=== PATIENT | male | born 1940 | race Caucasian/White ===

== ENCOUNTER 2016-07-25 07:44 | Emergency (ER) | payer MEDICARE ==
[2016-07-25] MEDS ORDERED: Ondansetron INJ* 2 MG/ML VIAL IV ONE (08:22)
[2016-07-25] MEDS ORDERED: NS 0.9% 1000 ML* 1,000 ML IV ONE (08:22)
[2016-07-25 08:53] LABS: Hematocrit 42 % (42-52); Hemoglobin 14.3 g/dl (14.0-18.0); Mean Corpuscular HGB Conc 35 g/dl (31-36); Mean Corpuscular Hemoglobin 32 pg (27-31); Mean Corpuscular Volume 92 fL (80-94); Mean Platelet Volume 9 um3 (7.4-10.4); Red Blood Count 4.54 10^6/ul (4.0-5.4); Red Cell Distribution Width 14 % (10.5-15); White Blood Count 9.3 10^3/ul (3.5-10.8)
[2016-07-25 09:09] LABS: Albumin 4.1 g/dL (3.2-5.2); BUN/Creatinine Ratio 30.3 (8-20); C Reactive Protein 7.81 mg/L (< 5.00); Calcium 9.1 mg/dL (8.6-10.3); EGFR African American 74.1 (>60); EGFR Non-African American 57.6 (>60); Globulin 2.9 g/dL (2-4); Potassium 3.9 mmol/L (3.5-5.0); Total Bilirubin 0.9 mg/dL (0.2-1.0)
[2016-07-25 15:23] VITALS: BP 122/67
--- NOTE | 2016-07-25 15:30 | ED ---
Donald, DoctorSpaphire, scribed for Bong Mcfadden MD on 07/25/16 at 0830 . GI/ HPI - HPI Summary HPI Summary: 76 year old male arrived to [facility] c/o frequent N/V/D, beginning last night after eating dinner. He reports that his stool is loose and watery, and he estimates 4 episodes of diarrhea since last night. He also reports abdominal cramping beginning last night that has since resolved slightly. Additionally, the patient mentioned that has had the sensation of a "pinched vein" in his right foot beginning 1 week ago. - History of Current Complaint Chief Complaint: EDNauseaVomitDiarrh Time Seen by Provider: 07/25/16 08:06 Stated Complaint: NAUSEA/VOMTIING Hx Obtained From: Patient Onset/Duration: Started Days Ago - last night Timing: Intermittent Severity: Moderate Current Severity: Moderate Pain Intensity: 5 Pain Characteristics: Cramping - abdominal cramping Associated Signs and Symptoms: Positive: Nausea, Vomiting, Diarrhea, Abdominal Pain - cramping Alleviating Factor(s): Spontaneous Resolution - abdominal cramping spontaneously resolved since onset - Allergy/Home Medications Allergies/Adverse Reactions: Allergies Allergy/AdvReac Type Severity Reaction Status Date / Time Latex Allergy Unknown Unknown Verified 07/25/16 07:59 Reaction Details Adhesive Tape [Paper Tape] Allergy See Comment Verified 07/25/16 07:59 PMH/Surg Hx/FS Hx/Imm Hx Endocrine/Hematology History: Reports: Hx Diabetes Cardiovascular History: Reports: Hx Coronary Artery Disease, Hx Hypertension, Hx Myocardial Infarction Respiratory History: Denies: Hx Asthma, Hx Chronic Obstructive Pulmonary Disease (COPD) - Surgical History Surgery Procedure, Year, and Place: CABG Infectious Disease History: Reports: Hx of Known/Suspected MRSA - STOMACH RASH Denies: Traveled Outside the [place] in Last 30 Days - Family History Known Family History: Negative: Cardiac Disease, Diabetes - Social History Alcohol Use: None Substance Use Type: Reports: None Smoking Status (MU): Former Smoker Review of Systems Negative: Fever Positive: Abdominal Pain - abdominal cramping, Vomiting, Diarrhea, Nausea All Other Systems Reviewed And Are Negative: Yes Physical Exam Triage Information Reviewed: Yes Vital Signs On Initial Exam: Initial Vitals Temp Pulse Resp BP Pulse Ox 98.3 F 91 20 103/87 96 07/25/16 07:48 07/25/16 07:48 07/25/16 07:48 07/25/16 07:48 07/25/16 07:48 Vital Signs Reviewed: Yes Appearance: Positive: Well-Appearing, No Pain Distress Skin: Positive: Warm, Skin Color Reflects Adequate Perfusion, Dry Head/Face: Positive: Normal Head/Face Inspection Eyes: Positive: Normal ENT: Positive: Other - tongue slightly dry, dry mucous membranes Neck: Positive: Supple, Nontender Respiratory/Lung Sounds: Positive: Clear to Auscultation, Breath Sounds Present Cardiovascular: Positive: RRR Abdomen Description: Positive: Nontender, Soft Bowel Sounds: Positive: Hyperactive Musculoskeletal: Positive: Normal Neurological: Positive: Normal Diagnostics - Vital Signs Vital Signs Temp Pulse Resp BP Pulse Ox 07/25/16 07:52 91 18 103/87 96 07/25/16 07:49 91 20 97 07/25/16 07:48 98.3 F 91 20 103/87 96 - Laboratory Lab Results: Lab Results 07/25/16 07/25/16 07/25/16 Range/Units 08:42 08:42 08:42 WBC 9.3 (3.5-10.8) 10^3/ul RBC 4.54 (4.0-5.4) 10^6/ul Hgb 14.3 (14.0-18.0) g/dl Hct 42 (42-52) % MCV 92 (80-94) fL MCH 32 H (27-31) pg MCHC 35 (31-36) g/dl RDW 14 (10.5-15) % Plt Count 111 L (150-450) 10^3/ul MPV 9 (7.4-10.4) um3 Neut % (Auto) 89.1 H (38-83) % Lymph % (Auto) 2.9 L (25-47) % [place] % (Auto) 5.2 (1-9) % Eos % (Auto) 1.4 (0-6) % Baso % (Auto) 1.4 (0-2) % Absolute Neuts (auto) 8.3 H (1.5-7.7) 10^3/ul Absolute Lymphs (auto) 0.3 L (1.0-4.8) 10^3/ul Absolute Monos (auto) 0.5 (0-0.8) 10^3/ul Absolute Eos (auto) 0.1 (0-0.6) 10^3/ul Absolute Basos (auto) 0.1 (0-0.2) 10^3/ul Absolute Nucleated RBC 0 10^3/ul Nucleated RBC % 0 Sodium 132 L (133-145) mmol/L Potassium 3.9 (3.5-5.0) mmol/L Chloride 101 (101-111) mmol/L Carbon Dioxide 22 (22-32) mmol/L Anion Gap 9 (2-11) mmol/L BUN 37 H (6-24) mg/dL Creatinine 1.22 H (0.67-1.17) mg/dL Est GFR ( Amer) 74.1 (>60) Est GFR (Non-Af Amer) 57.6 (>60) BUN/Creatinine Ratio 30.3 H (8-20) Glucose 331 H (70-100) mg/dL Lactic Acid 1.1 (0.5-2.0) mmol/L Calcium 9.1 (8.6-10.3) mg/dL Total Bilirubin 0.90 (0.2-1.0) mg/dL AST 18 (13-39) U/L ALT 26 (7-52) U/L Alkaline Phosphatase 62 (34-104) U/L C-Reactive Protein 7.81 H (< 5.00) mg/L Total Protein 7.0 (6.4-8.9) g/dL Albumin 4.1 (3.2-5.2) g/dL Globulin 2.9 (2-4) g/dL Albumin/Globulin Ratio 1.4 (1-3) Lipase 26 (11.0-82.0) U/L Result Diagrams: 07/25/16 08:42 07/25/16 08:42 Lab Statement: Any lab studies that have been ordered have been reviewed, and results considered in the medical decision making process. GIGU Course/Dx - Course Course Of Treatment: Mr. Lara had quite a bit of diarrhea here in the ED and while we were rehydrating him and checking electrolytes, it gradually abated. - Diagnoses Provider Diagnoses: Gastroenteritis Discharge - Discharge Plan Condition: Stable Disposition: HOME Prescriptions: Ondansetron ODT TAB* [Zofran Odt TAB*] 4 mg PO Q6H PRN #20 tab.odt PRN Reason: Nausea/Vomiting Ondansetron ODT TAB* [Zofran Odt TAB*] 4 mg PO Q6H PRN #20 tab.odt PRN Reason: Nausea/Vomiting Patient Education Materials: Gastroenteritis (ED) Referrals: Judith Beasley MD [Primary Care Provider] - Additional Instructions: Follow up with Dr. Beasley. The documentation as recorded by the Doctor mohr Tahera accurately reflects the service I personally performed and the decisions made by , Bong Mcfadden MD.
== END 2016-07-25 15:23 | disposition home or self-care (01) ==
LOC: ED 07:44
DX: K52.9 Noninfective gastroenteritis and colitis, unspecified (principal); R11.2 Nausea with vomiting, unspecified; R19.7 Diarrhea, unspecified; Z87.891 Personal history of nicotine dependence
CPT/HCPCS: 36415; 80053; 82272; 83605; 83630; 83690; 85025; 86140; 87493; 93005; 96374; 99283; J2405

== ENCOUNTER 2017-09-04 14:47 | Observation (INO) | payer MEDICARE ==
[2017-09-04 15:43] LABS: ABS Basophils 0.1 10^3/ul (0-0.2); ABS Eosinophils 0.2 10^3/ul (0-0.6); ABS Monocytes 0.7 10^3/ul (0-0.8); ABS Neutrophils 4.4 10^3/ul (1.5-7.7); ABS Nucleated RBC 0 10^3/ul; Eosinophil % 3.2 % (0-6); Hematocrit 34 % (42-52); Lymphocyte % 15.7 % (25-47); Mean Corpuscular HGB Conc 35 g/dl (31-36); Mean Corpuscular Hemoglobin 33 pg (27-31); Mean Corpuscular Volume 93 fL (80-94); Mean Platelet Volume 9.2 um3 (7.4-10.4); Nucleated Red Blood Cells % 0; Platelet Count 130 10^3/ul (150-450); Red Blood Count 3.67 10^6/ul (4.0-5.4); Red Cell Distribution Width 14 % (10.5-15); White Blood Count 6.4 10^3/ul (3.5-10.8)
[2017-09-04 16:12] LABS: EGFR Non-African American 52.9 (>60)
[2017-09-04] MEDS ORDERED: Digoxin IV* 0.5 MG/2 ML AMP (0.25 MG/ML) IV SLOW PU ONE ×2 (16:31→22:30)
--- NOTE | 2017-09-04 17:00 | RAD ---
Indication: Hypotension, atrial fibrillation. Comparison: July 21, 2016 Technique: Upright AP 1545 hours Report: En face pleural plaques visible at the RIGHT lower lung zone corresponding with prior CT finding. Mild prominence of interstitial markings. Grossly clear pleural spaces. Negative for pneumothorax. RIGHT atrial and RIGHT ventricular level pacemaker leads. Cardiomegaly. Median sternotomy wires. Prominent mildly ill-defined central pulmonary vasculature. IMPRESSION: The constellation of findings is most consistent with pulmonary vascular congestion and interstitial edema.
[2017-09-04 17:12] LABS: Urine Appearance Clear; Urine Blood Negative (Negative); Urine Color Yellow; Urine Ketones Negative (Negative); Urine Protein Negative (Negative); Urine Specific Gravity 1.005 (1.010-1.030); Urine Urobilinogen Negative (Negative)
[2017-09-04] MEDS ORDERED: Ondansetron INJ* 2 MG/ML VIAL IV PRN (17:16)
[2017-09-04] MEDS ORDERED: Acetaminophen TAB* 325 MG PO PRN (17:16)
[2017-09-04] MEDS ORDERED: Nitroglycerin TAB 0.4 MG* 0.4 MG TAB SL PRN (17:21)
[2017-09-04] MEDS ORDERED: HYDROcodone/ACETAMIN 5-325 MG* 1 TAB PO PRN (17:21)
[2017-09-04] MEDS ORDERED: Amiodarone TAB* 200 MG PO SCH (17:25)
[2017-09-04] MEDS ORDERED: Dextrose 50% Syringe 50 ML* 25 GM/50 ML SYRINGE IV PUSH PRN (17:29)
[2017-09-04] MEDS ORDERED: Amiodarone TAB* 200 MG ONE (17:52)
[2017-09-04] MEDS ORDERED: Insulin GLARGINE(*) 1 UNITS UNIT SUBCUT SCH ×2 (18:00→20:29)
--- NOTE | 2017-09-04 18:15 | ED ---
Se Bennett Thomas, scribed for Aracely Lemus MD on 09/04/17 at 1512 . Palpitations / Dysrhythmia - HPI Summary HPI Summary: The patient is a 77 year old male with complaints of palpitations that began today. At baseline, the patient is able to walk around his house without becoming short of breath, but today he develops shortness of breath when walking around his house. He denies chest pain, chest pressure, nausea, vomiting , diaphoresis, fevers, chills, and recent cold symptoms. 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 He had pneumonia two months ago. - History of Current Complaint Chief Complaint: EDChestPainROMI Time Seen by Provider: 09/04/17 15:00 Hx Obtained From: Patient Onset/Duration: Lasting Hours, Still Present Timing: Constant Severity Initially: Moderate Aggravating: Nothing Alleviating: Nothing Associated Signs & Symptoms: Negative - CP, chest pressure, nausea, vomiting, diaphoresis, fevers, chills, cold symptoms - Allergy/Home Medications Allergies/Adverse Reactions: Allergies Allergy/AdvReac Type Severity Reaction Status Date / Time Adhesive Tape [Paper Tape] Allergy See Comment Verified 09/04/17 15:09 latex Allergy Unknown Verified 09/04/17 15:09 Reaction Details Home Medications: Home Medications Amiodarone TAB* [Cordarone TAB*] 100 mg PO DAILY 09/04/17 [History Confirmed ] Aspirin EC TAB* [Ecotrin EC Low Dose 81 MG*] 81 mg PO DAILY 09/04/17 [History Confirmed 09/04/17] Carvedilol TAB* [Coreg TAB*] 25 mg PO BID 09/04/17 [History Confirmed 09/04/17] Cyanocobalamin TAB* [Vitamin B12 TAB*] 1,000 mcg PO DAILY 09/04/17 [History Confirmed 09/04/17] Hydrochlorothiazide TAB* [Hydrodiuril TAB*] 25 mg PO DAILY 09/04/17 [History Confirmed 09/04/17] Hydrocodone/APAP 5/300 (NF) [Vicodin 5 MG/300 MG(NF)] 1 tab PO Q6H PRN 09/04/17 [History Confirmed 09/04/17] Insulin GLARGINE(*) [Lantus(*)] 35 units SUBCUT QAM 09/04/17 [History Confirmed 09/04/17] Insulin GLARGINE(*) [Lantus(*)] 80 units SUBCUT QPM 09/04/17 [History Confirmed 09/04/17] Isosorbide Mononitrate ER TAB* [Imdur ER TAB*] 60 mg PO DAILY 09/04/17 [History Confirmed 09/04/17] Multivitamins/Minerals TAB* [Theragran/minerals TAB*] 1 tab PO DAILY 09/04/17 [ History Confirmed 09/04/17] Nitroglycerin TAB 0.4 MG* 0.4 mg SL Q5M PRN 09/04/17 [History Confirmed 09/04/17 ] Pravastatin (NF) [Pravachol (NF)] 80 mg PO BEDTIME 09/04/17 [History Confirmed 09/04/17] Quinapril (NF) [Accupril (NF)] 40 mg PO DAILY 09/04/17 [History Confirmed ] Spironolactone TAB* [Aldactone TAB*] 12.5 mg PO DAILY 09/04/17 [History Confirmed 09/04/17] Tamsulosin CAP* [Flomax CAP*] 0.4 mg PO DAILY 09/04/17 [History Confirmed ] glipiZIDE TAB* [Glucotrol TAB*] 10 mg PO DAILY 09/04/17 [History Confirmed 09/04] PMH/Surg Hx/FS Hx/Imm Hx Endocrine/Hematology History: Reports: Hx Diabetes Cardiovascular History: Reports: Hx Coronary Artery Disease, Hx Hypertension, Hx Myocardial Infarction Respiratory History: Denies: Hx Asthma, Hx Chronic Obstructive Pulmonary Disease (COPD) - Surgical History Surgery Procedure, Year, and Place: CABG Infectious Disease History: No Infectious Disease History: Reports: Hx of Known/Suspected MRSA - STOMACH RASH Denies: Traveled Outside the [place] in Last 30 Days - Family History Known Family History: Negative: Cardiac Disease, Diabetes - Social History Alcohol Use: None Substance Use Type: Reports: None Smoking Status (MU): Former Smoker Review of Systems Negative: Fever, Chills, Skin Diaphoresis Positive: Palpitations. Negative: Chest Pain, Other - chest pressure Negative: Vomiting, Nausea All Other Systems Reviewed And Are Negative: Yes Physical Exam - Summary Physical Exam Summary: Appearance: Well-appearing. Skin: Warm Eyes: Normal ENT: Normal Neck: Supple, nontender Respiratory: Clear to auscultation Cardiovascular: Irregular Heart Rate. Tachy zoey 60s-100s. Abdomen: Soft, nontender Musculoskeletal: Normal, Strength/ROM Intact Neurological: Normal, A&Ox3 Psychiatric: Normal General: No acute distress Triage Information Reviewed: Yes Vital Signs On Initial Exam: Initial Vitals Temp Pulse Resp BP Pulse Ox 97.9 F 73 16 108/64 99 09/04/17 14:52 09/04/17 14:52 09/04/17 14:52 09/04/17 14:52 09/04/17 14:52 Vital Signs Reviewed: Yes Diagnostics - Vital Signs Vital Signs Temp Pulse Resp BP Pulse Ox 09/04/17 14:52 97.9 F 73 16 108/64 99 - Laboratory Lab Results: Lab Results 09/04/17 09/04/17 09/04/17 Range/Units 15:28 15:28 15:28 WBC 6.4 (3.5-10.8) 10^3/ul RBC 3.67 L (4.0-5.4) 10^6/ul Hgb 12.0 L (14.0-18.0) g/dl Hct 34 L (42-52) % MCV 93 (80-94) fL MCH 33 H (27-31) pg MCHC 35 (31-36) g/dl RDW 14 (10.5-15) % Plt Count 130 L (150-450) 10^3/ul MPV 9.2 (7.4-10.4) um3 Neut % (Auto) 69.0 (38-83) % Lymph % (Auto) 15.7 L (25-47) % [place] % (Auto) 11.0 H (0-7) % Eos % (Auto) 3.2 (0-6) % Baso % (Auto) 1.1 (0-2) % Absolute Neuts (auto) 4.4 (1.5-7.7) 10^3/ul Absolute Lymphs (auto) 1.0 (1.0-4.8) 10^3/ul Absolute Monos (auto) 0.7 (0-0.8) 10^3/ul Absolute Eos (auto) 0.2 (0-0.6) 10^3/ul Absolute Basos (auto) 0.1 (0-0.2) 10^3/ul Absolute Nucleated RBC 0 10^3/ul Nucleated RBC % 0 Sodium 137 L (139-145) mmol/L Potassium 4.0 (3.5-5.0) mmol/L Chloride 104 (101-111) mmol/L Carbon Dioxide 25 (22-32) mmol/L Anion Gap 8 (2-11) mmol/L BUN 20 (6-24) mg/dL Creatinine 1.31 H (0.67-1.17) mg/dL Est GFR ( Amer) 68.1 (>60) Est GFR (Non-Af Amer) 52.9 (>60) BUN/Creatinine Ratio 15.3 (8-20) Glucose 177 H (70-100) mg/dL Lactic Acid (0.5-2.0) mmol/L Calcium 8.8 (8.6-10.3) mg/dL Total Bilirubin 0.50 (0.2-1.0) mg/dL AST 12 L (13-39) U/L ALT 13 (7-52) U/L Alkaline Phosphatase 54 (34-104) U/L Troponin I 0.01 (<0.04) ng/mL B-Natriuretic Peptide 406 H ( - 100) pg/mL Total Protein 6.1 L (6.4-8.9) g/dL Albumin 3.7 (3.2-5.2) g/dL Globulin 2.4 (2-4) g/dL Albumin/Globulin Ratio 1.5 (1-3) TSH 0.47 (0.34-5.60) mcIU/mL Thyroxine (T4) Pending Total T3 Pending Urine Color Urine Appearance Urine pH (5-9) Ur Specific [place] (1.010-1.030) Urine Protein (Negative) Urine Ketones (Negative) Urine Blood (Negative) Urine Nitrate (Negative) Urine Bilirubin (Negative) Urine Urobilinogen (Negative) Ur Leukocyte Esterase (Negative) Urine Glucose (Negative) 09/04/17 09/04/17 Range/Units 15:28 15:51 WBC (3.5-10.8) 10^3/ul RBC (4.0-5.4) 10^6/ul Hgb (14.0-18.0) g/dl Hct (42-52) % MCV (80-94) fL MCH (27-31) pg MCHC (31-36) g/dl RDW (10.5-15) % Plt Count (150-450) 10^3/ul MPV (7.4-10.4) um3 Neut % (Auto) (38-83) % Lymph % (Auto) (25-47) % [place] % (Auto) (0-7) % Eos % (Auto) (0-6) % Baso % (Auto) (0-2) % Absolute Neuts (auto) (1.5-7.7) 10^3/ul Absolute Lymphs (auto) (1.0-4.8) 10^3/ul Absolute Monos (auto) (0-0.8) 10^3/ul Absolute Eos (auto) (0-0.6) 10^3/ul Absolute Basos (auto) (0-0.2) 10^3/ul Absolute Nucleated RBC 10^3/ul Nucleated RBC % Sodium (139-145) mmol/L Potassium (3.5-5.0) mmol/L Chloride (101-111) mmol/L Carbon Dioxide (22-32) mmol/L Anion Gap (2-11) mmol/L BUN (6-24) mg/dL Creatinine (0.67-1.17) mg/dL Est GFR ( Amer) (>60) Est GFR (Non-Af Amer) (>60) BUN/Creatinine Ratio (8-20) Glucose (70-100) mg/dL Lactic Acid 1.2 (0.5-2.0) mmol/L Calcium (8.6-10.3) mg/dL Total Bilirubin (0.2-1.0) mg/dL AST (13-39) U/L ALT (7-52) U/L Alkaline Phosphatase (34-104) U/L Troponin I (<0.04) ng/mL B-Natriuretic Peptide ( - 100) pg/mL Total Protein (6.4-8.9) g/dL Albumin (3.2-5.2) g/dL Globulin (2-4) g/dL Albumin/Globulin Ratio (1-3) TSH (0.34-5.60) mcIU/mL Thyroxine (T4) Total T3 Urine Color Yellow Urine Appearance Clear Urine pH 6.0 (5-9) Ur Specific [place] 1.005 L (1.010-1.030) Urine Protein Negative (Negative) Urine Ketones Negative (Negative) Urine Blood Negative (Negative) Urine Nitrate Negative (Negative) Urine Bilirubin Negative (Negative) Urine Urobilinogen Negative (Negative) Ur Leukocyte Esterase Negative (Negative) Urine Glucose Negative (Negative) Result Diagrams: 09/04/17 15:28 09/04/17 15:28 Lab Statement: Any lab studies that have been ordered have been reviewed, and results considered in the medical decision making process. - Radiology CXR Xray Interpretation: No Acute Changes - IMPRESSION: The constellation of findings is most consistent with pulmonary vascular congestion and interstitial edema. Dr. Lemus has reviewed this report. Radiology Interpretation Completed By: Radiologist - EKG 14:52 EKG Interpretation: Atrial dual-paced complexes at 101 BPM. Baseline RBBB due to pacing. 15:51 EKG Interpretation: Atrial dual-paced complexes at 104 BPM. Unchanged RBBB due to pacing. Course/Dx - Course Assessment/Plan: CBC and CMP are unremarkable. First troponin is negative. 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 pt is tachy zoey on tele, Loading dose of Digoxin 0.25mg administered. Discussed case with Dr Calderón who will admit pt to hospitalist service. - Diagnoses Provider Diagnoses: Afib - Physician Notifications Discussed Care Of Patient With: John Edmond Time Discussed With Above Provider: 16:30 Instructed by Provider To: Other - Dr. Edmond, cardiology, recommends admission to the hospitalists. The patient is admitted to the hospitalists. Discharge - Sign-Out/Discharge Documenting (check all that apply): Discharge - Discharge Plan Condition: Stable Disposition: ADMITTED TO [facility] Patient Education Materials: A-fib (Atrial Fibrillation) (ED) Referrals: Judith Beasley MD [Primary Care Provider] - - Billing Disposition and Condition Condition: STABLE Disposition: [facility] The documentation as recorded by the Se mohr Thomas accurately reflects the service I personally performed and the decisions made by Allan chamberlain Euni, MD.
[2017-09-04] MEDS: Amiodarone TAB* 200 MG PO SCH (20:53)
[2017-09-04] MEDS: Carvedilol TAB* 25 MG PO SCH (20:54)
[2017-09-04] MEDS: Apixaban* 5 MG TAB PO SCH (20:54)
[2017-09-04] MEDS: Atorvastatin* 20 MG TAB PO SCH (20:54)
[2017-09-04] MEDS: Insulin GLARGINE(*) 1 UNITS UNIT SUBCUT SCH (20:55)
--- NOTE | 2017-09-04 20:57 | HP ---
AMENDED REPORT NOW INCLUDES COSIGNER DESIGNATION - ESIGNED BEFORE ADJUSTMENT CC: Judith Beasley MD; John Edmond MD * HISTORY AND PHYSICAL: DATE OF ADMISSION: 09/04/17 PRIMARY CARE PROVIDER: Judith Beasley MD MY ATTENDING WHILE IN THE HOSPITAL: Ernesto Stauffer MD * (DICTATED BY KINGSLEY PRASAD) PRIMARY VETERINARY MEDICINE TEACHER: John Edmond MD CHIEF COMPLAINT: Shortness of breath, general malaise, irregular and atrial fibrillation. HISTORY OF PRESENT ILLNESS: Mr. Lara is a 77-year-old male, past medical history significant for coronary artery disease status post CABG with IA, pacer , ICD placement, hypertension, paroxysmal atrial fibrillation, diabetes mellitus type 2, hyperlipidemia, chronic kidney disease, who presents with not feeling well, shortness of breath and was found to be in atrial fibrillation at his healthcare advisory services manager's office. The patient states that this morning he woke up, felt fine, had breakfast and then started to feel poorly. His feeling poorly started around 9:30. The patient had no changes to his morning routine. The patient has no recent illnesses. The patient has no recent changes in medication, diet, or intake amount. The patient had no chest pain. The patient was short of breath and unable to exert himself to any significant degree without getting severely short of breath. Before this, the patient had been limited in his exercise tolerance, but had no dyspnea to this degree with exertion. The patient had no swelling in his legs before today, but today noticed that he had increased swelling in his legs. The patient has no history of blood clots. No pain in his calves before coming to the emergency department. The patient had pneumonia in June and was treated with azithromycin, but had a persistent cough for approximately 2 months. The patient has postnasal drip which causes a chronic dry cough. The patient does not know if he has a flu. The patient did receive his flu shot. The patient has no fevers, chills, nausea, vomiting. The patient takes laxatives chronically for chronic issues with his colon. The patient was scheduled this morning to have an echocardiogram at his healthcare advisory services manager's office. The patient was also scheduled for a stress test to evaluate his preoperative risk because he has a femoral aneurysm which needs to be repaired as well as plan for cataract surgery. The patient in the emergency department was seen to be going in and out of atrial fibrillation with a rate from 100 to 120, but often being in normal sinus rhythm with the rate around 60. The patient has a pacemaker and his faster rates are paced and had a right bundle-branch block pattern. The patient was seen in consultation by Cardiology and it was recommended that he be monitored and we were asked to consult for admission. 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 PAST MEDICAL HISTORY: Coronary artery disease status post CABG; history of IA; history of pacer/ICD implantation; hypertension; paroxysmal atrial fibrillation ; ventricular tachycardia postoperatively; congestive heart failure, ejection fraction 30% to 35%; diabetes mellitus type 2, insulin dependent; hyperlipidemia ; chronic kidney disease stage 3; chronic back pain; lung nodule; femoral aneurysm; history of small bowel obstruction with bowel resection and colostomy which was reversed; prostate cancer status post radiation treatment; multinodular goiter. PAST SURGICAL HISTORY: Bilateral knee surgery, tonsillectomy, pacemaker implantation, CABG in 2000, total left knee replacement in 2013, surgery for small bowel obstruction, colostomy reversal in 2007. HOME MEDICATIONS: At home: 1. Insulin glargine 8 units subcutaneous q.p.m. 2. Insulin glargine 35 units subcutaneous q.a.m. 3. Nitroglycerin 0.4 mg sublingual q.5 minutes as needed. 4. Vicodin 5/300, 1 tab p.o. q.6 hours as needed. 5. Multivitamin 1 tab p.o. daily. 6. Hydrochlorothiazide 25 mg p.o. daily. 7. Vitamin B12, 1000 mcg p.o. daily. 8. Amiodarone 100 mg p.o. daily. 9. Tamsulosin 0.4 mg p.o. daily. 10. Spironolactone 12.5 mg p.o. daily. 11. Glipizide 10 mg p.o. daily. 12. Pravastatin 80 mg p.o. at bedtime. 13. Imdur 60 mg p.o. daily. 14. Carvedilol 25 mg p.o. b.i.d. 15. Quinapril 40 mg p.o. daily. 16. Aspirin 81 mg p.o. daily. ALLERGIES: ADHESIVE TAPE and LATEX. FAMILY HISTORY: The patient's mother of old age. The patient's father of a GI bleed. The patient has no siblings. His children are healthy and has no other conditions that run in his family including cancers. SOCIAL HISTORY: The patient smoked for 16 years, one half to a full pack a day. The patient previously abused alcohol, but does not drink alcohol anymore. The patient denies illicit drug use. 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 The patient is currently retired. The patient is and has 3 children. The patient's health-care proxy will be his son, Ruben Lara. REVIEW OF SYSTEMS: A 14-point review of systems was reviewed and is negative except as above. PHYSICAL EXAMINATION GENERAL: The patient is a 77-year-old male who appears stated age and is sitting comfortably in bed, in no acute distress. VITAL SIGNS: Temperature 97.9, pulse rate 73, respiratory rate 16, oxygen saturation 99% on room air, blood pressure 108/64. HEENT: Head: Normocephalic, atraumatic. Sclerae anicteric. No conjunctival injection. Nasal mucosa moist. Oral mucosa moist. No pharyngeal erythema, discharge, exudate, or postnasal drip. NECK: Supple, nontender. No lymphadenopathy. No carotid bruit auscultated. No JVD. Thyroid nonpalpable. RESPIRATORY: Clear to auscultation bilaterally. No wheezes, rales, or rhonchi. Good air exchange bilaterally. CARDIAC: Regular rate and rhythm. No clicks, murmurs, gallops, or rubs. Pulses 1+ in the bilateral radial, posterior tibialis, and dorsalis pedis areas. 1+ pitting edema in the bilateral lower extremities. No calf tenderness on exam. ABDOMEN: Soft, nontender, and nondistended. Bowel sounds present and normoactive in all 4 quadrants. The patient has scars consistent with previous laparotomy and colostomy. GENITOURINARY: No suprapubic or CVA tenderness. NEUROLOGIC: Cranial nerves II through XII intact. Alert and oriented x3. No focal deficits. SKIN: Clean, dry, and intact. No rash. Scar is consistent with surgeries outlined above. PSYCHIATRIC: Pleasant and cooperative. LABORATORY DATA: White blood cell count 6.4, hemoglobin 12.0, hematocrit 34, MCV 93, MCH 33, platelet count 130,000. Sodium 137, potassium 4.0, chloride 104 , carbon dioxide 25, anion gap 8, BUN 20, creatinine 1.31, glucose 177, lactic acid 1.2, calcium 8.8. Total bilirubin 0.5, AST 12, ALT 13, alkaline phosphatase 54. Troponin I 0.01. BNP 400. Total protein 6.1. Albumin 3.7, globulin 2.4. TSH 0.47. Urine color yellow, clear, specific gravity 1.005. No other significant findings. STUDIES: Electrocardiogram shows paced rhythm, rate of 104, some right bundle- branch block pattern, left axis deviation. Repeat echocardiogram shows no significant changes. Chest x-ray, it is not an official read, shows increased pulmonary edema from previous exams with possible bilateral blunting in the costophrenic angles indicting pleural effusion. ASSESSMENT AND PLAN/IMPRESSION: 1. Mr. Lara is a 77-year-old male with past medical history significant for coronary artery disease, paroxysmal atrial fibrillation, status post pacemaker ICD implantation, hypertension, hyperlipidemia, who presents with feeling poorly, was found to be in atrial fibrillation with intermittently elevated rates with significantly increased shortness of breath, swelling in his legs, pulmonary edema. The patient has no provoking factor. We will have his amiodarone increased. The patient will be started on Eliquis, be loaded with digoxin and will be monitored. 2. Atrial fibrillation. The patient had known paroxysmal atrial fibrillation which has never been persistent before. He has refused anticoagulation to this point. He had amiodarone for rhythm control as well as for prophylaxis of ventricular tachycardia. The patient has been found to be in atrial fibrillation for a greater proportion of the time today probably accounting for his feeling poorly and apparent to the congestive heart failure exacerbation, the patient has been given 0.25 mg of digoxin. This will be repeated in 6 hours and then repeated as needed and transitioned to oral therapy. We will check a level in the morning. The patient will be monitored on telemetry. The patient will have the ICD interrogated. It has been 2 months since this has been done and it will provide information on how frequently he has been in atrial fibrillation. The patient will be anticoagulated with Eliquis for at least 1 month. There is consideration for cardioversion as he appears to be very intolerant of atrial fibrillation. This will have to be done after a period of anticoagulation. The patient appreciated Cardiology consultation. The patient's amiodarone may be dropped back to 200 mg daily when he has been fully loaded and his atrial fibrillation is under greater control. 3. Congestive heart failure, coronary artery disease, history of myocardial infarction. The patient's atrial fibrillation appears to be exacerbating his congestive heart failure. The patient's most recent ejection fraction was noted to be 30% to 35%. We will update his echocardiogram which is scheduled for outpatient today. Any way, we will give the patient IV Lasix 20 mg now and diurese more fully as needed. Consideration for the patient's relative hypotension should be taken into account when diuresing. The patient's heart failure is likely to improve as his atrial fibrillation is more fully controlled. 4. Hypertension. We will continue the patient's hydrochlorothiazide, carvedilol, amiodarone, quinapril, and spironolactone as well as Imdur at this point. These will be continued with hold parameters. The patient has been borderline hypotensive; however, this is with all his medications on board. 5. Diabetes mellitus type 2. The patient's glipizide will be held while in the hospital. The patient's home dose of long-acting insulin will be held. The patient will be on sliding scale insulin with fingersticks a.c. and h.s. We will update the hemoglobin A1c. 6. Hyperlipidemia. 7. Chronic kidney disease. The patient's kidney disease is actually improved from his baseline despite atrial fibrillation. This likely represents fluid overload which will be treated with diuresis. We will continue to monitor. 8. Multinodular goiter. Due to multinodular goiter, the patient is at risk for thyrotoxicosis from iodine loads as are found in amiodarone. The patient's TSH is 0.47. The patient appears to have been always on the borderline of hyperthyroidism due to his TSH. We will add on T3 and T4. Given the patient's ejection fraction, there is no other rate control medication that has not been shown to increase mortality; however, his thyroid function should be monitored as this could be exacerbating his atrial fibrillation. 9. FEN: The patient will have heart healthy diet without caffeine. The patient will not have fluids due to fluid overload and congestive heart failure. 10. Code status: The patient would like to be a full code. The patient's surrogate decision maker is his son, Ruben Lara. 11. DVT prophylaxis: The patient is a high risk. The patient will be put on Eliquis. 12. Disposition: The patient will be admitted to the hospital inpatient. TIME SPENT: Approximately 75 minutes was spent on this admission, 30 of which was spent [id number] with the patient obtaining history and physical and discussing the treatment plan. This plan has been discussed with my attending, Dr. Ernesto Stauffer and the patient's primary healthcare advisory services manager, Dr. John Edmond and they are in agreement. KINGSLEY PRASAD [id number]/[facility] #: [id number] RODOLFO
--- NOTE | 2017-09-04 21:38 | CONS ---
CC: Dr. Edmond; Dr. Beasley CARDIOLOGY CONSULTATION: DATE OF CONSULT: 09/04/17. HISTORY OF PRESENT ILLNESS: This is a very pleasant 77-year-old gentleman, who woke up at 4 a.m. this morning, went to the bathroom and felt short of breath, which was unusual for him. He went back to bed. Then had his breakfast and felt dizzy, lightheaded until about 9:30 am. He went to the office for previously scheduled echocardiogram appointment, there he was noted to feel poorly and had a blood pressure in the 84/48 with the heart rate of 79. He had an EKG performed, which was suggestive of tachycardia, possibly atrial sensed/ ventricular paced. He has a history of atrial arrhythmias, possibly atrial tachycardia, SVT, or atrial flutter and nonsustained VT and has been on amiodarone. His dose has been reduced in recent months to try to avoid worsening pulmonary diffusion capacity parameters. He denied any chest pain. Because of the rapid heart rate in the 120s, it was decided to transfer him to the emergency room. He was advised to have an ambulance, but declined and had his family transport him. He intermittently had atrial pacing with a right bundle-branch block and then episodes of faster wide- complex, probably atrial sensed/ventricular paced. He says he is feeling better right now. He denies any syncope. He does not lie flat due to nasal congestion. He denies any edema. No fevers, chills, or sweats. He said he has been eating more vegetables and has some loosely formed stool, but no urinary problems. He denies any dietary indiscretion. He says when he is feeling well, he can walk an eighth of a mile without stopping. His past medical history includes coronary bypass grafting back in 2000 or 2001, at that time he had 2 grafts placed at [place], [place]. PAST MEDICAL HISTORY: Includes ischemic cardiomyopathy, (ef approx 30-35% 2015), obesity, coronary artery disease with ischemic cardiomyopathy, non- sustained VT, hyperlipidemia, prostate cancer, status post RT treatment, cataracts, appendix with possible surgery, diverticular disease, small bowel obstruction in 2017, thyroid disease, multinodular goiter, chronic back pain, mild renal insufficiency, lung nodule followed since 2007 down in [place]. Pulmonary function test, mild diffusion impairment, last evaluated last year. PA in 2002, hypertension, AFib postop and VT postop in 2001. He also has a left femoral aneurysm and anticipating possible surgery. PAST SURGICAL HISTORY: Includes left hip replacement according to the patient, bilateral knee surgeries, inguinal hernia repair, tonsillectomy, adenoidectomy , ICD placement in 2006, ICD replaced in [address] [facility], diverticular surgery in April of 2007 with a diverticular perforation, diverticular surgery in January of 2008 with a colostomy revision, knee surgery, he has had a small bowel obstruction managed conservatively in 2011. MEDICATIONS: Include: 1. Aldactone 25 mg half a tablet a day. 2. Amiodarone 100 mg half a tablet by mouth. 3. Aspirin 81 mg a day. 4. Carvedilol 25 mg twice a day. 5. Glipizide ER 5 mg a day. 6. Hydrochlorothiazide 25 mg every day. 7. Isosorbide mononitrate 60 mg a day. 8. Levemir insulin 65 in the morning, 60 in the evening. 9. Metformin 500 mg 1 b.i.d. 10. Multivitamin. 11. Nitroglycerin p.r.n. 12. Pravachol 80 mg a day. 13. Quinapril 40 mg a day. 14. Tamsulosin 0.4 mg 2 a day. 15. Vitamin B12, 1500 mcg a day. 16. Vitamin D3, 1000 units a day. ALLERGIES: He has no known drug allergies. 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 He denies alcohol use. He drinks 2 to 3 cups of coffee a day. He is and lives with his . REVIEW OF SYSTEMS: Review of systems x10 was negative except as above. PHYSICAL EXAM: He is a well-developed, well-nourished, obese gentleman, in no apparent distress. Heart rate varies between 77 and 100 and is irregular. Blood pressure 108/64, O2 sat 98%, afebrile 97.9. No significant JVD. Carotids 2+. No cervical adenopathy or thyromegaly. Extraocular muscles intact. Sclerae anicteric. Cardiac Exam: S1, S2. No clicks, murmurs, gallops , or rubs. Chest was clear. Pacemaker site dry and intact. Abdomen: Obese. Bowel sounds present. Femoral pulses intact with bilateral bruits. Distal pulses present and diminished. 1+ ankle edema. Chronic venous stasis changes. Motor strength 5/5 bilaterally. Deep tendon reflexes 2/4. Alert and oriented x3. DIAGNOSTIC STUDIES/LAB DATA: Labs include mild anemia with hematocrit of 34, platelet count is low at 130. Sodium 137, potassium of 4.0, BUN of 20, creatinine of 1.31. Troponin of 0.01. BNP of 406. TSH of 0.47. EKG revealed what appeared to be wide-complex tachycardia at 104, possible atrial sensing/ventricular pacing. EKG from 09/04/17 revealed wide-complex tachycardia undetermined rhythm, fairly regular raising the possible of VT versus atrial sensed/ventricular paced arrhythmias or atrial fibrillation. Of note, his baseline EKG from 07/28/17 revealed atrial pacing with old inferior PA and right bundle-branch block. IMPRESSION: My impression is that Mr. Lara appears to have compromise possibly related to atrial or ventricular arrhythmias. He does have a longstanding history of ischemic cardiomyopathy, atrial arrhythmias and ventricular arrhythmias, but has declined anticoagulation. He also has a history of mildly decreased diffusion capacities, which is prompting us to use lowest dose possible of amiodarone. I have discussed the case with Sammy Joseph and Dr. Stauffer and the patient. For the time being, I recommend the followin. Would continue rule out for myocardial infarction as you are doing. 2. Would load with dig for a better control of his heart rate. 3. Would advance the amiodarone to 200 mg b.i.d. until we have better control of arrhythmias. 4. We will try and maintain his potassium over 4. 5. We will check his magnesium. 6. We will consider a repeat echocardiogram at some point. 7. We will consider anticoagulation in the short term, I discussed the risks and benefits with the patient, he is amenable to a short course of Eliquis anticoagulation until we can determine whether he needs cardioversion or other interventions. 8. He is to refrain from caffeine use. 9. We will try decreasing his quinapril to allow higher blood pressure and optimize his rate control medications. Medical decision making is complex. [id number]/[facility] #: [id number] addendum: 09.05.17 Echo performed 09.04 revealed ischemic cardiomyopathy ef 25-30 % similar to 7.2016. Possible laminated apical thrombus seen on current study; not seen on prior study which poorly visualized the apex JFM 4,14,18 MTDD
[2017-09-05 05:49] LABS: ABS Basophils 0.1 10^3/ul (0-0.2); ABS Eosinophils 0.3 10^3/ul (0-0.6); ABS Lymphocytes 1.1 10^3/ul (1.0-4.8); ABS Monocytes 0.6 10^3/ul (0-0.8); ABS Neutrophils 3.8 10^3/ul (1.5-7.7); ABS Nucleated RBC 0 10^3/ul; Eosinophil % 4.7 % (0-6); Hematocrit 36 % (42-52); Hemoglobin 12.6 g/dl (14.0-18.0); Lymphocyte % 19.3 % (25-47); Mean Corpuscular HGB Conc 35 g/dl (31-36); Mean Corpuscular Hemoglobin 32 pg (27-31); Mean Corpuscular Volume 93 fL (80-94); Mean Platelet Volume 8.7 um3 (7.4-10.4); Nucleated Red Blood Cells % 0; Platelet Count 132 10^3/ul (150-450); Red Blood Count 3.92 10^6/ul (4.0-5.4); Red Cell Distribution Width 14 % (10.5-15); White Blood Count 5.9 10^3/ul (3.5-10.8)
[2017-09-05 06:06] LABS: EGFR Non-African American 47.8 (>60)
--- NOTE | 2017-09-05 08:12 | RAD ---
INDICATION: Pulmonary edema COMPARISON: Most recent comparison chest x-rays dated September 04, 2017 TECHNIQUE: PA and lateral views of the chest were obtained. FINDINGS: Postsurgical changes include a left upper chest cardiac pacemaker with 2 leads overlying the heart as well as sternotomy wires. The heart and mediastinum are normal in size and contour. Similar the prior chest x-rays the stigmata of chronic obstructive pulmonary disease is seen. The lungs otherwise appear adequately aerated. There is no evidence of large pleural effusion. Visualized bones are normal for the patient's age. There is no radiographic evidence of free air beneath the diaphragm IMPRESSION: CHRONIC FINDINGS DESCRIBED ABOVE IN THIS OTHERWISE NONACUTE CHEST X-RAY.
[2017-09-05] MEDS: Isosorbide Mononitrate ER TAB* 60 MG PO SCH (08:55)
[2017-09-05] MEDS: Hydrochlorothiazide TAB* 25 MG PO SCH (08:56)
[2017-09-05] MEDS: Cyanocobalamin TAB* 500 MCG PO SCH (08:56)
[2017-09-05] MEDS: Amiodarone TAB* 200 MG PO SCH ×2 (08:56→19:34)
[2017-09-05] MEDS: Multivitamins/Minerals TAB PO SCH (08:56)
[2017-09-05] MEDS: Carvedilol TAB* 25 MG PO SCH ×2 (08:57→19:35)
[2017-09-05] MEDS: Aspirin EC TAB* 81 MG TAB.EC PO SCH (08:57)
[2017-09-05] MEDS: Apixaban* 5 MG TAB PO SCH ×2 (08:57→19:34)
[2017-09-05] MEDS: Spironolactone TAB* 25 MG PO SCH (08:58)
[2017-09-05] MEDS: Insulin LISPRO* 1 UNITS UNIT SUBCUT SCH ×3 (08:59→17:19)
[2017-09-05] MEDS: Insulin GLARGINE(*) 1 UNITS UNIT SUBCUT SCH ×2 (08:59→17:19)
[2017-09-05] MEDS ORDERED: Insulin GLARGINE(*) 1 UNITS UNIT SUBCUT SCH ×2 (09:00→21:00)
[2017-09-05] MEDS ORDERED: Lisinopril TAB* 10 MG PO SCH ×2 (09:00→09:05)
[2017-09-05] MEDS ORDERED: Magnesium Sulfate 2 GM IV* 2 GM/50 ML BAG IVPB ONE (09:32)
--- NOTE | 2017-09-05 13:52 | PN ---
Subjective Date of Service: 09/05/17 Interval History: patient reports he feels much better today. He has had some intermittent SOB. Continues to feel a little edematous in his lower extremities. No CP. Reports at home he sleeps sitting up in a recliner. Objective Active Medications: Acetaminophen (Tylenol Tab*) 650 mg PO Q6H PRN PRN Reason: FEVER/PAIN Hydrocodone Bitart/Acetaminophen ([place] 5-325 Tab*) 1 tab PO Q6H PRN PRN Reason: PAIN Amiodarone HCl (Cordarone Tab*) 200 mg PO 0900,2100 [facility] Last Admin: 09/05/17 08:56 Dose: 200 mg Apixaban (Eliquis*) 5 mg PO BID [facility] Last Admin: 09/05/17 08:57 Dose: 5 mg Aspirin (Aspirin Ec Tab*) 81 mg PO DAILY [facility] Last Admin: 09/05/17 08:57 Dose: 81 mg Atorvastatin Calcium (Lipitor*) 20 mg PO BEDTIME [facility] PRN Reason: Protocol Last Admin: 09/04/17 20:54 Dose: 20 mg Carvedilol (Coreg Tab*) 25 mg PO BID [facility] Last Admin: 09/05/17 08:57 Dose: 25 mg Cyanocobalamin (Vitamin B12 Tab*) 1,000 mcg PO DAILY [facility] Last Admin: 09/05/17 08:56 Dose: 1,000 mcg Dextrose (D50w Syringe 50 Ml*) 12.5 gm IV PUSH .FOR FS < 60 - SS PRN PRN Reason: FS < 60 Hydrochlorothiazide (Hydrodiuril Tab*) 25 mg PO DAILY [facility] Last Admin: 09/05/17 08:56 Dose: 25 mg Insulin Glargine (Lantus(*)) 50 units SUBCUT QAM [facility] Last Admin: 09/05/17 08:59 Dose: 50 units Insulin Glargine (Lantus(*)) 40 units SUBCUT 1800 [facility] Last Admin: 09/04/17 20:55 Dose: 40 units Insulin Human Lispro (Humalog*) 0 units SUBCUT AC [facility] PRN Reason: Protocol Last Admin: 09/05/17 12:21 Dose: 12 units Isosorbide Mononitrate (Imdur Er Tab*) 60 mg PO DAILY [facility] Last Admin: 09/05/17 08:55 Dose: 60 mg Lisinopril (Prinivil Tab*) 10 mg PO DAILY [facility] PRN Reason: Protocol Multivitamins/Minerals (Theragran/Minerals Tab*) 1 tab PO DAILY [facility] Last Admin: 09/05/17 08:56 Dose: 1 tab Nitroglycerin (Nitroglycerin Tab 0.4 Mg*) 0.4 mg SL Q5M PRN PRN Reason: PAIN - CHEST Ondansetron HCl (Zofran Inj*) 4 mg IV Q6H PRN PRN Reason: NAUSEA Spironolactone (Aldactone Tab*) 12.5 mg PO DAILY [facility] Last Admin: 09/05/17 08:58 Dose: 12.5 mg Vital Signs - 8 hr 09/05/17 09/05/17 09/05/17 07:27 08:40 11:51 Temperature 97.6 F Pulse Rate 91 62 Respiratory 17 16 Rate Blood Pressure 119/60 (mmHg) O2 Sat by Pulse 99 97 Oximetry 09/05/17 11:53 Temperature 97.4 F Pulse Rate 68 Respiratory 17 Rate Blood Pressure 91/61 (mmHg) O2 Sat by Pulse 98 Oximetry Oxygen Devices in Use Now: None Appearance: 77 yo male sitting up on the side of the bed in NAD A+Ox3; [facility] [place] [facility] Eyes: No Scleral Icterus, PERRLA Ears/Nose/Mouth/Throat: NL Teeth, Lips, Gums, Mucous Membranes Moist Neck: NL Appearance and Movements; NL JVP Respiratory: Symmetrical Chest Expansion and Respiratory Effort, Clear to Auscultation Cardiovascular: NL Sounds; No Murmurs; No JVD Abdominal: NL Sounds; No Tenderness; No Distention Extremities: No Clubbing, Cyanosis, - - 1+ LE edema b/l Neurological: Alert and Oriented x 3, NL Sensation, NL Gait, NL Muscle Strength and Tone Lines/Tubes/Other Access: Clean, Dry and Intact Peripheral IV Nutrition: Taking PO's Result Diagrams: 09/05/17 05:34 09/05/17 05:34 Additional Lab and Data: Lab Results 09/04/17 09/04/17 09/04/17 Range/Units 15:28 15:28 15:28 WBC 6.4 (3.5-10.8) 10^3/ul RBC 3.67 L (4.0-5.4) 10^6/ul Hgb 12.0 L (14.0-18.0) g/dl Hct 34 L (42-52) % MCV 93 (80-94) fL MCH 33 H (27-31) pg MCHC 35 (31-36) g/dl RDW 14 (10.5-15) % Plt Count 130 L (150-450) 10^3/ul MPV 9.2 (7.4-10.4) um3 Neut % (Auto) 69.0 (38-83) % Lymph % (Auto) 15.7 L (25-47) % [place] % (Auto) 11.0 H (0-7) % Eos % (Auto) 3.2 (0-6) % Baso % (Auto) 1.1 (0-2) % Absolute Neuts (auto) 4.4 (1.5-7.7) 10^3/ul Absolute Lymphs (auto) 1.0 (1.0-4.8) 10^3/ul Absolute Monos (auto) 0.7 (0-0.8) 10^3/ul Absolute Eos (auto) 0.2 (0-0.6) 10^3/ul Absolute Basos (auto) 0.1 (0-0.2) 10^3/ul Absolute Nucleated RBC 0 10^3/ul Nucleated RBC % 0 Sodium 137 L (139-145) mmol/L Potassium 4.0 (3.5-5.0) mmol/L Chloride 104 (101-111) mmol/L Carbon Dioxide 25 (22-32) mmol/L Anion Gap 8 (2-11) mmol/L BUN 20 (6-24) mg/dL Creatinine 1.31 H (0.67-1.17) mg/dL Est GFR ( Amer) 68.1 (>60) Est GFR (Non-Af Amer) 52.9 (>60) BUN/Creatinine Ratio 15.3 (8-20) Glucose 177 H (70-100) mg/dL Lactic Acid (0.5-2.0) mmol/L Calcium 8.8 (8.6-10.3) mg/dL Total Bilirubin 0.50 (0.2-1.0) mg/dL AST 12 L (13-39) U/L ALT 13 (7-52) U/L Alkaline Phosphatase 54 (34-104) U/L Troponin I 0.01 (<0.04) ng/mL B-Natriuretic Peptide 406 H ( - 100) pg/mL Total Protein 6.1 L (6.4-8.9) g/dL Albumin 3.7 (3.2-5.2) g/dL Globulin 2.4 (2-4) g/dL Albumin/Globulin Ratio 1.5 (1-3) TSH 0.47 (0.34-5.60) mcIU/mL Thyroxine (T4) Pending Total T3 Pending Urine Color Urine Appearance Urine pH (5-9) Ur Specific [place] (1.010-1.030) Urine Protein (Negative) Urine Ketones (Negative) Urine Blood (Negative) Urine Nitrate (Negative) Urine Bilirubin (Negative) Urine Urobilinogen (Negative) Ur Leukocyte Esterase (Negative) Urine Glucose (Negative) 09/04/17 09/04/17 Range/Units 15:28 15:51 WBC (3.5-10.8) 10^3/ul RBC (4.0-5.4) 10^6/ul Hgb (14.0-18.0) g/dl Hct (42-52) % MCV (80-94) fL MCH (27-31) pg MCHC (31-36) g/dl RDW (10.5-15) % Plt Count (150-450) 10^3/ul MPV (7.4-10.4) um3 Neut % (Auto) (38-83) % Lymph % (Auto) (25-47) % [place] % (Auto) (0-7) % Eos % (Auto) (0-6) % Baso % (Auto) (0-2) % Absolute Neuts (auto) (1.5-7.7) 10^3/ul Absolute Lymphs (auto) (1.0-4.8) 10^3/ul Absolute Monos (auto) (0-0.8) 10^3/ul Absolute Eos (auto) (0-0.6) 10^3/ul Absolute Basos (auto) (0-0.2) 10^3/ul Absolute Nucleated RBC 10^3/ul Nucleated RBC % Sodium (139-145) mmol/L Potassium (3.5-5.0) mmol/L Chloride (101-111) mmol/L Carbon Dioxide (22-32) mmol/L Anion Gap (2-11) mmol/L BUN (6-24) mg/dL Creatinine (0.67-1.17) mg/dL Est GFR ( Amer) (>60) Est GFR (Non-Af Amer) (>60) BUN/Creatinine Ratio (8-20) Glucose (70-100) mg/dL Lactic Acid 1.2 (0.5-2.0) mmol/L Calcium (8.6-10.3) mg/dL Total Bilirubin (0.2-1.0) mg/dL AST (13-39) U/L ALT (7-52) U/L Alkaline Phosphatase (34-104) U/L Troponin I (<0.04) ng/mL B-Natriuretic Peptide ( - 100) pg/mL Total Protein (6.4-8.9) g/dL Albumin (3.2-5.2) g/dL Globulin (2-4) g/dL Albumin/Globulin Ratio (1-3) TSH (0.34-5.60) mcIU/mL Thyroxine (T4) Total T3 Urine Color Yellow Urine Appearance Clear Urine pH 6.0 (5-9) Ur Specific [place] 1.005 L (1.010-1.030) Urine Protein Negative (Negative) Urine Ketones Negative (Negative) Urine Blood Negative (Negative) Urine Nitrate Negative (Negative) Urine Bilirubin Negative (Negative) Urine Urobilinogen Negative (Negative) Ur Leukocyte Esterase Negative (Negative) Urine Glucose Negative (Negative) Assess/Plan/Problems-Billing Assessment: Mr. Lara is a 77 yo male with a PMH of ischemic cardiomyopathy (EF 30-35%), hx of non-sustained VT, CAD hx of [place] 2002 and CABG (2000,2000), HTN , HLD, Prostate CA, lung ca (followed in [place] since 2007), thyroid disease, multinodular goiter, chronic back pain, mild renal insufficiency, obesity, hx of afib and left femoral aneurysm (anticipated upcoming surgery) who presents to the cardiology office with a report of not feeling well and was found to have low blood pressures, and EKG suggestive of tachycardia, possible atrial sensed/ventricular paced and was recommended to go to the ER due to rate in the 120's. - Patient Problems (1) Tachycardia Comment: Appreciate Cardiology consult: long hx of atrial and ventricular arrhythmias. Recently had amiodarone decreased; amiodarone now up to 200 mg BID - HR now controlled. Continue tele monitoring. Pacer/AICD interrogated showing some afib earlier in the month but no noted recent arrythmias. - optimize electrolytes Mg+ and K+, - Started on Eliquis - Negative troponins - Awaiting TTE tomorrow. (2) CHF (congestive heart failure) Comment: - mild CHF, BNP elevated. Appears mildy fluid overloaded. it is unclear if CHF caused the tachycardia vs long-standing hx of tachy arrythmias and/or ischemic cardiomyopathy or vice versa. Recieved IV lasix yesterday - held todays dose d/ t soft BPs (3) Ischemic cardiomyopathy Comment: - Last EF 30%, plan for TTE tomorrow - continue lisinopril, spironlactone, Isosorbide (4) Afib SNOMED Code(s): 54751591 Comment: Continue amiodarone, coreg, eliquis (5) Hx of coronary artery disease Comment: - 3 negative troponins, no ekg changes. (6) HTN (hypertension) Comment: controlled. Continue home meds (7) CKD (chronic kidney disease) Comment: Creatinine at baseline (8) DVT prophylaxis Comment: Eliquis (9) Full code status Status and Disposition: awaiting echo. Possible DC to home tomorrow.
[2017-09-05] MEDS ORDERED: Furosemide IV* 10 MG/ML 2 ML VIAL (20 MG) IV ONE (13:53)
[2017-09-05] MEDS ORDERED: Levalbuterol 0.63MG/3ML NEB* UNIT OF USE INH PRN (15:44)
[2017-09-05] MEDS ORDERED: Furosemide IV* 10 MG/ML VIAL (40 MG) IV SLOW PU ONE (17:16)
[2017-09-05] MEDS: Lisinopril TAB* 10 MG PO SCH (19:35)
[2017-09-05] MEDS: Atorvastatin* 20 MG TAB PO SCH (19:35)
[2017-09-06] MEDS ORDERED: Albuterol 2.5 MG/3 ML NEB.SOL* (0.083%) INH PRN (01:40)
[2017-09-06] MEDS ORDERED: Albuterol 2.5 MG/3 ML NEB.SOL* (0.083%) ONE (01:41)
[2017-09-06 06:00] LABS: ABS Basophils 0 10^3/ul (0-0.2); ABS Eosinophils 0.2 10^3/ul (0-0.6); ABS Monocytes 0.6 10^3/ul (0-0.8); ABS Neutrophils 3.4 10^3/ul (1.5-7.7); ABS Nucleated RBC 0 10^3/ul; Hematocrit 36 % (42-52); Hemoglobin 12.5 g/dl (14.0-18.0); Lymphocyte % 18.2 % (25-47); Mean Corpuscular HGB Conc 35 g/dl (31-36); Mean Corpuscular Hemoglobin 33 pg (27-31); Mean Corpuscular Volume 94 fL (80-94); Mean Platelet Volume 8.1 um3 (7.4-10.4); Nucleated Red Blood Cells % 0; Platelet Count 127 10^3/ul (150-450); Red Blood Count 3.85 10^6/ul (4.0-5.4); Red Cell Distribution Width 14 % (10.5-15); White Blood Count 5.2 10^3/ul (3.5-10.8)
[2017-09-06] MEDS: Isosorbide Mononitrate ER TAB* 60 MG PO SCH (08:26)
[2017-09-06] MEDS: Amiodarone TAB* 200 MG PO SCH (08:26)
[2017-09-06] MEDS: Hydrochlorothiazide TAB* 25 MG PO SCH (08:26)
[2017-09-06] MEDS: Apixaban* 5 MG TAB PO SCH (08:26)
[2017-09-06] MEDS: Carvedilol TAB* 25 MG PO SCH (08:26)
[2017-09-06] MEDS: Cyanocobalamin TAB* 500 MCG PO SCH (08:26)
[2017-09-06] MEDS: Multivitamins/Minerals TAB PO SCH (08:27)
[2017-09-06] MEDS: Aspirin EC TAB* 81 MG TAB.EC PO SCH (08:27)
[2017-09-06] MEDS: Spironolactone TAB* 25 MG PO SCH (08:27)
[2017-09-06] MEDS: Lisinopril TAB* 10 MG PO SCH (08:28)
[2017-09-06] MEDS: Insulin GLARGINE(*) 1 UNITS UNIT SUBCUT SCH (08:28)
[2017-09-06] MEDS: Insulin LISPRO* 1 UNITS UNIT SUBCUT SCH ×3 (08:28→17:16)
[2017-09-06 11:54] VITALS: BP 90/52
[2017-09-06] MEDS ORDERED: Saline NASAL SPRAY 0.65%* BTL BOTH NARES PRN (12:06)
--- NOTE | 2017-09-06 12:11 | ECHO ---
Patient: MASON JIMENEZ [facility] Rec#: [id number] : 1940 Date: 09/06/2017 Age: 77y Height: 170.18 cm / 67.0 in Weight: 104.78 kg / 230.9 lbs Sex: M BSA: 2.15 Room#: 4 Admit Date#: 09/04/2017 Type: Inpatient Referring: Sammy Porter Reading: Newton Ward MD Surface Plate Inspector: Janeth Sutherland,BERNARDCS,RDMS CC: John Edmond MD CC: Judith Beasley MD Transthoracic Echocardiogram Indication: CHF BP: 139/55 HR: 65 Rhythm: NSR with PVCs Findings History: CAD, CABG, CT, ICD, HTN, AFIB, VTACH, CHF, DM, HLD, CKD Technical Comments: The study quality is fair. Left Ventricle: The left ventricular chamber size is normal. Mild concentric left ventricular hypertrophy is observed. There is global hypokinesis of the left ventricle with minor regional variation. The estimated ejection fraction is 25-30%. There is abnormal ventricular septal wall motion consistent with right ventricular pacemaker. Abnormal left ventricular diastolic filling is observed, consistent with impaired relaxation. Left Atrium: The left atrium is moderately dilated. Right Ventricle: The right ventricular chamber size and systolic function are within normal limits. A pacemaker wire is visualized in the right ventricle. Right Atrium: The right atrium is mildly dilated. A pacemaker wire is visualized in the right atrium. Aortic Valve: The aortic valve leaflets are mildly thickened. There is a trace of aortic regurgitation. There is no evidence of aortic stenosis. Mitral Valve: The mitral valve leaflets appear normal. There is a trace of mitral regurgitation. There is no evidence of mitral stenosis. Tricuspid Valve: The tricuspid valve leaflets are normal. There is mild tricuspid regurgitation. No pulmonary hypertension is noted. Pulmonic Valve: The pulmonic valve structure is not well visualized. There is no evidence of pulmonic regurgitation. Pericardium: There is no significant pericardial effusion. Aorta: The ascending aorta is not well visualized. The aortic arch is not well visualized. There is moderate dilatation of the aortic root. Pulmonary Artery: The main pulmonary artery is not well visualized. Venous: The inferior vena cava appears normal in size. There is an approximate 50% respiratory change in the inferior vena cava dimension. Summary: There are no significant changes when compared to the previous study done on 07/29/11 Conclusions There is global hypokinesis of the left ventricle with minor regional variation. The estimated ejection fraction is 25-30%. There is abnormal ventricular septal wall motion consistent with right ventricular pacemaker. The right ventricular chamber size and systolic function are within normal limits. A pacemaker wire is visualized in the right ventricle. There is a trace of aortic regurgitation. There is a trace of mitral regurgitation. There is mild tricuspid regurgitation. There is no significant pericardial effusion. There are no significant changes when compared to the previous study done on 07/29/11 Measurements Name Value Normal Range RVIDd (AP) 2D 3.5 cm (0.9 - 2.6) RVDdMajor (2D) 3.6 cm (2.2 - 4.4) RAd ISD 4CH 5.2 cm (3.4 - 4.9) RA (A4C)W 4.7 cm (2.9 - 4.6) IVSd (2D) 1.3 cm (0.6 - 1) LVPWd (2D) 1.5 cm (0.6 - 1) LVIDd (2D) 4.7 cm (3.6 - 5.4) LVIDs (2D) 3.5 cm - LV FS (2D) 26 % (25 - 45) Aortic Annulus 2.2 cm (1.4 - 2.6) Ao root diameter (2D) 4.2 cm (2.1 - 3.5) LA dimension (AP) 2D 3.9 cm (2.3 - 3.8) LAd ISD 4CH 5.4 cm (2.9 - 5.3) LA ISD 4CH W 5.3 cm (2.5 - 4.5) Name Value Normal Range LA ESV SP 4CH (A/L) 105.63 ml - LA ESV SP 2CH (A/L) 100.58 ml - LA ESV BP (A/L) 103.68 ml - LA ESV BP (A/L) index 48 ml/m2 - LA ESV SP 4CH (MOD) 95.41 ml - LA ESV SP 2CH (MOD) 94.8 ml - Name Value Normal Range MV E-wave Vmax 0.7 m/sec - MV deceleration time 213 msec - MV A-wave Vmax 1 m/sec - MV E:A ratio 0.7 ratio - LV septal e' Vmax 0.03 m/sec - LV lateral e' Vmax 0.06 m/sec - LV E:e' septal ratio 23 ratio - LV E:e' lateral ratio 12 ratio - Name Value Normal Range AV Vmax 1.5 m/sec - AV VTI 31.3 cm - AV peak gradient 9 mmHg - AV mean gradient 5 mmHg - LVOT Vmax 0.9 m/sec - LVOT VTI 17.2 cm - LVOT peak gradient 3.3 mmHg - LVOT mean gradient 1.7 mmHg - Name Value Normal Range TR Vmax 2.2 m/sec - TR peak gradient 19 mmHg - RAP 3 mmHg - RVSP 22 mmHg - IVC diameter 1.8 cm - Name Value Normal Range PV Vmax 0.7 m/sec - PV peak gradient 2 mmHg -
--- NOTE | 2017-09-06 12:14 | PN ---
Subjective Date of Service: 09/06/17 Interval History: patient feels well and states he feels at his baseline and is ready to go home. He denies any SOB/CP. Denies orthopnea. Mild LE edema. We spoke about diet and he was able to identify several things he eats that may have hidden salt that he will try to avoid. Objective Active Medications: Acetaminophen (Tylenol Tab*) 650 mg PO Q6H PRN PRN Reason: FEVER/PAIN Hydrocodone Bitart/Acetaminophen ([place] 5-325 Tab*) 1 tab PO Q6H PRN PRN Reason: PAIN Albuterol (Ventolin 2.5 Mg/3 Ml Neb.[place]eta*) 2.5 mg INH Q2H PRN PRN Reason: SOB/WHEEZING Last Admin: 09/06/17 01:47 Dose: 2.5 mg Amiodarone HCl (Cordarone Tab*) 200 mg PO 0900,2100 [facility] Last Admin: 09/06/17 08:26 Dose: 200 mg Apixaban (Eliquis*) 5 mg PO BID [facility] Last Admin: 09/06/17 08:26 Dose: 5 mg Aspirin (Aspirin Ec Tab*) 81 mg PO DAILY [facility] Last Admin: 09/06/17 08:27 Dose: 81 mg Atorvastatin Calcium (Lipitor*) 20 mg PO BEDTIME [facility] PRN Reason: Protocol Last Admin: 09/05/17 19:35 Dose: 20 mg Carvedilol (Coreg Tab*) 25 mg PO BID [facility] Last Admin: 09/06/17 08:26 Dose: 25 mg Cyanocobalamin (Vitamin B12 Tab*) 1,000 mcg PO DAILY [facility] Last Admin: 09/06/17 08:26 Dose: 1,000 mcg Dextrose (D50w Syringe 50 Ml*) 12.5 gm IV PUSH .FOR FS < 60 - SS PRN PRN Reason: FS < 60 Hydrochlorothiazide (Hydrodiuril Tab*) 25 mg PO DAILY [facility] Last Admin: 09/06/17 08:26 Dose: 25 mg Insulin Glargine (Lantus(*)) 50 units SUBCUT QAM [facility] Last Admin: 09/06/17 08:28 Dose: 50 units Insulin Glargine (Lantus(*)) 40 units SUBCUT 2100 [facility] Last Admin: 09/05/17 19:09 Dose: Not Given Insulin Human Lispro (Humalog*) 0 units SUBCUT AC [facility] PRN Reason: Protocol Last Admin: 09/06/17 08:28 Dose: 3 units Isosorbide Mononitrate (Imdur Er Tab*) 60 mg PO DAILY [facility] Last Admin: 09/06/17 08:26 Dose: 60 mg Lisinopril (Prinivil Tab*) 10 mg PO DAILY [facility] PRN Reason: Protocol Last Admin: 09/06/17 08:28 Dose: 10 mg Multivitamins/Minerals (Theragran/Minerals Tab*) 1 tab PO DAILY [facility] Last Admin: 09/06/17 08:27 Dose: 1 tab Nitroglycerin (Nitroglycerin Tab 0.4 Mg*) 0.4 mg SL Q5M PRN PRN Reason: PAIN - CHEST Ondansetron HCl (Zofran Inj*) 4 mg IV Q6H PRN PRN Reason: NAUSEA Sodium Chloride (Sodium Chloride 0.65% Nasal [place]*) 1 spray BOTH NARES Q4H PRN PRN Reason: DRY SKIN Spironolactone (Aldactone Tab*) 12.5 mg PO DAILY [facility] Last Admin: 09/06/17 08:27 Dose: 12.5 mg Vital Signs - 8 hr 09/06/17 09/06/17 09/06/17 04:17 07:32 07:51 Temperature 97.5 F Pulse Rate 64 65 Respiratory 20 20 18 Rate Blood Pressure 139/55 (mmHg) O2 Sat by Pulse 98 97 Oximetry 09/06/17 09/06/17 09/06/17 08:25 11:48 11:53 Temperature 98.4 F 97.4 F Pulse Rate 60 Respiratory 16 16 Rate Blood Pressure 108/50 80/44 90/52 (mmHg) O2 Sat by Pulse 100 100 Oximetry Oxygen Devices in Use Now: None Appearance: obese male sitting up in a chair in NAD. A+Ox3 Eyes: No Scleral Icterus, PERRLA Ears/Nose/Mouth/Throat: NL Teeth, Lips, Gums, Mucous Membranes Moist Neck: NL Appearance and Movements; NL JVP Respiratory: Symmetrical Chest Expansion and Respiratory Effort, Clear to Auscultation Cardiovascular: NL Sounds; No Murmurs; No JVD, RRR, - - 1+ LE edema b/l le Abdominal: NL Sounds; No Tenderness; No Distention, - - obese Extremities: No Clubbing, Cyanosis Skin: No Rash or Ulcers, No Nodules or Sclerosis Neurological: Alert and Oriented x 3, NL Sensation, NL Gait, NL Muscle Strength and Tone Lines/Tubes/Other Access: Clean, Dry and Intact Peripheral IV Nutrition: Taking PO's Result Diagrams: 09/06/17 05:49 09/05/17 05:34 Additional Lab and Data: Lab Results 09/04/17 09/04/17 09/04/17 Range/Units 15:28 15:28 15:28 WBC 6.4 (3.5-10.8) 10^3/ul RBC 3.67 L (4.0-5.4) 10^6/ul Hgb 12.0 L (14.0-18.0) g/dl Hct 34 L (42-52) % MCV 93 (80-94) fL MCH 33 H (27-31) pg MCHC 35 (31-36) g/dl RDW 14 (10.5-15) % Plt Count 130 L (150-450) 10^3/ul MPV 9.2 (7.4-10.4) um3 Neut % (Auto) 69.0 (38-83) % Lymph % (Auto) 15.7 L (25-47) % [place] % (Auto) 11.0 H (0-7) % Eos % (Auto) 3.2 (0-6) % Baso % (Auto) 1.1 (0-2) % Absolute Neuts (auto) 4.4 (1.5-7.7) 10^3/ul Absolute Lymphs (auto) 1.0 (1.0-4.8) 10^3/ul Absolute Monos (auto) 0.7 (0-0.8) 10^3/ul Absolute Eos (auto) 0.2 (0-0.6) 10^3/ul Absolute Basos (auto) 0.1 (0-0.2) 10^3/ul Absolute Nucleated RBC 0 10^3/ul Nucleated RBC % 0 Sodium 137 L (139-145) mmol/L Potassium 4.0 (3.5-5.0) mmol/L Chloride 104 (101-111) mmol/L Carbon Dioxide 25 (22-32) mmol/L Anion Gap 8 (2-11) mmol/L BUN 20 (6-24) mg/dL Creatinine 1.31 H (0.67-1.17) mg/dL Est GFR ( Amer) 68.1 (>60) Est GFR (Non-Af Amer) 52.9 (>60) BUN/Creatinine Ratio 15.3 (8-20) Glucose 177 H (70-100) mg/dL Lactic Acid (0.5-2.0) mmol/L Calcium 8.8 (8.6-10.3) mg/dL Total Bilirubin 0.50 (0.2-1.0) mg/dL AST 12 L (13-39) U/L ALT 13 (7-52) U/L Alkaline Phosphatase 54 (34-104) U/L Troponin I 0.01 (<0.04) ng/mL B-Natriuretic Peptide 406 H ( - 100) pg/mL Total Protein 6.1 L (6.4-8.9) g/dL Albumin 3.7 (3.2-5.2) g/dL Globulin 2.4 (2-4) g/dL Albumin/Globulin Ratio 1.5 (1-3) TSH 0.47 (0.34-5.60) mcIU/mL Thyroxine (T4) Pending Total T3 Pending Urine Color Urine Appearance Urine pH (5-9) Ur Specific [employer] [place] (1.010-1.030) Urine Protein (Negative) Urine Ketones (Negative) Urine Blood (Negative) Urine Nitrate (Negative) Urine Bilirubin (Negative) Urine Urobilinogen (Negative) Ur Leukocyte Esterase (Negative) Urine Glucose (Negative) 09/04/17 09/04/17 Range/Units 15:28 15:51 WBC (3.5-10.8) 10^3/ul RBC (4.0-5.4) 10^6/ul Hgb (14.0-18.0) g/dl Hct (42-52) % MCV (80-94) fL MCH (27-31) pg MCHC (31-36) g/dl RDW (10.5-15) % Plt Count (150-450) 10^3/ul MPV (7.4-10.4) um3 Neut % (Auto) (38-83) % Lymph % (Auto) (25-47) % [place] % (Auto) (0-7) % Eos % (Auto) (0-6) % Baso % (Auto) (0-2) % Absolute Neuts (auto) (1.5-7.7) 10^3/ul Absolute Lymphs (auto) (1.0-4.8) 10^3/ul Absolute Monos (auto) (0-0.8) 10^3/ul Absolute Eos (auto) (0-0.6) 10^3/ul Absolute Basos (auto) (0-0.2) 10^3/ul Absolute Nucleated RBC 10^3/ul Nucleated RBC % Sodium (139-145) mmol/L Potassium (3.5-5.0) mmol/L Chloride (101-111) mmol/L Carbon Dioxide (22-32) mmol/L Anion Gap (2-11) mmol/L BUN (6-24) mg/dL Creatinine (0.67-1.17) mg/dL Est GFR ( Amer) (>60) Est GFR (Non-Af Amer) (>60) BUN/Creatinine Ratio (8-20) Glucose (70-100) mg/dL Lactic Acid 1.2 (0.5-2.0) mmol/L Calcium (8.6-10.3) mg/dL Total Bilirubin (0.2-1.0) mg/dL AST (13-39) U/L ALT (7-52) U/L Alkaline Phosphatase (34-104) U/L Troponin I (<0.04) ng/mL B-Natriuretic Peptide ( - 100) pg/mL Total Protein (6.4-8.9) g/dL Albumin (3.2-5.2) g/dL Globulin (2-4) g/dL Albumin/Globulin Ratio (1-3) TSH (0.34-5.60) mcIU/mL Thyroxine (T4) Total T3 Urine Color Yellow Urine Appearance Clear Urine pH 6.0 (5-9) Ur Specific [employer] [place] 1.005 L (1.010-1.030) Urine Protein Negative (Negative) Urine Ketones Negative (Negative) Urine Blood Negative (Negative) Urine Nitrate Negative (Negative) Urine Bilirubin Negative (Negative) Urine Urobilinogen Negative (Negative) Ur Leukocyte Esterase Negative (Negative) Urine Glucose Negative (Negative) Microbiology and Other Data: Microbiology 09/05/17 10:27 Aerobic Blood Culture - Preliminary Blood Venous No Growth Day 1 09/05/17 10:15 Aerobic Blood Culture - Preliminary Blood Venous No Growth Day 1 Anaerobic Blood Culture - Preliminary No Growth Day 1 Assess/Plan/Problems-Billing Assessment: Mr. Lara is a 77 yo male with a PMH of ischemic cardiomyopathy (EF 30-35%), hx of non-sustained VT, CAD hx of [place] 2002 and CABG (2000,2000), HTN , HLD, Prostate CA, lung ca (followed in [place] since 2007), thyroid disease, multinodular goiter, chronic back pain, mild renal insufficiency, obesity, hx of afib and left femoral aneurysm (anticipated upcoming surgery) who presents to the cardiology office with a report of not feeling well and was found to have low blood pressures, and EKG suggestive of tachycardia, possible atrial sensed/ventricular paced and was recommended to go to the ER due to rate in the 120's. - Patient Problems (1) Tachycardia Comment: Appreciate Cardiology consult: long hx of atrial and ventricular arrhythmias. Recently had amiodarone decreased; amiodarone now up to 200 mg BID - HR now controlled. Dr. Ward saw pt this am - plan to decrease Amiodarone to 200 mg daily, continue home meds and f/u with Dr. Edmond as an outpt. Unclear etiology if atrial arrythmia caused CHF or vice versa. Pacer/AICD interrogated showing no Vtach - there was noted afib between 08/05-08/29 with espisodes less than 5 minutes. - optimize electrolytes Mg+ and K+, - Started on Eliquis - Negative troponins - TTE per Dr. Ward has no noted changes (2) CHF (congestive heart failure) Comment: - mild CHF, BNP elevated. it is unclear if CHF caused the tachycardia vs long- standing hx of tachy arrythmias and/or ischemic cardiomyopathy or vice versa. Recieved IV lasix on admission, no further since soft BPs. Encouraged patient to wraps legs with amy bandages b/l (3) Ischemic cardiomyopathy Comment: - EF 30%, - continue lisinopril, spironlactone, Isosorbide (4) Afib SNOMED Code(s): 33471884 Comment: Continue amiodarone, coreg, eliquis (5) Hx of coronary artery disease Comment: - 3 negative troponins, no ekg changes. (6) HTN (hypertension) Comment: controlled. Continue home meds (7) CKD (chronic kidney disease) Comment: Creatinine at baseline (8) DVT prophylaxis Comment: [place] (9) Full code status Status and Disposition: Plan for DC home today. F/u with PCP and Dr. Edmond
--- NOTE | 2017-09-07 01:09 | DS ---
ADDENDUM NOW INCLUDED ON THIS REPORT CC: Dr. Judith Beasley; Dr. Edmond * DISCHARGE SUMMARY: DATE OF ADMISSION: 09/04/17 DATE OF DISCHARGE: 09/06/17 PROVIDER: Perez Hamlin NP. ATTENDING PHYSICIAN: Dr. Odell * (report dictated by Perez Hamlin NP). PRIMARY CARE PROVIDER: Dr. Judith Beasley. MOLDING MACHINE OPERATOR: Dr. Edmond. DISCHARGE DIAGNOSES: 1. Tachycardia. 2. Mild congestive heart failure. SECONDARY DIAGNOSES: 1. Coronary artery disease, status post coronary artery bypass grafting with history of myocardial infarction. 2. History of pacer ICD. 3. Hypertension. 4. Paroxysmal atrial fibrillation. 5. History of ventricular tachycardia. 6. History of congestive heart failure with ejection fraction of 30% to 35%. 7. Type 2 diabetes, insulin-dependent. 8. Hyperlipidemia. 9. Chronic kidney disease, stage 3. 10. Chronic back pain. 11. History of lung nodule. 12. History of femoral aneurysm. 13. Small bowel obstruction with bowel resection and colostomy, which was reversed. 14. History of prostate cancer, status radiation treatment. 15. Multinodular goiter. HISTORY OF PRESENT ILLNESS AND HOSPITAL COURSE: Please see history and physical by KINGSLEY Zavala for full admission details. In summary, this is a 77-year-old female with complex past medical history who presented to the emergency department on 09/04/17 with complaints of shortness of breath, general malaise, irregular heart rate, who was sent to [facility] Emergency Department by his pound attendant, Dr. Edmond, as the patient was scheduled for an outpatient echocardiogram and outpatient stress test to evaluate his preoperative risk prior to a femoral aneurysm repair surgery and when he was seen in the pound attendant's office, it was noted that his heart rate was going in and out of atrial fibrillation with rate between 100 and 120 and was noted to have soft blood pressures and he was sent to the emergency department for further evaluation. Patient was admitted to the hospitalist service, admitted to telemetry unit. He was seen by a pound attendant on-call, who was Dr. Edmond, who recommended increasing the patient's amiodarone to 200 mg p.o. b.i.d., please note his amiodarone had recently been decreased. The patient was also loaded with dig on admission. His heart rate fairly quickly gained rate control. His pacer was interrogated, which showed no ventricular arrhythmias, however, it did show some short episodes of atrial fibrillation with the last between July and August with episodes less than 5 minutes in length and not since earlier in the month, around 08/29/17. The patient was noted on admission to have a BNP of 406, which appears elevated for the patient. He is also noted to be slightly fluid overloaded with some noted crackles in his lungs and lower extremity edema, which the patient reports is abnormal for him. He was given 20 mg of IV Lasix on admission. Patient underwent an echocardiogram, which was read by Dr. Ed yang and which was reported to not have any significant changes. He was also seen in consultation by Dr. Ward today, who reports the patient is stable for discharge to home. It is unclear etiology behind the patient's CHF and atrial fibrillation as the question is did his atrial arrhythmia in which he has a longstanding history cause some congestive heart failure or did his congestive heart failure cause the tachycardia. In review of the patient's diet, he is found to have some possible hidden causes of salt such as he eats canned vegetables. This was discussed with the patient at length as well as making sure he is reading food labels. I also encouraged the [facility] to [facility] and had a consultation with a research nutritionist. The patient was started on Eliquis on admission. This will be continued at discharge. Please note he was started on Eliquis 5 mg p.o. b.i.d. and his creatinine should be monitored and rechecked in 2 to 4 weeks as he is close to the cutoff to have a decreased dose of 2.5 mg p.o. b.i.d. However, per the guidelines, he still qualifies for the 5 mg p.o. b.i.d. This should be monitored closely. The patient is stable for discharge home. He is ambulating around the unit and is at his baseline. A close followup with primary care provider as well as Dr. Edmond. Dr. Ward did not recommend continuing the digoxin as the patient was loaded on admission, then the digoxin was not continued and the decision was made to not discharge the patient home on this medication. Patient continues to have a good rate control. DISCHARGE PLAN: 1. Follow up with PCP within one week. 2. Follow up with Cardiology preferably this week. Patient was instructed to call and make a followup appointment with Dr. Edmond. 3. Follow up BUN and creatinine in two weeks with the results to PCP and Dr. Edmond. 4. Strongly encourage the patient to have a followup with [facility], which at this point, he is not interested in but states he will discuss this with pound attendant. TIME SPENT: Approximately 60 minutes was spent on this discharge. ADDENDUM: Amiodarone is to be 100 mg p.o. daily per Cardiology. PEREZ HAMLIN NP [id number]/[facility] #: [id number]/CPS #: [id number] RODOLFO
--- NOTE | 2017-09-07 02:23 | DS ---
DISCHARGE SUMMARY: ADDENDUM: Amiodarone is to be 100 mg p.o. daily per Cardiology. PEREZ HAMLIN, PROFESSOR OF COMMUNICATION [id number]/[facility] #: [id number] [facility]
== END 2017-09-06 17:15 | disposition home or self-care (01) ==
LOC: ED 14:47 → MEDTELE 17:25
PROVIDERS: ADMIT Internal Medicine; ATTEND Internal Medicine
DX: R00.0 Tachycardia, unspecified (principal); I50.9 Heart failure, unspecified; R00.2 Palpitations; Z87.891 Personal history of nicotine dependence; I25.10 Atherosclerotic heart disease of native coronary artery without angina pectoris; I25.2 Old myocardial infarction; Z95.0 Presence of cardiac pacemaker; Z95.1 Presence of aortocoronary bypass graft; I10 Essential (primary) hypertension; I48.0 Paroxysmal atrial fibrillation; E11.9 Type 2 diabetes mellitus without complications; Z79.4 Long term (current) use of insulin; E78.5 Hyperlipidemia, unspecified; N18.3 Chronic kidney disease, stage 3 (moderate); M54.9 Dorsalgia, unspecified; G89.29 Other chronic pain; Z85.118 Personal history of other malignant neoplasm of bronchus and lung; Z85.46 Personal history of malignant neoplasm of prostate; E04.2 Nontoxic multinodular goiter; Z87.19 Personal history of other diseases of the digestive system; Z79.82 Long term (current) use of aspirin
CPT/HCPCS: 36415; 71045; 71046; 80053; 80162; 81003; 83036; 83605; 83735; 83880; 84436; 84443; 84479; 84484; 85025; 87040; 93005; 93306; 94640; 96374; 99284; A9270-GY; G0378; J1160; J3475

== ENCOUNTER 2018-03-30 23:22 | Emergency (ER) | payer MEDICAID, MEDICARE ==
--- OUTSIDE RECORDS SUMMARY | 2018-03-30 23:35 | XMS REPORT ---
:1940 Author Organization [facility] Address [address] [place] [address] Care Team Providers Name Role Phone Kory Toribio Unavailable Unavailable PROBLEMS Type Condition ICD9-CM [id number] Onset Condition SNOMED Code Code Code Dates Status Problem Stage 3 chronic N18.3 Active 667572256 kidney disease Problem Low back pain M54.5 Active 431650729 Problem Age-related H25.093 Active 556573583 incipient cataract of both eyes Problem Normocytic anemia D64.9 Active 245758493 Problem Pacemaker Z95.0 Active 829590883 Problem Reduced ejection I50.21 Active 8098678070700 fraction concurrent with and due to acute heart failure Problem History of Z85.46 Active 719400476 prostate cancer Problem Body mass index Z68.42 Active 182659084 (BMI) of 45.0-49.9 in adult Problem Other chronic G89.29 Active 98857406 pain Problem joint terminal attack controller current Z79.4 Active 521848581 use of insulin Problem Morbid (severe) E66.01 Active 29389612240449 obesity due to excess calories Problem Type 2 diabetes E11.9 Active 481905917 mellitus without complications ALLERGIES No Information ENCOUNTERS Encounter Location Date Diagnosis [facility] [address] [place], [place] [address] [facility] [address] [place], [place] [address] [facility] [address] [place], [place] [address] [facility] [address] [place], Feb, [place] [address] R79.89 [facility] [address] [place], Feb, [place], [place] [address] D64.9 ; Elevated serum creatinine R79.89 and Encounter for immunization Z23 [facility] [address], [facility] [address] [place], [place] [id number] [place] [facility] [address], [facility] [address] [place], [place] [id number] [place] [facility] [address] [place], [place] [address] Feb, Type 2 diabetes mellitus [address] [place], [place] without complication, [address] unspecified whether senior living insulin use E11.9 and shelter 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 Z79.[address] Feb, [place] [address] [place] [address] [place], [place] [address] [place], [place], Type 2 [place] [address] without complications E11.9 and History of prostate cancer Z85.46 [place] [address] [place], [place] [address] [place], [place] [address] [place], Jan, Type 2 [place] [address] without complication, unspecified whether senior living insulin use E11.9 and shelter 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 Z79.[address] Jan, Type 2 diabetes mellitus [place], [place] without complication, [address] unspecified whether senior living insulin use E11.[address] [place], [place] [address] [place] [address] [place] [address] [place] [address] [place], [place] [address] [place] [address] [place], Dec, [place] [address] hyperthyroidism E05.80 [place] [address] [place], Dec, [place] 2 [place] [address] without complications E11.9 ; Morbid (severe) obesity due to excess calories E66.01 ; Body mass index (BMI) of 45.0-49.9 in adult Z68.42 and Reduced ejection fraction concurrent with and due to acute heart failure I50.[address] Dec, [place] [address] [place], Nov, Normocytic anemia D64.9 [place] [address] Hyponatremia E87.[address] [place] [address] [place], [place] [address] [place], Nov, [place] 2 [place] [address] without complications E11.9 ; joint terminal attack controller 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 Z79.4 ; Low back pain M54.5 ; Other chronic pain G89.29 ; Vision changes H53.9 ; Morbid (severe) obesity due to excess calories E66.01 and Body mass index (BMI) of 45.0-49.9 in adult Z68.[address] [place] [address] [place], [place] [address] Nov, Reduced ejection fraction [facility] [place] [address] concurrent with and due to acute heart failure I50.[address] Nov, [place] [address] [place], Nov, Norm[place] D64.9 [place] [address] [place], Nov, [place] 2 [place] [address] without complication, unspecified whether senior living insulin use E11.9 ; Normocytic anemia D64.9 and History of prostate cancer Z85.[address] [place] [address] [place], [place] [address] [place], [place] [address] Nov, [facility] [place] [address] [place] [address] [place], [place] [address] [place], [place] [address] [place], Oct, Type 2 [place] [address] without complication, unspecified whether senior living insulin use E11.9 ; Elevated serum creatinine R79.89 ; Hyperkalemia E87.5 ; Hypocalcemia E83.51 ; Screening, lipid Z13.220 ; Age-related incipient cataract of both eyes H25.093 ; Screening for colon cancer Z12.11 and Reduced ejection fraction concurrent with and due to acute heart failure I50.21 [facility] [address] [facility] [place], [place] [address] [facility] [address] [facility] [place], [place] [address] [facility] [address] [facility] [place], [place] [address] IMMUNIZATIONS No Known Immunizations SOCIAL HISTORY Never Assessed REASON FOR REFERRAL FUNCTIONAL STATUS PLAN OF CARE VITAL SIGNS MEDICATIONS Medication Instructions Dosage Frequency Start End Duration Status Date Date Spironolactone 25 Orally Once a half tablet 24h Jul, days Active MG day with food 2018 Tamsulosin HCl 0.4 Orally daily 2 capsules 24h Jul, Active MG 2019 MetFORMIN HCl ER Orally Once a 2 tablet 24h 90 days Active 500 mg day with evening meal PROCEDURES No Known procedures RESULTS No Results REASON FOR VISIT Refill Medication Insurance Providers [facility] Member Patient Patient Patient Patient Patient Subscriber Subscriber Subscriber Group Insurance Plan Plan Plan Plan ID Relationship Address Phone Name Date of ID Name Date of No Type Insurance Insurance Insurance Coverage to Subscriber Address Phone Name Dates Medicaid [address] [phone] Medicaid self Alon [id number] [facility] [address] [place] [id number] u [place]ays [phone] [place] self Alon [id number] Options [place] 13 Options [place]PAR [place] [id number] NONPAR Mcr u Adv [place] [phone] [place] self Alon [id number] Option [id number] Option [place] MCRAdv [facility] MCRAdv u AmProg Med [id number] AmProg Med Case [phone] Case self Alon [id number] Management [place] 02 Management [facility] [address] [facility] MEDICAL (GENERAL) HISTORY Type Description Date Medical History DM 2 Medical History Pacemaker Medical History Heart Attack 2001 Medical History Surgical implants Left Hip Medical History Hypocalcemia Medical History Hyperkalemia Medical History Need PRE-Med Surgical History Colectomy dont remenber Surgical History Open heart surgery 2001 Surgical History right eye catarct surgery 2018 Hospitalization History see above
--- OUTSIDE RECORDS SUMMARY | 2018-03-30 23:35 | XMS REPORT ---
:1940 Author Organization [facility] Care Team Providers Name Role Phone Brigette Porter Unavailable Unavailable PROBLEMS Type Condition ICD9-CM [id number] Onset Condition SNOMED Code Code Code Dates Status Problem Stage 3 chronic N18.3 Active 188483215 kidney disease Problem Low back pain M54.5 Active 968208377 Problem Age-related H25.093 Active 037661265 incipient cataract of both eyes Problem Normocytic anemia D64.9 Active 117190492 Problem Pacemaker Z95.0 Active 310003579 Problem Reduced ejection I50.21 Active 4217745508273 fraction concurrent with and due to acute heart failure Problem History of Z85.46 Active 115500654 prostate cancer Problem Body mass index Z68.42 Active 868713392 (BMI) of 45.0-49.9 in adult Problem Other chronic G89.29 Active 11325439 pain Problem cloth trimmer hand current Z79.4 Active 464654528 use of insulin Problem Morbid (severe) E66.01 Active 03655869035629 obesity due to excess calories Problem Type 2 diabetes E11.9 Active 801757860 mellitus without complications ALLERGIES No Known Allergies ENCOUNTERS Encounter Location Date Diagnosis [facility] [address] [place], [place] [address] [facility] [address] [place], [place] [address] [facility] [address] [place], [place] [address] [place] [id number] [place], Feb, [place], [place] [address] D64.9 ; Elevated serum creatinine R79.89 and Encounter for immunization Z23 [facility] [address] [facility] [address], [facility] [address] [place], [place] [id number] [facility] [place] [address], [facility] [address] [place], [place] [id number] [place] [facility] [address] [place] [address] [place], [place] [address] [place] [address] Feb, Type 2 diabetes mellitus [address] [place], [place] without complication, [address] unspecified whether abrasive grinder insulin use E11.9 and cloth trimmer hand 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 Z79.[address] Feb, [place] [address] [place] [address] [place], [place] [address] [place], [place], Type 2 [place] [address] without complications E11.9 and History of prostate cancer Z85.[address] [place] [address] [place], [place] [address] [place], [place] [address] [place], [place], Type 2 [place] [address] without complication, unspecified whether abrasive grinder insulin use E11.9 and intermediate 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 Z79.[address] Jan, Type 2 diabetes mellitus [place], [place] complication, [address] unspecified whether fdc insulin use E11.[address] [place], [place] [address] [place], [place] [address] [place] [address] [place], [place] [address] [place] [address] [place], [place], [place] [address] hyperthyroidism E05.[address] [place] [address] [place], [place], Type 2 [place] [address] without complications E11.9 ; Morbid (severe) obesity due to excess calories E66.01 ; Body mass index (BMI) of 45.0-49.9 in adult Z68.42 and Reduced ejection fraction concurrent with and due to acute heart failure I50.[address] Dec, [place] [address] [place] [address] [place], Nov, Normocytic anemia D64.9 [place] [address] Hyponatremia E87.[address] [place], [place] [address] [place], Nov, Type 2 [place] [address] without complications E11.9 ; cloth trimmer hand 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 Z79.4 ; Low back pain M54.5 ; Other chronic pain G89.29 ; Vision changes H53.9 ; Morbid (severe) obesity due to excess calories E66.01 and Body mass index (BMI) of 45.0-49.9 in adult Z68.[address] [place] [address] [place], [place] [address] Nov, Reduced [place] [address] concurrent with and due to acute heart failure I50.[address] Nov, [place] [address] [place], Nov, Normocytic [place] D64.9 [place] [address] [place], Nov, Type 2 [place] [address] without complication, unspecified whether fdc insulin use E11.9 ; Normocytic anemia D64.9 and History of prostate cancer Z85.[address] [place], [place] [address] [place], [place] [address] Nov, [facility] [place] [address] [place] [address] [place], [place] [address] [place], [place] [address] [place], Oct, Type 2 [place] [address] without complication, unspecified whether abrasive grinder insulin use E11.9 ; Elevated serum creatinine R79.89 ; Hyperkalemia E87.5 ; Hypocalcemia E83.51 ; Screening, lipid Z13.220 ; Age-related incipient cataract of both eyes H25.093 ; Screening for colon cancer Z12.11 and Reduced ejection fraction concurrent with and due to acute heart failure I50.21 [place] [facility] [address] [facility] [place], [place] [address] [facility] [address] [facility] [place], [place] [address] [facility] [address] [facility] [place], [place] [address] IMMUNIZATIONS No Known Immunizations SOCIAL HISTORY Never Assessed REASON FOR REFERRAL FUNCTIONAL STATUS PLAN OF CARE Activity Details Follow Up 6 Months Reason:prophy/ex6 VITAL SIGNS MEDICATIONS Medication Instructions Dosage Frequency Start End Duration Status Date Date Isosorbide Orally Once a 1 tablet 24h Active Mononitrate ER 60 MG day in the morning Pravastatin Sodium 80 Orally Once a 1 tablet 24h Active MG day Carvedilol 25 MG Orally twice a 1 tablet 12h Active day Amiodarone HCl 100 MG Orally Once a 1 tablet 24h Active day Hydrochlorothiazide Orally Every 1 tablet Active 25 MG other day in the morning Levemir Flexpen subcutaneously 40 units Active qam Spironolactone 25 MG Orally Once a half 24h Active day tablet with food Vitamin B12 1000 MCG Orally Once a 1 tablet 24h Active day Aspir-81 81 MG Orally Once a 1 tablet 24h Active day D3-1000 1000 UNIT Orally Once a 1 capsule 24h Active day Vitamin D 1000 UNIT Orally Once a 1 tablet 24h Not-Umberto day ing Tamsulosin HCl 0.4 MG 2 capsules Active Magnesium 250 MG Orally Once a 1 tablet 24h Active day with a meal Eliquis 5 MG Orally bid 12h Active Jardiance 10 mg Orally Once a 1 tablet 24h Nov, 30 day(s) Active day 2017Feb, 2018 MetFORMIN HCl ER 500 Orally Once a 2 tablet 24h Active mg day with evening meal Quinapril HCl 10 mg Orally Once a 1 tablet 24h 90 days Active day PROCEDURES Procedure Date Ordered Result Body Site PROPHYLAXIS - ADULT 13yrs and older Feb 08, 2018 RESULTS No Results REASON FOR VISIT cleaning Insurance Providers [facility] Health Member Patient Patient Patient Patient Patient Subscriber Subscriber Subscriber Group Insurance Plan Plan Plan Plan ID Relationship Address Phone Name Date of ID Name Date of No Type Insurance Insurance Insurance Coverage to Subscriber Address Phone Name Dates [place] [phone] [place] doris [place] [id number] Options [place] 13 Options [place] NONPAR Mcr [id number] NONPAR Mcr u Adv [place] Medicaid [address] [phone] Medicaid self Alon [id number] [facility] [address] [place] [id number] u Case [phone] Case self Alon [id number] Management [place] 02 Management [facility] [address] [facility] u [place]ays [phone] [place] self Alon [id number] Option [id number] Option [place] MCRAdv [facility] MCRAdv u AmProg Med [id number] AmProg Med MEDICAL (GENERAL) HISTORY Type Description Date Medical History DM 2 Medical History Pacemaker Medical History Heart Attack 2002 Medical History Surgical implants Left Hip Medical History Hypocalcemia Medical History Hyperkalemia Medical History Need PRE-Med Surgical History Colectomy [place] Surgical History Open heart surgery 2002 Surgical History right eye catarct surgery 2018 Hospitalization History see above
--- OUTSIDE RECORDS SUMMARY | 2018-03-30 23:35 | XMS REPORT ---
:1940 Author Organization [facility] Address [address] [place] [address] Care Team Providers Name Role Phone Kory Toribio Unavailable Unavailable PROBLEMS Type Condition ICD9-CM [id number] Onset Condition SNOMED Code Code Code Dates Status Problem Stage 3 chronic N18.3 Active 764253006 kidney disease Problem Low back pain M54.5 Active 185572876 Problem Age-related H25.093 Active 277414260 incipient cataract of both eyes Problem Normocytic anemia D64.9 Active 628618731 Problem Pacemaker Z95.0 Active 140334638 Problem Reduced ejection I50.21 Active 7510421786906 fraction concurrent with and due to acute heart failure Problem History of Z85.46 Active 496820788 prostate cancer Problem Body mass index Z68.42 Active 298177239 (BMI) of 45.0-49.9 in adult Problem Other chronic G89.29 Active 35961390 pain Problem 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 Active 980542470 use of insulin Problem Morbid (severe) E66.01 Active 93434950591766 obesity due to excess calories Problem Type 2 diabetes E11.9 Active 208998633 mellitus without complications ALLERGIES No Information ENCOUNTERS Encounter Location Date Diagnosis [facility] [address], [place] [address] [facility] [address] [place], [place] [address] [facility] [address] [place], [place] [address] [facility] [address] [place], Feb, [place] [address] R79.89 [facility] [address] [place], Feb, [place], [place] [address] D64.9 ; Elevated serum creatinine R79.89 and Encounter for immunization Z23 [facility] [address], [facility] [address] [place], [place] [id number] [facility] [address], [facility] [address] [place], [place] [id number] [place] [facility] [address] [place], [place] [address] Feb, Type 2 diabetes mellitus [address] [place], [place] complication, [address] unspecified whether fpc insulin use E11.9 and intermediate 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 Z79.[address] Feb, [place] [address] [place] [address] [place], [place] [address] [place], Jan, Type 2 [place] [address] without complications E11.9 and History of prostate cancer Z85.46 [place] [address] [place], [place] [address] [place], [place] [address] [place], Jan, Type 2 [place] [address] without complication, unspecified whether fpc insulin use E11.9 and intermediate 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 Z79.[address] Jan, Type 2 diabetes mellitus [place] complication, [address] unspecified whether fpc insulin use E11.[address] [place], [place] [address] [place] [address] [place], [place] [address] [place] [address] [place], [place] [address] [place] [address] [place], Dec, [place] [address] hyperthyroidism E05.80 [place] [address] [place], Dec, Type 2 [place] [address] without complications E11.9 ; Morbid (severe) obesity due to excess calories E66.01 ; Body mass index (BMI) of 45.0-49.9 in adult Z68.42 and Reduced ejection fraction concurrent with and due to acute heart failure I50.[address] Dec, [place] [address] [place], Nov, Normocytic anemia D64.9 [place] [address] Hyponatremia E87.[address] [place] [address] [place], [place] [address] [place], Nov, Type 2 [place] [address] without complications E11.9 ; major case detective 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 Z79.4 ; Low back pain M54.5 ; Other chronic pain G89.29 ; Vision changes H53.9 ; Morbid (severe) obesity due to excess calories E66.01 and Body mass index (BMI) of 45.0-49.9 in adult Z68.[address] [place] [address] [place], [place] [address] Nov, Reduced ejection fraction [facility] [address] concurrent with and due to acute heart failure I50.[address] Nov, [place] [address] [place], Nov, Normocytic [place] D64.9 [place] [address] [place], Nov, Type 2 [place] [address] without complication, unspecified whether fpc insulin use E11.9 ; Normocytic anemia D64.9 and History of prostate cancer Z85.[address] [place] [address] [place], [place] [address] [place], [place] [address] Nov, [place] [address] [place] [address] [place], [place] [address] [place], [place] [address] [place], Oct, Type 2 [place] [address] without complication, unspecified whether fpc insulin use E11.9 ; Elevated serum creatinine R79.89 ; Hyperkalemia E87.5 ; Hypocalcemia E83.51 ; Screening, lipid Z13.220 ; Age-related incipient cataract of both eyes H25.093 ; Screening for colon cancer Z12.11 and Reduced ejection fraction concurrent with and due to acute heart failure I50.21 [facility] [address] [facility] [place], [place] [address] [facility] [address] [facility] [place], [place] [address] [facility] [address] [facility] [place], [place] [address] IMMUNIZATIONS No Known Immunizations SOCIAL HISTORY Never Assessed REASON FOR REFERRAL FUNCTIONAL STATUS PLAN OF CARE VITAL SIGNS MEDICATIONS Unknown Medications PROCEDURES No Known procedures RESULTS No Results REASON FOR VISIT blood sugars Insurance Providers [facility] Member Patient Patient Patient Patient Patient Subscriber Subscriber Subscriber Group Insurance Plan Plan Plan Plan ID Relationship Address Phone Name Date of ID Name Date of No Type Insurance Insurance Insurance Coverage to Subscriber Address Phone Name Dates Case [phone] Case self Alon [id number] Management [place] 02 Management [facility] [address] [facility] u Todays [phone] Todays self Alon [id number] Option [id number] Option [place] MCRAdv [facility] MCRAdv u AmProg Med [id number] AmProg Med Medicaid [id number] [id number] Medicaid self Alon [id number] [facility] [address] [place] [address] u Todays [phone] Todays self Alon [id number] Options [place] 13 Options [place] NONPAR Mcr [id number] NONPAR Mcr u Adv [place] MEDICAL (GENERAL) HISTORY Type Description Date Medical History DM 2 Medical History Pacemaker Medical History Heart Attack 2002 Medical History Surgical implants Left Hip Medical History Hypocalcemia Medical History Hyperkalemia Medical History Need PRE-Med Surgical History Colectomy dont remenber Surgical History Open heart surgery 2001 Surgical History right eye catarct surgery 2018 Hospitalization History see above
--- OUTSIDE RECORDS SUMMARY | 2018-03-30 23:35 | XMS REPORT ---
:1939 Author Organization [facility] Address [address] [place] [address] Care Team Providers Name Role Phone Kory Toribio Unavailable Unavailable PROBLEMS Type Condition ICD9-CM [id number] Onset Condition SNOMED Code Code Code Dates Status Problem Stage 3 chronic N18.3 Active 434026472 kidney disease Problem Low back pain M54.5 Active 765230017 Problem Age-related H25.093 Active 268987989 incipient cataract of both eyes Problem Normocytic anemia D64.9 Active 558654381 Problem Pacemaker Z95.0 Active 025557827 Problem Reduced ejection I50.21 Active 8431665569681 fraction concurrent with and due to acute heart failure Problem History of Z85.46 Active 599663771 prostate cancer Problem Body mass index Z68.42 Active 942695865 (BMI) of 45.0-49.9 in adult Problem Other chronic G89.29 Active 09443173 pain Problem 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 Active 107231869 use of insulin Problem Morbid (severe) E66.01 Active 04790800566380 obesity due to excess calories Problem Type 2 diabetes E11.9 Active 462345970 mellitus without complications ALLERGIES No Information ENCOUNTERS Encounter Location Date Diagnosis [facility] [address] [place], [place] [address] [facility] [address] [place], [place] [address] [facility] [address] [place], [place] [address] [facility] [address] [place], Feb, [place] [address] R79.89 [facility] [address] [place], Feb, [place], [place] [address] D64.9 ; Elevated serum creatinine R79.89 and Encounter for immunization Z23 [facility] [address], [facility] [address] [place], [place] [id number] [facility] [address], [facility] [address] [place], [place] [id number] [place] [facility] [address] [place], [place] [address] Feb, Type 2 diabetes mellitus [address], [place], [address] unspecified whether skilled nursing insulin use E11.9 and penitentiary 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 Z79.[address] Feb, [place] [address] [place] [address] [place], [place] [address] [place], Jan, Type 2 [place] [address] without complications E11.9 and History of prostate cancer Z85.46 [place] [address] [place], [place] [address] [place], [place] [address] [place], Jan, Type 2 [place] [address] without complication, unspecified whether skilled nursing insulin use E11.9 and penitentiary 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 Z79.[address] Jan, Type 2 diabetes mellitus [place], [place] complication, [address] unspecified whether skilled nursing insulin use E11.[address] [place], [place] [address] [place] [address] [place], [place] [address] [place] [address] [place], [place] [address] [place] [address] [place], Dec, [place] [address] hyperthyroidism E05.80 [place] [address] [place], Dec, Type 2 [place] [address] without complications E11.9 ; Morbid (severe) obesity due to excess calories E66.01 ; Body mass index (BMI) of 45.0-49.9 in adult Z68.42 and Reduced ejection fraction concurrent with and due to acute heart failure I50.[address] Dec, [place] [address] [place], Nov, Normocytic anemia D64.9 [place] [address] Hyponatremia E87.[address] [place] [address] [place], [place] [address] [place], Nov, Type 2 [place] [address] without complications E11.9 ; intermediate accountant 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 Z79.4 ; Low back pain M54.5 ; Other chronic pain G89.29 ; Vision changes H53.9 ; Morbid (severe) obesity due to excess calories E66.01 and Body mass index (BMI) of 45.0-49.9 in adult Z68.[address] [place] [address] [place], [place] [address] Nov, Reduced ejection fraction [facility] [place] [address] concurrent with and due to acute heart failure I50.[address] Nov, [place] [address] [place], Nov, Normocytic [place] D64.9 [place] [address] [place], Nov, Type 2 [place] [address] without complication, unspecified whether skilled nursing insulin use E11.9 ; Normocytic anemia D64.9 and History of prostate cancer Z85.[address] [place] [address] [place], [place] [address] [place], [place] [address] Nov, [place] [address] [place] [address] [place], [place] [address] [place], [place] [address] [place], Oct, Type 2 [place] [address] without complication, unspecified whether skilled nursing insulin use E11.9 ; Elevated serum creatinine R79.89 ; Hyperkalemia E87.5 ; Hypocalcemia E83.51 ; Screening, lipid Z13.220 ; Age-related incipient cataract of both eyes H25.093 ; Screening for colon cancer Z12.11 and Reduced ejection fraction concurrent with and due to acute heart failure I50.21 [facility] [address] [facility] [place], [place] [address] [facility] [address] [facility] [place], [place] [address] [facility] [address] [facility] [place], [place] [address] IMMUNIZATIONS No Known Immunizations SOCIAL HISTORY Never Assessed REASON FOR REFERRAL FUNCTIONAL STATUS PLAN OF CARE VITAL SIGNS MEDICATIONS Medication Instructions Dosage Frequency Start Date End Date Duration Status Carvedilol 25 Orally twice a 1 tablet 12h 90 days Active MG day PROCEDURES No Known procedures RESULTS No Results REASON FOR VISIT Refill Medication Insurance Providers [facility] Health Member Patient Patient Patient Patient Patient Subscriber Subscriber Subscriber Group Insurance Plan Plan Plan Plan ID Relationship Address Phone Name Date of ID Name Date of No Type Insurance Insurance Insurance Coverage to Subscriber Address Phone Name Dates Todays [phone] Todays self Alon [id number] Option [id number] Option [place] MCRAdv [facility] MCRAdv u AmProg Med [id number] AmProg Med Case [phone] Case self Alon [id number] Management [employer] 02 Management [facility] [address] [facility] u Medicaid [address] [phone] Medicaid self Alon [id number] [facility] [address] [place] [address] u Todays [phone] Todays self Alon [id number] Options [place] 13 Options [place] NONPAR Mcr [address] NONPAR Mcr u Adv [place] MEDICAL (GENERAL) HISTORY Type Description Date Medical History DM 2 Medical History Pacemaker Medical History Heart Attack 2001 Medical History Surgical implants Left Hip Medical History Hypocalcemia Medical History Hyperkalemia Medical History Need PRE-Med Surgical History Colectomy dont remenber Surgical History Open heart surgery 2002 Surgical History right eye catarct surgery 2018 Hospitalization History see above
--- OUTSIDE RECORDS SUMMARY | 2018-03-30 23:35 | XMS REPORT ---
:1939 Author Organization [facility] Address [address] [place] [address] Care Team Providers Name Role Phone Arvind Sifuentes Unavailable Unavailable PROBLEMS Type Condition ICD9-CM [id number] Onset Condition SNOMED Code Code Code Dates Status Problem Stage 3 chronic N18.3 Active 287104938 kidney disease Problem Low back pain M54.5 Active 469493956 Problem Age-related H25.093 Active 475998312 incipient cataract of both eyes Problem Normocytic anemia D64.9 Active 413411216 Problem Pacemaker Z95.0 Active 000029983 Problem Reduced ejection I50.21 Active 7656750521648 fraction concurrent with and due to acute heart failure Problem History of Z85.46 Active 942876698 prostate cancer Problem Body mass index Z68.42 Active 443057160 (BMI) of 45.0-49.9 in adult Problem Other chronic G89.29 Active 31954911 pain Problem shelter current Z79.4 Active 374948716 use of insulin Problem Morbid (severe) E66.01 Active 08233150076709 obesity due to excess calories Problem Type 2 diabetes E11.9 Active 913864399 mellitus without complications ALLERGIES No Information ENCOUNTERS Encounter Location Date Diagnosis [facility] [address] [place], [place] [address] [facility] [address] [place], [place] [address] [facility] [address] [place], [place] [address] [facility] [address] [place] [address] [facility] [address] [facility] [address], [address] [place] [address] [place] [address] [place], [place] [address] [place], Jan, Type 2 [place] [address] without complications E11.9 and History of prostate cancer Z85.[address] [place] [address] [place], [place] [address] [place], [place] [address] [place], [place], Type 2 [place] [address] without complication, unspecified whether senior care insulin use E11.9 and shelter 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 Z79.[address] Jan, Type 2 diabetes mellitus [place], [place] complication, [address] unspecified whether middle or intermediate school principal insulin use E11.[address] [place], [place] [address] [place], [place] [address] [place], [place] [address] [place], Dec, Amiodar[place] [address] hyperthyroidism E05.[address] [place] [address] [place], Dec, Type 2 [place] [address] without complications E11.9 ; Morbid (severe) obesity due to excess calories E66.01 ; Body mass index (BMI) of 45.0-49.9 in adult Z68.42 and Reduced ejection fraction concurrent with and due to acute heart failure I50.[address] Dec, [place] [address] [place] [address] [place], Nov, Normocytic anemia D64.9 [place] [address] Hyponatremia E87.[address] [place], [place] [address] [place], Nov, Type 2 [place] [address] without complications E11.9 ; middle or intermediate school principal 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 Z79.4 ; Low back pain M54.5 ; Other chronic pain G89.29 ; Vision changes H53.9 ; Morbid (severe) obesity due to excess calories E66.01 and Body mass index (BMI) of 45.0-49.9 in adult Z68.[address] [place], [place] [address] Nov, Reduced ejection fraction [facility] [place] [address] concurrent with and due to acute heart failure I50.21 [facility] [address] [place] [address] Nov, [place] [address] [place], Nov, Normocytic [place] D64.9 [place] [address] [place], Nov, Type 2 [place] [address] without complication, unspecified whether middle or intermediate school principal insulin use E11.9 ; Normocytic anemia D64.9 and History of prostate cancer Z85.[address] [place], [place] [address] [place], [place] [address] Nov, [facility] [address] [place], [place] [address] [place], [place] [address] [place], Oct, Type 2 [place] [address] without complication, unspecified whether middle or intermediate school principal insulin use E11.9 ; Elevated serum creatinine R79.89 ; Hyperkalemia E87.5 ; Hypocalcemia E83.51 ; Screening, lipid Z13.220 ; Age-related incipient cataract of both eyes H25.093 ; Screening for colon cancer Z12.11 and Reduced ejection fraction concurrent with and due to acute heart failure I50.[address] [place], [place] [address] [place], [place] [address] [place], [place] [address] IMMUNIZATIONS No Known Immunizations SOCIAL HISTORY Never Assessed REASON FOR REFERRAL FUNCTIONAL STATUS PLAN OF CARE Activity Details Follow Up 2 Months Reason:DMII VITAL SIGNS Temperature 95.9 degrees Fahrenheit 2017-12-28 Heart Rate 20 2017-12-28 Weight 221.9 2017-12-28 Height 58.5 in 2017-12-28 BMI 45.58 kg/m2 2017-12-28 Oximetry 96 % 2017-12-28 Blood pressure systolic 97 mm Hg 2017-12-28 Blood pressure diastolic 58 mm Hg 2017-12-28 MEDICATIONS Medication Instructions Dosage Frequency Start End Duration Status Date Date Aspir-81 81 MG Orally Once a 1 tablet 24h Active day MetFORMIN HCl ER 500 Orally Once a 2 tablet 24h Active mg day with evening meal Vitamin B12 1000 MCG Orally Once a 1 tablet 24h Active day Spironolactone 25 MG Orally Once a half 24h Active day tablet with food Jardiance 10 mg Orally Once a 1 tablet 24h Nov, day(s) Active day 2017Feb, 2018 Quinapril HCl 10 MG Orally Once a 1 tablet 24h Active day Eliquis 5 MG Orally bid 12h Active Isosorbide Orally Once a 1 tablet 24h Active Mononitrate ER 60 MG day in the morning Vitamin D 1000 UNIT Orally Once a 1 tablet 24h Not-Umberto day ing Levemir Flexpen subcutaneously 40 units Active qam Pravastatin Sodium 80 Orally Once a 1 tablet 24h Active MG day Amiodarone HCl 100 MG Orally Once a 1 tablet 24h Active day D3-1000 1000 UNIT Orally Once a 1 capsule 24h Active day Hydrochlorothiazide Orally Every 1 tablet Active 25 MG other day in the morning Tamsulosin HCl 0.4 MG 2 capsules Active Carvedilol 25 MG Orally twice a 1 tablet 12h Active day Magnesium 250 MG Orally Once a 1 tablet 24h Active day with a meal PROCEDURES Procedure Date Ordered Result Body Site BLOOD PRESSURE, MEASURED Dec 28, 2017 Oxygen saturation results documented and reviewed Dec 28, 2017 BODY MASS INDEX DOCD Dec 28, 2017 SMOKING + 2ND HAND ASSESSED Dec 28, 2017 ASSAY, GLUCOSE, BLOOD QUANT Dec 28, 2017 RESULTS Name Result Date Reference Range -Glucose - Finger Stick 2017-12-28 Blood Sugar Level: 284 -BASIC METABOLIC PANEL W/EGFR 2017-12-28 SODIUM 136 135-146 POTASSIUM 4.4 3.5-5.3 CHLORIDE 102 98-110 CARBON DIOXIDE 25 20-31 CALCIUM 9.8 8.6-10.3 GLUCOSE 227 65-99 UREA NITROGEN (BUN) 39 7-25 CREATININE 1.62 0.70-1.18 BUN/CREATININE RATIO 24.2 6-22 EGFR NON-AFR. CONGOLESE 40 > OR=60 EGFR 46 > OR=60 -CBC (H/H,RBC,INDICES,WBC,PLT) 2017-12-28 WBC 7.1 3.8-10.8 RBC 3.89 4.20-5.80 HEMOGLOBIN 12.8 13.2-17.1 HEMATOCRIT 36.7 38.5-50.0 MCV 94.2 80.0-100.0 MCH 32.8 27.0-33.0 MCHC 34.8 32.0-36.0 RDW 13.5 11.0-15.0 PLATELET COUNT 163 140-400 MPV 8.6 7.5-12.5 -LIPID PANEL W/REFL LDL 2017-12-28 CHOLESTEROL 128 <199 HDL CHOLESTEROL 41 >40 CHOLESTEROL/HDL RATIO 3.1 <5.0 LDL CHOL,CALCULATED 65 0-100 TRIGLYCERIDES 140 <150 NON-HDL CHOLESTEROL 88 <130 -TSH 2017-12-28 TSH 0.24 0.40-4.50 REASON FOR VISIT 4 wk f/u DM?, PVP; PHQ2, By tom is due for pheum and tetanus shot, was referred to nutrition,GI,and ophalmology-in, Patient stated hes here because he start using jardiance 2 weeks ago and the Provider wanted to know how he was doing patient stated hes doing great.CM Insurance Providers [facility] Health Member Patient Patient Patient Patient Patient Subscriber Subscriber Subscriber Group Insurance Plan Plan Plan Plan ID Relationship Address Phone Name Date of ID Name Date of No Type Insurance Insurance Insurance Coverage to Subscriber Address Phone Name Dates Medicaid [address] [id number] Medicaid self [place] [id number] [facility] [address] [place] [id number] u Todays [address] [phone] Todays self Alon [id number] Options [place] 13 Options [place] NONPAR Mcr [address] NONPAR Mcr u Adv [place] Adv [place] Case [phone] Case self Alon [id number] Management [place] 02 Management [facility] [address] [facility] u Todays [phone] Todays self Alon [id number] Option [id number] Option [place] MCRAdv [facility] MCRAdv u AmProg Med [id number] AmProg Med MEDICAL (GENERAL) HISTORY Type Description Date Medical History DM 2 Medical History Pacemaker Medical History Heart Attack 2001 Medical History Surgical implants Left Hip Medical History Hypocalcemia Medical History Hyperkalemia Medical History Need PRE-Med Surgical History Colectomy dont genet Surgical History Open heart surgery 2002 Hospitalization History see above
--- OUTSIDE RECORDS SUMMARY | 2018-03-30 23:35 | XMS REPORT ---
:1940 Author Organization [facility] Address [address] [place] [address] Care Team Providers Name Role Phone Kory Toribio Unavailable Unavailable PROBLEMS Type Condition ICD9-CM [id number] Onset Condition SNOMED Code Code Code Dates Status Problem Stage 3 chronic N18.3 Active 622840838 kidney disease Problem Low back pain M54.5 Active 790228194 Problem Age-related H25.093 Active 413981470 incipient cataract of both eyes Problem Normocytic anemia D64.9 Active 364198816 Problem Pacemaker Z95.0 Active 516539363 Problem Reduced ejection I50.21 Active 3138475576677 fraction concurrent with and due to acute heart failure Problem History of Z85.46 Active 813998514 prostate cancer Problem Body mass index Z68.42 Active 189881369 (BMI) of 45.0-49.9 in adult Problem Other chronic G89.29 Active 93920605 pain Problem oil heaterman current Z79.4 Active 069233838 use of insulin Problem Morbid (severe) E66.01 Active 58908028831799 obesity due to excess calories Problem Type 2 diabetes E11.9 Active 450653868 mellitus without complications ALLERGIES No Information ENCOUNTERS Encounter Location Date Diagnosis [facility] [address] [place], [place] [address] [facility] [address] [place], [place] [address] [facility] [address] [place], [place] [address] [facility] [address] [place], [place] [address] [facility] [address] [facility] [address], [address] [place] [address] [place], [place] [address] [place], Jan, Type 2 [place] [address] without complications E11.9 and History of prostate cancer Z85.[address] [place], [place] [address] [place], [place] [address] [place], Jan, Type 2 [place] [address] without complication, unspecified whether oil heaterman insulin use E11.9 and [facility] 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 Z79.[address] Jan, Type 2 diabetes mellitus [place], [place] without complication, [address] unspecified whether custodial insulin use E11.[address] [place], [place] [address] [place], [place] [address] [place], [place] [address] [place], [place], [place] [address] hyperthyroidism E05.[address] [place], Dec, Type 2 [place] [address] without complications E11.9 ; Morbid (severe) obesity due to excess calories E66.01 ; Body mass index (BMI) of 45.0-49.9 in adult Z68.42 and Reduced ejection fraction concurrent with and due to acute heart failure I50.[address] [place], [place] [address] [place], Nov, Normocytic anemia D64.9 [place] [address] Hyponatremia E87.[address] [place], [place] [address] [place], Nov, Type 2 [place] [address] without complications E11.9 ; [facility] 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 Z79.4 ; Low back pain M54.5 ; Other chronic pain G89.29 ; Vision changes H53.9 ; Morbid (severe) obesity due to excess calories E66.01 and Body mass index (BMI) of 45.0-49.9 in adult Z68.[address] [place], [place] [address] Nov, Reduced ejection fraction [facility] [place] [address] concurrent with and due to acute heart failure I50.21 [facility] [address] [place] [address] Nov, [place] [address] [place], Nov, Norm[place] D64.9 [place] [address] [place], Nov, Type 2 [place] [address] without complication, unspecified whether oil heaterman insulin use E11.9 ; Normocytic anemia D64.9 and History of prostate cancer Z85.[address] [place], [place] [address] [place], [place] [address] Nov, [facility] [address] [place], [place] [address] [place], [place] [address] [place], Oct, Type 2 [place] [address] without complication, unspecified whether oil heaterman insulin use E11.9 ; Elevated serum creatinine R79.89 ; Hyperkalemia E87.5 ; Hypocalcemia E83.51 ; Screening, lipid Z13.220 ; Age-related incipient cataract of both eyes H25.093 ; Screening for colon cancer Z12.11 and Reduced ejection fraction concurrent with and due to acute heart failure I50.[address] [place], [place] [address] [place], [place] [address] [place], [place] [address] IMMUNIZATIONS No Known Immunizations SOCIAL HISTORY Never Assessed REASON FOR REFERRAL FUNCTIONAL STATUS PLAN OF CARE VITAL SIGNS MEDICATIONS Unknown Medications PROCEDURES No Known procedures RESULTS Name Result Date Reference Range -T4,FREE 2018-01-01 T4,FREE 1.5 0.8-1.8 -T3,TOTAL 2018-01-01 T3,TOTAL 80 76-181 REASON FOR VISIT Test Results Insurance Providers [facility] Member Patient Patient Patient Patient Patient Subscriber Subscriber Subscriber Group Insurance Plan Plan Plan Plan ID Relationship Address Phone Name Date of ID Name Date of No Type Insurance Insurance Insurance Coverage to Subscriber Address Phone Name Dates Todays [phone] Todays self Alon [id number] Option [id number] Option [place] MCRAdv [facility] MCRAdv u AmProg Med [id number] AmProg Med Medicaid [phone] Medicaid self Alon [id number] [facility] [address] [place] [address] u Todays [phone] Todays self Alon [id number] Options [place] 13 Options [place] NONPAR [facility] [address] NONPAR Mcr u Adv [place] Adv [place] Case [phone] Case self Alon [id number] Management [place] 02 Management [facility] [address] [facility] MEDICAL (GENERAL) HISTORY Type Description Date Medical History DM 2 Medical History Pacemaker Medical History Heart Attack 2001 Medical History Surgical implants Left Hip Medical History Hypocalcemia Medical History Hyperkalemia Medical History Need PRE-Med Surgical History Colectomy dont remenber Surgical History Open heart surgery 2001 Hospitalization History see above
--- OUTSIDE RECORDS SUMMARY | 2018-03-30 23:35 | XMS REPORT ---
:1940 Author Organization [facility] Address [address] [place] [address] Care Team Providers Name Role Phone Kory Toribio Unavailable Unavailable PROBLEMS Type Condition ICD9-CM [id number] Onset Condition SNOMED Code Code Code Dates Status Problem Stage 3 chronic N18.3 Active 467848390 kidney disease Problem Low back pain M54.5 Active 686669913 Problem Age-related H25.093 Active 789866870 incipient cataract of both eyes Problem Normocytic anemia D64.9 Active 196332209 Problem Pacemaker Z95.0 Active 928312423 Problem Reduced ejection I50.21 Active 7362472424329 fraction concurrent with and due to acute heart failure Problem History of Z85.46 Active 005946389 prostate cancer Problem Body mass index Z68.42 Active 798442465 (BMI) of 45.0-49.9 in adult Problem Other chronic G89.29 Active 48563400 pain Problem pedodontist current Z79.4 Active 391619472 use of insulin Problem Morbid (severe) E66.01 Active 81494995579811 obesity due to excess calories Problem Type 2 diabetes E11.9 Active 353245108 mellitus without complications ALLERGIES No Information ENCOUNTERS Encounter Location Date Diagnosis [facility] [address] [place], [place] [address] [facility] [address] [place], [place] [address] [facility] [address] [place] [address] [place], [place] [address] [facility] [address] [place], [place] [address] [facility] [address] [place], [place] [address] [facility] [address] [facility] [address] Feb, Type 2 diabetes mellitus [address] [place], [place] without complication, [address] unspecified whether fast food crew lead insulin use E11.9 and pedodontist 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 Z79.[address] Feb, [place] [address] [facility] [address] [place] [address] [place], [place] [address] [place], Jan, Type 2 [place] [address] without complications E11.9 and History of prostate cancer Z85.46 [place] [facility] [address] [place], [place] [address] [place], [place] [address] [place], Jan, Type 2 [place] [address] without complication, unspecified whether fast food crew lead insulin use E11.9 and pedodontist 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 Z79.[address] Jan, Type 2 diabetes mellitus [place] without complication, [address] unspecified whether fast food crew lead insulin use E11.[address] [place], [place] [address] [place], [place] [address] [place], [place] [address] [place], Dec, [place] [address] hyperthyroidism E05.[address] [place] [address] [place], Dec, Type 2 [place] [address] without complications E11.9 ; Morbid (severe) obesity due to excess calories E66.01 ; Body mass index (BMI) of 45.0-49.9 in adult Z68.42 and Reduced ejection fraction concurrent with and due to acute heart failure I50.[address] [place], [place] [address] [place], Nov, Normocytic anemia D64.9 [place] [address] Hyponatremia E87.1 [place] [address] [place], [place] [address] [place], Nov, Type 2 [place] [address] without complications E11.9 ; prison 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 Z79.4 ; Low back pain M54.5 ; Other chronic pain G89.29 ; Vision changes H53.9 ; Morbid (severe) obesity due to excess calories E66.01 and Body mass index (BMI) of 45.0-49.9 in adult Z68.[address] [place], [place] [address] Nov, [place] [address] concurrent with and due to acute heart failure I50.[address] Nov, [place] [address] [place], Nov, Norm[place] D64[place]9 [place] [address] [place], Nov, Type 2 [place] [address] without complication, unspecified whether prison insulin use E11.9 ; Normocytic anemia D64.9 and History of prostate cancer Z85.[address] [place], [place] [address] [place], [place] [address] Nov, [facility] [place] [address] [place], [place] [address] [place], [place] [address] [place], Oct, Type 2 [place] [address] without complication, unspecified whether prison insulin use E11.9 ; Elevated serum creatinine R79.89 ; Hyperkalemia E87.5 ; Hypocalcemia E83.51 ; Screening, lipid Z13.220 ; Age-related incipient cataract of both eyes H25.093 ; Screening for colon cancer Z12.11 and Reduced ejection fraction concurrent with and due to acute heart failure I50.[address] [place], [place] [address] [place], [place] [address] [place] [address] IMMUNIZATIONS No Known Immunizations SOCIAL HISTORY Never Assessed REASON FOR REFERRAL FUNCTIONAL STATUS PLAN OF CARE VITAL SIGNS MEDICATIONS Unknown Medications PROCEDURES No Known procedures RESULTS No Results REASON FOR VISIT labs Insurance Providers [facility] Health Member Patient Patient Patient Patient Patient Subscriber Subscriber Subscriber Group Insurance Plan Plan Plan Plan ID Relationship Address Phone Name Date of ID Name Date of No Type Insurance Insurance Insurance Coverage to Subscriber Address Phone Name Dates Todays [phone] Todays self Alon [id number] Options [place] 13 Options [place] NONPAR Mcr [address] NONPAR Mcr u Adv [place] Adv [place] Case [phone] Case self Alon [id number] Management [place] 02 Management [facility] [address] [facility] u Medicaid [id number] Medicaid self Alon [id number] [facility] [address] [place] [address] u Todays [phone] Todays self Alon [id number] Option [id number] Option [place] MCRAdv [facility] MCRAdv u AmProg Med [id number] AmProg Med MEDICAL (GENERAL) HISTORY Type Description Date Medical History DM 2 Medical History Pacemaker Medical History Heart Attack 2001 Medical History Surgical implants Left Hip Medical History Hypocalcemia Medical History Hyperkalemia Medical History Need PRE-Med Surgical History Colectomy octavianot miltonber Surgical History Open heart surgery 2001 Hospitalization History see above
--- OUTSIDE RECORDS SUMMARY | 2018-03-30 23:35 | XMS REPORT ---
:1940 Author Organization [facility] Address [address] [place] [address] Care Team Providers Name Role Phone Kory Toribio Unavailable Unavailable PROBLEMS Type Condition ICD9-CM [id number] Onset Condition SNOMED Code Code Code Dates Status Problem Stage 3 chronic N18.3 Active 664815956 kidney disease Problem Low back pain M54.5 Active 640667285 Problem Age-related H25.093 Active 348944037 incipient cataract of both eyes Problem Normocytic anemia D64.9 Active 639958280 Problem Pacemaker Z95.0 Active 086942798 Problem Reduced ejection I50.21 Active 3014684145584 fraction concurrent with and due to acute heart failure Problem History of Z85.46 Active 756023975 prostate cancer Problem Body mass index Z68.42 Active 815103825 (BMI) of 45.0-49.9 in adult Problem Other chronic G89.29 Active 80707123 pain Problem border measurer and cutter current Z79.4 Active 175169686 use of insulin Problem Morbid (severe) E66.01 Active 75261717464424 obesity due to excess calories Problem Type 2 diabetes E11.9 Active 224718851 mellitus without complications ALLERGIES No Information ENCOUNTERS Encounter Location Date Diagnosis [facility] [address] [place], [place] [address] [facility] [address] [place], [place] [address] [facility] [address] [place], [place] [address] [facility] [address], [place] [address] [facility] [address], [place] [address] [facility] [address] [facility] [address] Feb, Type 2 diabetes mellitus [address] [place], [place] without complication, [address] unspecified whether wood type cutter insulin use E11.9 and border measurer and cutter 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 Z79.[address] [place], [place] [address] [facility] [address] [place] [address] [place], [place] [address] [place], [place], Type 2 [place] [address] without complications E11.9 and History of prostate cancer Z85.46 [place] [facility] [address] [place], [place] [address] [place], [place] [address] [place], [place], [place] 2 [place] [address] without complication, unspecified whether wood type cutter insulin use E11.9 and border measurer and cutter 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 Z79.[address] Jan, Type 2 diabetes mellitus [place], [place] without complication, [address] unspecified whether wood type cutter insulin use E11.[address] [place], [place] [address] [place], [place] [address] [place], [place] [address] [place], [place], [place] [address] hyperthyroidism E05.[address] [place] [address] [place], Dec, Type 2 [place] [address] without complications E11.9 ; Morbid (severe) obesity due to excess calories E66.01 ; Body mass index (BMI) of 45.0-49.9 in adult Z68.42 and Reduced ejection fraction concurrent with and due to acute heart failure I50.[address] [place], [place] [address] [place], Nov, Normocytic anemia D64.9 [place] [address] Hyponatremia E87.1 [place] [address] [place], [place] [address] [place], Nov, Type 2 [place] [address] without complications E11.9 ; detention 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 Z79.4 ; Low back pain M54.5 ; Other chronic pain G89.29 ; Vision changes H53.9 ; Morbid (severe) obesity due to excess calories E66.01 and Body mass index (BMI) of 45.0-49.9 in adult Z68.[address] [place], [place] [address] Nov, [place] [address] concurrent with and due to acute heart failure I50.[address] [place], [place] [address] [place], Nov, Norm[place] D64[place] [address] [place], [place], Type 2 [place] [address] without complication, unspecified whether fpc insulin use E11.9 ; Normocytic anemia D64.9 and History of prostate cancer Z85.[address] [place], [place] [address] [place], [place] [address] Nov, [facility] [place] [address] [place], [place] [address] [place], [place] [address] [place], Oct, Type 2 [place] [address] without complication, unspecified whether fpc insulin use E11.9 ; Elevated serum creatinine R79.89 ; Hyperkalemia E87.5 ; Hypocalcemia E83.51 ; Screening, lipid Z13.220 ; Age-related incipient cataract of both eyes H25.093 ; Screening for colon cancer Z12.11 and Reduced ejection fraction concurrent with and due to acute heart failure I50.[address] [place], [place] [address] [place], [place] [address] [place], [place] [address] IMMUNIZATIONS No Known Immunizations SOCIAL HISTORY Never Assessed REASON FOR REFERRAL FUNCTIONAL STATUS PLAN OF CARE VITAL SIGNS MEDICATIONS Medication Instructions Dosage Frequency Start Date End Date Duration Status Quinapril HCl Orally Once a day 1 tablet 24h 90 days Active 10 mg PROCEDURES No Known procedures RESULTS No Results REASON FOR VISIT Refill Medication Insurance Providers [facility] Health Member Patient Patient Patient Patient Patient Subscriber Subscriber Subscriber Group Insurance Plan Plan Plan Plan ID Relationship Address Phone Name Date of ID Name Date of No Type Insurance Insurance Insurance Coverage to Subscriber Address Phone Name Dates Todays [phone] Todays self Alon [id number] Options [place] 13 Options [place] NONPAR [facility] [address] NONPAR Mcr u Adv Garza Adv Garza Medicaid [address] [phone] Medicaid self Alon [id number] [facility] 00 [place] [address] u Case [phone] Case self Alon [id number] Management [place] 02 Management [facility] [address] [facility] u Todays [phone] Todays self Alon [id number] Option [id number] Option [place] MCRAdv [facility] MCRAdv u AmProg Med [id number] AmProg Med MEDICAL (GENERAL) HISTORY Type Description Date Medical History DM 2 Medical History Pacemaker Medical History Heart Attack 2001 Medical History Surgical implants Left Hip Medical History Hypocalcemia Medical History Hyperkalemia Medical History Need PRE-Med Surgical History Colectomy dont remenber Surgical History Open heart surgery 2001 Hospitalization History see above
--- OUTSIDE RECORDS SUMMARY | 2018-03-30 23:35 | XMS REPORT ---
:1939 Author Organization [facility] Address [address] [place] [address] Care Team Providers Name Role Phone Kory Toribio Unavailable Unavailable PROBLEMS Type Condition ICD9-CM [id number] Onset Condition SNOMED Code Code Code Dates Status Problem Stage 3 chronic N18.3 Active 675608746 kidney disease Problem Low back pain M54.5 Active 656682641 Problem Age-related H25.093 Active 897284697 incipient cataract of both eyes Problem Normocytic anemia D64.9 Active 548676361 Problem Pacemaker Z95.0 Active 771010722 Problem Reduced ejection I50.21 Active 5146777471682 fraction concurrent with and due to acute heart failure Problem History of Z85.46 Active 649161271 prostate cancer Problem Body mass index Z68.42 Active 424261237 (BMI) of 45.0-49.9 in adult Problem Other chronic G89.29 Active 22910507 pain Problem infrastructure consultant current Z79.4 Active 494940676 use of insulin Problem Morbid (severe) E66.01 Active 80050975243926 obesity due to excess calories Problem Type 2 diabetes E11.9 Active 336364706 mellitus without complications ALLERGIES No Information ENCOUNTERS Encounter Location Date Diagnosis [facility] [address] [place], [place] [address] [facility] [address] [place], [place] [address] [facility] [address] [place], [place] [address] [facility] [address] [place], [place] [address] [facility] [address] [facility] [address], [address] [place] [address] [place], [place] [address] [place], Jan, Type 2 [place] [address] without complications E11.9 and History of prostate cancer Z85.[address] [place], [place] [address] [place], [place] [address] [place], Jan, Type 2 [place] [address] without complication, unspecified whether chute feeder insulin use E11.9 and custodial 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 Z79.[address] Jan, Type 2 diabetes mellitus [place], [place] without complication, [address] unspecified whether nursing home insulin use E11.[address] [place], [place] [address] [place] [address] [place], [place] [address] [place], Dec, [place] [address] hyperthyroidism E05.[address] [place], Dec, Type 2 [place] [address] without complications E11.9 ; Morbid (severe) obesity due to excess calories E66.01 ; Body mass index (BMI) of 45.0-49.9 in adult Z68.42 and Reduced ejection fraction concurrent with and due to acute heart failure I50.[address] [place], [place] [address] [place], Nov, Normocytic anemia D64.9 [place] [address] Hyponatremia E87.[address] [place], [place] [address] [place], Nov, Type 2 [place] [address] without complications E11.9 ; custodial 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 Z79.4 ; Low back pain M54.5 ; Other chronic pain G89.29 ; Vision changes H53.9 ; Morbid (severe) obesity due to excess calories E66.01 and Body mass index (BMI) of 45.0-49.9 in adult Z68.[address] [place], [place] [address] Nov, Reduced ejection fraction [facility] [place] [address] concurrent with and due to acute heart failure I50.21 [facility] [address] [place] [address] Nov, [place] [address] [place], Nov, Normocytic [place] D64.9 [place] [address] [place], Nov, Type 2 [place] [address] without complication, unspecified whether chute feeder insulin use E11.9 ; Normocytic anemia D64.9 and History of prostate cancer Z85.[address] [place], [place] [address] [place], [place] [address] Nov, [place] [address] [place], [place] [address] [place], [place] [address] [place], Oct, Type 2 [place] [address] without complication, unspecified whether chute feeder insulin use E11.9 ; Elevated serum creatinine R79.89 ; Hyperkalemia E87.5 ; Hypocalcemia E83.51 ; Screening, lipid Z13.220 ; Age-related incipient cataract of both eyes H25.093 ; Screening for colon cancer Z12.11 and Reduced ejection fraction concurrent with and due to acute heart failure I50.[address] [place], [place] [address] [place], [place] [address] [place], [place] [address] IMMUNIZATIONS No Known Immunizations SOCIAL HISTORY Never Assessed REASON FOR REFERRAL FUNCTIONAL STATUS PLAN OF CARE VITAL SIGNS MEDICATIONS Medication Instructions Dosage Frequency Start End Duration Status Date Date Quinapril HCl 10 MG Orally Once a 1 tablet 24h Active day Aspir-81 81 MG Orally Once a 1 tablet 24h Active day Magnesium 250 MG Orally Once a 1 tablet 24h Active day with a meal Amiodarone HCl 100 MG Orally Once a 1 tablet 24h Active day Spironolactone 25 MG Orally Once a half 24h Active day tablet with food MetFORMIN HCl ER 500 Orally Once a 2 tablet 24h Active mg day with evening meal Jardiance 10 mg Orally Once a 1 tablet 24h Nov, 08 21 day(s) Active day 2017Feb, 2018 Hydrochlorothiazide Orally Every 1 tablet Active 25 MG other day in the morning Vitamin B12 1000 MCG Orally Once a 1 tablet 24h Active day D3-1000 1000 UNIT Orally Once a 1 capsule 24h Active day Tamsulosin HCl 0.4 MG 2 capsules Active Vitamin D 1000 UNIT Orally Once a 1 tablet 24h Not-Umberto day ing Carvedilol 25 MG Orally twice a 1 tablet 12h Active day Pravastatin Sodium 80 Orally Once a 1 tablet 24h Active MG day Isosorbide Orally Once a 1 tablet 24h Active Mononitrate ER 60 MG day in the morning Eliquis 5 MG Orally bid 12h Active Levemir Flexpen subcutaneously 40 units Active qam PROCEDURES Procedure Date Ordered Result Body Site VENIPUNCT, ROUTINE* venous blood collection Jan 01, 2018 RESULTS Name Result Date Reference Range - Blood Draw Venipuncture 2018-01-01 REASON FOR VISIT blood draw Insurance Providers [facility] Member Patient Patient Patient Patient Patient Subscriber Subscriber Subscriber Group Insurance Plan Plan Plan Plan ID Relationship Address Phone Name Date of ID Name Date of No Type Insurance Insurance Insurance Coverage to Subscriber Address Phone Name Dates Case [phone] Case self Alon [id number] Management [place] 02 Management [facility] [address] [facility] u Todays [phone] Todays self Alon [id number] Option [id number] Option [place] [facility] [id number] AmProg Med Medicaid [id number] [phone] Medicaid self Alon [id number] [facility] [address] [place] [address] u Todays [address] [phone] Todays self Alon [id number] Options [place] 13 Options [place] NONPAR [facility] [address] NONPAR Mc[place] u [place] MEDICAL (GENERAL) HISTORY Type Description Date Medical History DM 2 Medical History Pacemaker Medical History Heart Attack 2002 Medical History Surgical implants Left Hip Medical History Hypocalcemia Medical History Hyperkalemia Medical History Need PRE-Med Surgical History Colectomy [place] Surgical History Open heart surgery 2002 Hospitalization History see above
--- OUTSIDE RECORDS SUMMARY | 2018-03-30 23:35 | XMS REPORT ---
:1940 Author Organization [facility] Address [address] [place] [address] Care Team Providers Name Role Phone Kory Toribio Unavailable Unavailable PROBLEMS Type Condition ICD9-CM [id number] Onset Condition SNOMED Code Code Code Dates Status Problem Stage 3 chronic N18.3 Active 507187545 kidney disease Problem Low back pain M54.5 Active 729853896 Problem Age-related H25.093 Active 938910485 incipient cataract of both eyes Problem Normocytic anemia D64.9 Active 031816688 Problem Pacemaker Z95.0 Active 981117422 Problem Reduced ejection I50.21 Active 7865457469838 fraction concurrent with and due to acute heart failure Problem History of Z85.46 Active 241309443 prostate cancer Problem Body mass index Z68.42 Active 098705828 (BMI) of 45.0-49.9 in adult Problem Other chronic G89.29 Active 01784951 pain 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 758290997 use of insulin Problem Morbid (severe) E66.01 Active 10767135448055 obesity due to excess calories Problem Type 2 diabetes E11.9 Active 329640741 mellitus without complications ALLERGIES No Information ENCOUNTERS Encounter Location Date Diagnosis [facility] [address] [place], [place] [address] [facility] [address] [place], [place] [address] [facility] [address] [place], [place] [address] [facility] [address] [place], Feb, [place] [address] R79.89 [facility] [address] [place], Feb, [place], [place] [address] D64.9 ; Elevated serum creatinine R79.89 and Encounter for immunization Z23 [facility] [address], [facility] [address] [place], [place] [id number] [facility] [address], [facility] [address] [place], [place] [id number] [place] [facility] [address] [place], [place] [address] Feb, Type 2 diabetes mellitus [address] [place], [place] without complication, [address] unspecified whether assisted insulin use E11.9 and detention 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 Z79.[address] Feb, [place] [address] [place] [address] [place], [place] [address] [place], Jan, Type 2 [place] [address] without complications E11.9 and History of prostate cancer Z85.46 [place] [address] [place], [place] [address] [place], [place] [address] [place], Jan, Type 2 [place] [address] without complication, unspecified whether assisted insulin use E11.9 and detention 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 Z79.[address] Jan, Type 2 diabetes mellitus [place] complication, [address] unspecified whether assisted insulin use E11.[address] [place], [place] [address] [place] [address] [place] [address] [place] [address] [place], [place] [address] [place] [address] [place], [place], [place] [address] hyperthyroidism E05.80 [place] [address] [place], Dec, Type 2 [place] [address] without complications E11.9 ; Morbid (severe) obesity due to excess calories E66.01 ; Body mass index (BMI) of 45.0-49.9 in adult Z68.42 and Reduced ejection fraction concurrent with and due to acute heart failure I50.[address] [place], [place] [address] [place], Nov, Normocytic anemia D64.9 [place] [address] Hyponatremia E87.[address] [place] [address] [place], [place] [address] [place], [place], Type 2 [place] [address] without complications E11.9 ; 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 Z79.4 ; Low back pain M54.5 ; Other chronic pain G89.29 ; Vision changes H53.9 ; Morbid (severe) obesity due to excess calories E66.01 and Body mass index (BMI) of 45.0-49.9 in adult Z68.[address] [place] [address] [place], [place] [address] Nov, Reduced ejection fraction [facility] [address] concurrent with and due to acute heart failure I50.[address] [place], [place] [address] [place], Nov, Norm[place] D64.9 [place] [address] [place], Nov, Type 2 [place] [address] without complication, unspecified whether assisted insulin use E11.9 ; Normocytic anemia D64.9 and History of prostate cancer Z85.[address] [place] [address] [place], [place] [address] [place], [place] [address] Nov, [facility] [place] [address] [place] [address] [place], [place] [address] [place], [place] [address] [place], Oct, Type 2 [place] [address] without complication, unspecified whether assisted insulin use E11.9 ; Elevated serum creatinine R79.89 ; Hyperkalemia E87.5 ; Hypocalcemia E83.51 ; Screening, lipid Z13.220 ; Age-related incipient cataract of both eyes H25.093 ; Screening for colon cancer Z12.11 and Reduced ejection fraction concurrent with and due to acute heart failure I50.21 [facility] [address] [place], [place] [address] [facility] [address] [place], [place] [address] [facility] [address] [place], [place] [address] IMMUNIZATIONS No Known Immunizations SOCIAL HISTORY Never Assessed REASON FOR REFERRAL FUNCTIONAL STATUS PLAN OF CARE Activity Details Follow Up 4 Weeks/ 3 months Reason:anemia and creatinine / diabetes follow up VITAL SIGNS Temperature 96.5 degrees Fahrenheit 2018-02-17 Heart Rate 20 2018-02-17 Weight 217.4 2018-02-17 Height 58.5 in 2018-02-17 BMI 44.66 kg/m2 2018-02-17 Oximetry 97 % 2018-02-17 Blood pressure systolic 96 mm Hg 2018-02-17 Blood pressure diastolic 52 mm Hg 2018-02-17 MEDICATIONS Medication Instructions Dosage Frequency Start End Duration Status Date Date D3-1000 1000 UNIT Orally Once a 1 capsule 24h Active day MetFORMIN HCl ER 500 Orally Once a 2 tablet 24h Active mg day with evening meal Quinapril HCl 10 mg Orally Once a 1 tablet 24h 90 days Active day Vitamin B12 1000 MCG Orally Once a 1 tablet 24h Active day Tamsulosin HCl 0.4 MG 2 capsules Active Carvedilol 25 MG Orally twice a 1 tablet 12h Active day Eliquis 5 MG Orally bid 12h Active Isosorbide Orally Once a 1 tablet 24h Active Mononitrate ER 60 MG day in the morning Vitamin D 1000 UNIT Orally Once a 1 tablet 24h Not-Umberto day ing Spironolactone 25 MG Orally Once a half 24h Active day tablet with food Jardiance 10 mg Orally Once a 1 tablet 24h Nov, Active day 2017Feb, 2018 Pravastatin Sodium 80 Orally Once a 1 tablet 24h Active MG day Aspir-81 81 MG Orally Once a 1 tablet 24h Active day Levemir Flexpen subcutaneously 40 units Active qam Magnesium 500 mg Orally Once a 1 tablet 24h Active day with a meal Hydrochlorothiazide Orally Every 1 tablet Active 25 MG other day in the morning Amiodarone HCl 100 MG Orally Once a 1 tablet 24h Active day PROCEDURES Procedure Date Ordered Result Body Site BLOOD PRESSURE, MEASURED Feb 17, 2018 Oxygen saturation results documented and reviewed Feb 17, 2018 BODY MASS INDEX DOCD Feb 17, 2018 SMOKING + 2ND HAND ASSESSED Feb 17, 2018 GLYCATED HEMOGLOBIN A1C Feb 17, 2018 RESULTS Name Result Date Reference Range -HbA1c - In House Test 2018-02-17 HbA1c 8.1 REASON FOR VISIT DM APPT PER SANGEETHA Mosley:A1C Opal. Gabriele [place] Insurance Providers [facility] Member Patient Patient Patient Patient Patient Subscriber Subscriber Subscriber Group Insurance Plan Plan Plan Plan ID Relationship Address Phone Name Date of ID Name Date of No Type Insurance Insurance Insurance Coverage to Subscriber Address Phone Name Dates Case [phone] Case self Alon [id number] Management [place] 02 Management [facility] [address] [facility] u Medicaid [address] [phone] Medicaid self Alon [id number] [facility] [address] [place] [address] u Todays [address] Todays self Alon [id number] Option [id number] Option [place] MCRAdv [facility] MCRAdv u AmProg Med [id number] AmProg Med [place] [phone] Todays self Alon [id number] Options [facility] 13 Options [place] NONPAR [place] [address] NONPAR [facility] u Adv [place] MEDICAL (GENERAL) HISTORY Type Description Date Medical History DM 2 Medical History Pacemaker Medical History Heart Attack 2001 Medical History Surgical implants Left Hip Medical History Hypocalcemia Medical History Hyperkalemia Medical History Need PRE-Med Surgical History Colectomy dont remenber Surgical History Open heart surgery 2001 Surgical History right eye catarct surgery 2018 Hospitalization History see above
--- OUTSIDE RECORDS SUMMARY | 2018-03-30 23:35 | XMS REPORT ---
:1940 Author Organization [facility] Care Team Providers Name Role Phone Tara Sanchez Unavailable Unavailable PROBLEMS Type Condition ICD9-CM FKR52-[id number] Onset Condition SNOMED Code Code Code Dates Status Problem Stage 3 chronic N18.3 Active 331685108 kidney disease Problem Low back pain M54.5 Active 403905459 Problem Age-related H25.093 Active 869782468 incipient cataract of both eyes Problem Normocytic anemia D64.9 Active 338941481 Problem Pacemaker Z95.0 Active 052020230 Problem Reduced ejection I50.21 Active 1389643305144 fraction concurrent with and due to acute heart failure Problem History of Z85.46 Active 781407199 prostate cancer Problem Body mass index Z68.42 Active 570451443 (BMI) of 45.0-49.9 in adult Problem Other chronic G89.29 Active 23918232 pain 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 061956707 use of insulin Problem Morbid (severe) E66.01 Active 67182976349215 obesity due to excess calories Problem Type 2 diabetes E11.9 Active 663514932 mellitus without complications ALLERGIES No Information ENCOUNTERS Encounter Location Date Diagnosis [facility] [address] [place], [place] [address] [facility] [address] [place], [place] [address] [facility] [address] [place], [place] [address] [facility] [address] [place], [place], [place], [place] [address] D64.9 ; Elevated serum creatinine R79.89 and Encounter for immunization Z23 [facility] [address] [facility] [address], [facility] [address] [place], [place] [id number] [facility] [address], [facility] [address] [place], [place] [id number] [address] [place], [place] [address] [place] [address] Feb, Type 2 diabetes mellitus [address] [place], [place] without complication, [address] unspecified whether custodial insulin use E11.9 and 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.[address] Feb, [place] [address] [place] [address] [place], [place] [address] [place], [place], Type 2 [place] [address] without complications E11.9 and History of prostate cancer Z85.[address] [place] [address] [place], [place] [address] [place], [place] [address] [place] [address] [place], Jan, [place] 2 [place] [address] without complication, unspecified whether custodial insulin use E11.9 and halfway 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 Z79.[address] Jan, Type 2 diabetes mellitus [place] without complication, [address] unspecified whether custodial insulin use E11.[address] [place], [place] [address] [place], [place] [address] [place] [address] [place], [place] [address] [place] [address] [place], [place], [place] [address] hyperthyroidism E05.[address] [place] [address] [place], Dec, [place] 2 [place] [address] without complications E11.9 ; Morbid (severe) obesity due to excess calories E66.01 ; Body mass index (BMI) of 45.0-49.9 in adult Z68.42 and Reduced ejection fraction concurrent with and due to acute heart failure I50.[address] Dec, [place] [address] [place] [address] [place], Nov, Normocytic anemia D64.9 [place] [address] Hyponatremia E87.[address] [place], [place] [address] [place], [place], Type 2 [place] [address] without complications E11.9 ; halfway 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 Z79.4 ; Low back pain M54.5 ; Other chronic pain G89.29 ; Vision changes H53.9 ; Morbid (severe) obesity due to excess calories E66.01 and Body mass index (BMI) of 45.0-49.9 in adult Z68.[address] [place] [address] [place], [place] [address] Nov, Reduced [place] [address] concurrent with and due to acute heart failure I50.[address] Nov, [place] [address] [place], Nov, Normocytic [place] D64.9 [place] [address] [place], Nov, Type 2 [place] [address] without complication, unspecified whether custodial insulin use E11.9 ; Normocytic anemia D64.9 and History of prostate cancer Z85.[address] [place], [place] [address] [place], [place] [address] Nov, [place] [address] [place], [place] [address] [place], [place] [address] [place], Oct, Type 2 [place] [address] without complication, unspecified whether custodial insulin use E11.9 ; Elevated serum creatinine R79.89 ; Hyperkalemia E87.5 ; Hypocalcemia E83.51 ; Screening, lipid Z13.220 ; Age-related incipient cataract of both eyes H25.093 ; Screening for colon cancer Z12.11 and Reduced ejection fraction concurrent with and due to acute heart failure I50.21 [facility] [address] [facility] [address] [place], [place] [address] [facility] [address] [place], [place] [address] [facility] [address] [place], [place] [address] IMMUNIZATIONS No Known Immunizations SOCIAL HISTORY Never Assessed REASON FOR REFERRAL FUNCTIONAL STATUS PLAN OF CARE Activity Details Follow Up 4 Weeks Reason: VITAL SIGNS Weight 219.5 2018-02-08 Height 58.5 in 2018-02-08 BMI 45.09 kg/m2 2018-02-08 MEDICATIONS Medication Instructions Dosage Frequency Start End Duration Status Date Date Vitamin B12 1000 MCG Orally Once a 1 tablet 24h Active day Quinapril HCl 10 mg Orally Once a 1 tablet 24h 90 days Active day Levemir Flexpen subcutaneously 40 units Active qam Vitamin D 1000 UNIT Orally Once a 1 tablet 24h Not-Umberto day ing Spironolactone 25 MG Orally Once a half 24h Active day tablet with food Magnesium 250 MG Orally Once a 1 tablet 24h Active day with a meal Amiodarone HCl 100 MG Orally Once a 1 tablet 24h Active day Isosorbide Orally Once a 1 tablet 24h Active Mononitrate ER 60 MG day in the morning Tamsulosin HCl 0.4 MG 2 capsules Active MetFORMIN HCl ER 500 Orally Once a 2 tablet 24h Active mg day with evening meal Aspir-81 81 MG Orally Once a 1 tablet 24h Active day Carvedilol 25 MG Orally twice a 1 tablet 12h Active day D3-1000 1000 UNIT Orally Once a 1 capsule 24h Active day Jardiance 10 mg Orally Once a 1 tablet 24h Nov, day(s) Active day 2017Feb, 2018 Eliquis 5 MG Orally bid 12h Active Hydrochlorothiazide Orally Every 1 tablet Active 25 MG other day in the morning Pravastatin Sodium 80 Orally Once a 1 tablet 24h Active MG day PROCEDURES Procedure Date Ordered Result Body Site Med Nutrition,Init,15 min,Indiv Feb 08, 2018 BODY MASS INDEX DOCD Feb 08, 2018 RESULTS No Results REASON FOR VISIT initial medical nutrition therapy visit for DM Insurance Providers [facility] Health Member Patient Patient Patient Patient Patient Subscriber Subscriber Subscriber Group Insurance Plan Plan Plan Plan ID Relationship Address Phone Name Date of ID Name Date of No Type Insurance Insurance Insurance Coverage to Subscriber Address Phone Name Dates Todays [phone] Todays self Alon [id number] Options [place] 13 Options [place] NONPAR Mcr [id number] NONPAR Mcr u Adv [place]ays [phone] Todays self [place]on [id number] Option [id number] Option [place] MCRAdv [facility] MCRAdv u AmProg Med [id number] AmProg Med Medicaid [id number] Medicaid self [place]on [id number] [facility] 00 [place] [id number] u Case [phone] Case self Alon [id number] Management [place] 02 Management [facility] [address] [facility] MEDICAL (GENERAL) HISTORY Type Description Date Medical [...]
--- NOTE | 2018-03-31 00:27 | ED ---
Laceration/Wound HPI - HPI Summary HPI Summary: 77 year male presents with left hand laceration today. He states that he cut it on a zipper today. He states the area continues to bleed as he is on eliquis. No numbness and tingling. Has full range of motion of hand. No other injury. - History of Current Complaint Stated Complaint: LT HAND LAC Time Seen by Provider: 03/30/18 23:57 Pain Intensity: 0 - Additional Pertinent History Primary Care Physician: WON - Allergy/Home Medications Allergies/Adverse Reactions: Allergies Allergy/AdvReac Type Severity Reaction Status Date / Time Adhesive Tape [Paper Tape] Allergy LEWIS Verified 09/04/17 20:30 latex Allergy Unknown Verified 09/04/17 15:09 Reaction Details PMH/Surg Hx/FS Hx/Imm Hx Endocrine/Hematology History: Reports: Hx Anticoagulant Therapy, Hx Diabetes Cardiovascular History: Reports: Hx Auto Implanted Cardiovert Defib, Hx Congenital Heart Disease, Hx Coronary Artery Disease, Hx Hypercholesterolemia, Hx Hypertension, Hx Myocardial Infarction, Hx Pacemaker/ICD Respiratory History: Denies: Hx Asthma, Hx Chronic Obstructive Pulmonary Disease (COPD) GI History: Reports: Other GI Disorders - Colon resection History: Reports: Hx Benign Prostatic Hyperplasia Musculoskeletal History: Reports: Other Musculoskeletal History - Knee Sx. 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, unknown source Denies: Traveled Outside the [place] in Last 30 Days - Family History Known Family History: Negative: Cardiac Disease, Diabetes - Social History Alcohol Use: None Substance Use Type: Reports: None Smoking Status (MU): Former Smoker Review of Systems Negative: Fever Negative: Chest Pain Negative: Shortness Of Breath Positive: Other - left hand laceration All Other Systems Reviewed And Are Negative: Yes Physical Exam Triage Information Reviewed: Yes Vital Signs On Initial Exam: Initial Vitals Temp Pulse Resp BP Pulse Ox 97.4 F 73 20 101/58 96 03/30/18 23:25 03/30/18 23:25 03/30/18 23:25 03/30/18 23:25 03/30/18 23:25 Vital Signs Reviewed: Yes Appearance: Positive: Well-Appearing Skin: Positive: Warm, Dry, Other - 3cm flap like skin tear of dorsum of left hand Head/Face: Positive: Normal Head/Face Inspection Eyes: Positive: Normal, Conjunctiva Clear Respiratory/Lung Sounds: Positive: Clear to Auscultation, Breath Sounds Present Cardiovascular: Positive: Normal, RRR Musculoskeletal: Positive: Strength/ROM Intact - left hand, Other - good pulses Neurological: Positive: Normal Psychiatric: Positive: Normal Procedures - Laceration/Wound Repair 1 Location: Other - left hand Description: Irregular Length, Depth and Shape: 3cm flap like valdez tear Irrigated w/ Saline (ccs): 50 Closure: Skin Adhesive, SteriStrips Diagnostics - Vital Signs Vital Signs Temp Pulse Resp BP Pulse Ox 03/30/18 23:25 97.4 F 73 20 101/58 96 - Laboratory Lab Statement: Any lab studies that have been ordered have been reviewed, and results considered in the medical decision making process. Laceration Repair Course/Dx - Course Course Of Treatment: 77 year male presents with left hand laceration today. He states that he cut it on a zipper today. He states the area continues to bleed as he is on eliquis. No numbness and tingling. Has full range of motion of hand. No other injury. on Exam has 3 cm skin flap noted. No active bleeding at this time. Cleaned area and place glued and Steri-Stripped. Applied a pressure dressing. Told to change a pressure dressing daily for the next 3 days. Told to keep the area clean and dry. Patient understands agrees with plan. - Differential Dx Differental Diagnoses: Abrasion, Avulsion, Laceration - Clinical Impression Provider Diagnoses: Skin avulsion Discharge - Sign-Out/Discharge Documenting (check all that apply): Patient Departure - Discharge Plan Condition: Good Disposition: HOME Patient Education Materials: Skin Adhesive Care (ED) Referrals: Kory Toribio PA [Primary Care Provider] - Additional Instructions: Take Tylenol for pain as needed every 6 hours Keep dry for 24 hours, change dressing daily, can switch to band aid in 3 days Glue will fall off on own Avoid scrubbing area Return to ED if develop any signs of infection or any new or worsening symptoms - Billing Disposition and Condition Condition: GOOD Disposition: Home
[2018-03-31 00:45] VITALS: BP 122/67
== END 2018-03-31 00:44 | disposition home or self-care (01) ==
LOC: ED 23:22
DX: S61.412A Laceration without foreign body of left hand, initial encounter (principal); W45.8XXA Other foreign body or object entering through skin, initial encounter; Y92.9 Unspecified place or not applicable; Z79.01 Long term (current) use of anticoagulants; Z95.1 Presence of aortocoronary bypass graft; Z95.810 Presence of automatic (implantable) cardiac defibrillator; Z96.642 Presence of left artificial hip joint; Z91.040 Latex allergy status; Z91.048 Other nonmedicinal substance allergy status; Z87.891 Personal history of nicotine dependence
CPT/HCPCS: 12002; 99282

== ENCOUNTER → 2018-06-30 18:59 | Emergency (ER) | payer MEDICARE ==
--- OUTSIDE RECORDS SUMMARY | 2018-06-30 19:10 | XMS REPORT ---
:1940 Author Organization [facility] Address [address] [place] [address] Care Team Providers Name Role Phone Kory Toribio Unavailable Unavailable PROBLEMS Type Condition ICD9-CM KEH19-HG Onset Condition SNOMED Code Code Code Dates Status Problem Stage 3 chronic N18.3 Active 659175915 kidney disease Problem Low back pain M54.5 Active 012694811 Problem Age-related H25.093 Active 130741416 incipient cataract of both eyes Problem Normocytic anemia D64.9 Active 547082425 Problem Pacemaker Z95.0 Active 000183250 Problem Ischemic I25.5 Active 974087360 cardiomyopathy Problem History of Z85.46 Active 692724138 prostate cancer Problem Body mass index Z68.42 Active 749619213 (BMI) of 45.0-49.9 in adult Problem Other chronic pain G89.29 Active 47833341 Problem 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 Active 153120662 use of insulin Problem Morbid (severe) E66.01 Active 66875231344621 obesity due to excess calories Problem Type 2 diabetes E11.9 Active 664815936 mellitus without complications ALLERGIES No Information ENCOUNTERS Encounter Location Date Diagnosis [facility] [address] [facility], [place] [address] [facility] [address] [facility], [place] [address] [facility] [address] [place], [place] [address] [place] [address] [place] [address] [place] [facility] [address] [place], [place], [place] E87.1 [place] [address] Apr, [place] [address] [place], Apr, Type 2 [place] [address] without complications E11.9 ; Stage 3 chronic kidney disease N18.3 and Overgrown toenails L60.[address] Apr, [place] [address] [place], Apr, [place] [address] infection, unspecified J06.[address] [place], [place], Type 2 [place] [address] without complication, unspecified 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 E11.9 and [facility] 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 Z79.[address] [place], [place] [address] [place], [place] [address] [place], Feb, [place] [address] [place], Feb, [place], [place] [address] D64.9 ; Elevated serum creatinine R79.89 and Encounter for immunization Z23 [facility] [address], [facility] [address] [place], [place] [id number] [facility] [address], [facility] [address] [place], [place] [id number] [address] [place], [place] [address] [place] [address] Feb, Type 2 diabetes mellitus [address] [place], [place] complication, [address] unspecified 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 E11.9 and long term care social worker 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 Z79.[address] [place], [place] [address] [place], [place] [address] [place], [place], [place] 2 [place] [address] without complications E11.9 and History of prostate cancer Z85.[address] [place], [place] [address] [place], [place] [address] [place], Jan, Type 2 [place] [address] without complication, unspecified whether detention insulin use E11.9 and long term care social worker 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 Z79.[address] Jan, Type 2 diabetes mellitus [employer] [place], [place] without complication, [address] unspecified whether detention insulin use E11.[address] [place], [place] [address] [place], [place] [address] [place], [place] [address] [place], [place], [place] [address] hyperthyroidism E05.[address] [place], Dec, Type 2 [place] [address] without complications E11.9 ; Morbid (severe) obesity due to excess calories E66.01 ; Body mass index (BMI) of 45.0-49.9 in adult Z68.42 and Reduced ejection fraction concurrent with and due to acute heart failure I50.[address] [place], [place] [address] [place], Nov, Normocytic [place] D64.9 [place] [address] Hyponatremia E87.[address] [place], [place] [address] [place], Nov, Type 2 [place] [address] without complications E11.9 ; [facility]PC 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 Z79.4 ; Low back pain M54.5 ; Other chronic pain G89.29 ; Vision changes H53.9 ; Morbid (severe) obesity due to excess calories E66.01 and Body mass index (BMI) of 45.0-49.9 in adult Z68.[address] [place], [place] [address] [place], [place]uced [place] [address] concurrent with and due to acute heart failure I50.[address] [place], [place] [address] [place], Nov, Normocytic [place] D64.9 [place] [address] [place], Nov, Type 2 [place] [address] without complication, unspecified whether detention insulin use E11.9 ; Normocytic anemia D64.9 and History of prostate cancer Z85.[address] [place], [place] [address] [place], [place] [address] Nov, [place] [address] [place], [place] [address] [place], [place] [address] [place], Oct, [place] 2 [place] [address] without complication, unspecified 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 E11.9 ; Elevated serum creatinine R79.89 ; Hyperkalemia E87.5 ; Hypocalcemia E83.51 ; Screening, lipid Z13.220 ; Age-related incipient cataract of both eyes H25.093 ; Screening for colon cancer Z12.11 and Reduced ejection fraction concurrent with and due to acute heart failure I50.[address] [place], [place] [address] [place], [place] [address] [place], [place] [address] IMMUNIZATIONS No Known Immunizations SOCIAL HISTORY Never Assessed REASON FOR REFERRAL FUNCTIONAL STATUS PLAN OF CARE VITAL SIGNS MEDICATIONS Unknown Medications PROCEDURES No Known procedures RESULTS No Results REASON FOR VISIT PA Information Insurance Providers [facility] Member Patient Patient Patient Patient Patient Subscriber Subscriber Subscriber Group Insurance Plan Plan Plan Plan ID Relationship Address Phone Name Date of ID Name Date of No Type Insurance Insurance Insurance Coverage to Subscriber Address Phone Name Dates Todays [phone] Todays self [place]on [id number] Options [place] 13 Options [place] NONPAR Mcr [id number] NONPAR Mcr u Adv [place]ays [address] Todays self Alon [id number] Option [id number] Option [place] MCRAdv [facility] MCRAdv u AmProg Med [id number] AmProg Med Medicaid [phone] Medicaid self [place]on [id number] [facility] 00 [place] [address] u Case [phone] Case self Alon [id number] Management [place] 02 [facility] [address] [facility] MEDICAL (GENERAL) HISTORY Type Description Date Medical History DM 2 Medical History Pacemaker Medical History Heart Attack 2002 Medical History Surgical implants Left Hip Medical History Hypocalcemia Medical History Hyperkalemia Medical History Need PRE-Med Surgical History Colectomy dont miltonber Surgical History Open heart surgery 2002 Surgical History right eye catarct surgery 2018 Hospitalization History see above
--- OUTSIDE RECORDS SUMMARY | 2018-06-30 19:10 | XMS REPORT ---
:1940 Author Organization [facility] Address [address] [place] [address] Care Team Providers Name Role Phone Kory Toribio Unavailable Unavailable PROBLEMS Type Condition ICD9-CM [id number] Onset Condition SNOMED Code Code Code Dates Status Problem Stage 3 chronic N18.3 Active 945683576 kidney disease Problem Low back pain M54.5 Active 305503596 Problem Age-related H25.093 Active 495850228 incipient cataract of both eyes Problem Normocytic anemia D64.9 Active 956112453 Problem Pacemaker Z95.0 Active 404037827 Problem Ischemic I25.5 Active 191888509 cardiomyopathy Problem History of Z85.46 Active 609147138 prostate cancer Problem Body mass index Z68.42 Active 340847060 (BMI) of 45.0-49.9 in adult Problem Other chronic pain G89.29 Active 05595289 Problem 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 Active 006918843 use of insulin Problem Morbid (severe) E66.01 Active 92154889159669 obesity due to excess calories Problem Type 2 diabetes E11.9 Active 735332373 mellitus without complications ALLERGIES No Information ENCOUNTERS Encounter Location Date Diagnosis [facility] [address] [facility], [place] [address] [facility] [address] [facility], [place] [address] [facility] [address] [facility], [place] [address], [place] [address], [place] [address], [place] [address] [facility] [address] [place] [address] [place], [place], [place] E87[place]1 [place] [address] Apr, [place] [address] [place], Apr, Type 2 [place] [address] without complications E11.9 ; Stage 3 chronic kidney disease N18.3 and Overgrown toenails L60.[address] Apr, [place] [address] [facility] [address] [place] [address] [place], Apr, [place] [address] infection, unspecified J06.[address] [place], Mar, Type 2 [place] [address] without complication, unspecified whether detention insulin use E11.9 and senior living 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 Z79.[address] [place], [place] [address] [place], [place] [address] [place], Feb, [place] [address] [place], Feb, [place], [place] [address] D64.9 ; Elevated serum creatinine R79.89 and Encounter for immunization Z23 Alan Blakeslee [facility] [address] [facility] [address] [place], [place] [id number] Alan Blakeslee [facility] [address], [facility] [address] [place], [place] [id number] [place] [address] [place], [place] [address] [place] [id number] Feb, Type 2 diabetes mellitus [address] [place], [place] without complication, [address] unspecified whether detention insulin use E11.9 and industrial cleaner 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 Z79.[address] Feb, [place] [address] [facility] [address] [place], [place] [address] [facility] [address] [place] [address] [place], Jan, Type 2 [place] [address] without complications E11.9 and History of prostate cancer Z85.[address] [place], [place] [address] [place], [place] [address] [place], Jan, Type 2 [place] [address] without complication, unspecified whether detention insulin use E11.9 and industrial cleaner 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 Z79.[address] Jan, Type 2 diabetes mellitus [place] without complication, [address] unspecified whether detention insulin use E11.[address] [place], [place] [address] [place], [place] [address] [place], [place] [address] [place], Dec, [place] [address] hyperthyroidism E05.[address] [place], Dec, Type 2 [place] [address] without complications E11.9 ; Morbid (severe) obesity due to excess calories E66.01 ; Body mass index (BMI) of 45.0-49.9 in adult Z68.42 and Reduced ejection fraction concurrent with and due to acute heart failure I50.[address] [place], [place] [address] [place], Nov, Normocytic anemia D64.9 [place] [address] Hyponatremia E87.[address] [place], [place] [address] [place], Nov, Type 2 [place] [address] without complications E11.9 ; industrial cleaner 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 Z79.4 ; Low back pain M54.5 ; Other chronic pain G89.29 ; Vision changes H53.9 ; Morbid (severe) obesity due to excess calories E66.01 and Body mass index (BMI) of 45.0-49.9 in adult Z68.[address] [place], [place] [address] [place], Reduced ejection fraction [facility] [place] [address] concurrent with and due to acute heart failure I50.[address] Nov, [place] [address] [place], Nov, Normocytic [place] D64.9 [place] [address] [place], Nov, Type 2 [place] [address] without complication, unspecified whether detention insulin use E11.9 ; Normocytic anemia D64.9 and History of prostate cancer Z85.[address] [place], [place] [address] [place], [place] [address] Nov, [facility] [place] [address] [place], [place] [address] [place], [place] [address] [place], Oct, Type 2 [place] [address] without complication, unspecified whether hydrometeorologist insulin use E11.9 ; Elevated serum creatinine R79.89 ; Hyperkalemia E87.5 ; Hypocalcemia E83.51 ; Screening, lipid Z13.220 ; Age-related incipient cataract of both eyes H25.093 ; Screening for colon cancer Z12.11 and Reduced ejection fraction concurrent with and due to acute heart failure I50.[address] [place], [place] [address] [place], [place] [address] [place], [place] [address] IMMUNIZATIONS No Known Immunizations SOCIAL HISTORY Never Assessed REASON FOR REFERRAL FUNCTIONAL STATUS PLAN OF CARE VITAL SIGNS MEDICATIONS Medication Instructions Dosage Frequency Start Date End Date Duration Status Carvedilol 25 Orally twice a 1 tablet 12h 90 days Active MG day PROCEDURES No Known procedures RESULTS No Results REASON FOR VISIT Refill Insurance Providers [facility] Health Member Patient Patient Patient Patient Patient Subscriber Subscriber Subscriber Group Insurance Plan Plan Plan Plan ID Relationship Address Phone Name Date of ID Name Date of No Type Insurance Insurance Insurance Coverage to Subscriber Address Phone Name Dates Case [phone] Case self Alon [id number] Management [place] 02 Management [facility] [address] [facility] u Todays [address] [phone] Todays self Alon [id number] Options [place] 13 Options [place] NONPAR [facility] [address] NONPAR Mcr u Adv [place] Adv [place] [phone] Todays self Alon [id number] Option [id number] Option [place] MCRAdv [facility] MCRAdv u AmProg Med [id number] AmProg Med Medicaid [id number] [phone] Medicaid self Alon [id number] [facility] [address] [place] [id number] u MEDICAL (GENERAL) HISTORY Type Description Date Medical History DM 2 Medical History Pacemaker Medical History Heart Attack 2002 Medical History Surgical implants Left Hip Medical History Hypocalcemia Medical History Hyperkalemia Medical History Need PRE-Med Surgical History Colectomy dont remcarlosber Surgical History Open heart surgery 2002 Surgical History right eye catarct surgery 2018 Hospitalization History see above
--- NOTE | 2018-06-30 22:02 | ED ---
Lower Extremity - HPI Summary HPI Summary: This patient is a 78 year old M presenting to [facility] accompanied by his son with a chief complaint of left leg numbness since 2 days ago. The patient rates the pain 0/10 in severity. Symptoms aggravated by movement. Symptoms alleviated by nothing. Patient reports intermittent color changes in LLE. Pt has hx diabetes. - History of Current Complaint Chief Complaint: EDExtremityLower Stated Complaint: LEFT LEG/ANKLE SWELLING Time Seen by Provider: 06/30/18 21:24 Hx Obtained From: Patient Mechanism Of Injury: Unknown Onset of Pain: Days - 2 days, Prior to Arrival Onset/Duration: Days - 2 days Severity Currently: None Pain Intensity: 0 Pain Scale Used: 0-10 Numeric Timing: Lasting Days - 2 days Location: Is Discrete @ - LLE Associated Signs And Symptoms: Positive: Other - intermittent color changes in LLE, numbness in LLE Aggravating Factor(s): Movement Able to Bear Weight: Yes - Allergies/Home Medications Allergies/Adverse Reactions: Allergies Allergy/AdvReac Type Severity Reaction Status Date / Time Adhesive Tape [Paper Tape] Allergy LEWIS Verified 09/04/17 20:30 latex Allergy Unknown Verified 09/04/17 15:09 Reaction Details PMH/Surg Hx/FS Hx/Imm Hx Endocrine/Hematology History: Reports: Hx Anticoagulant Therapy, Hx Diabetes Cardiovascular History: Reports: Hx Auto Implanted Cardiovert Defib, Hx Congenital Heart Disease, Hx Coronary Artery Disease, Hx Hypercholesterolemia, Hx Hypertension, Hx Myocardial Infarction, Hx Pacemaker/ICD Respiratory History: Denies: Hx Asthma, Hx Chronic Obstructive Pulmonary Disease (COPD) GI History: Reports: Other GI Disorders - Colon resection History: Reports: Hx Benign Prostatic Hyperplasia Musculoskeletal History: Reports: Other Musculoskeletal History - Knee Sx. 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 GENERAL: Patient is a well-developed and nourished MALE who is lying comfortable in the stretcher. Patient is not in any acute respiratory distress. HEAD AND FACE: No signs of trauma. No ecchymosis, hematomas or skull depressions. No sinus tenderness. EYES: PERRLA, EOMI x 2, No injected conjunctiva, no nystagmus. EARS: Hearing grossly intact. Ear canals and tympanic membranes are within normal limits. MOUTH: Oropharynx within normal limits. NECK: Supple, trachea is midline, no adenopathy, no JVD, no carotid bruit, no c- spine tenderness, neck with full ROM. CHEST: Symmetric, no tenderness at palpation LUNGS: Clear to auscultation bilaterally. No wheezing or crackles. CVS: Regular rate and rhythm, S1 and S2 present, no murmurs or gallops appreciated. ABDOMEN: Soft, non-tender. Distention. No rebound no guarding, and no masses palpated. Bowel sounds are normal. EXTREMITIES: FROM in all major joints, no cyanosis or clubbing. Bilateral legs pitting edema, with left worse than right. Both feet are warm and non-tender with good sensation. Bilateral dorsalis pedis pulses 2+. NEURO: Alert and oriented x 3. No acute neurological deficits. Speech is normal and follows commands. SKIN: Dry and warm. Mild pigmentation over left medial ankle consistent with venous stasis. Triage Information Reviewed: Yes Vital Signs On Initial Exam: Initial Vitals Temp Pulse Resp BP Pulse Ox 97.6 F 79 20 116/67 95 06/30/18 19:02 06/30/18 19:02 06/30/18 19:02 06/30/18 19:02 06/30/18 19:02 Vital Signs Reviewed: Yes Diagnostics - Vital Signs Vital Signs Temp Pulse Resp BP Pulse Ox 06/30/18 19:02 97.6 F 79 20 116/67 95 - Laboratory Lab Statement: Any lab studies that have been ordered have been reviewed, and results considered in the medical decision making process. - Additional Comments Diagnostic Additional Comments: VL lower ext veins left: Interpreted by radiologist. Impression: no acute findings, no evidence of DVT in the left leg. Dr. Yuen has reviewed this report. Lower Extremity Course/Dx - Course Course Of Treatment: This patient is a 78 year old M with hx DM presenting to [facility] accompanied by his son with a chief complaint of left leg numbness since 2 days ago. The patient rates the pain 0/10 in severity. Symptoms aggravated by movement. Patient reports intermittent color changes in LLE. VL lower ext veins left reveals, per radiologist, no acute findings, no evidence of DVT in the left leg. ED physician has reviewed this radiology report. Physical exam and US findings are consistent with venous stasis. Pt most likely has venous stasis of the left leg. Patient will be discharged home with follow up from vascular surgery and PCP. The patient is agreeable with this plan. - Diagnoses Provider Diagnoses: Venous stasis dermatitis of left lower extremity Discharge - Sign-Out/Discharge Documenting (check all that apply): Patient Departure - discharge home Patient Received Moderate/Deep Sedation with Procedure: No - Discharge Plan Condition: Stable Disposition: HOME Patient Education Materials: Venous Insufficiency (DC) Referrals: Kory Toribio PA [Primary Care Provider] - 1 Day Additional Instructions: Follow up with vascular surgeon and follow up with primary care physician in 1- 2 days. Return to the emergency department with any new or worsening symptoms. - Attestation Statements Document Initiated by Scribe: Yes Documenting Scribe: Shawanda Chase Provider For Whom Jeromeibtobin is Documenting (Include Credential): Dominick Yuen MD Scribe Attestation: Shawanda Bennett, francoed for Dominick Yuen MD on 06/30/18 at 2222. Status of Scribe Document: Ready
[2018-06-30 23:04] VITALS: BP 110/68
== END | disposition home or self-care (01) ==
LOC: ED 18:59
DX: I87.2 Venous insufficiency (chronic) (peripheral) (principal); Z79.01 Long term (current) use of anticoagulants; E11.9 Type 2 diabetes mellitus without complications; Z95.810 Presence of automatic (implantable) cardiac defibrillator; Q24.9 Congenital malformation of heart, unspecified; I25.10 Atherosclerotic heart disease of native coronary artery without angina pectoris; E78.00 Pure hypercholesterolemia, unspecified; I10 Essential (primary) hypertension; I25.2 Old myocardial infarction; N40.0 Benign prostatic hyperplasia without lower urinary tract symptoms; Z87.891 Personal history of nicotine dependence
CPT/HCPCS: 99282

== ENCOUNTER 2018-12-18 00:15 | Emergency (ER) | payer MEDICARE ==
--- NOTE | 2018-12-18 00:42 | ED ---
Lower Extremity - HPI Summary HPI Summary: 78 yo male presents to [facility] with complaints of right hip pain. He tells me that for the past 6 months or so he has been having pain in his right hip that is getting progressively worse. Over the last 2 days his pain has been the worst it's ever been. Tonight it was unbearable - prompting his visit to the ED. He has a history of LEFT hip replacement. Has never seen Ortho for his right hip. Has not taken anything for his discomfort. Also has some left rib pain from a fall 4-5 days ago. Denies SOB, chest pain, abdominal pain, numbness , tingling, dysuria, saddle anesthesia, or loss of bowel/bladder function. He lives alone in a downstairs apartment and ambulates with a cane. - History of Current Complaint Chief Complaint: EDHipPelvisInjury Stated Complaint: R HIP PAIN PER EMS Time Seen by Provider: 12/18/18 00:41 Hx Obtained From: Patient Severity Initially: Moderate Severity Currently: Severe Pain Intensity: 9 Pain Scale Used: 0-10 Numeric - Allergies/Home Medications Allergies/Adverse Reactions: Allergies Allergy/AdvReac Type Severity Reaction Status Date / Time Adhesive Tape [Paper Tape] Allergy LEWIS Verified 09/04/17 20:30 latex Allergy Unknown Verified 09/04/17 15:09 Reaction Details PMH/Surg Hx/FS Hx/Imm Hx Endocrine/Hematology History: Reports: Hx Anticoagulant Therapy, Hx Diabetes Cardiovascular History: Reports: Hx Auto Implanted Cardiovert Defib, Hx Congenital Heart Disease, Hx Coronary Artery Disease, Hx Hypercholesterolemia, Hx Hypertension, Hx Myocardial Infarction, Hx Pacemaker/ICD Respiratory History: Denies: Hx Asthma, Hx Chronic Obstructive Pulmonary Disease (COPD) GI History: Reports: Other GI Disorders - Colon resection History: Reports: Hx Benign Prostatic Hyperplasia Musculoskeletal History: Reports: Other Musculoskeletal History - Knee Sx. 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 Left rib pain Skin: Negative Neurological: Negative Psychological: Normal All Other Systems Reviewed And Are Negative: Yes Physical Exam - Summary Physical Exam Summary: GENERAL: NAD. WDWN. No pain distress. SKIN: No rashes, sores, or open wounds. HEENT: Head: AT/NC CHEST: CTAB. No accessory muscle use. Breathing comfortably and in no distress. CV: Irregular. Pulses intact. Brisk cap refill. ABDOMEN: Soft. NTTP. No distention or guarding., No organomegaly. No CVA tenderness. Bowel sounds present MSK: RIGHT HIP: TTP over joint. FROM, but pain with adduction and hip flexion. FROM at right knee. LEFT RIBS: Mild TTP at 9th-10th rib. NEURO: Alert. Sensations intact L3-S1 B/l. Reflexes intact. PSYCH: Age appropriate behavior. Triage Information Reviewed: Yes Vital Signs On Initial Exam: Initial Vitals Temp Pulse Resp BP Pulse Ox 97.1 F 108 20 120/78 95 12/18/18 00:23 12/18/18 00:23 12/18/18 00:23 12/18/18 00:23 12/18/18 00:23 Vital Signs Reviewed: Yes Diagnostics - Vital Signs Vital Signs Temp Pulse Resp BP Pulse Ox 12/18/18 00:23 97.1 F 108 20 120/78 95 - Laboratory Lab Statement: Any lab studies that have been ordered have been reviewed, and results considered in the medical decision making process. Re-Evaluation - Re-Evaluation First Eval Re-Evaluation Time: 01:37 Change: Improved Comment: Discussed XR results with pt. Pain mildly improved with tramadol. Was now 5-11/01. Lower Extremity Course/Dx - Course Course Of Treatment: XR hip: wet read no fx. Arthritis. XR left ribs: wet read no acute fx, but there appears to be a healed old fx. In the ED he was given tramadol for his discomfort with good relief. Advised to rest and apply ice to his hip. Rx for tramadol. Advised to f/u with Ortho in 3-5 days for further eval and treatment of his chronic right hip pain. - Diagnoses Provider Diagnoses: Right hip pain, Rib pain on left side Discharge - Sign-Out/Discharge Documenting (check all that apply): Patient Departure Patient Received Moderate/Deep Sedation with Procedure: No - Discharge Plan Condition: Stable Disposition: HOME Prescriptions: traMADol TAB* [Ultram*] 50 mg PO Q12H PRN #8 tab MDD 2 PRN Reason: Pain Patient Education Materials: Hip Pain (ED) Referrals: Kory Toribio PA [Primary Care Provider] - Deirder Morse MD [Medical Doctor] - 5 Days Additional Instructions: If you develop a fever, shortness of breath, chest pain, new or worsening symptoms - please call your PCP or go to the ED immediately. 1) Rest and apply ice to your hip to decrease pain 2) May take tylenol as directed for your discomfort with the prescription tramadol 3) Please call Orthopedics at the number below to schedule an appointment within 1 week for further evaluation and treatment of your hip pain - Billing Disposition and Condition Condition: STABLE Disposition: Home
[2018-12-18] MEDS ORDERED: traMADol TAB* 50 MG PO ONE (00:54)
--- OUTSIDE RECORDS SUMMARY | 2018-12-18 02:09 | XMS REPORT ---
:1940 Author Organization Formerly [facility], [facility]–1983 Address [address] [place] [address] Care Team Providers Name Role Phone Kory Toribio Unavailable Unavailable PROBLEMS Type Condition ICD9-CM GRL26-VM Onset Condition SNOMED Code Code Code Dates Status Problem Pacemaker Z95.0 Active 492298746 Problem Normocytic anemia D64.9 Active 112491195 Problem Age-related H25.093 Active 613841140 incipient cataract of both eyes Problem Low back pain M54.5 Active 087315326 Problem long-term current Z79.4 Active 906332654 use of insulin Problem History of Z85.46 Active 509257106 prostate cancer Problem Stage 3 chronic N18.3 Active 932351036 kidney disease Problem 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 Active 299868270 leg Problem Ischemic I25.5 Active 648503206 cardiomyopathy Problem Other chronic pain G89.29 Active 03625532 Problem Type 2 diabetes E11.9 Active 125863204 mellitus without complications Problem Morbid (severe) E66.01 Active 07517545561223 obesity due to excess calories Problem Body mass index Z68.42 Active 932749455 (BMI) of 45.0-49.9 in adult ALLERGIES No Information ENCOUNTERS Encounter Location Date Diagnosis [facility]ly [facility], [facility] [place], [place] [address] [facility], [facility] [place], [place] [address] [facility], [facility] [place], [place] [address] [facility] [place], [place] [address] [facility], [facility] [facility], [place] [address] [place], [place] [address] [place], [place] [address] [facility], [facility] [place], [place], Type 2 [place] [address] without complications E11.9 ; Screening for colon cancer Z12.11 and Aneurysm of left leg I72.4 [place] [facility] [address] [place], [place] [address] [place] [facility] [address] [place], September, [place] 2 [place] [address] without complications E11.9 and termite treater helper 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 Z79.4 [place] [facility] [address] [place], [place] [address] [place] [facility] [address] [place], [place] [address] [place] [facility] [address] [place] [address] [place] [facility] [address] [place] [address] [place], [place] [address] [place] [facility] [address] [place] [address] [place] [facility] [address] [place], [place] [address] [place], [place] [address] [place] [address] [place], [place] [address] Jun, Type 2 diabetes mellitus [place] without complications E11.9 [address] [place] [address] [place], Jun, Type 2 [place] [address] without complication, unspecified whether termite treater helper insulin use E11.9 and termite treater helper 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 Z79.4 [place] [facility] [address] [place], Jun, [place] 2 [place] [address] without complications E11.9 [place] [address] [place], [place] [address] [place], [place] [address] [place] [facility] [address] [place], [place], [place] [address] extremity M79[address] [place], [facility] [place] [address] [place], [place] [address] [place], [place] [address] [place] [address] [place], [facility] [place] [address] [place], [place] [address] [place], [place] [address] [place], [place], [place] E87[place]1 [place] [address] Apr, [place] [address] [place], Apr, Type 2 [place] [address] without complications E11.9 ; Stage 3 chronic kidney disease N18.3 and Overgrown toenails L60.[address] Apr, [place] [address] [place], Apr, [place] [address] infection, unspecified J06.[address] [place], Mar, Type 2 [place] [address] without complication, unspecified whether chcf insulin use E11.9 and long-term 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 Z79.[address] [place], [place] [address] [place], [place] [address] [place], Feb, [place] [address] [place], Feb, [place], [place] [address] D64.9 ; Elevated serum creatinine R79.89 and Encounter for immunization Z23 [facility] [address], [facility] [address] [place], [place] [id number] [facility] [address], [facility] [address] [place], [place] [id number] [address] [place], [place] [address] [facility] [address] [facility] [address] Feb, 2018 Type 2 diabetes mellitus [address] [place], [place] without complication, [address] unspecified whether termite treater helper insulin use E11.9 and long-term 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 Z79.[address] Feb, [place] [address] [place] [facility] [address] [place] [address] [place], [place] [address] [facility], [facility] [place] [address] [place], [place], Type 2 [place] [address] without complications E11.9 and History of prostate cancer Z85.46 [place] [facility] [address] [place], [place] [address] [place], [place] [address] [place], [place], [place] 2 [place] [address] without complication, unspecified whether termite treater helper insulin use E11.9 and long-term 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 Z79.[address] [place], Type 2 diabetes mellitus [place] without complication, [address] unspecified whether chcf insulin use E11.[address] [place], [place] [address] [place], [place] [address] [place], [place] [address] [place], [place], [place] [address] hyperthyroidism E05.[address] [place], [place], Type 2 [place] [address] without complications E11.9 ; Morbid (severe) obesity due to excess calories E66.01 ; Body mass index (BMI) of 45.0-49.9 in adult Z68.42 and Reduced ejection fraction concurrent with and due to acute heart failure I50.[address] [place], [place] [address] [place], Nov, Normocytic [place] D64.9 [place] [address] Hyponatremia E87.[address] [place] [address] [place], [place] [address] [place], [place], Type 2 [place] [address] without complications E11.9 ; termite treater helper 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 Z79.4 ; Low back pain M54.5 ; Other chronic pain G89.29 ; Vision changes H53.9 ; Morbid (severe) obesity due to excess calories E66.01 and Body mass index (BMI) of 45.0-49.9 in adult Z68.[address] [place], [place] [address] [place], [place] [address] concurrent with and due to acute heart failure I50.[address] Nov, Anemia, unspecified type [place], [place] D64.9 [address] [place], Nov, Norm[place] D64.9 [place] [address] [place], [place], Type 2 [place] [address] without complication, unspecified whether chcf insulin use E11.9 ; Normocytic anemia D64.9 and History of prostate cancer Z85.[address] [place], [place] [address] [place], [place] [address] [place], [place] [address] [place], [place] [address] [place], [place] [address] [place], Oct, Type 2 [place] [address] without complication, unspecified whether chcf insulin use E11.9 ; Elevated serum creatinine R79.89 ; Hyperkalemia E87.5 ; Hypocalcemia E83.51 ; Screening, lipid Z13.220 ; Age-related incipient cataract of both eyes H25.093 ; Screening for colon cancer Z12.11 and Reduced ejection fraction concurrent with and due to acute heart failure I50.[address] [place], [place] [address] [place], [place] [address] [place] [facility] [address] [facility] [place], [place] [address] IMMUNIZATIONS No Known Immunizations SOCIAL HISTORY Never Assessed REASON FOR REFERRAL FUNCTIONAL STATUS PLAN OF CARE VITAL SIGNS MEDICATIONS Unknown Medications PROCEDURES No Known procedures RESULTS No Results REASON FOR VISIT Call 12/10/18 for BG''s* Insurance Providers [facility] Member Patient Patient Patient Patient Patient Subscriber Subscriber Subscriber Group Insurance Plan Plan Plan Plan ID Relationship Address Phone Name Date of ID Name Date of No Type Insurance Insurance Insurance Coverage to Subscriber Address Phone Name Dates [place]ays [address] Todays self Alon [id number] Option [id number] Option [place] MCR[facility] MCRAdv u AmProg Med [id number] AmProg Med Medicare National [id number] Medicare self [place]on [id number] PPS Government 41 PPS [place] Services u [address] [place] [id number] Medicaid [id number] [phone] Medicaid self Alon [id number] [facility] [address] [place] [address] u WellCare [phone] WellCare self [place] [id number] [id number] 63 [place] PPO [place] Mcr Adv [place] Mcr Adv u Medical [id number] Medical Case [phone] Case self Alon [id number] Management [place] 02 Management [place] [facility] [address] [facility] u Todays [phone] Todays self [place]on [id number] Options [place] 13 Options [place] Mcr Adv [id number] Mcr Adv u [place] Medicare National [phone] Medicare self [place]on [id number] PPS Government 41 PPS [place] Services u [address] [place] [id number] WellCare [phone] WellCare self Alon [id number] [place] 9255 Attn 83 [id number] [place] Hplex Mcr Claims Hplex Mcr u Adv Dept Adv [facility] [address] MEDICAL (GENERAL) HISTORY Type Description Date Medical History DM 2 Medical History Heart Attack 2002 Medical History Pacemaker 2002 - ICD Medical History 2012: CABG x 2 Medical History Surgical implants Left Hip Medical History Hypocalcemia Medical History Hyperkalemia Medical History Need PRE-Med Medical History Hx of anticoagulant therapy Medical History Congenital heart disease Medical History CAD Medical History Hypercholesterolemia Medical History HTN Medical History RBBB Medical History Pacemaker 2018 - BIV ICD Medical History Prostate Cancer 07/2015 - treated with Radiation Medical History Multi-nodular goiter Medical History Left GWENDOLYN Aneursym - 2018 Medical History Hx of exposure to asbestos Medical History Per patient - hx of MRSA - unknown source Surgical History Open heart surgery 2001 Surgical History Partial sigmoid colectomy d/t perforated 2006 diverticulum, colostomy Surgical History Revision of Colostomy 2011 Surgical History right eye catarct surgery 2017 Surgical History Septoplasty and nilateral endoscopic turbinate 01/14/13 submucous resection Hospitalization History see above
[2018-12-18 02:26] VITALS: BP 135/61
== END 2018-12-18 02:25 | disposition home or self-care (01) ==
LOC: ED 00:15
DX: M25.551 Pain in right hip (principal); R07.81 Pleurodynia; S22.42XA Multiple fractures of ribs, left side, initial encounter for closed fracture; W19.XXXA Unspecified fall, initial encounter; Y92.9 Unspecified place or not applicable; E11.9 Type 2 diabetes mellitus without complications; I10 Essential (primary) hypertension; N40.0 Benign prostatic hyperplasia without lower urinary tract symptoms; Z86.14 Personal history of Methicillin resistant Staphylococcus aureus infection; Z79.01 Long term (current) use of anticoagulants; Z95.1 Presence of aortocoronary bypass graft; Z95.810 Presence of automatic (implantable) cardiac defibrillator; Z96.642 Presence of left artificial hip joint; Z91.040 Latex allergy status; Z91.048 Other nonmedicinal substance allergy status; Z87.891 Personal history of nicotine dependence
CPT/HCPCS: 99283; A9270-GY

== ENCOUNTER 2019-01-05 04:22 | Emergency (ER) | payer MEDICARE ==
--- OUTSIDE RECORDS SUMMARY | 2019-01-05 04:30 | XMS REPORT ---
:1940 Author Organization Count Includes [facility] Address [address] [place] [address] Care Team Providers Name Role Phone Kory Toribio Unavailable Unavailable PROBLEMS Type Condition ICD9-CM DSG36-UC Onset Condition SNOMED Code Code Code Dates Status Problem Pacemaker Z95.0 Active 099529448 Problem Normocytic anemia D64.9 Active 142055915 Problem Stage 3 chronic N18.3 Active 343454876 kidney disease Problem Age-related H25.093 Active 176964257 incipient cataract of both eyes Problem Low back pain M54.5 Active 705298495 Problem Body mass index Z68.42 Active 477740743 (BMI) of 45.0-49.9 in adult 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 49097867907329959 iliac artery Problem History of Z85.46 Active 547383824 prostate cancer Problem Ischemic I25.5 Active 421636194 cardiomyopathy Problem shelter current Z79.4 Active 603371668 use of insulin Problem Other chronic pain G89.29 Active 32994522 Problem Type 2 diabetes E11.9 Active 095987490 mellitus without complications Problem Morbid (severe) E66.01 Active 59100309204193 obesity due to excess calories ALLERGIES Substance Reaction Event Type Date Status latex Unknown Drug Allergy Dec, Active Garlic Unknown Drug Allergy Dec, Active ENCOUNTERS Encounter Location Date Diagnosis Count Includes [facility] [address] [place], [place] [address] Count Includes [facility] [address] [place], [place] [address] Count Includes [facility] [address] [place], [place] [address] Count Includes [facility] [address] [place], [place] [address] Count Includes [facility] [address] [place], [place] [address] Count Includes [facility] [address] [place], Dec, Right hip pain M25.551 ; [place] [address] risk for fall due to comorbid condition Z91.81 ; Food insecurity Z59.4 ; Limited mobility Z74.09 and Type 2 diabetes mellitus without complications E11.9 [facility] [place] [address] [facility] Dec, [place] [address] Count Includes [facility] [address] [place], [place] [address] [place] [address] [place], [place] [address] Oct, [place] [address] Oct, [place] [address] [place] [address] [place], September, Type 2 [place] [address] without complications E11.9 ; Screening for colon cancer Z12.11 and Aneurysm of left leg I72.4 [place] [facility] [address] [place], [place] [address] Count Includes [facility] [address] [place], September, Type 2 [place] [address] without complications E11.9 and shelter 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 Z79.4 [place] [facility] [address] [place], [place] [address] [place] [address] [place], [place] [address] Count Includes [facility] [address] [place], [place] [address] Count Includes [facility] [address] [place], [place] [address] Jul, [place] [address] [place] [facility] [address] [place], [place] [address] Count Includes [facility] [address] [place], [place] [address] Jul, [place] [address] [place] [id number] [place], [place] [address] Jun, Type 2 diabetes mellitus [place] without complications E11.9 [address] [place] [address] [place], Jun, Type 2 [place] [address] without complication, unspecified whether detention insulin use E11.9 and salvage determiner 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 Z79.[address] [place], Jun, Type 2 [place] [address] without complications E11.[address] [place] [address] [place], [place] [address] Jun, [place] [address] [place], Jun, [place] [address] extremity M79.[address] Jun, [facility] [place] [address] [place], [place] [address] [place], [place] [address] May, [facility] [place] [address] [place], [place] [address] [place], [place] [address] [place], May, [place] E87[place]1 [place] [address] Apr, [place] [address] [place], Apr, Type 2 [place] [address] without complications E11.9 ; Stage 3 chronic kidney disease N18.3 and Overgrown toenails L60.[address] Apr, [place] [address] [place], Apr, [place] [address] infection, unspecified J06.[address] [place], Mar, Type 2 [place] [address] without complication, unspecified whether intermediate accountant insulin use E11.9 and salvage determiner 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 Z79.[address] [place], [place] [address] Mar, [place] [address] [place] [facility] [address] [place], Feb, [place] [address] R79.89 [place] [facility] [address] [place] [address] [place], Feb, [place], [place] [address] D64.9 ; Elevated serum creatinine R79.89 and Encounter for immunization Z23 [place] [facility] [address], [facility] [address] [place], [place] [id number] [place] [facility] [address] Feb, [facility] [address] [place], [place] [id number] [place] [facility] [address] [place] [address] [place], [place] [address] [facility] [address] [place], Feb, Type 2 [place] [address] without complication, unspecified whether intermediate accountant insulin use E11.9 and salvage determiner 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 Z79.[address] Feb, [place] [address] [place] [address] [place], [place] [address] [place], Jan, Type 2 [place] [address] without complications E11.9 and History of prostate cancer Z85.46 [place] [address] [place], [place] [address] [place] [address] [place], [place] [address] [place] [address] [place], Jan, Type 2 [place] [address] without complication, unspecified whether intermediate accountant insulin use E11.9 and salvage determiner 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 Z79.[address] Jan, Type 2 diabetes mellitus [place] without complication, [address] unspecified whether detention insulin use E11.9 [place] [address] [place] [address] [place] [facility] [address] [place] [address] [place], [place] [address] [place] [address] [place], [place] [address] [place] [address] [place], Dec, [place] [address] hyperthyroidism E05.80 [place] [facility] [address] [place] [address] [place], Dec, Type 2 [place] [address] without complications E11.9 ; Morbid (severe) obesity due to excess calories E66.01 ; Body mass index (BMI) of 45.0-49.9 in adult Z68.42 and Reduced ejection fraction concurrent with and due to acute heart failure I50.[address] Dec, [place] [address] [place], Nov, Normocytic anemia D64.9 [place] [address] Hyponatremia E87.1 [place] [address] [place], [place] [address] [place], Nov, Type 2 [place] [address] without complications E11.9 ; salvage determiner 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 Z79.4 ; Low back pain M54.5 ; Other chronic pain G89.29 ; Vision changes H53.9 ; Morbid (severe) obesity due to excess calories E66.01 and Body mass index (BMI) of 45.0-49.9 in adult Z68.42 [place] [address] [place], [place] [address] Nov, Reduced ejection fraction [facility] [place], [place] [address] concurrent with and due to acute heart failure I50.[address] Nov, Anemia, unspecified type [place], [place] D64.9 [address] [place], Nov, Normocytic [place] D64.9 [place] [address] [place], Nov, Type 2 [place] [address] without complication, unspecified whether intermediate accountant insulin use E11.9 ; Normocytic anemia D64.9 and History of prostate cancer Z85.[address] [place], [place] [address] [place], [place] [address] Nov, [facility] [address] [place], [place] [address] [place], [place] [address] Count Includes [facility] [address] [facility] [place], Oct, Type 2 [place] [address] without complication, unspecified whether detention insulin use E11.9 ; Elevated serum creatinine R79.89 ; Hyperkalemia E87.5 ; Hypocalcemia E83.51 ; Screening, lipid Z13.220 ; Age-related incipient cataract of both eyes H25.093 ; Screening for colon cancer Z12.11 and Reduced ejection fraction concurrent with and due to acute heart failure I50.21 [place] [facility] [address] [facility] [place], [place] [address] Count Includes [facility] [address] [facility] [place], [place] [address] Count Includes [facility] [address] [facility] [place], [place] [address] IMMUNIZATIONS No Known Immunizations SOCIAL HISTORY Never Assessed REASON FOR REFERRAL FUNCTIONAL STATUS PLAN OF CARE Activity Details Follow Up 4 weeks Reason:hip/ ADL follow up VITAL SIGNS Temperature 96.1 degrees Fahrenheit 2018-12-28 Heart Rate 20 2018-12-28 Weight unable 2018-12-28 Height 58.5 in 2018-12-28 Oximetry 95 % 2018-12-28 Blood pressure systolic 103 mm Hg 2018-12-28 Blood pressure diastolic 67 mm Hg 2018-12-28 MEDICATIONS Medication Instructions Dosage Frequency Start End Duration Status Date Date Tamsulosin HCl 0.4 MG Orally daily 2 capsules 24h 90 Active Spironolactone 25 MG Orally Once a day half 24h 90 Active tablet with food Quinapril HCl 10 mg Orally Once a day 1 tablet 24h 90 days Active Isosorbide Orally Once a day 1 tablet 24h Active Mononitrate ER 60 MG in the morning FreeStyle Lite - Device tid for as 06 30 day(s) Active e11.9 directed Jun, 2018 Accu-Chek Multiclix Device tid for as 06 30 day(s) Active Lancets - e11.9 directed Jun, 2018 Eliquis 5 MG Orally bid 12h Active BD Pen Needle intradermally as 13 90 days Active Ultrafine 29G X once daily for directed Jun, 12.7MM [id number] Vitamin D 1000 UNIT Orally Once a day 1 tablet 24h Active Hydrochlorothiazide Orally Every 1 tablet Active 25 MG other day in the morning Levemir 100 UNIT/ML Subcutaneous BID 55 units 12h 08 Active in AM, 45 September, units in 2018 PM (total daily dose 100units/ day) MetFORMIN HCl ER 500 Orally Once a day 2 tablet 24h Active mg with evening meal Aspir-81 81 MG Orally Once a day 1 tablet 24h Active Jardiance 10 mg Orally Once a day 1 tablet 24h Active insulin syringes 30 IM qd as needed 24h 20 19 30 day(s) Active cc for Jun,, Levemir 2018 2018 Magnesium 500 mg Orally Once a day 1 tablet 24h Active with a meal FreeStyle Lite Test - In Vitro tid for as 06 30 day(s) Active e11.9 directed Jun, 2018 Nitroglycerin 0.4 MG Sublingual every 1 tab(s) 30 day(s) Active 5 min as needed for chest pain (3 doses w/in 15min) Pravastatin Sodium 80 Orally Once a day 1 tablet 24h 30 Active mg Vitamin B12 1000 MCG Orally Once a day 1 tablet 24h Active Amiodarone HCl 100 MG Orally Once a day 1 tablet 24h Active D3-1000 1000 UNIT Orally Once a day 1 capsule 24h Active Carvedilol 25 MG Orally twice a 1 tablet 12h 90 days Active day BD Insulin Syringe intramuscularly as 24h 22 30 day(s) Active 25G X 5/8 daily directed Jun, 2018 Wheelchair - as 06 Active directed Dec, 2018 PROCEDURES Procedure Date Ordered Result Body Site GLYCATED HEMOGLOBIN A1C Dec 28, 2018 SMOKING + 2ND HAND ASSESSED Dec 28, 2018 Oxygen saturation results documented and reviewed Dec 28, 2018 BLOOD PRESSURE, MEASURED Dec 28, 2018 RESULTS Name Result Date Reference Range -HbA1c - In House Test 2018-12-28 HbA1c 6.9 REASON FOR VISIT talk about VNS, PVP: A1c. Zoster - BL offer imms. MPT Insurance Providers [facility] Member Patient Patient Patient Patient Patient Subscriber Subscriber Subscriber Group Insurance Plan Plan Plan Plan ID Relationship Address Phone Name Date of ID Name Date of No Type Insurance Insurance Insurance Coverage to Subscriber Address Phone Name Dates [place] [phone] [place] self [place] [id number] [place] 13 [place] [id number] Mc[place] Adv u [place] [phone] [place] self [place]on [id number] Option [id number] Option [place] [facility]g [facility] [id number] AmProg Med Medicaid [id number] Medicaid self [place] [id number] [facility] [address] [place] [address] u Case [phone] Case self Alon [id number] Management [place] [facility] [address] Community u Medicare National [id number] Medicare self Alon [id number] PPS Government 41 PPS [place] Services u [address] [place] [id number] Medicare National [id number] Medicare self [place] [id number] PPS Government 41 PPS [place] Services u [address] [place] [id number] Well[employer] [phone] Well[employer] self [place] [id number] P[place] [id number] [place] PPO [place] Mcr Adv [place] Mcr Adv u Medical [id number] Medical Well[facility] [phone] Well[employer] self Alon [id number] [place] [address] [id number] Saunders [place] Hplex Mcr Claims Hplex Mcr u Adv Dept Adv [facility] [address] MEDICAL (GENERAL) HISTORY Type Description Date Medical History DM 2 Medical History Heart Attack 2002 Medical History Pacemaker 2001 - ICD Medical History 2012: CABG x [...] unknown source Surgical History Open heart surgery 2002 Surgical History Partial sigmoid colectomy d/t perforated 2007 diverticulum, colostomy Surgical History Revision of Colostomy 2011 Surgical History right eye catarct surgery 2018 Surgical History Septoplasty and nilateral endoscopic turbinate 01/14/13 submucous resection Hospitalization History see above
--- OUTSIDE RECORDS SUMMARY | 2019-01-05 04:30 | XMS REPORT ---
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 [id number] iliac artery Problem History of Z85.46 Active 152375369 prostate cancer Problem Ischemic I25.5 Active 684179473 cardiomyopathy Problem senior care current Z79.4 Active 327933020 use of insulin Problem Other chronic pain G89.29 Active 24437444 Problem Type 2 diabetes E11.9 Active 043528513 mellitus without complications Problem Morbid (severe) E66.01 Active 10010245625863 obesity due to excess calories ALLERGIES No Information ENCOUNTERS Encounter Location Date Diagnosis [facility] [address] [place], [place] [address] [facility] [address] [place], [place] [address] [facility] [address] [place], [place] [address] [facility] [address] [place], [place] [address] [facility] [address] [facility] Dec, [place] [id number] [place] [address] [address] [facility] [place], [place] [address] [place] [facility] [address] [place], Dec, Right hip pain M25.551 ; [place] [address] risk for fall due to comorbid condition Z91.81 ; Food insecurity Z59.4 ; Limited mobility Z74.09 and Type 2 diabetes mellitus without complications E11.9 [facility] [place] [address] [facility] Dec, [place] [address] [facility] [address] [place], [place] [address] [place] [address] [place], [place] [address] Oct, [place] [address] Oct, [place] [address] [place] [address] [place], September, Type 2 [place] [address] without complications E11.9 ; Screening for colon cancer Z12.11 and Aneurysm of left leg I72.4 [place] [address] [place], [place] [address] [place] [address] [place], September, Type 2 [place] [address] without complications E11.9 and technician terminal and repeater 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 Z79.4 [place] [address] [place], [place] [address] [place] [address] [place], [place] [address] [place] [address] [place], [place] [address] [place] [address] [place], [place] [address] Jul, [place] [address] [place] [facility] [address] [place], [place] [address] [place] [address] [place], [place] [address] Jul, [place] [address] [place] [address] [place], [place] [address] Jun, Type 2 diabetes mellitus [place] without complications E11.9 [address] [place] [address] [place], Jun, Type 2 [place] [address] without complication, unspecified whether fci insulin use E11.9 and technician terminal and repeater 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 Z79.[address] [place], Jun, Type 2 [place] [address] without complications E11.[address] [place] [address] [place], [place] [address] Jun, [place] [address] [place] [address] [place], Jun, [place] [address] extremity [address] Jun, [facility], [place] [address] [place], [place] [address] [place], [place] [address] May, [facility], [place] [address] May, [place] [address] May, [place] [address] [place], May, [place] E87[place]1 [place] [address] Apr, [place] [address] [place], Apr, Type 2 [place] [address] without complications E11.9 ; Stage 3 chronic kidney disease N18.3 and Overgrown toenails L60.[address] Apr, [place] [address] [place], Apr, [place] [address] infection, unspecified J06.[address] [place], Mar, Type 2 [place] [address] without complication, unspecified whether fci insulin use E11.9 and technician terminal and repeater 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 Z79.[address] [place], [place] [address] Mar, [place] [address] [place] [facility] [address] [place] [address] [place], Feb, [place] [address] R79.[address] [place] [address] [place], Feb, [place], [place] [address] D64.9 ; Elevated serum creatinine R79.89 and Encounter for immunization Z23 [facility] [address], [facility] [address] [place], [place] [id number] [place] [facility] [address], [facility] [address] [place], [place] [id number] [place] [facility] [address] [place] [address] [place], [place] [address] [facility] [address] [place], Feb, Type 2 [place] [address] without complication, unspecified whether fci insulin use E11.9 and senior care 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 Z79.[address] Feb, [place] [address] [place], [place] [address] [place], Jan, Type 2 [place] [address] without complications E11.9 and History of prostate cancer Z85.[address] [place] [address] [place], [place] [address] [place] [address] [place], [place] [address] [place] [address] [place], Jan, Type 2 [place] [address] without complication, unspecified whether fci insulin use E11.9 and senior care 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 Z79.[address] Jan, Type 2 diabetes mellitus [place] without complication, [address] unspecified whether fci insulin use E11.[address] [place], [place] [address] [place] [facility] [address] [place] [address] [place], [place] [address] [place] [address] [place], [place] [address] [place], Dec, [place] [address] hyperthyroidism E05.80 [place] [address] [place], Dec, Type 2 [place] [address] without complications E11.9 ; Morbid (severe) obesity due to excess calories E66.01 ; Body mass index (BMI) of 45.0-49.9 in adult Z68.42 and Reduced ejection fraction concurrent with and due to acute heart failure I50.[address] Dec, [place] [address] [facility] [address] [place] [address] [place], Nov, Normocytic anemia D64.9 [place] [address] Hyponatremia E87.[address] [place] [address] [place], [place] [address] [place], Nov, Type 2 [place] [address] without complications E11.9 ; senior care 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 Z79.4 ; Low back pain M54.5 ; Other chronic pain G89.29 ; Vision changes H53.9 ; Morbid (severe) obesity due to excess calories E66.01 and Body mass index (BMI) of 45.0-49.9 in adult Z68.[address] [place] [address] [place], [place] [address] Nov, Reduced ejection fraction [facility] [address] concurrent with and due to acute heart failure I50.[address] Nov, Anemia, unspecified type [place], [place] D64.9 [address] [place], Nov, Normocytic [place] D64.9 [place] [address] [place], Nov, Type 2 [place] [address] without complication, 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 ; Normocytic anemia D64.9 and History of prostate cancer Z85.[address] [place], [place] [address] [place], [place] [address] Nov, [facility], [place] [address] [place], [place] [address] [place], [place] [address] [facility] [address] [facility] [place], Oct, Type 2 [place] [address] without complication, 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 ; Elevated serum creatinine R79.89 ; Hyperkalemia E87.5 ; Hypocalcemia E83.51 ; Screening, lipid Z13.220 ; Age-related incipient cataract of both eyes H25.093 ; Screening for colon cancer Z12.11 and Reduced ejection fraction concurrent with and due to acute heart failure I50.21 [place] [facility] [address] [facility] [place], [place] [address] [facility] [address] [facility] [place], [place] [address] [facility] [address] [facility] [place], [place] [address] IMMUNIZATIONS No Known Immunizations SOCIAL HISTORY Never Assessed REASON FOR REFERRAL FUNCTIONAL STATUS PLAN OF CARE VITAL SIGNS MEDICATIONS Unknown Medications PROCEDURES No Known procedures RESULTS No Results REASON FOR VISIT Call check in Insurance Providers [facility] Member Patient Patient Patient Patient Patient Subscriber Subscriber Subscriber Group Insurance Plan Plan Plan Plan ID Relationship Address Phone Name Date of ID Name Date of No Type Insurance Insurance Insurance Coverage to Subscriber Address Phone Name Dates Todays [phone] Todays self Alon [id number] Option [id number] Option [place] MCRAdv [facility] MCRAdv u AmProg Med [id number] AmProg Med Case [phone] Case self Alon [id number] Management Notus 02 Management [facility] [address] [employer] Medicare [place] [phone] Medicare self Alon [id number] PPS [facility] 41 PPS [place] Services u [address] [facility] [id number] WellCare [phone] WellCare self Alon [id number] [place] [address] GG495 [place] Hplex Mcr Claims Hplex Mcr u Adv Dept Adv [facility] [address] Medicaid [phone] Medicaid self Alon [id number] [facility] 00 [place] [address] u Todays [phone] Todays self Alon [id number] Options [place] 13 Options [place] Mcr [place] [id number] Mcr Adv u [place] Medicare National [phone] Medicare self Alon [id number] PPS Government 41 PPS [place] Services u [address] [place] [id number] WellCare [phone] WellCare self [place] [id number] [id number] 63 [place] PPO [place] Mcr Adv [place] Mcr Adv u Medical [id number] Medical MEDICAL (GENERAL) HISTORY Type Description Date Medical [...]
--- OUTSIDE RECORDS SUMMARY | 2019-01-05 04:31 | XMS REPORT | Continuity of Care Document ---
:1940 External Reference #:[id number] Author Name ElbaTanvi rodriguez Care Team Providers Name Role Phone Kory Toribio PA-C Primary Care Physician Unavailable Payers Date Identification Numbers Payment Provider Subscriber Expires: Policy Number: [id number] [facility] Medicare Alon Lara [employer] Number: [id number] [address] [address] PayID: [id number] [place] [address] Expires: 2014 Policy Number: [employer] Today[employer]ji Lara [id number] Options PayID: [id number] [address] [address] Attn: [place] [address] Expires: 2012 Policy Number: [id number] [employer] Alon Lara [employer] Number: [id number] [address] PayID: [id number] [place] [address] Effective: 2004 Policy Number: [id number] Medicare Alon Lara Expires: 2012 PayID: [id number] [address] [facility] [address] Effective: 2017 Policy Number: [facility] [id number] Options PayID: [id number] [address] [address] Attn: [place] [address] Problems Active Problems Provider Date 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 Onset: 12/26/2011 Old myocardial infarction Amanda Mccall M.D. Onset: 12/26/2011 Benign essential hypertension Amanda Mccall M.D. Onset: 10/25/2012 Obesity Amanda Mccall M.D. Onset: 10/25/2012 Essential hypertension KINGSLEY Beltrán Onset: 03/06/2015 Localized, primary osteoarthritis of the Karikatie Lemus M.D. 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 Tobacco Use Start: Unknown Former Cigarette Smoker End: Unknown Smoking Status Reviewed: 12/22/18 Former Cigarette Smoker ETOH Use Occasionally consumes alcohol ETOH Use Denies alcohol use Tobacco Use Start: Unknown Patient is a former End: Unknown smoker Recreational Drug Use Denies Drug Use Exercise Type/Frequency Does not exercise Allergies, Adverse Reactions, Alerts Active Allergies Reaction Severity Comments Date NKDA 11/12/2015 Inactive Allergies Garlic 11/09/2006 Medications Active Medications SIG Qnty Indications Ordering Date Provider Hydrochlorothiazide 1 by mouth 30tabs Amanda Graf 04/27/2018 25mg Tablets every day Andreas Mccall Jardiance 10mg by mouth 90tabs Other Ordering 04/26/2018 10mg Tablets daily Provider Quinapril HCL 1 tab by 90tabs I42.9 Amanda Graf 10/21/2017 10mg Tablets mouth daily Andreas Mccall Nitroglycerin 1 sl q5mins 25tabs Amanda Graf 08/01/2016 0.4mg Tablets Sub x3 as needed Andreas Mccall for chest pain Amiodarone HCL 1 tablet by 90tabs Amanda Graf 11/12/2015 100mg Tablets mouth daily Andreas Mccall five days a week. Pravachol One PM 30tabs Amanda Graf 08/11/2007 80mg Tablets Andreas Mccall Aldactone 1/2 po qd 15tabs Amanda Graf 04/06/2007 25mg Tablets Andreas Mccall Aspir-81 1 by mouth 30tabs Amanda Graf 11/02/[address] every day Andreas Mccall Multi-Vitamins 1 PO qd Amanda Graf 11/02/2006 Tablets Andreas Mccall Magnesium Oxide 1 by mouth Unknown 250mg Tablets every day Eliquis 1 by mouth 180tabs Amanad Graf 5mg Tablets twice a day Andreas Mccall Metformin HCL 1 tablet am Unknown 500mg Tablets and 1 tablet pm due to BS drops Levemir 65 in the am, Unknown 100Unit/ML Solution 60 in the pm Isosorbide Mononitrate ER 1 by mouth 90tabs Qian Montes De Oca, 60mg every day N.P. Tablets ER 24HR Vitamin D-3 1 by mouth Amanda Graf 1000Unit Capsules every day Andreas Mccall Carvedilol take 1 mouth 180tabs Qian Montes De Oca, 25mg Tablets twice daily N.P. Glipizide ER 1 po qd 180tabs Unknown 5mg Tablets ER 24HR Tamsulosin HCL 2 po qd 90caps Unknown 0.4mg Capsules Vitamin B12 1 po qd Unknown 1500mcg Tablets ER History Medications Hydrochlorothiazide 1 by mouth every 90tabs Amanda Graf 11/12/2015 - 25mg Tablets oh Andreas Mccall 10/21/2017 Carvedilol 1 tab by mouth Amanda Graf 03/06/2015 - 25mg Tablets twice a day Andreas Mccall 03/06/2015 Carvedilol 1 by mouth twice 180tabs Amanda Graf 01/04/2015 - 3.125mg Tablets a day Andreas Mccall 03/06/2015 Amiodarone HCL 1/2 by mouth 30tabs Amanda Graf 01/02/2015 - 200mg Tablets every day Andreas Mccall 11/12/2015 Magnesium Oxide 2 by mouth every 30tabs Amanda Graf 05/08/2014 - 250mg Tablets day Andreas Mccall 12/10/2016 Lantus 35 units in am 6Vials Other Ordering 10/27/2012 - 100Unit/ML Solution 80 u at hs Provider 07/31/2016 Ergocalciferol Vit D2 1 po qd 30tabs Amanda Graf 11/30/2008 - Tablets Andreas Mccall 05/15/2010 Accupril 2 PO qd 90tabs Amanda Graf 04/27/2008 - 20mg Tablets Andreas Mccall 05/15/2010 Glucotrol 2 PO qd 30tabs Amanda Graf 04/27/2008 - 10mg Tablets Andreas Mccall 12/26/2011 Vicodin 1 Tablets Q4H 30tabs Amanda Graf 11/03/2007 - Tablets prisabel Mccall M.D. 01/01/2015 Glipizide 1 PO qd Amanda Graf 11/03/2007 - 10mg Tablets Andreas Mccall 04/27/2008 Glucotrol 1 PO qd 60tabs Amanda Graf 08/05/2007 - 10mg Tablets Andreas Mccall 11/03/2007 Pravachol PO QHS Amanda Graf 06/11/2007 - 40mg Tablets Andreas Mccall 08/11/2007 Pravachol One PM 30tabs Amanda Graf 05/31/2007 - 80mg Tablets Andreas Mccall 06/11/2007 Azmacort prn Amanda Graf 11/09/2006 - 100mcg/Act Aerosol Andreas Mccall 05/15/2010 Fluocinonide as directed Amanda Graf 11/09/2006 - 0.05% Ointment Andreas Mccall 11/24/2013 Dovonex qd Amanda Graf 11/09/2006 - 0.005% Cream Andreas Mccall 11/30/2008 Westcort Amanda Graf 11/09/2006 - 0.2% Cream Andreas Mccall 08/05/2007 Albuterol 2 Puffs qid prn Amanda Graf 11/09/2006 - 90mcg/Act Aerosol Andreas Mccall 12/26/2011 Imdur One qpm Amanda Garf 11/02/2006 - 60mg Tablets ER 24HR Andreas Mccall 01/01/2015 Betamethasone prn Amanda Graf 11/02/2006 - Powder Andreas Mccall 08/05/2007 Spectazole prn Amanda Graf 11/02/2006 - 1% Cream Andreas Mccall 11/03/2007 Nasacort Aq qd Amanda Graf 11/02/2006 - 55mcg/Act Aerosol Andreas Mccall 08/05/2007 Nitroquick 1 s/l as needed 25tabs Amanda Graf 11/02/2006 - 0.4mg Tablets Sub chest pain, Andreas Mccall 07/31/2016 every 5 min. up to 3 tabs Actos 1 PO qd Amanda Graf 11/02/2006 - 45mg Tablets Andreas Mccall 12/26/2011 Accupril 1 PO qd Amanda Graf 11/02/2006 - 20mg Tablets Andreas Mccall 04/27/2008 Glucotrol XL 1 PO qd 90tabs Amanda Graf 11/02/2006 - 5mg Tablets ER 24HR Andreas Mccall 08/05/2007 Pravachol 1 Tablet PO QHS 30tabs Amanda Graf 11/02/2006 - 40mg Tablets Andreas Mccall 05/31/2007 Hydrochlorothiazide 1 PO qd 30tabs Amanda Graf 11/02/2006 - 25mg Tablets Andreas Mccall 11/12/2015 Amiodarone HCL 1/2 by mouth 45tabs Amanda Graf 11/02/2006 - 200mg Tablets every day Andreas Mccall 01/02/2015 Coreg 1 PO bid 180tabs Amanda Graf 11/02/2006 - 25mg Tablets Andreas Mccall 01/01/2015 Metformin HCL 1 PO bid 60tabs Amanda Graf 11/02/2006 - 1000mg Tablets Andreas Mccall 12/26/2011 Zetia 1 PO qd 90tabs Amanda F. 11/02/2006 - 10mg Tablets Andreas Mccall 06/11/2007 Nasacort Aq use 1 spray ea 1units Unknown - 55mcg/Act Aerosol nostril qhs prn 10/25/2012 Accupril 1 po qd Unknown - 40mg Tablets 03/06/2015 Vitamin D 1 po qd Unknown - 1000Unit Tablets 12/26/2011 Quinapril HCL 1/2 tab by mouth Unknown - 40mg Tablets every day 10/21/2017 Magnesium 1 tablet by Unknown - 400mg Tablets mouth in the Am 09/03/2017 and 1/2 a tablet in the evening Medications Administered in Office Medication SIG Qnty Indications Ordering Provider Date Depomedrol 40MG Kari Lemus M.D. 12/22/2018 Injection Vital Signs Date Vital Result Comment 12/22/2018 11:12am Height 67 inches 5'7" Weight 214.00 lb BP Systolic 120 mmHg BP Diastolic 70 mmHg Respiratory Rate 20 /min Body Temperature 97.9 F Pain Level 9 BMI (Body Mass Index) 33.5 kg/m2 08/20/2018 1:20pm Height 67 inches 5'7" Weight 217.00 lb Heart Rate 62 /min BP Systolic Sitting 104 mmHg lue reg cuff BP Diastolic Sitting 58 mmHg lue reg cuff BP Systolic Standing 106 mmHg lue reg cuff BP Diastolic Standing 60 mmHg lue reg cuff Respiratory Rate 12 /min BMI (Body Mass Index) 34.0 kg/m2 Ejection Fraction 25-30% echo. 09/06/17 04/27/2018 1:02pm Weight 215.00 lb with shoes Heart Rate 80 /min radial BP Systolic 110 mmHg Lue reg cuff BP Diastolic 62 mmHg Lue reg cuff Ejection Fraction 25-30% Echo 09/06/17 10/21/2017 9:58am Weight 227.25 lb Heart Rate 91 /min BP Systolic Sitting 82 mmHg BP Diastolic Sitting 48 mmHg Ejection Fraction 25-30% 09/06 Echo 07/28/2017 11:18am Height 68 inches 5'8" Weight 231.25 lb Heart Rate 76 /min BP Systolic Sitting 110 mmHg LA, l cuff BP Diastolic Sitting 62 mmHg LA, l cuff BMI (Body Mass Index) 35.2 kg/m2 Ejection Fraction 30%-35% echo 11/30/15 03/13/2017 3:24pm Height 68 inches 5'8" Weight 235.00 lb stated by pt from last night Heart Rate 93 /min BP Systolic Sitting 128 mmHg rue reg cuff BP Diastolic Sitting 64 mmHg rue reg cuff Respiratory Rate 22 /min with SOB talking initially in room BMI (Body Mass Index) 35.7 kg/m2 Ejection Fraction 30-35% echo 11/30/2015 12/10/2016 2:15pm Height 68 inches 5'8" Weight 235.00 lb with shoes Heart Rate 80 /min BP Systolic Sitting 110 mmHg LA lrg cuff BP Diastolic Sitting 58 mmHg LA lrg cuff BMI (Body Mass Index) 35.7 kg/m2 Ejection Fraction 30% - 35% echo 11/30/15 08/01/2016 12:51pm Height 68 inches 5'8" Weight 234.00 lb with shoes Heart Rate 66 /min BP Systolic Sitting 100 mmHg LA lrg cuff BP Diastolic Sitting 56 mmHg LA lrg cuff BMI (Body Mass Index) 35.6 kg/m2 Ejection Fraction 30% - 35% echo 11/30/15 11/12/2015 9:56am Height 68 inches 5'8" Weight 232.50 lb with shoes Heart Rate 84 /min BP Systolic 122 mmHg LA lrg cuff BP Diastolic 66 mmHg LA lrg cuff BMI (Body Mass Index) 35.3 kg/m2 Ejection Fraction 25% - 30% echo 12/21/13 03/06/2015 11:20am Height 68 inches 5'8" Weight 248.00 lb w/shoes Heart Rate 80 /min BP Systolic Sitting 116 mmHg LA reg cuff BP Diastolic Sitting 62 mmHg LA reg cuff BMI (Body Mass Index) 37.7 kg/m2 Ejection Fraction 25-30 echo 12/21/13 01/02/2015 1:23pm Height 68 inches 5'8" Weight 215.00 lb w/shoes Heart Rate 84 /min BP Systolic Sitting 126 mmHg LA reg cuff BP Diastolic Sitting 62 mmHg LA reg cuff BMI (Body Mass Index) 32.7 kg/m2 Ejection Fraction 25-30 echo 12/21/13 11/24/2013 3:07pm Height 68 inches 5'8" Weight 255.25 lb Heart Rate 72 /min BP Systolic Sitting 124 mmHg BP Diastolic Sitting 58 mmHg Respiratory Rate 18 /min BMI (Body Mass Index) 38.8 kg/m2 01/05/2013 12:15pm Height 68 inches 5'8" Weight 254.00 lb Heart Rate 80 /min BP Systolic 122 mmHg BP Diastolic 68 mmHg BMI (Body Mass Index) 38.6 kg/m2 10/25/2012 2:21pm Height 68 inches 5'8" Weight 257.00 lb Heart Rate 68 /min BP Systolic 120 mmHg BP Diastolic 58 mmHg BMI (Body Mass Index) 39.1 kg/m2 12/26/2011 9:37am Height 68 inches 5'8" Weight 248.00 lb Heart Rate 65 /min BP Systolic 118 mmHg BP Diastolic 60 mmHg BMI (Body Mass Index) 37.7 kg/m2 05/15/2010 8:59am Height 68 inches 5'8" Weight 249.00 lb Heart Rate 68 /min BP Systolic Sitting 116 mmHg BP Diastolic Sitting 76 mmHg BMI (Body Mass Index) 37.9 kg/m2 11/30/2008 10:01am Weight 242.00 lb Heart Rate 78 /min BP Systolic Sitting 120 mmHg BP Diastolic Sitting 64 mmHg Respiratory Rate 18 /min 04/27/2008 8:29am Height 69 inches 5'9" Weight 234.00 lb Heart Rate 83 /min BP Systolic Sitting 120 mmHg BP Diastolic Sitting 64 mmHg Respiratory Rate 16 /min BMI (Body Mass Index) 34.6 kg/m2 11/03/2007 10:59am Height 69 inches 5'9" Weight 234.00 lb Heart Rate 81 /min BP Systolic Sitting 130 mmHg BP Diastolic Sitting 70 mmHg Respiratory Rate 16 /min BMI (Body Mass Index) 34.6 kg/m2 08/05/2007 9:30am Height 69 inches 5'9" Weight 224.00 lb Heart Rate 82 /min BP Systolic Sitting 140 mmHg BP Diastolic Sitting 90 mmHg Respiratory Rate 16 /min BMI (Body Mass Index) 33.1 kg/m2 04/06/2007 1:22pm Height 69 inches 5'9" Weight 232.00 lb Heart Rate 79 /min BP Systolic Sitting 164 mmHg L BP Diastolic Sitting 70 mmHg L BP Systolic Standing 160 mmHg L BP Diastolic Standing 80 mmHg L BMI (Body Mass Index) 34.3 kg/m2 11/09/2006 10:03am Height 69 inches 5'9" Weight 226.00 lb Heart Rate 64 /min BP Systolic Sitting 120 mmHg BP Diastolic Sitting 70 mmHg BP Systolic Standing 114 mmHg BP Diastolic Standing 70 mmHg BP Systolic Lying Down 120 mmHg BP Diastolic Lying Down 70 mmHg Respiratory Rate 16 /min BMI (Body Mass Index) 33.4 kg/m2 Results Test Date Facility Test Result H/L Range Note Xray 12/22/2018 [facility] House Inj/Aspir <pending> Major JT Or Bursa W/ US Laboratory test 03/18/2017 [facility] Magnesium 2.1 mg/dL Normal 1.9-2.7 [address] [place] [address] [phone] TSH (Thyroid Stim Horm) 0.57 mcIU/mL Normal 0.34-5.60 2 Free T4 (Free Thyroxine) 1.20 ng/dL High 0.61-1.12 3 Vitamin B12 1205 pg/mL High 180-914 4 Hemoglobin A1c (Glyco HGB) 7.9 % High 4.0-5.6 5 Comp Metabolic 03/18/2017 [facility] Sodium 134 mmol/L Normal 133-[address] [place] [address] [phone] Potassium 4.5 mmol/L Normal 3.5-5.0 Chloride 101 mmol/L Normal 101-111 Co2 Carbon Dioxide 26 mmol/L Normal 22-32 Anion Gap 7 mmol/L Normal 2-11 Glucose 194 mg/dL High 70-100 Blood Urea Nitrogen 34 mg/dL High 6-24 Creatinine 1.43 mg/dL High 0.67-1.17 BUN/Creatinine Ratio 23.8 High 8-20 Calcium 9.2 mg/dL Normal 8.6-10.3 Total Protein 6.5 g/dL Normal 6.4-8.9 Albumin 3.9 g/dL Normal 3.2-5.2 Globulin 2.6 g/dL Normal 2-4 Albumin/Globulin Ratio 1.5 Normal 1-3 Total Bilirubin 0.50 mg/dL Normal 0.2-1.0 Alkaline Phosphatase 68 U/L Normal 34-104 Alt 17 U/L Normal 7-52 Ast 13 U/L Normal 13-39 Egfr Non- 48.0 Normal >60 Egfr 61.7 Normal >60 6 Laboratory test 11/08/2015 [facility] Hemoglobin A1c 9.3 % High Less [address] (Glyco HGB) than 6.0 [place] [address] [phone] Lipid Profile 11/08/2015 [facility] Triglycerides 169 Normal 8 (Trig/Chol/HDL) [address] mg/[place] [address] [phone] Cholesterol 128 mg/dL Normal 9 HDL Cholesterol 36.6 mg/dL Normal 10 LDL Cholesterol 58 mg/dL Normal 11 Comp Metabolic 11/08/2015 [facility] Sodium 135 mmol/L Normal 133-[address] [place] [address] [phone] Potassium 4.7 mmol/L Normal 3.5-5.0 Chloride 103 mmol/L Normal 101-111 Co2 Carbon Dioxide 26 mmol/L Normal 22-32 Anion Gap 6 mmol/L Normal 2-11 Glucose 298 mg/dL High 70-100 Blood Urea Nitrogen 28 mg/dL High 6-24 Creatinine 1.51 mg/dL High 0.67-1.17 BUN/Creatinine Ratio 18.5 Normal 8-20 Calcium 9.1 mg/dL Normal 8.6-10.3 Total Protein 6.2 g/dL Low 6.4-8.9 Albumin 4.2 g/dL Normal 3.2-5.2 Globulin 2.0 g/dL Normal 2-4 Albumin/Globulin Ratio 2.1 Normal 1-3 Total Bilirubin 0.70 mg/dL Normal 0.2-1.0 Alkaline Phosphatase 54 U/L Normal 34-104 Alt 14 U/L Normal 7-52 Ast 11 U/L Low 13-39 Egfr Non- 45.2 Normal >60 Egfr 58.1 Normal >60 12 Laboratory 11/08/2015 [facility] PSA Diagnostic 0.133 Normal 0 -4.000 13 test finding [address] ng/[place] [address] [phone] CBC Auto Diff 11/08/2015 [facility] White Blood 5.3 Normal 3.5 -10.[address] Count 10^3/[place] [address] [phone] Red Blood Count 3.84 10^6/uL Low 4.0-5.4 Hemoglobin 12.6 g/dL Low 14.0-18.0 Hematocrit 36 % Low 42-52 Mean Corpuscular Volume 93 fL Normal 80-94 Mean Corpuscular Hemoglobin 33 pg High 27-31 Mean Corpuscular HGB Conc 35 g/dL Normal 31-36 Red Cell Distribution Width 14 % Normal 10.5-15 Platelet Count 130 10^3/uL Low 150-450 Mean Platelet Volume 9 um3 Normal 7.4-10.4 Abs Neutrophils 3.5 10^3/uL Normal 1.5-7.7 Abs Lymphocytes 0.9 10^3/uL Low 1.0-4.8 Abs Monocytes 0.6 10^3/uL Normal 0-0.8 Abs Eosinophils 0.2 10^3/uL Normal 0-0.6 Abs Basophils 0 10^3/uL Normal 0-0.2 Abs Nucleated RBC 0 10^3/uL Normal Granulocyte % 67.2 % Normal 38-83 Lymphocyte % 17.0 % Low 25-47 Monocyte % 11.5 % High 1-9 Eosinophil % 3.6 % Normal 0-6 Basophil % 0.7 % Normal 0-2 Nucleated Red Blood Cells % 0.1 Normal Comp Metabolic 10/24/2014 [facility] Sodium 134 mmol/L Normal 133-145 Panel [address] [place] [address] [phone] Potassium 4.4 mmol/L Normal 3.5-5.0 Chloride 98 mmol/L Low 101-111 Co2 Carbon Dioxide 27 mmol/L Normal 22-32 Anion Gap 9 mmol/L Normal 2-11 Glucose 369 mg/dL High 70-100 Blood Urea Nitrogen 34 mg/dL High 6-24 Creatinine 1.40 mg/dL High 0.67-1.17 BUN/Creatinine Ratio 24.3 High 8-20 Calcium 9.6 mg/dL Normal 8.6-10.3 Total Protein 7.3 g/dL Normal 6.4-8.9 Albumin 4.7 g/dL Normal 3.2-5.2 Globulin 2.6 g/dL Normal 2-4 Albumin/Globulin Ratio 1.8 Normal 1-3 Total Bilirubin 0.60 mg/dL Normal 0.2-1.0 Alkaline Phosphatase 67 U/L Normal 34-104 Alt 25 U/L Normal 7-52 Ast 17 U/L Normal 13-39 Egfr Non- 49.4 Normal >60 Egfr 63.5 Normal >60 14 Laboratory test 10/24/2014 [facility] Magnesium 1.7 mg/dL Low 1.9-2.7 finding [address] [place] [address] [phone] PSA Diagnostic 22.320 ng/mL High 0-4.000 15 Hemoglobin A1c (Glyco HGB) 8.5 % High Less than 6.0 16 Urinalysis Profile 08/12/2014 [facility] Urine Color Yellow Normal [address] [place] [address] [phone] Urine Appearance Clear Normal Urine Specific [place] 1.014 Normal 1.010-1.030 Urine pH 6.0 Normal 5-9 Urine Urobilinogen Negative Normal Negative Urine Ketones Negative Normal Negative Urine Protein Negative Normal Negative Urine Leukocytes Negative Normal Negative Urine Blood Negative Normal Negative Urine Nitrite Negative Normal Negative Urine Bilirubin Negative Normal Negative Urine Glucose Negative Normal Negative Laboratory test 08/12/2014 [facility] Amylase 61 U/L Normal 29 -103 finding [address] [place] [address] [phone] Lipase 43 U/L Normal 11.0-82.0 C Reactive Protein 1.00 mg/L Normal < 5.00 17 Comp Metabolic 08/12/2014 [facility] Sodium 135 mmol/L Normal 133-145 Panel [address] [place] [address] [phone] Potassium 3.8 mmol/L Normal 3.5-5.0 Chloride 102 mmol/L Normal 101-111 Co2 Carbon Dioxide 27 mmol/L Normal 22-32 Anion Gap 6 mmol/L Normal 2-11 Glucose 98 mg/dL Normal 70-100 Blood Urea Nitrogen 31 mg/dL High 6-24 Creatinine 1.28 mg/dL High 0.67-1.17 BUN/Creatinine Ratio 24.2 High 8-20 Calcium 10.1 mg/dL Normal 8.6-10.3 Total Protein 7.4 g/dL Normal 6.4-8.9 Albumin 4.6 g/dL Normal 3.2-5.2 Globulin 2.8 g/dL Normal 2-4 Albumin/Globulin Ratio 1.6 Normal 1-3 Total Bilirubin 0.70 mg/dL Normal 0.2-1.0 Alkaline Phosphatase 57 U/L Normal 34-104 Alt 22 U/L Normal 7-52 Ast 17 U/L Normal 13-39 Egfr Non- 54.8 Normal >60 Egfr 70.5 Normal >60 18 CBC Auto 08/12/2014 [facility] White Blood 10.0 10^3/uL Normal 4.8-10.[address] [place] [address] [phone] Red Blood Count 4.90 10^6/uL Normal 4.0-5.4 Hemoglobin 16.0 g/dL Normal 14.0-18.0 Hematocrit 46 % Normal 42-52 Mean Corpuscular Volume 93 fL Normal 80-94 Mean Corpuscular Hemoglobin 33 pg High 27-31 Mean Corpuscular HGB Conc 35 g/dL Normal 31-36 Red Cell Distribution Width 14 % Normal 10.5-15 Platelet Count 147 10^3/uL Low 150-450 Mean Platelet Volume 8 um3 Normal 7.4-10.4 Abs Neutrophils 7.1 10^3/uL Normal 1.5-7.7 Abs Lymphocytes 1.6 10^3/uL Normal 1.0-4.8 Abs Monocytes 0.9 10^3/uL High 0-0.8 Abs Eosinophils 0.3 10^3/uL Normal 0-0.6 Abs Basophils 0 10^3/uL Normal 0-0.2 Abs Nucleated RBC 0.01 10^3/uL Normal Granulocyte % 70.9 % Normal 38-83 Lymphocyte % 16.5 % Low 25-47 Monocyte % 9.5 % High 1-9 Eosinophil % 2.6 % Normal 0-6 Basophil % 0.5 % Normal 0-2 Nucleated Red Blood Cells % 0.1 Normal Laboratory test 05/02/2014 [facility] Magnesium 1.6 mg/dL Low 1.9-2.7 finding [address] [place] [address] [phone] Creatine Kinase 44 U/L Normal 10-223 TSH (Thyroid Stimulating Horm) 0.35 IU/mL Normal 0.34-5.60 Hemoglobin A1c 7.7 % High Less than 6.0 19 Lipid Profile 05/02/2014 [facility] Triglycerides 137 mg/dL Normal 20 (Trig/Chol/HDL) [address] [place] [address] [phone] Cholesterol 138 mg/dL Normal 21 HDL Cholesterol 37.2 mg/dL Normal 22 LDL Cholesterol 73 mg/dL Normal 23 Comp Metabolic 05/02/2014 [facility] Sodium 134 mmol/L Normal 133-145 Panel [address] [facility] [place] [address] [phone] Potassium 4.3 mmol/L Normal 3.5-5.0 Chloride 102 mmol/L Normal 101-111 Co2 Carbon Dioxide 24 mmol/L Normal 22-32 Anion Gap 8 mmol/L Normal 2-11 Glucose 277 mg/dL High 70-100 Blood Urea Nitrogen 25 mg/dL High 6-24 Creatinine 1.23 mg/dL High 0.67-1.17 BUN/Creatinine Ratio 20.3 High 8-20 Calcium 9.2 mg/dL Normal 8.6-10.3 Total Protein 6.5 g/dL Normal 6.4-8.9 Albumin 4.2 g/dL Normal 3.2-5.2 Globulin 2.3 g/dL Normal 2-4 Albumin/Globulin Ratio 1.8 Normal 1-3 Total Bilirubin 0.50 mg/dL Normal 0.2-1.0 Alkaline Phosphatase 72 U/L Normal 34-104 Alt 21 U/L Normal 7-52 Ast 11 U/L Low 13-39 Egfr Non- 57.4 Normal >60 Egfr 73.8 Normal >60 24 CBC No Diff 05/02/2014 [facility] White Blood 7.7 10^3/uL Normal 4.8-10.[address] [place] [address] [phone] Red Blood Count 4.22 10^6/uL Normal 4.0-5.4 Hemoglobin 13.3 g/dL Low 14.0-18.0 Hematocrit 38 % Low 42-52 Mean Corpuscular Volume 91 fL Normal 80-94 Mean Corpuscular Hemoglobin 32 pg High 27-31 Mean Corpuscular HGB Conc 35 g/dL Normal 31-36 Red Cell Distribution Width 14 % Normal 10.5-15 Platelet Count 164 10^3/uL Normal 150-450 Mean Platelet Volume 9 um3 Normal 7.4-10.4 Laboratory test 05/31/2013 [facility] Hemoglobin A1c 8.9 % High Less than [address] 6.0 [place] [address] [phone] Free T4 1.03 ng/mL 0.61-1.24 TSH (Thyroid Stimulating Horm) 0.48 miu/mL 0.34-5.60 PSA Diagnostic 7.973 ng/mL High 0-4.000 26 Comp Metabolic Panel 05/31/2013 [facility] Sodium 137 mmol/L 133-145 [address] [place] [address] [phone] Potassium 4.9 mmol/L 3.5-5.0 Chloride 104 mmol/L 101-111 Co2 Carbon Dioxide 27.0 mmol/L 22-32 Anion Gap 6.0 mmol/L 2-11 Glucose 159 mg/dL High 70-100 Blood Urea Nitrogen 33 mg/dL High 6-24 Creatinine 1.80 mg/dL High 0.50-1.40 BUN/Creatinine Ratio 18.3 8-20 Calcium 9.0 mg/dL 8.1-9.9 Total Protein 6.3 g/dL 6.2-8.1 Albumin 4.3 g/dL 3.2-5.2 Globulin 2.0 g/dL 2-4 Albumin/Globulin Ratio 2.2 1-3 Total Bilirubin 0.8 mg/dL 0.4-1.5 Alkaline Phosphatase 57 U/L 30-110 Alt 24 U/L 14-54 Ast 18 U/L 12-42 Egfr Non- 37.1 >60 Egfr 47.7 >60 27 CBC No Diff 05/31/2013 [facility] White Blood 10.1 10^3/uL 4.8-10.[address] [place] [address] [phone] Red Blood Count 4.60 10^6/uL 4.0-5.4 Hemoglobin 15.1 g/dL 14.0-18.0 Hematocrit 43 % 42-52 Mean Corpuscular Volume 93 fL 80-94 Mean Corpuscular Hemoglobin 33 pg High 27-31 Mean Corpuscular HGB Conc 35 g/dL 31-36 Red Cell Distribution Width 14 % 10.5-15 Platelet Count 151 10^3/uL 150-450 Mean Platelet Volume 10 um3 7.4-10.4 Basic Metabolic Panel 10/26/2012 [facility] Sodium 137 mmol/L 133-145 [address] [place] [address] [phone] Potassium 4.7 mmol/L 3.5-5.0 Chloride 104 mmol/L 101-111 Co2 Carbon Dioxide 24.0 mmol/L 22-32 Anion Gap 9.0 mmol/L 2-11 Glucose 304 mg/dL High 70-100 Blood Urea Nitrogen 22 mg/dL 6-24 Creatinine 1.40 mg/dL 0.50-1.40 BUN/Creatinine Ratio 15.7 8-20 Calcium 9.4 mg/dL 8.1-9.9 Egfr Non- 49.7 >60 Egfr 63.9 >60 28 Laboratory test 10/26/2012 [facility] B Type 119.0 High 0-[address] Natriuretic pg/[place] [address] Peptide [phone] TSH (Thyroid Stimulating Horm) 0.35 miu/mL 0.34-5.60 D Dimer Quantitative < 200 ng/mL Less Than 230 29 Free T4 0.95 ng/mL 0.61-1.24 CBC Auto Diff 10/26/2012 [facility] White Blood 7.0 10^3/uL 4.8-10.[address] Count [place], [place] [id number] [phone] Red Blood Count 4.67 10^6/uL 4.0-5.4 Hemoglobin 15.0 g/dL 14.0-18.0 Hematocrit 43 % 42-52 Mean Corpuscular Volume 92 fL 80-94 Mean Corpuscular Hemoglobin 32 pg High 27-31 Mean Corpuscular HGB Conc 35 g/dL 31-36 Red Cell Distribution Width 14 % 10.5-15 Platelet Count 135 10^3/uL Low 150-450 Mean Platelet Volume 9 um3 7.4-10.4 Abs Neutrophils 4.5 10^3/uL 1.5-7.7 Abs Lymphocytes 1.5 10^3/uL 1.0-4.8 Abs Monocytes 0.7 10^3/uL 0-0.8 Abs Eosinophils 0.2 10^3/uL 0-0.6 Abs Basophils 0.1 10^3/uL 0-0.2 Abs Nucleated RBC 0 10^3/uL Granulocyte % 64.2 % 38-83 Lymphocyte % 21.6 % Low 25-47 Monocyte % 9.7 % High 1-9 Eosinophil % 3.2 % 0-6 Basophil % 1.3 % 0-2 Nucleated Red Blood Cells % 0 CBC With 09/06/2012 [facility] White Blood 7.7 10^3/uL 4.8- 10.8 Manual Diff [address] [place] [address] [phone] Red Blood Count 4.73 10^6/uL 4.0-5.4 Hemoglobin 15.2 g/dL 14.0-18.0 Hematocrit 44 % 42-52 Mean Corpuscular Volume 93 fL 80-94 Mean Corpuscular Hemoglobin 32 pg High 27-31 Mean Corpuscular HGB Conc 35 g/dL 31-36 Red Cell Distribution Width 14 % 10.5-15 Platelet Count 151 10^3/uL 150-450 Mean Platelet Volume 10 um3 7.4-10.4 Abs Neutrophils 5.0 10^3/uL 1.5-7.7 Abs Lymphocytes 1.7 10^3/uL 1.0-4.8 Abs Monocytes 0.7 10^3/uL 0-0.8 Abs Eosinophils 0.2 10^3/uL 0-0.6 Abs Basophils 0.1 10^3/uL 0-0.2 Abs Nucleated RBC 0.01 10^3/uL Neutrophil % 67 % 38-83 Lymphocytes % 22 % Low 25-47 Monocytes % 4 % 0-13 Eosinophils % 3 % 0-6 Basophil % 2 % 0-2 Reactive Lymph % 2 % 0-6 RBC Morphology Normal Normal Comp Metabolic Panel 09/06/2012 [facility] Sodium 135 mmol/L 133-[address] [place] [address] [phone] Potassium 4.3 mmol/L 3.5-5.0 Chloride 102 mmol/L 101-111 Co2 Carbon Dioxide 26.0 mmol/L 22-32 Anion Gap 7.0 mmol/L 2-11 Glucose 269 mg/dL High 70-100 Blood Urea Nitrogen 31 mg/dL High 6-24 Creatinine 1.50 mg/dL High 0.50-1.40 BUN/Creatinine Ratio 20.7 High 8-20 Calcium 9.7 mg/dL 8.1-9.9 Total Protein 6.7 g/dL 6.2-8.1 Albumin 4.3 g/dL 3.2-5.2 Globulin 2.4 g/dL 2-4 Albumin/Globulin Ratio 1.8 1-3 Total Bilirubin 0.9 mg/dL 0.4-1.5 Alkaline Phosphatase 53 U/L 30-110 Alt 26 U/L 14-54 Ast 18 U/L 12-42 Egfr Non- 45.9 >60 Egfr 59.0 >60 30 Lipid Profile 09/06/2012 [facility] Triglycerides 94 mg/dL 40 -200 (Trig/Chol/HDL) [address] [place] [address] [phone] Cholesterol 166 mg/dL Less than 200 HDL Cholesterol 44 mg/dL 40-60 31 Cholesterol/HDL Ratio 3.8 Average 1-4.44 LDL Cholesterol 103.2 mg/dL High Less Than 100 32 Laboratory test 09/06/2012 [facility] Hemoglobin A1c 10.8 % High Less than [address] [place] [address] [phone] PSA Screening 7.0 ng/mL High 0-4.0 34 Comp Metabolic Panel 01/14/2012 [facility] Sodium 137 mmol/L 135-[address] [place] [address] [phone] Potassium 4.7 mmol/L 3.5-5.0 Chloride 103 mmol/L 101-111 Co2 (Carbon Dioxide) 27.0 mmol/L 22-32 Anion Gap 7.0 mmol/L 2-11 35 Glucose 196 mg/dL High 70-100 BUN 23 mg/dL 6-24 Creatinine 1.3 mg/dL 0.50-1.40 One Over Creatinine 0.76 BUN/Creatinine Ratio 17.7 8-20 Calcium 9.1 mg/dL 8.1-9.9 Total Protein 6.3 GM/DL 6.2-8.1 Albumin 4.3 GM/DL 3.2-5.2 Globulin 2.0 GM/DL 2-4 Albumin/Globulin Ratio 2.2 1-3 Bilirubin Total 0.9 mg/dL 0.4-1.5 36 Alkaline Phosphatase 51 U/L 39-117 Alt (SGPT) 29 U/L 17-63 Ast (Sgot) 19 U/L 12-42 eGFR Non- 54.3 > 60 eGFR 69.8 > 60 37 Lipid Profile 01/14/2012 [facility] Triglyceride 123 mg/dL 40 -200 (Trig/Chol/HDL) [address] [place] [address] [phone] Cholesterol 138 mg/dL Less Than 200 38 High Density Lipoprotein 35 mg/dL Low 40-60 39 Cholesterol/HDL Ratio 3.94 AVERAGE 1-4.97 Low Density Lipoprotein 78 mg/dL Less Than 100 40 Laboratory test 01/14/2012 [facility] CPK (Creatine 98 U/L 0- [address] Kinase) [place] [address] [phone] TSH 0.43 MIU/ML 0.34-5.60 CBC Auto Diff 01/14/2012 [facility] White Blood 5.6 CUMM 4.8- 10.[address] [place] [address] [phone] Red Cell Count 4.50 CUMM Low 4.6-6.2 Hemoglobin 15.1 g/dL 14.0-18.0 Hematocrit 43 % 42-52 Mean Corpuscular Volume 95 um3 High 80-94 Mean Corpuscular Hemoglob 34 pg High 27-31 Mean Corpuscular HGB Cone 35 g/dL 32-36 Redcell Distribution WDTH 13 % 10.5-15 Platelet Count 126 CUMM Low 150-450 Mean Platelet Volume 9.1 um3 7.4-10.4 Gran % 63.1 % 38-83 Lymph % 19.9 % Low 20-45 Mononuclear % 12.0 % High 1-9 Eosinophil % 3.8 % 0-6 Basophil % 1.2 % 0-2 Abs Lymphs 1.1 1.0-4.8 Abs Mononuclear 0.7 0-0.8 Absolute Neutrophil Count 3.5 1.5-7.7 Abs Eosinophils 0.2 0-0.6 Abs Basophils 0.1 0-0.2 CBC With 02/09/2008 [facility] White Blood 7.9 CUMM 4.8-10.8 41 Electronic Diff [address] [place] [address] [phone] Red Cell Count 4.23 CUMM Low 4.6-6.2 Hemoglobin 13.8 g/dL Low 14.0-18.0 Hematocrit 39 % Low 42-52 Mean Corpuscular Volume 92 um3 80-94 Mean Corpuscular Hemoglob 33 pg High 27-31 Mean Corpuscular HGB Cone 35 g/dL 32-36 Redcell Distribution WDTH 14 % 10.5-15 Platelet Count 179 CUMM 150-450 Mean Platelet Volume 7.9 um3 7.4-10.4 Gran % 72.2 % 38-83 Lymph % 14.9 % Low 20-45 Mononuclear % 9.8 % High 1-9 Eosinophil % 2.7 % 0-6 Basophil % 0.4 % 0-2 Abs Lymphs 1.2 1.0-4.8 Abs Mononuclear 0.8 0-0.8 Absolute Neutrophil Count 5.7 1.5-7.7 Abs Eosinophils 0.2 0-0.6 Abs Basophils 0 0-0.2 42 Comp Metabolic Panel 02/09/2008 [facility] Sodium 135 mmol/L 135-145 [address] [place] [address] [phone] Potassium 4.2 mmol/L 3.5-5.0 Chloride 102 mmol/L 101-111 Co2 (Carbon Dioxide) 24.0 mmol/L 22-32 Anion Gap 9.0 mmol/L 2-11 43 Glucose 281 mg/dL High 70-100 44 BUN 26 mg/dL High 6-24 Creatinine 1.3 mg/dL 0.5-1.4 One Over Creatinine 0.76 BUN/Creatinine Ratio 20.0 8-20 Calcium 9.1 mg/dL 8.1-9.9 45 Total Protein 6.8 GM/DL 6.2-8.1 Albumin 4.2 GM/DL 3.2-5.2 Globulin 2.6 GM/DL 2-4 Albumin/Globulin Ratio 1.6 1-3 Bilirubin Total 0.9 mg/dL 0.4-1.5 Alkaline Phosphatase 68 U/L 39-117 Alt (SGPT) 22 U/L 17-63 Ast (Sgot) 16 U/L 12-42 Comp Metabolic Panel 12/02/2007 [facility] Sodium 137 mmol/L 135-[address] [place] [address] [phone] Potassium 4.6 mmol/L 3.5-5.0 Chloride 106 mmol/L 101-111 Co2 (Carbon Dioxide) 24.0 mmol/L 22-32 Anion Gap 7.0 mmol/L 2-11 46 Glucose 207 mg/dL High 70-105 BUN 28 mg/dL High 6-24 Creatinine 1.4 mg/dL 0.5-1.4 One Over Creatinine 0.71 BUN/Creatinine Ratio 20.0 8-20 Calcium 9.4 mg/dL 8.1-9.9 47 Total Protein 7.2 GM/DL 6.2-8.1 Albumin 4.3 GM/DL 3.2-5.2 Globulin 2.9 GM/DL 2-4 Albumin/Globulin Ratio 1.5 1-3 Bilirubin Total 0.9 mg/dL 0.4-1.5 Alkaline Phosphatase 55 U/L 39-117 Alt (SGPT) 18 U/L 17-63 Ast (Sgot) 14 U/L 12-42 Laboratory test 12/02/2007 [facility] Vitamin B12 > 1500 High 180-[address] pg/[place] [address] [phone] Thyroxine Free 1.24 NG/ML 0.61-1.24 48 TSH 0.49 MIU/ML 0.34-5.60 Hemoglobin A1c 7.8 % High <6.0 49 Vitamin D, 25 12/02/2007 [facility] 25-Hydroxy Vitamin <4.0 ng/ mL () Hydroxy [address] D2 [place] [address] [phone] 25-Hydroxy Vitamin D3 26 ng/mL () 25-Hydroxy Vitamin D Total 26 ng/mL () 50 Laboratory test 08/09/2007 [facility] PSA Screening 3.03 NG/ML 0-4 [address] [place] [address] [phone] TSH 0.45 MIU/ML 0.34-5.60 Hemoglobin A1c 8.0 % High <6.0 52 Lipid Profile 08/09/2007 [facility] Cholesterol/HDL 4.32 1- 4.97 (Trig/Chol/HDL) [address] [place] [address] [phone] Cholesterol 164 mg/dL Less Than 200 53 Triglyceride 152 mg/dL 40-200 High Density Lipoprotein 38 mg/dL Low 40-60 54 Low Density Lipoprotein 96 mg/dL Less Than 100 55 Comp Metabolic Panel 08/09/2007 [facility] One Over Creatinine 0.[address] [place] [address] [phone] Anion Gap 3.0 mmol/L 2-11 56 Albumin/Globulin Ratio 1.5 1-3 Albumin 3.9 GM/DL 3.2-5.2 Alkaline Phosphatase 53 U/L 39-117 Alt (SGPT) 21 U/L 17-63 Ast (Sgot) 20 U/L 12-42 BUN 21 mg/dL 6-24 Calcium 8.3 mg/dL Low 8.7-10.2 Chloride 104 mmol/L 101-111 Co2 (Carbon Dioxide) 23.0 mmol/L 22-32 Globulin 2.6 GM/DL 2-4 Glucose 266 mg/dL High 70-105 Potassium 4.4 mmol/L 3.5-5.0 Sodium 135 mmol/L 135-145 Bilirubin Total 0.9 mg/dL 0.4-1.5 Total Protein 6.5 GM/DL 6.2-8.1 BUN/Creatinine Ratio 16.2 8-20 Creatinine 1.3 mg/dL 0.5-1.4 Laboratory test 08/09/2007 [facility] CPK (Creatine 57 U/L 0- [address] Kinase) [place] [address] [phone] Free Thyroxine 1.13 NG/ML 0.61-1.24 57 1 Copy Result to: AMANDA MCCALL ([id number]) [id number] Copy Result to: AMANDA MCCALL ([id number]) [id number] Copy Result to: AMANDA MCCALL ([id number]) [id number] Normal Range 180 to 914 Indeterminate Range 145 to 180 Deficient Range <145 5 Therapeutic target for the treatment of diabetes mellitus patients is <7% HBA1C, and in selective patients <6.0%. Please refer to [employer] diabetic care guidelines for further information. 6 Because ethnic data is not always readily available, this report includes an eGFR for both -Americans and non- Americans. The National Kidney Disease Education Program (NKDEP) does not endorse the use of the MDRD equation for patients that are not between the ages of 18 and 70, are , have extremes of body size, muscle mass, or nutritional status, or are non- or non-. According to the National Kidney Foundation, irrespective of diagnosis, the stage of the disease is based on the level of kidney function: Stage Description GFR(mL/min/1.73 m(2)) 1 Kidney damage with normal or decreased GFR 90 2 Kidney damage with mild decrease in GFR 60-89 3 Moderate decrease in GFR 30-59 4 Severe decrease in GFR 15-29 5 Kidney failure <15 (or dialysis) 7 Therapeutic target for the treatment of diabetes Mellitus patients is <7% HBA1C, and in selective patients <6.0%.Please refer to [employer] Diabetic care guidelines for further information. 8 Desirable <150 Borderline high 150-199 High 200-499 Very High >500 9 Desirable <200 Borderline high 200-239 High >239 10 Low <40 Desirable: 40-60 High: >60 11 Desirable: <100 mg/dL Near Optimal: 100-129 mg/dL Borderline High: 130-159 mg/dL High: 160-189 mg/dL Very High: >189 mg/dL 12 Because ethnic data is not always readily available, this report includes an eGFR for both -Americans and non- Americans. The National Kidney Disease Education Program (NKDEP) does not endorse the use of the MDRD equation for patients that are not between the ages of 18 and 70, are , have extremes of body size, muscle mass, or nutritional status, or are non- or non-. According to the National Kidney Foundation, irrespective of diagnosis, the stage of the disease is based on the level of kidney function: Stage Description GFR(mL/min/1.73 m(2)) 1 Kidney damage with normal or decreased GFR 90 2 Kidney damage with mild decrease in GFR 60-89 3 Moderate decrease in GFR 30-59 4 Severe decrease in GFR 15-29 5 Kidney failure <15 (or dialysis) 13 Serum levels of PSA measured using the [employer] DXI Hybritech immunoassay should not be interpreted as absolute evidence of the presence or absence of disease. The PSA value should be used in conjunction with other pertinent clinical diagnostic procedures. A PSA value in the range of 0.1 to 0.6 ng/ml is indeterminate if being used as an indicator of recurrent or residual disease. The values obtained with different assay methods or kits cannot be used interchangeably. 14 Because ethnic data is not always readily available, this report includes an eGFR for both -Americans and non- Americans. The National Kidney Disease Education Program (NKDEP) does not endorse the use of the MDRD equation for patients that are not between the ages of 18 and 70, are , have extremes of body size, muscle mass, or nutritional status, or are non- or non-. According to the National Kidney Foundation, irrespective of diagnosis, the stage of the disease is based on the level of kidney function: Stage Description GFR(mL/min/1.73 m(2)) 1 Kidney damage with normal or decreased GFR 90 2 Kidney damage with mild decrease in GFR 60-89 3 Moderate decrease in GFR 30-59 4 Severe decrease in GFR 15-29 5 Kidney failure <15 (or dialysis) 15 Serum levels of PSA measured using the [employer] DXI Hybritech immunoassay should not be interpreted as absolute evidence of the presence or absence of disease. The PSA value should be used in conjunction with other pertinent clinical diagnostic procedures. The values obtained with different assay methods or kits cannot be used interchangeably. 16 Therapeutic target for the treatment of diabetes Mellitus patients is <7% HBA1C, and in selective patients <6.0%.Please refer to [employer] Diabetic care guidelines for further information. 17 Acute inflammation: >10.00 18 Because ethnic data is not always readily available, this report includes an eGFR for both -Americans and non- Americans. The National Kidney Disease Education Program (NKDEP) does not endorse the use of the MDRD equation for patients that are not between the ages of 18 and 70, are , have extremes of body size, muscle mass, or nutritional status, or are non- or non-. According to the National Kidney Foundation, irrespective of diagnosis, the stage of the disease is based on the level of kidney function: Stage Description GFR(mL/min/1.73 m(2)) 1 Kidney damage with normal or decreased GFR 90 2 Kidney damage with mild decrease in GFR 60-89 3 Moderate decrease in GFR 30-59 4 Severe decrease in GFR 15-29 5 Kidney failure <15 (or dialysis) 19 Therapeutic target for the treatment of diabetes Mellitus patients is <7% HBA1C, and in selective patients <6.0%.Please refer to [employer] Diabetic care guidelines for further information. 20 Desirable <150 Borderline high 150-199 High 200-499 Very High >500 21 Desirable <200 Borderline high 200-239 High >239 22 Low <40 Desirable: 40-60 High: >60 23 Desirable <100 Near Optimal 100-129 Borderline high 130-159 High 160-189 Very High >189 24 Because ethnic data is not always readily available, this report includes an eGFR for both -Americans and non- Americans. The National Kidney Disease Education Program (NKDEP) does not endorse the use of the MDRD equation for patients that are not between the ages of 18 and 70, are , have extremes of body size, muscle mass, or nutritional status, or are non- or non-. According to the National Kidney Foundation, irrespective of diagnosis, the stage of the disease is based on the level of kidney function: Stage Description GFR(mL/min/1.73 m(2)) 1 Kidney damage with normal or decreased GFR 90 2 Kidney damage with mild decrease in GFR 60-89 3 Moderate decrease in GFR 30-59 4 Severe decrease in GFR 15-29 5 Kidney failure <15 (or dialysis) 25 Therapeutic target for the treatment of diabetes Mellitus patients is <7% HBA1C, and in selective patients <6.0%.Please refer to [employer] Diabetic care guidelines for further information. 26 Serum levels of PSA measured using the [employer] DXI Hybritech immunoassay should not be interpreted as absolute evidence of the presence or absence of disease. The PSA value should be used in conjunction with other pertinent clinical diagnostic procedures. The values obtained with different assay methods or kits cannot be used interchangeably. 27 Because ethnic data is not always readily available, this report includes an eGFR for both -Americans and non- Americans. The National Kidney Disease Education Program (NKDEP) does not endorse the use of the MDRD equation for patients that are not between the ages of 18 and 70, are , have extremes of body size, muscle mass, or nutritional status, or are non- or non-. According to the National Kidney Foundation, irrespective of diagnosis, the stage of the disease is based on the level of kidney function: Stage Description GFR(mL/min/1.73 m(2)) 1 Kidney damage with normal or decreased GFR 90 2 Kidney damage with mild decrease in GFR 60-89 3 Moderate decrease in GFR 30-59 4 Severe decrease in GFR 15-29 5 Kidney failure <15 (or dialysis) 28 Because ethnic data is not always readily available, this report includes an eGFR for both -Americans and non- Americans. The National Kidney Disease Education Program (NKDEP) does not endorse the use of the MDRD equation for patients that are not between the ages of 18 and 70, are , have extremes of body size, muscle mass, or nutritional status, or are non- or non-. According to the National Kidney Foundation, irrespective of diagnosis, the stage of the disease is based on the level of kidney function: Stage Description GFR(mL/min/1.73 m(2)) 1 Kidney damage with normal or decreased GFR 90 2 Kidney damage with mild decrease in GFR 60-89 3 Moderate decrease in GFR 30-59 4 Severe decrease in GFR 15-29 5 Kidney failure <15 (or dialysis) 29 Please note: The following may produce a false positive D Dimer test: - Rheumatoid factor greater than 60 IU/ml - Plasma hemoglobin greater than 0.05 gm/dl - Bilirubin greater than 50 mg/dl - Lipids greater than 1000 mg/dl - FDP greater than 20 ug/ml 30 Because ethnic data is not always readily available, this report includes an eGFR for both -Americans and non- Americans. The National Kidney Disease Education Program (NKDEP) does not endorse the use of the MDRD equation for patients that are not between the ages of 18 and 70, are , have extremes of body size, muscle mass, or nutritional status, or are non- or non-. According to the National Kidney Foundation, irrespective of diagnosis, the stage of the disease is based on the level of kidney function: Stage Description GFR(mL/min/1.73 m(2)) 1 Kidney damage with normal or decreased GFR 90 2 Kidney damage with mild decrease in GFR 60-89 3 Moderate decrease in GFR 30-59 4 Severe decrease in GFR 15-29 5 Kidney failure <15 (or dialysis) 31 HDL Interpretation: Undesirable: High Risk: Less than 40 MG/DL Desirable: Low Risk: Greater than 60 MG/DL 32 LDL Interpretation: Low Risk Optimal Level: LDL Less than 100 MG/DL Near or Above Optimal: LDL 100-129 MG/DL Borderline High Risk: LDL 130-159 MG/DL High Risk: LDL 160-189 MG/DL Very High Risk: LDL Greater than 189 MG/DL 33 Therapeutic target for the treatment of diabetes Mellitus patients is <7% HBA1C, and in selective patients <6.0%.Please refer to [employer] Diabetic care guidelines for further information. 34 Serum levels of PSA measured using the [employer] [place] DXI Hybritech immunoassay should not be interpreted as absolute evidence of the presence or absence of disease. The PSA value should be used in conjunction with other pertinent clinical diagnostic procedures. The values obtained with different assay methods or kits cannot be used interchangeably. 35 Anion gap measurement may be of limited value in the presence of any alkalosis, especially in a combined acid base disorder. . 36 A metabolite of Naproxen, O-desmethylnaproxen, has been shown to interfere with the [place] method for measuring total bilirubin. Samples from patients who have taken Naproxen have shown spurious elevation in total bilirubin levels. 37 Because ethnic data is not always readily available, this report includes an eGFR for both -Americans and non- Americans. The National Kidney Disease Education Program (NKDEP) does not endorse the use of the MDRD equation for patients that are not between the ages of 18 and 70, are , have extremes of body size, muscle mass, or nutritional status, or are non- or non-. According to the National Kidney Foundation, irrespective of diagnosis, the stage of the disease is based on the level of kidney function: Stage Description GFR(mL/min/1.73 m(2)) 1 Kidney damage with normal or decreased GFR 90 2 Kidney damage with mild decrease in GFR 60-89 3 Moderate decrease in GFR 30-59 4 Severe decrease in GFR 15-29 5 Kidney failure <15 (or dialysis) 38 CHOLESTEROL INTERPRETATION: Desirable: Less than 200 MG/DL Borderline-High Risk: 200-239 MG/DL High-Risk: 240 MG/DL and over 39 HDL INTERPRETATION: Undesirable: High Risk: Less than 40 MG/DL Desirable: Low Risk: Greater than 60 MG/DL 40 LDL INTERPRETATION: Low Risk Optimal Level: LDL Less than 100 MG/DL Near or Above Optimal: LDL 100-129 MG/DL Borderline High Risk: LDL 130-159 MG/DL High Risk: LDL 160-189 MG/DL Very High Risk: LDL Greater than 189 MG/DL 41 SDS 02/16/08 42 Lymphopenia % 43 Anion gap measurement may be of limited value in the presence of any alkalosis, especially in a combined acid base disorder. . 44 Note change in reference range as of 01/13/08. The change was based on recommendations from the [place] [employer]. 45 Please note change in reference range effective 07 . 46 Anion gap measurement may be of limited value in the presence of any alkalosis, especially in a combined acid base disorder. . 47 Please note change in reference range effective 07 . 48 PLEASE NOTE NEW REFERENCE RANGES. 49 THERAPEUTIC TARGET FOR THE TREATMENT OF DIABETES MELLITUS PATIENTS IS <7% HBA1C, AND IN SELECTIVE PATIENTS <6.0%. PLEASE REFER TO [employer] DIABETIC CARE GUIDELINES FOR FURTHER INFORMATION. 50 -- REFERENCE VALUE -- 25-HYDROXY D TOTAL (D2+D3) Optimum levels in the normal population are 25-80 Test Performed by: [facility] [address] [place], [place] [id number] Help Desk Technician: Parrish Gutierrez III, M.D. 51 * SERUM LEVELS OF PSA MEASURED USING THE [employer] ACCESS HYBRITECH IMMUNOASSAY SHOULD NOT BE INTERPRETED ABSOLUTE EVIDENCE OF THE PRESENCE OR ABSENCE OF DISEASE. THE PSA VALUE SHOULD BE USED IN CONJUNCTION WITH OTHER PERTINENT CLINICAL DIAGNOSTIC PROCEDURES. 52 THERAPEUTIC TARGET FOR THE TREATMENT OF DIABETES MELLITUS PATIENTS IS <7% HBA1C, AND IN SELECTIVE PATIENTS <6.0%. PLEASE REFER TO [employer] DIABETIC CARE GUIDELINES FOR FURTHER INFORMATION. 53 Classification: Desirable . 54 Classification: Low . 55 CALCULATED LDL APPROXIMATES THE VALUE OF A DIRECT LDL MEASUREMENT. Classification: Optimal Level . 56 Anion gap measurement may be of limited value in the presence of any alkalosis, especially in a combined acid base disorder. . 57 PLEASE NOTE NEW REFERENCE RANGES. Procedures Date Code Description Status 12/22/2018 80219 Inj/Aspir Major JT Or Bursa W/ US Completed 11/03/2018 10746 Echocardiogram, Limited Study Completed 11/03/2018 26592 Echocardiogram, Limited Study Completed 08/20/2018 93642 Icd Eval With Iterative Adjustmt Multiple Lead System Completed 08/20/2018 09855 Icd Eval With Iterative Adjustmt Multiple Lead System Completed 04/27/2018 54145 EKG Tracing & Interpretation Completed 03/23/2018 40916 Interrogation Implant Cardiovasc Monitor System Incl Completed Analysis Int 03/23/2018 44613 Interrogation Implant Cardiovasc Monitor System Incl Completed Analysis Int 03/23/2018 17755 Icd Eval With Inerative Adjustmt Dual Lead System Completed 03/23/2018 65815 Icd Eval With Inerative Adjustmt Dual Lead System Completed 10/28/2017 25032 Interrogation Implant Cardiovasc Monitor System Incl Completed Analysis Int 10/28/2017 46056 Interrogation Implant Cardiovasc Monitor System Incl Completed Analysis Int 10/28/2017 51854 Icd Eval With Inerative Adjustmt Dual Lead System Completed 10/28/2017 91525 Icd Eval With Inerative Adjustmt Dual Lead System Completed 10/02/2017 78440 Stress Test Supervsn W/Out I/R Completed 10/02/2017 22734 Treadmill Interp/Report Only Completed 09/06/2017 73793 ECHO Transthorasic Realtime 2D W Doppler & Color Flow Hosp Completed 09/05/2017 59360 EKG, Interpretation Only Completed 09/04/2017 44577 ECHO Transthoracic, Real-Time 2D With Doppler And Color Completed Flow 09/04/2017 24945 ECHO Transthoracic, Real-Time 2D With Doppler And Color Completed Flow 07/28/2017 13759 EKG Tracing & Interpretation Completed 07/20/2017 60821 Interrogation Implant Cardiovasc Monitor System Incl Completed Analysis Int 07/20/2017 44386 Interrogation Implant Cardiovasc Monitor System Incl Completed Analysis Int 07/20/2017 86844 Icd Eval With Inerative Adjustmt Dual Lead System Completed 07/20/2017 89955 Icd Eval With Inerative Adjustmt Dual Lead System Completed 04/02/2017 99334 Interrogation Implant Cardiovasc Monitor System Incl Completed Analysis Int 04/02/2017 51755 Icd Eval With Inerative Adjustmt Dual Lead System Completed 03/13/2017 45154 EKG Tracing & Interpretation Completed 01/06/2017 73931 Icd Eval With Inerative Adjustmt Dual Lead System Completed 01/06/2017 20513 Interrogation Implant Cardiovasc Monitor System Incl Completed Analysis Int 12/15/2016 49141 Diffusing Capacity Completed 12/15/2016 39879 Spirometry Incl Graphic Record Completed 12/10/2016 85706 EKG Tracing & Interpretation Completed 10/06/2016 68813 Icd Eval With Inerative Adjustmt Dual Lead System Completed 08/01/2016 51091 EKG Tracing & Interpretation Completed 07/15/2016 80475 Interrogation Implant Cardiovasc Monitor System Incl Completed Analysis Int 07/15/2016 47083 Icd Eval With Inerative Adjustmt Dual Lead System Completed 03/13/2016 73805 Interrogation Implant Cardiovasc Monitor System Incl Completed Analysis Int 03/13/2016 87023 Icd Eval With Inerative Adjustmt Dual Lead System Completed 12/19/2015 10872 Interrogation Implant Cardiovasc Monitor System Incl Completed Analysis Int 12/19/2015 99043 Icd Eval With Inerative Adjustmt Dual Lead System Completed 11/30/2015 00311 ECHO Transthoracic, Real-Time 2D With Doppler And Color Completed Flow 11/19/2015 97227 Spirometry Incl Graphic Record Completed 11/19/2015 23781 Diffusing Capacity Completed 11/12/2015 54394 EKG Tracing & Interpretation Completed 09/03/2015 49086 Interrogation Implant Cardiovasc Monitor System Incl Completed Analysis Int 09/03/2015 42667 Interrogation Device Eval In Person W/DR Completed Analysis,Single,Dual,Mul 05/30/2015 69279 Icd Check Single,Dual Or Multiple In Person W/DR Incl Completed Heart Rhyth 03/06/2015 08570 EKG Tracing & Interpretation Completed 01/02/2015 26743 Icd Check Single,Dual Or Multiple In Person W/DR Incl Completed Heart Rhyth 01/02/2015 76765 EKG Tracing & Interpretation Completed 11/28/2014 25549 Diffusing Capacity Completed 11/28/2014 76249 Spirometry Incl Graphic Record Completed 10/09/2014 46264 Icd Check Single,Dual Or Multiple In Person W/DR Incl Completed Heart Rhyth 07/03/2014 06182 Icd Check Single,Dual Or Multiple In Person W/DR Incl Completed Heart Rhyth 02/28/2014 91167 Icd eval w/iterative adjment single lead Icd Completed 12/21/2013 85165 ECHO Transthoracic, Real-Time 2D With Doppler And Color Completed Flow 11/24/2013 75885 EKG Tracing & Interpretation Completed 11/17/2013 60603 Icd Check Single,Dual Or Multiple In Person W/DR Incl Completed Heart Rhyth 03/22/2013 38842 Treadmill Interp/Report Only Completed 03/22/2013 88934 Stress Test Supervsn W/Out I/R Completed 03/17/2013 79614 Icd Check Single,Dual Or Multiple In Person W/DR Incl Completed Heart Rhyth 01/05/2013 19291 EKG Tracing & Interpretation Completed 11/17/2012 44498 Icd Check Single,Dual Or Multiple In Person W/DR Incl Completed Heart Rhyth 10/25/2012 64998 EKG Tracing & Interpretation Completed 07/22/2012 12838 Icd Check Single,Dual Or Multiple In Person W/DR Incl Completed Heart Rhyth 04/01/2012 56528 Icd Check Single,Dual Or Multiple In Person W/DR Incl Completed Heart Rhyth 12/26/2011 56611 Icd Check Single,Dual Or Multiple In Person W/DR Incl Completed Heart Rhyth 09/18/2011 89152 Icd Check Single,Dual Or Multiple In Person W/DR Incl Completed Heart Rhyth 07/29/2011 45444 EKG, Interpretation Only Completed 07/29/2011 01860 ECHO Transthorasic Realtime 2D W Doppler & Color Flow Hosp Completed 07/29/2011 96196 Pulse Wave/Continuous-Interp.RPT Completed 07/29/2011 08018 Color Flow Doppler/Interp & Reprt Completed 02/06/2011 97809 Icd Check Single,Dual Or Multiple In Person W/DR Incl Completed Heart Rhyth 11/05/2010 06848 Interrogation Device Eval In Person W/DR Completed Analysis,Single,Dual,Mul 08/15/2010 40502 Icd Eval With Inerative Adjustmt Dual Lead System Completed 05/15/2010 96305 EKG Tracing & Interpretation Completed 04/12/2010 93510 Icd Check Single,Dual Or Multiple In Person W/DR Incl Completed Heart Rhyth 01/17/2010 82969 Icd Check Single,Dual Or Multiple In Person W/DR Incl Completed Heart Rhyth 10/18/2009 06759 Icd Check Single,Dual Or Multiple In Person W/DR Incl Completed Heart Rhyth 06/21/2009 67863 Icd Check Single,Dual Or Multiple In Person W/DR Incl Completed Heart Rhyth 12/14/2008 71701 Icd Check Single,Dual Or Multiple In Person W/DR Incl Completed Heart Rhyth 11/30/2008 81717 EKG Tracing & Interpretation Completed 07/20/2008 98369 Icd Check Single,Dual Or Multiple In Person W/DR Incl Completed Heart Rhyth 04/27/2008 38343 EKG Tracing & Interpretation Completed 04/27/2008 55482 EKG Tracing & Interpretation Completed 04/13/2008 73301 Analysis Aicd DC W/Out Reprogramg Completed 04/13/2008 26475 Analysis Aicd DC W/Out Reprogramg Completed 02/16/2008 12192 EKG, Interpretation Only Completed 02/16/2008 17109 EKG, Interpretation Only Completed 01/20/2008 69834 Analysis Aicd DC W/Reprogramming Completed 01/20/2008 78606 Analysis Aicd DC W/Reprogramming Completed 11/30/2007 99218 Treadmill Interp/Report Only Completed 11/30/2007 97002 Stress Test Supervsn W/Out I/R Completed 11/30/2007 59762 Stress Test Supervsn W/Out I/R Completed 11/15/2007 51360 Treadmill Interp/Report Only Completed 11/15/2007 22000 Stress Test Supervsn W/Out I/R Completed 11/15/2007 10693 Stress Test Supervsn W/Out I/R Completed 11/03/2007 44642 EKG Tracing & Interpretation Completed 11/03/2007 40866 EKG Tracing & Interpretation Completed 09/16/2007 75519 Analysis Aicd DC W/Reprogramming Completed 09/16/2007 14494 Analysis Aicd DC W/Reprogramming Completed 08/05/2007 78102 EKG Tracing & Interpretation Completed 05/26/2007 45572 EKG, Interpretation Only Completed 05/26/2007 84360 EKG, Interpretation Only Completed 05/24/2007 83334 Analysis Aicd DC W/Reprogramming Completed 05/24/2007 57336 EKG, Interpretation Only Completed 05/24/2007 63833 EKG, Interpretation Only Completed 04/06/2007 62716 EKG Tracing & Interpretation Completed 04/06/2007 95637 EKG Tracing & Interpretation Completed 02/11/2007 40499 Analysis Aicd DC W/Out Reprogramg Completed 02/11/2007 71645 Analysis Aicd DC W/Out Reprogramg Completed 11/12/2006 52984 Analysis Aicd SC W/Out Reprogramg Completed 11/12/2006 70157 Analysis Aicd SC W/Out Reprogramg Completed 11/09/2006 62902 EKG Tracing & Interpretation Completed Encounters Type Date Location Provider Dx Diagnosis Office Visit 08/20/2018 [facility] Qian Montes De Oca, Z95.810 Presence of 1:30p Of Paramedic N.P. automatic (implantable) cardiac defibrillator I25.5 Ischemic cardiomyopathy I48.0 Paroxysmal atrial fibrillation E78.00 Pure hypercholesterolemia, unspecified Office Visit 04/27/2018 Mattie Graf I25.5 Ischemic 1:20p Cardiology Andreas Mccall cardiomyopathy I47.2 Ventricular tachycardia Z95.810 Presence of automatic (implantable) cardiac defibrillator I25.10 Athscl heart disease of [place] coronary artery w/o ang pctrs I48.0 Paroxysmal atrial fibrillation I50.9 Heart failure, unspecified E78.00 Pure hypercholesterolemia, unspecified J98.4 Other disorders of lung Office Visit 10/21/2017 10:00a [facility] Qian SAlee I25.10 Athscl heart Foster, N.P. disease of [place] coronary artery w/o ang pctrs I48.0 Paroxysmal atrial fibrillation I50.9 Heart failure, unspecified I42.9 Cardiomyopathy, unspecified Office Visit 09/06/2017 12:21p [facility] Newton Robbins I50.9 Heart failure, Of [place] Ward M.D. unspecified I42.9 Cardiomyopathy, unspecified Office Visit 09/06/2017 [facility] I48.0 Paroxysmal atrial 3:59p Assocspike NP fibrillation Hospitalists I50.23 Acute on chronic systolic (congestive) heart failure E11.9 Type 2 diabetes mellitus without complications N18.3 Chronic kidney disease, stage 3 (moderate) Office Visit 09/05/2017 [facility] I48.0 Paroxysmal atrial 3:58p spike Friedman, CHERYL fibrillation Hospitalists I50.23 Acute on chronic systolic (congestive) heart failure E11.9 Type 2 diabetes mellitus without complications N18.3 Chronic kidney disease, stage 3 (moderate) Office Visit 09/04/2017 12:26p [facility] Amanda Graf R06.02 Shortness of Andreas Mccall breath R42 Dizziness and giddiness R94.31 Abnormal electrocardiogram [ECG] [EKG] Z95.810 Presence of automatic (implantable) cardiac defibrillator I25.5 Ischemic cardiomyopathy R00.0 Tachycardia, unspecified Office Visit 09/04/2017 3:55p [facility] I48.0 Paroxysmal atrial Assoc,KINGSLEY Haley fibrillation Hospitalists I50.23 Acute on chronic systolic (congestive) heart failure E11.9 Type 2 diabetes mellitus without complications N18.3 Chronic kidney disease, stage 3 (moderate) Office Visit 09/04/2017 [facility] Nurse Visit cc I10 Essential (primary) 2:20p Cardiology hypertension Office Visit 07/28/2017 [facility] Amanda Graf I25.5 Ischemic 11:20a Eli Mccall M.D. cardiomyopathy I47.2 Ventricular tachycardia Z95.810 Presence of automatic (implantable) cardiac defibrillator I10 Essential (primary) hypertension E66.9 Obesity, unspecified E78.00 Pure hypercholesterolemia, unspecified Office Visit 03/13/2017 3:30p [facility] Marilyn Wei I25.5 Ischemic PA cardiomyopathy Z95.810 Presence of automatic (implantable) cardiac defibrillator I47.2 Ventricular tachycardia Office Visit 12/10/2016 [facility]p [facility] Amanda Graf R06.00 DyspneaFeli M.D. unspecified I25.5 Ischemic cardiomyopathy Z95.810 Presence of automatic (implantable) cardiac defibrillator E66.9 Obesity, unspecified I10 Essential (primary) hypertension I47.2 Ventricular tachycardia I48.0 Paroxysmal atrial fibrillation Office Visit 08/01/2016 1:30p [facility] Marilyn Wei, I25.5 Ischemic PA cardiomyopathy Z95.810 Presence of automatic (implantable) cardiac defibrillator E66.9 Obesity, unspecified Office Visit 11/12/2015 Mattie Graf I25.5 Ischemic 10:20a Eli Mccall M.D. cardiomyopathy I10 Essential (primary) hypertension E66.9 Obesity, unspecified Z95.810 Presence of automatic (implantable) cardiac defibrillator I28.9 Disease of pulmonary vessels, unspecified R09.89 Ot symptoms and signs involving the circ and resp systems I95.2 Hypotension due to drugs Office Visit 03/06/2015 11:00a [facility] Marilyn Wei, Z95.810 Presence of Cardiology [place] automatic (implantable) cardiac defibrillator I10 Essential (primary) hypertension I25.5 Ischemic cardiomyopathy E66.9 Obesity, unspecified Office Visit 01/02/2015 Mattie Graf 786.09 Dyspnea & 1:40p Eli Mccall M.D. Respiratory Abnormalities Other 425.9 Cardiomyopathy Secondary Unspecified 794.31 Electrocardiogram (ECG) (EKG) Abnormal 401.1 Hypertension Benign 278.00 Obesity Unspec Office Visit 11/24/2013 Mattie Graf V72.81 Examination 3:00p Eli Mccall M.D. Preoperative Cardiovascular 794.31 Electrocardiogram (ECG) (EKG) Abnormal 414.8 Ischemic Heart Disease Chronic Other Spec Forms V45.02 Cardiac Defibrillator Automatic Implantable Postsurgical 425.9 Cardiomyopathy Secondary Unspecified Office Visit 03/22/2013 [facility] Amanda Graf 794.31 Electrocardiogram 9:07a Eli Mccall M.D. (ECG) (EKG) Abnormal 414.8 Ischemic Heart Disease Chronic Other Spec Forms V72.81 Examination Preoperative Cardiovascular Office Visit 01/05/2013 [facility] Amanda Graf V45.02 Cardiac 11:40a Cardiology Andreas Mccall Defibrillator Automatic Implantable Postsurgical 425.9 Cardiomyopathy Secondary Unspecified 401.1 Hypertension Benign 278.00 Obesity Unspec Office Visit 10/25/2012 2:40p [facility] Eli Graf 412 Myocardial Andreas Mccall Infarction Old 425.9 Cardiomyopathy Secondary Unspecified 401.1 Hypertension Benign 278.00 Obesity Unspec 786.09 Dyspnea & Respiratory Abnormalities Other Office Visit 12/26/2011 [place] [facility] V45.02 Cardiac 10:05a Eli Mccall M.D. Defibrillator Automatic Implantable Postsurgical 414.01 Coronary Atherosclerosis [place] 412 Myocardial Infarction Old 425.9 Cardiomyopathy Secondary Unspecified Office Visit 07/29/2011 2:25p [facility] Amanda Graf 412 Myocardial Andreas Mccall Infarction Old 414.8 Ischemic Heart Disease Chronic Other Spec Forms Office Visit 05/15/2010 9:20a [facility] Amanda Graf 427.1 Paroxysmal Andreas Mccall Ventricular Tachycardia 401.1 Hypertension Benign 414.01 Coronary Atherosclerosis [place] 414.8 Ischemic Heart Disease Chronic Other Spec Forms Office Visit 11/30/2008 9:20a [facility] Amanda Graf 427.1 Paroxysmal [place] MAleeDAlee Ventricular Tachycardia 786.09 Dyspnea & Respiratory Abnormalities Other 401.1 Hypertension Benign V45.02 Cardiac Defibrillator Automatic Implantable Postsurgical 414.01 Coronary Atherosclerosis [place] Office Visit 04/27/2008 8:20a [facility] Amanda Graf 427.1 Paroxysmal Feli MAleeDAlee Ventricular Tachycardia 414.8 Ischemic Heart Disease Chronic Other Spec Forms 401.1 Hypertension Benign 786.09 Dyspnea & Respiratory Abnormalities Other Office Visit 11/03/2007 11:00a [facility] Amanda Graf 428.22 Systolic Heart Andreas Mccall Failure Chronic V45.02 Cardiac Defibrillator Automatic Implantable Postsurgical 414.01 Coronary Atherosclerosis [place] 401.1 Hypertension Benign 250.00 Diabetes Mellitus W/O Compl Type II Or Unspec Controlled Office Visit 08/05/2007 [facility] Amanda Graf 414.01 Coronary 9:00a Cardiology Andreas Mccall Atherosclerosis [place] 428.22 Systolic Heart Failure Chronic 428.23 Systolic Heart Failure Acute On Chronic 401.0 Hypertension Malignant Office Visit 04/06/2007 1:20p [facility] Amanda Graf 427.1 Paroxysmal Andreas Mccall Ventricular Tachycardia 414.01 Coronary Atherosclerosis [place] 414.8 Ischemic Heart Disease Chronic Other Spec Forms V45.01 Cardiac Pacemaker In Situ Postsurgical Office Visit 11/09/2006 [facility] Amanda Graf 414.01 Coronary 10:30a Cardiology Andreas Mccall Atherosclerosis [place] 427.1 Paroxysmal Ventricular Tachycardia 414.8 Ischemic Heart Disease Chronic Other Spec Forms Plan of Treatment Future Appointment(s):01/28/2019 10:15 am - [facility]12/22/2018 - Kari Lemus M.D.M25.551 Pain in right hipFollow up:Follow up: 2 nylsoI22.11 Unilateral primary osteoarthritis, right hipM25.561 Pain in right kneeM25.562 Pain in left knee
--- NOTE | 2019-01-05 04:33 | ED ---
Altered Mental Status - HPI Summary HPI Summary: This is a 78 y/o man BIBA after being found down on the floor of his home by his son. He was unresponsive initially, FSBS was 33. IV started and patient received 250 ml of D10 to good effect clinically and with rise of FSBS into the 200's. Pt denies any specific complaints, does not think he injured himself when he went down, and can offer no further history. He does remember taking his insulin last night and admits to not eating dinner. He has a h/o hypoglycemic episodes. There is no head or neck pain. He is on anticoagulants, however. - History Of Current Complaint Stated Complaint: DIABETIC ISSUE PER EMS Time Seen by Provider: 01/05/19 04:28 - Allergies/Home Medications Allergies/Adverse Reactions: Allergies Allergy/AdvReac Type Severity Reaction Status Date / Time Adhesive Tape [Paper Tape] Allergy LEWSI Verified 01/06/19 04:37 latex Allergy Unknown Verified 01/06/19 04:37 Reaction Details PMH/Surg Hx/FS Hx/Imm Hx Endocrine/Hematology History: Reports: Hx Anticoagulant Therapy, Hx Diabetes Cardiovascular History: Reports: Hx Auto Implanted Cardiovert Defib, Hx Congenital Heart Disease, Hx Coronary Artery Disease, Hx Hypercholesterolemia, Hx Hypertension, Hx Myocardial Infarction, Hx Pacemaker/ICD Respiratory History: Denies: Hx Asthma, Hx Chronic Obstructive Pulmonary Disease (COPD) GI History: Reports: Other GI Disorders - Colon resection History: Reports: Hx Benign Prostatic Hyperplasia Musculoskeletal History: Reports: Other Musculoskeletal History - Knee Sx. 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, unknown source Denies: Traveled Outside the [place] in Last 30 Days - Family History Known Family History: Negative: Cardiac Disease, Diabetes - Social History Alcohol Use: None Substance Use Type: Reports: None Smoking Status (MU): Former Smoker Review of Systems Negative: Fever, Chills Negative: Epistaxis, Dental Pain Negative: Palpitations, Chest Pain Negative: Shortness Of Breath, Cough Negative: Abdominal Pain, Vomiting, Diarrhea All Other Systems Reviewed And Are Negative: Yes Physical Exam - Summary Physical Exam Summary: General: This is a well-developed, well- nourished elderly man lying on the stretcher in no apparent distress. The patient does not appear ill or toxic. HEENT:Extraocular movements are intact. Conjunctiva are normal without pallor. Pharynx is clear without exudate or swelling. Dentition is unremarkable. There is no sign of head trauma. Neck: Supple, no adenopathy noted. Lungs: Lungs are clear to auscultation. There are no signs of respiratory distress. Coronary: Peripheral perfusion is good. Heart sounds are regular, a normal S1 and S2 were auscultated. There is no gallop rhythm, nor any pathological sounded murmurs. Abdomen: The abdomen appears normal and is nondistended. Normoactive bowel sounds are present. On palpation, there is no significant tenderness, nor any guarding or rebound. There is no hepatosplenomegaly, nor any masses. Genitourinary: Deferred Back: Good range of motion is observed. There are no surface abnormalities nor any scoliosis. Extremities: Good range of motion was observed in all 4 extremities. There are some fresh abrasions on the dorsal aspect of the right toes. Neurologic: The patient is awake and alert, speech is fluent and conversation is appropriate. There are no focal motor abnormalities. Cranial nerves are grossly intact. There is no ataxia observed. Psychiatric. The patients affect is felt to be normal and appropriate. There is no sign of any hallucinations or delusions, or any other signs of psychosis Triage Information Reviewed: Yes Vital Signs Reviewed: Yes Diagnostics - Laboratory Result Diagrams: 01/05/19 05:28 01/05/19 05:28 Lab Statement: Any lab studies that have been ordered have been reviewed, and results considered in the medical decision making process. Re-Evaluation - Re-Evaluation First Eval Re-Evaluation Time: 08:25 Comment: nurse checking patient's blood glucose level. nurse reports that blood glucose is 168. pt ate juice, coffee, [place]. will discharge patient. encouraged close f/u with pcp Altered Mental Statu Course/Dx - Diagnoses Provider Diagnoses: Hypoglycemia Discharge ED - Sign-Out/Discharge Documenting (check all that apply): Patient Departure Patient Received Moderate/Deep Sedation with Procedure: No - Discharge Plan Condition: Stable Disposition: HOME Patient Education Materials: Hypoglycemia in a Person with Diabetes (ED), What to Do if Your Blood Sugar is Low (ED) Referrals: Kory Toribio PA [Primary Care Provider] - (call for an appointment in 5-7 days) Additional Instructions: - Stay well hydrated - drink plenty of non-alcoholic, non-caffienated beverages - It is VERY important that you eat something EVERY TIME you take your insulin - contact your primary care provider today to schedule a follow-up appointment in the next 5-7 days - Billing Disposition and Condition Condition: STABLE Disposition: Home - Attestation Statements Document Initiated by Teresa: Yes Documenting Scribe: Lilliana Beverly Provider For Whom Teresa is Documenting (Include Credential): Bong Kate MD Scribe Attestation: I, Lilliana Beverly, scribed for Bong Kate MD on 01/12/19 at 1245. Scribe Documentation Reviewed: Yes Provider Attestation: The documentation as recorded by the Lilliana mohr accurately reflects the service I personally performed and the decisions made by me, Bong Kate MD Status of Scribe Document: Viewed
[2019-01-05 05:35] LABS: Hematocrit 37 % (42-52); Hemoglobin 12.8 g/dL (14.0-18.0); Mean Corpuscular HGB Conc 35 g/dL (31-36); Mean Corpuscular Hemoglobin 32 pg (27-31); Mean Corpuscular Volume 93 fL (80-94); Mean Platelet Volume 6.8 fL (7.4-10.4); Platelet Count 180 10^3/uL (150-450); Red Cell Distribution Width 15 % (10-15); White Blood Count 12.8 10^3/uL (3.5-10.8)
[2019-01-05 05:56] LABS: Albumin 3.8 g/dL (3.2-5.2); Albumin/Globulin Ratio 1.5 (1-3); BUN/Creatinine Ratio 30.8 (8-20); Calcium 8.6 mg/dL (8.6-10.3); EGFR African American 62.8 (>60); EGFR Non-African American 51.9 (>60); Globulin 2.5 g/dL (2-4); Potassium 3.9 mmol/L (3.5-5.0); Total Protein 6.3 g/dL (6.4-8.9)
[2019-01-05 06:37] LABS: ABS Lymphocytes 0.4 10^3/ul (1.0-4.8); ABS Monocytes 0.8 10^3/ul (0-0.8); ABS Neutrophils 11.6 10^3/ul (1.5-7.7); Eosinophil % 0.3 %; Lymphocyte % 2.9 %
[2019-01-05 08:05] VITALS: BP 112/61
--- NOTE | 2019-01-05 08:30 | ED ---
Progress - Progress Note Progress Note: This patient is signed out from Dr. Kate upon shift change 01/05/19 at 07:00 - Need to give po and check FSBG once more I introduced myself to pt and son reinforced importance of po when taking insulin Re-Evaluation - Re-Evaluation First Eval Re-Evaluation Time: 08:25 Comment: nurse checking patient's blood glucose level. nurse reports that blood glucose is 168. pt ate juice, coffee, sl[place]. will discharge patient. encouraged close f/u with pcp Course/Dx - Diagnoses Provider Diagnoses: Hypoglycemia Discharge - Sign-Out/Discharge Documenting (check all that apply): Patient Departure - Discharge Patient Received Moderate/Deep Sedation with Procedure: No - Discharge Plan Condition: Stable Disposition: HOME Patient Education Materials: Hypoglycemia in a Person with Diabetes (ED), What to Do if Your Blood Sugar is Low (ED) Referrals: Kory Toribio PA [Primary Care Provider] - (call for an appointment in 5-7 days) Additional Instructions: - Stay well hydrated - drink plenty of non-alcoholic, non-caffienated beverages - It is VERY important that you eat something EVERY TIME you take your insulin - contact your primary care provider today to schedule a follow-up appointment in the next 5-7 days - Billing Disposition and Condition Condition: STABLE Disposition: Home - Attestation Statements Document Initiated by Jeromeibe: Yes Documenting Scribe: Lilliana Beverly Provider For Whom Teresa is Documenting (Include Credential): Zhane Charles MD Scribe Attestation: I, Lilliana Beverly, scribed for Zhane Charles MD on 01/05/19 at 0832. Scribe Documentation Reviewed: Yes Provider Attestation: The documentation as recorded by the scribeLilliana accurately reflects the service I personally performed and the decisions made by me, Zhane Charles MD Status of Scribe Document: Viewed
== END 2019-01-05 08:39 | disposition home or self-care (01) ==
LOC: ED 04:22
DX: E11.649 Type 2 diabetes mellitus with hypoglycemia without coma (principal); Z79.4 Long term (current) use of insulin; I25.2 Old myocardial infarction; I10 Essential (primary) hypertension; Z79.01 Long term (current) use of anticoagulants; Z95.810 Presence of automatic (implantable) cardiac defibrillator; Z95.1 Presence of aortocoronary bypass graft; Z96.642 Presence of left artificial hip joint; Z91.040 Latex allergy status; Z91.048 Other nonmedicinal substance allergy status; Z87.891 Personal history of nicotine dependence
CPT/HCPCS: 36415; 70450; 71046; 80053; 82550; 85025; 93005; 99284

== ENCOUNTER 2019-01-06 04:26 | Inpatient (IN) | payer MEDICARE ==
[2019-01-06] MEDS ORDERED: NS 0.9% 1000 ML** 1,000 ML IV ONE (04:56)
[2019-01-06 05:21] LABS: Hematocrit 37 % (42-52); Hemoglobin 12.4 g/dL (14.0-18.0); Mean Corpuscular HGB Conc 34 g/dL (31-36); Mean Corpuscular Hemoglobin 32 pg (27-31); Mean Corpuscular Volume 94 fL (80-94); Platelet Count 165 10^3/uL (150-450); Red Blood Count 3.87 10^6 /uL (4.18-5.48); Red Cell Distribution Width 15 % (10-15); White Blood Count 12.2 10^3/uL (3.5-10.8)
[2019-01-06 05:28] LABS: INR 1.39 (0.82-1.09)
[2019-01-06 05:37] LABS: Albumin 3.6 g/dL (3.2-5.2); Calcium 8.2 mg/dL (8.6-10.3); Potassium 3.6 mmol/L (3.5-5.0)
[2019-01-06 05:43] LABS: Albumin/Globulin Ratio 1.5 (1-3); BUN/Creatinine Ratio 26.6 (8-20); EGFR African American 57.7 (>60); EGFR Non-African American 47.7 (>60); Globulin 2.4 g/dL (2-4)
--- NOTE | 2019-01-06 05:59 | ED ---
HPI Diabetic - HPI Summary HPI Summary: The patient is a 78 y/o M arriving by ambulance to [facility] with a chief complaint of sudden onset fall with injury to the occipital head with measured low blood glucose. He reports that he fell due to the dizziness he was experiencing from hypoglycemia. He states that he ate dinner. He additionally c/o left shoulder pain. Currently takes anticoagulants. PMHx: DM, CAD, HLD, HTN, PA, pacemaker, CABG. Former smoker, no EtOH, no substance use. - History Of Current Complaint Chief Complaint: EDDiabeticProb Time Seen by Provider: 01/06/19 04:48 Hx Obtained From: Patient Onset/Duration: Sudden Onset, Resolved Timing: Minutes Severity Initially: Severe Severity Currently: Mild Character: Other - fall Aggravating: Nothing Alleviating: Nothing Related History: Compliant - Allergies/Home Medications Allergies/Adverse Reactions: Allergies Allergy/AdvReac Type Severity Reaction Status Date / Time Adhesive Tape [Paper Tape] Allergy LEWIS Verified 01/06/19 04:37 latex Allergy Unknown Verified 01/06/19 04:37 Reaction Details Home Medications: Home Medications Insulin Detemir (NF) [Levemir (NF)] 42 units SUBCUT BEDTIME 01/06/19 [History Confirmed 01/06/19] PMH/Surg Hx/FS Hx/Imm Hx Endocrine/Hematology History: Reports: Hx Anticoagulant Therapy, Hx Diabetes Cardiovascular History: Reports: Hx Auto Implanted Cardiovert Defib, Hx Congenital Heart Disease, Hx Coronary Artery Disease, Hx Hypercholesterolemia, Hx Hypertension, Hx Myocardial Infarction, Hx Pacemaker/ICD Respiratory History: Denies: Hx Asthma, Hx Chronic Obstructive Pulmonary Disease (COPD) GI History: Reports: Other GI Disorders - Colon resection History: Reports: Hx Benign Prostatic Hyperplasia Musculoskeletal History: Reports: Other Musculoskeletal History - Knee Sx. 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, unknown source Denies: Traveled Outside the [place] in Last 30 Days - Family History Known Family History: Negative: Cardiac Disease, Diabetes - Social History Alcohol Use: None Hx Substance Use: No Substance Use Type: Reports: None Hx Tobacco Use: Yes Smoking Status (MU): Former Smoker Review of Systems Positive: Other - low blood glucose Positive: Myalgia - left shoulder Neurological: Other - head injury with bump on occipital head All Other Systems Reviewed And Are Negative: Yes Physical Exam - Summary Physical Exam Summary: Appearance: Well-appearing, Well-nourished, lying in bed comfortably Skin: Warm, dry, no obvious rash Eyes: sclera anicteric, no conjunctival pallor ENT: mucous membranes moist, pharynx appears normal Neck: Supple, nontender, no neck pain or pain with ROM, moderate sized left- sided occipital hematoma Respiratory: Clear to auscultation, no signs of respiratory distress Cardiovascular: Normal S1, S2. No murmurs. Normal distal pulses in tibial and radial bilaterally. Abdomen: Soft, nontender, normal active bowel sounds present Musculoskeletal: Normal, Strength/ROM Intact Neurological: A&Ox3, awake and alert, mentation is normal, speech is fluent and appropriate, GCS: 15. Psychiatric: affect is normal, does not appear anxious or depressed Triage Information Reviewed: Yes Vital Signs On Initial Exam: Initial Vitals Temp Pulse Resp BP Pulse Ox 97.4 F 73 20 130/49 97 01/06/19 04:30 01/06/19 04:30 01/06/19 04:30 01/06/19 04:30 01/06/19 04:30 Vital Signs Reviewed: Yes - Herminie Coma Scale Best Eye Response: 4 - Spontaneous Best Motor Response: 6 - Obeys Commands Best Verbal Response: 5 - Oriented Coma Scale Total: 15 Diagnostics - Vital Signs Vital Signs Temp Pulse Resp BP Pulse Ox 01/06/19 05:31 71 16 128/57 95 01/06/19 05:02 75 20 101/49 95 01/06/19 05:00 68 19 91 01/06/19 04:32 77 23 130/49 96 01/06/19 04:30 97.4 F 73 24 130/49 97 - Laboratory Lab Results: Lab Results 01/06/19 01/06/19 01/06/19 Range/Units 05:10 05:11 05:11 WBC 12.2 H (3.5-10.8) 10^3/uL RBC 3.87 L (4.18-5.48) 10^6 /uL Hgb 12.4 L (14.0-18.0) g/dL Hct 37 L (42-52) % MCV 94 (80-94) fL MCH 32 H (27-31) pg MCHC 34 (31-36) g/dL RDW 15 (10-15) % Plt Count 165 (150-450) 10^3/uL MPV 7.0 L (7.4-10.4) fL Neut % (Auto) Pending Lymph % (Auto) Pending [place] % (Auto) Pending Eos % (Auto) Pending Baso % (Auto) Pending Absolute Neuts (auto) Pending Absolute Lymphs (auto) Pending Absolute Monos (auto) Pending Absolute Eos (auto) Pending Absolute Basos (auto) Pending Absolute Nucleated RBC Pending Nucleated RBC % Pending INR (Anticoag Therapy) 1.39 H (0.82-1.09) Sodium 128 L (135-145) mmol/L Potassium 3.6 (3.5-5.0) mmol/L Chloride 98 L (101-111) mmol/L Carbon Dioxide 22 (22-32) mmol/L Anion Gap 8 (2-11) mmol/L BUN 38 H (6-24) mg/dL Creatinine 1.43 H (0.67-1.17) mg/dL Est GFR ( Amer) 57.7 (>60) Est GFR (Non-Af Amer) 47.7 (>60) BUN/Creatinine Ratio 26.6 H (8-20) Glucose 200 H (70-100) mg/dL Lactic Acid (0.5-2.0) mmol/L Calcium 8.2 L (8.6-10.3) mg/dL Total Bilirubin 1.00 (0.2-1.0) mg/dL AST 37 (13-39) U/L ALT 34 (7-52) U/L Alkaline Phosphatase 84 (34-104) U/L Total Protein 6.0 L (6.4-8.9) g/dL Albumin 3.6 (3.2-5.2) g/dL Globulin 2.4 (2-4) g/dL Albumin/Globulin Ratio 1.5 (1-3) 01/06/19 Range/Units 05:11 WBC (3.5-10.8) 10^3/uL RBC (4.18-5.48) 10^6 /uL Hgb (14.0-18.0) g/dL Hct (42-52) % MCV (80-94) fL MCH (27-31) pg MCHC (31-36) g/dL RDW (10-15) % Plt Count (150-450) 10^3/uL MPV (7.4-10.4) fL Neut % (Auto) Lymph % (Auto) [place] % (Auto) Eos % (Auto) Baso % (Auto) Absolute Neuts (auto) Absolute Lymphs (auto) Absolute Monos (auto) Absolute Eos (auto) Absolute Basos (auto) Absolute Nucleated RBC Nucleated RBC % INR (Anticoag Therapy) (0.82-1.09) Sodium (135-145) mmol/L Potassium (3.5-5.0) mmol/L Chloride (101-111) mmol/L Carbon Dioxide (22-32) mmol/L Anion Gap (2-11) mmol/L BUN (6-24) mg/dL Creatinine (0.67-1.17) mg/dL Est GFR ( Amer) (>60) Est GFR (Non-Af Amer) (>60) BUN/Creatinine Ratio (8-20) Glucose (70-100) mg/dL Lactic Acid 1.6 (0.5-2.0) mmol/L Calcium (8.6-10.3) mg/dL Total Bilirubin (0.2-1.0) mg/dL AST (13-39) U/L ALT (7-52) U/L Alkaline Phosphatase (34-104) U/L Total Protein (6.4-8.9) g/dL Albumin (3.2-5.2) g/dL Globulin (2-4) g/dL Albumin/Globulin Ratio (1-3) Result Diagrams: 01/08/19 06:08 01/08/19 06:08 Lab Statement: Any lab studies that have been ordered have been reviewed, and results considered in the medical decision making process. - CT Brain CT CT Interpretation Completed By: Radiologist Summary of CT Findings: Impression: 1. No acute intracranial hemorrhage. No intracranial mass or mass effect. 2. 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 3. Focal hypodensity located in the right centrum semiovale consistent with a lacunar infarct. ED physician has reviewed this report. - EKG 0508 Cardiac Rate: Other Rate - 73 bpm Summary of EKG Findings: Atrial-sensed ventricular-paced rhythm, ventricular pacing tracks p-waves at 73 bpm. No STEMI. Re-Evaluation - Re-Evaluation First Eval Re-Evaluation Time: 06:15 Comment: We discussed results and likelihood of admission. Diabetic Course/Dx - Course Course Of Treatment: Patient is a 78 y/o with cc of fall with sustained occipital head injury secondary to hypoglycemia today despite eating dinner. Additionally c/o left shoulder pain. Hx of DM. Takes anticoagulants. Upon physical exam, the patient exhibits no neck pain or pain with ROM but has a moderate sized left-sided occipital hematoma. GCS: 15. Blood work reveals WBCs of 12.2, RBCs of 3.87, Hgb of 12.4, Hct of 37, MCH of 32, MPV of 7.0, abs neuts of 10.8, abs lymphs of 0.4, INR of 1.39, BUN of 38, creatinine of 1.43, and glucose of 200. In the ED course, the patient was administered fluids. EKG at 0508 reveals atrial-sensed ventricular-paced rhythm, ventricular pacing tracks p -waves at [address] Impression: 1. No acute intracranial hemorrhage. No intracranial mass or mass effect. 2. 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 3. Focal hypodensity located in the right centrum semiovale consistent with a lacunar infarct. I spoke with Dr. Bishop, hospitalist, at 0630, and he accepts the patient for admission. Patient agrees with this plan. - Diagnoses Provider Diagnoses: Hypoglycemia associated with diabetes, Hematoma of occipital surface of head - Physician Notifications Discussed Care Of Patient With: William Bishop - hospitalist Time Discussed With Above Provider: 06:30 Instructed by Provider To: Admit As Observation - Dr. Bishop accepts the patient for admission. Discharge - Sign-Out/Discharge Documenting (check all that apply): Patient Departure - Patient is accepted for admission by Dr. Bishop. Patient Received Moderate/Deep Sedation with Procedure: No - Discharge Plan Condition: Stable Disposition: ADMITTED TO [facility] - Billing Disposition and Condition Condition: STABLE Disposition: Admitted to [facility] - Attestation Statements Document Initiated by Teresa: Yes Documenting Jeromeibtobin: Rylee Quarles Provider For Whom Teresa is Documenting (Include Credential): Dr. Bong Kate MD Scribe Attestation: Rylee Bennett scribed for Dr. Bong Kate MD on 01/10/19 at 0203. Scribe Documentation Reviewed: Yes Provider Attestation: The documentation as recorded by the Rylee mohr accurately reflects the service I personally performed and the decisions made by me, Dr. Bong Kate MD Status of Scrmorales Document: Viewed
[2019-01-06 06:25] LABS: ABS Lymphocytes 0.4 10^3/ul (1.0-4.8); ABS Monocytes 0.8 10^3/ul (0-0.8); ABS Neutrophils 10.8 10^3/ul (1.5-7.7); Eosinophil % 0.4 %; Lymphocyte % 3.2 %
[2019-01-06] MEDS ORDERED: Dextrose 50% VIAL 50 ml IV PUSH PRN (08:34)
[2019-01-06 08:37] LABS: Urine Appearance Clear; Urine Bilirubin Negative (Negative); Urine Blood Negative (Negative); Urine Color Yellow; Urine Glucose 3+(>=500 mg/dL) (Negative); Urine Ketones Negative (Negative); Urine Nitrite Negative (Negative); Urine Protein Negative (Negative); Urine Specific Gravity 1.014 (1.010-1.030); Urine Urobilinogen Negative (Negative)
[2019-01-06] MEDS ORDERED: NON FORMULARY MED* (Apixaban [Eliquis] 5 MG) PO SCH (09:00)
[2019-01-06] MEDS ORDERED: Isosorbide Mononitrate ER TAB* 60 MG PO SCH (09:00)
[2019-01-06] MEDS ORDERED: Lisinopril TAB* 10 MG PO SCH (09:00)
[2019-01-06] MEDS: Cyanocobalamin TAB* 500 MCG PO SCH (10:19)
[2019-01-06] MEDS: Cholecalciferol TAB* 1000 UNITS PO SCH (10:19)
[2019-01-06] MEDS: Amiodarone TAB* 200 MG PO SCH (10:19)
[2019-01-06] MEDS: Aspirin EC TAB* 81 MG TAB.EC PO SCH (10:19)
[2019-01-06] MEDS: Carvedilol TAB* 25 MG PO SCH ×2 (10:19→21:41)
[2019-01-06] MEDS: Tamsulosin CAP* 0.4 MG PO SCH ×2 (10:19→21:41)
[2019-01-06] MEDS: Multivitamins/Minerals TAB PO SCH (10:19)
[2019-01-06] MEDS: Magnesium Oxide TAB* 400 MG PO SCH (10:19)
[2019-01-06] MEDS: Nystatin TOP POWDER* 15 GM BTL TOPICAL SCH ×2 (12:32→21:41)
[2019-01-06] MEDS: Insulin LISPRO* 1 UNITS UNIT SUBCUT SCH ×3 (12:32→21:39)
[2019-01-06] MEDS: Apixaban* 5 MG TAB PO SCH ×2 (12:32→21:41)
--- NOTE | 2019-01-06 12:35 | HP ---
CC: KINGSLEY Martinez; Dr. Edmond HISTORY AND PHYSICAL: DATE OF ADMISSION: 01/06/19 TIME OF EVALUATION: 8:20 a.m. PRIMARY CARE PROVIDER: KINGSLEY Martinez GOLD STAMPER: Dr. Edmond. CHIEF COMPLAINT: "My sugar was low again." HISTORY OF PRESENT ILLNESS: Mr. Lara is a 78-year-old male with a complex past medical history that shows coronary artery disease, status post CABG in 2000 with a history of prior SD; status post pacer/ICD implantation; hypertension; paroxysmal atrial fibrillation; V-tach; congestive heart failur e, ejection fraction of 30% to 35%; type 2 diabetes; hyperlipidemia; CKD stage 3; chronic back pain; femoral aneurysm; small bowel obstruction; prostate cancer, who presented to the emergency room for t he second time in 2 days with complaints of passing out, falling at home. The patient states that on 01/05/19, he was in his usual state of health. He states that he remember s going to bed, but then he does not remember much after that. As per 01/05/19 ED visit report, the patient was found down on the floor of his home by his son. He was unresponsive with a reported fing erstick of 33. EMS gave glucose and his fingerstick increased to 200. At that point, the patient de nied any other specific complaints and could not offer further history. At that point, he said that he did not eat dinner and he took his insulin and that he has a history of hypoglycemic episode. He was evaluated in the emergency room, was educated about the importance of eating and taking his insul in and was discharged home. He states that when he went home, he was feeling well, says that he had dinner and took his insulin as usual. He woke up today around 2 in the morning to go to the bathroom . He remembers using the bathroom and the next thing he knows is he was on the floor again. At this time, he was able to use his personal alarm and when EMS arrived, his glucose was 44. He states jb t as soon as he got his glucose up again, he felt back to normal. At this time, he denies any compla ints. He denies chest pain, palpitations, shortness of breath, dizziness, nausea, vomiting, diarrhea, or ur inary complaints. PAST MEDICAL HISTORY: 1. Coronary artery disease, status post CABG in 2000. 2. History of SD. 3. Status post pacer/ICD implantation. 4. Paroxysmal atrial fibrillation. 5. Ventricular tachycardia. 6. Systolic congestive heart failure with ejection fraction of 30% to 35%. 7. Type 2 diabetes. 8. Hyperlipidemia. 9. CKD stage 3. 10. Chronic back pain. 11. Lung nodule. 12. History of femoral aneurysm. 13. History of prostate CA, status post radiation. 14. Small bowel obstruction with bowel resection and colostomy, status post colostomy reversal in 11 01. 15. Multinodular goiter. 16. Status post bilateral knee surgery. 17. Status post tonsillectomy. 18. Status post total left knee replacement in 2013. MEDICATIONS: 1. Amiodarone 50 mg p.o. daily. 2. Eliquis 5 mg p.o. daily. 3. Aspirin 81 mg p.o. daily. 4. Coreg 25 mg p.o. b.i.d. 5. Cholecalciferol 1000 units p.o. daily. 6. Vitamin B12 of 1000 mcg p.o. daily. 7. Levemir 52 units subcutaneously in the morning and 42 units subcutaneously at bedtime. 8. Imdur 60 mg p.o. daily. 9. Magnesium oxide 400 mg p.o. daily. 10. Metformin 500 mg p.o. b.i.d. 11. Multivitamin 1 tablet p.o. daily. 12. Pravastatin 80 mg p.o. at bedtime. 13. Quinapril 40 mg p.o. daily. 14. Flomax 1 capsule p.o. b.i.d. ALLERGIES: ADHESIVE TAPE and LATEX. FAMILY HISTORY: The patient's mother of old age, his father of GI bleed. No siblings. No other reported family member diseases. SOCIAL HISTORY: The patient was a smoker for 16 years, half to full pack a day. There is also a repo rted history of alcohol abuse but he denies drinking alcohol or using any drugs. The patient is reti red. Surrogate decision maker is his son, Ruben Lara, phone number is [phone]. REVIEW OF SYSTEMS: A 14-point review of systems was performed and all the pertinent positives and ne gatives are as in the HPI. PHYSICAL EXAMINATION GENERAL: Elderly gentleman lying in the ED stretcher, in no acute distress. VITAL SIGNS: Temperature 97.9, heart rate is 72, respiratory rate is 18, oxygen saturation 99% on ro om air, blood pressure is 118/58. HEENT: Pupils are equal. Moist mucous membranes. CHEST: Breath sounds present bilaterally with no added sounds. CVS: Normal S1 and S2. Regular rate and rhythm. ABDOMEN: Soft and nontender. Bowel sounds present. EXTREMITIES: No edema. NEUROLOGIC: He is alert and oriented x3. He is able to move all 4 extremities. LABORATORY AND IMAGING DATA: CBC showed a WBC of 12.2, hemoglobin of 12.4, hematocrit of 37, platel ets of 165 with 89% neutrophils. INR is 1.39. Chemistry showed a sodium of 128, potassium of 3.6, c hloride of 98, bicarb of 22, BUN of 38, creatinine of 1.4, glucose of 200, lactic acid is 1.6, calciu m is 8.2. LFTs are normal. Urinalysis was negative for infection, but it showed glucose 3+. CT of the brain without contrast showed no acute intracranial hemorrhage, no intracranial mass or mas s defect, age-related cerebral cortical volume loss with white matter changes consistent with microva scular leukoencephalopathy. Focal hypodensity located in the right centrum semiovale consistent with a lacunar infarct. I discussed the CT with Radiology (Dr. Polanco) and he tells me that this lacunar infarct is chronic. EKG done on 01/06/19 at 5:08 a.m. shows paced rhythm at 73 beats per minute and this is unchanged fro m the day before when he was in a paced rhythm, also unchanged from August 2017. ASSESSMENT AND PLAN: Mr. Lara is a 78-year-old male with a complex past medical history that in cludes coronary artery disease, status post coronary artery bypass graft; systolic congestive heart f ailure; ventricular tachycardia, status post ICD placement; type 2 diabetes; hyperlipidemia; chronic kidney disease stage 3, who presented to the emergency room twice after episodes of hypoglycemia. 1. Hypoglycemia. I note that on his prior admission last year in August 2017, the patient was on a m uch lower dose of insulin 35 units in the morning and 8 units in the evening; but his hemoglobin A1c at that time was elevated at 9.7. The patient tells me that his sugar has been "up and down" and jb t his PCP has been changing his insulin doses and the last change was done about 6 weeks ago. He sta meghna that the first time he came to the emergency room, he does not remember anything and he is not ev en sure if he took his insulin prior to going to bed that night. Yesterday, he remembers taking his i nsulin and he did not lose consciousness, but he was feeling weak and fell when he went to the [facility]. For now, I am going to hold his long-acting insulin. I am going to monitor his fingersticks q.4 hours with lispro sliding scale and I will repeat his hemoglobin A1c. With his age and comorbiditie s, tighter diabetes control may not be in his best interest, especially considering his episode of hy poglycemia. 2. Syncopal episode. Likely secondary to his episode of hypoglycemia, but with his cardiac history, we are going to interrogate his ICD. 3. Coronary artery disease, stable. We will continue aspirin, statin, beta- anna, Imdur. 4. Systolic congestive heart failure, stable. I will repeat his echocardiogram to assess his ejecti on fraction. We will continue lisinopril and carvedilol. 5. History of atrial fibrillation. The patient is in a paced rhythm. We will continue amiodarone a nd Coreg. He has had 2 CT of the brains that were negative for intracranial bleeding. He does have an occipital area hematoma and his H and H has been stable, so he will be continued on Eliquis as he has a very high CHADS2- VASc score of 8 (male, age, heart failure, hypertension, diabetes, history of stroke, and vascular disease). We are going to continue his Eliquis at his usual dose. 6. Type 2 diabetes. The patient's renal function is borderline for metformin at this time and as de scribed above when I discussed his hypoglycemia, I am going to stop his long-acting insulin, continue short-acting with frequent fingersticks and we will follow his hemoglobin A1c to decide how aggressi ve his treatment would need to be. 7. DVT prophylaxis. The patient has a score of 3 on the DVT prophylaxis risk assessment guide and h e will be continued on Eliquis. 8. Code status is full. TIME SPENT: Approximately 65 minutes was spent on patient interview, medical records review, and phy sical examination to complete this admission; more than half this time was spent [id number] with th e patient and in coordination of care. [id number]/[facility] #: [id number]
[2019-01-06] MEDS: Acetaminophen TAB* 325 MG PO PRN ×2 (13:40→21:25)
[2019-01-06] MEDS ORDERED: NS 0.9% 250 ML* 250 ML IV ONE (13:46)
--- NOTE | 2019-01-06 13:59 | PN ---
Hospitalist Progress Note Date of Service: 01/06/19 HOSPITALIST ADDENDUM Called by RN because patient is hypotensive. He's asymptomatic, but BP is 80/44 after receiving his cardiac meds. Will give NS 250ml and continue to monitor.
[2019-01-06] MEDS ORDERED: Perflutren Lipid Microsphere* 3 ML VIAL ONE (15:44)
--- NOTE | 2019-01-06 17:19 | ECHO ---
*[facility]* [place] [address] Fax #: [phone] Transthoracic Echocardiogram Patient: Alon Lara : 1940 Study Date: 01/06/2019 Age: 78 Gender: M HR: 69 bpm Height: 67 in /170.2 cm BSA: 2.08 m^2 Weight: 213.6 lb /97.1 kg BMI: 33.5 kg/m^2 *Boiler Shop Supervisor: * Johnna Horn RDCS RN *Referring Physician: * Anni FarnsworthReading Physician: * Len Mckeon MD Indications: Syncope. History: Atrial fibrillation. Coronary artery disease. Myocardial infarction. Congestive heart failure. V. Tach. CKD. Risk factors: Former tobacco use. Hypertension. Diabetes mellitus. Dyslipidemia. Labs, prior tests, procedures, and surgery: ICD system implantation. Coronary artery bypass grafting. Conclusions Summary: - Procedure narrative: Transthoracic echocardiography was performed. Image quality was suboptimal. The study was technically limited due to body habitus and Smoking history. Intravenous Definity 3 ml was administered for image enhancement. - Left ventricle: Wall thickness is mildly increased. Systolic function is moderately reduced. The estimated ejection fraction is 30-35%. - Right ventricle: Pacer wire noted in the right ventricle. - Left atrium: The atrium is mildly dilated. - Pulmonary arteries: Systolic pressure is mildly increased, estimated to be 37 mm Hg. - No functionally significant valvular abnormalities noted. Recommendations: Compared to prior limited study from 10/2018, no clinically significant changes noted. Study data: Transthoracic echocardiogram. Procedure: Transthoracic echocardiography was performed. Image quality was suboptimal. The study was technically limited due to body habitus and Smoking history. Intravenous Definity 3 ml was administered for image enhancement. Complete 2D, spectral Doppler, and color flow Doppler. Location: Bedside. Patient status: Observation. Patient room number: 445-02. Rhythm: Paced rhythm. Findings Left ventricle: Wall thickness is mildly increased. Systolic function is moderately reduced. The estimated ejection fraction is 30-35%. Regional wall motion abnormalities: Akinesis of the mid anterior, mid anteroseptal, apical inferior, and apical septal myocardium; hypokinesis of the basal and apical anterior myocardium; moderate hypokinesis of the apical myocardium; mild hypokinesis of the mid inferoseptal and mid inferior myocardium. Doppler parameters are consistent with abnormal left ventricular relaxation (grade 1 diastolic dysfunction). Right ventricle: The cavity size is normal. Pacer wire noted in the right ventricle. Systolic function is normal. Ventricular septum: There is abnormal interventricular septal wall motion consistent with an RV pacemaker. Left atrium: The atrium is mildly dilated. Right atrium: The atrium is mildly dilated. Pacer wire noted in right atrium. Mitral valve: The leaflets are mildly thickened. There is no evidence of stenosis. There is trace regurgitation. Aortic valve: Not well visualized. The leaflets are mildly thickened. There is no evidence of stenosis. There is no regurgitation. Tricuspid valve: Not well visualized. There is trace to mild regurgitation. Pulmonic valve: Not well visualized. Aorta: Aortic root: The aortic root is mildly dilated. Ascending aorta: The ascending aorta is not visualized. Aortic arch: The aortic arch is not visualized. Pericardium: A prominent pericardial fat pad is present. There is no pericardial effusion. Pulmonary arteries: Not well visualized. Systolic pressure is mildly increased, estimated to be 37 mm Hg. Systemic veins: Inferior vena cava: The vessel is mildly dilated. There is (< 50%) respiratory change in the IVC dimension. Measurements Left ventricle Value Ref Right atrium Value Ref BITA, LAX 4.8 cm 4.2 - ML dim, ES, A4C (H) 4.5 cm 2.6 - 4.4 5.8 SI dim, ES, A4C (H) 5.8 cm 3.4 - 5.3 ESD, LAX (H) 4.1 cm 2.5 - Estimated RAP 15 mm Hg --------- 4.0 FS, LAX (L) 16 % 25 - 43 Aortic valve Value Ref PW, ED (H) 1.2 cm 0.6 - Kristian diam, ED 2.2 cm --------- 1.0 Peak v, S 1.76 m/sec --------- IVS/PW, ED 0.94 -------- VTI, S 29.3 cm --------- E', lat kristian, TDI (L) 6.1 cm/sec >=10.0 Mean grad, S 4.6 mm Hg --- ------ E/e', lat kristian, TDI 10 -------- Peak grad, S 12.4 mm Hg ------ --- E', med kristian, TDI 8.3 cm/sec >=7.0 LVOT/AV, VTI ratio 0.74 --- ------ E/e', med kristian, TDI 7 -------- LENNY, VTI 2.33 cm^2 ------ --- E', avg, TDI 7.2 cm/sec -------- LENNY, Vmax 2.18 cm^2 ------ --- E/e', avg, TDI 8 <=14 LVET 300 ms -------- Mitral valve Value Ref Peak E 0.6 m/sec --------- LVOT Value Ref Peak A 0.99 m/sec --------- Diam, S 2.00 cm -------- Decel time 324 ms --------- Area 3.1 cm^2 -------- Peak E/A ratio 0.6 --------- Peak marisa, S 1.22 m/sec -------- VTI, S 21.7 cm -------- Pulmonic valve Value Ref Peak grad, S 6 mm Hg -------- Peak v, S 0.93 m/sec --------- Mean grad, S 3 mm Hg -------- Peak grad, S 3.0 mm Hg --------- SV 68 ml -------- SV/bsa 33 ml/m^2 -------- Tricuspid valve Value Ref TR peak v 2.32 m/sec <=2.8 Ventricular septum Value Ref Peak RV-RA grad, S 22 mm Hg --------- IVS, ED (H) 1.2 cm 0.6 - Max TR marisa 2.32 m/sec --------- 1.0 Aortic root Value Ref Right ventricle Value Ref Root diam 4.0 cm <4.2 BITA, LAX 3.4 cm -------- BITA minor ax, A4C 3.1 cm 1.9 - Pulmonary artery Value Ref mid 3.5 Pressure, S 34.0 mm Hg --------- Pressure, S 37 mm Hg -------- Inferior vena cava Value Ref Left atrium Value Ref Diam 2.3 cm --------- ML dim, A4C 4.5 cm -------- SI dim, A4C 6.0 cm -------- Vol/bsa, ES, 1-p 33 ml/m^2 12 - 37 A4C Vol/bsa, ES, A/L 31 ml/m^2 16 - 34 Legend: (L) and (H) giovany values outside specified reference range. Prepared and electronically signed by Len Mckeon MD 01/06/2019 17:18
[2019-01-06] MEDS ORDERED: Apixaban* 5 MG TAB PO SCH (21:00)
[2019-01-06] MEDS ORDERED: Apixaban* 2.5 MG TAB PO SCH (21:00)
[2019-01-06] MEDS: Atorvastatin* 20 MG TAB PO SCH (21:41)
[2019-01-07] MEDS ORDERED: Insulin GLARGINE(*) 1 UNITS UNIT SUBCUT SCH (08:00)
[2019-01-07] MEDS: Carvedilol TAB* 25 MG PO SCH ×2 (08:25→21:06)
--- NOTE | 2019-01-07 08:29 | PROCNOTE ---
Cardiology Procedure Note 01/07/2019 Dual chamber SJ ICD/pacemaker interrogation and reprogramming Set DDD LRL 60 bpm A lead set 1.5 V at 0.5 ms RV set 2.0 V packing at 0.5 ms LV lead set 3.125 V @ 1.0 ms 3.2% AP, 94% BiV paced No ventricular arrhythmias detected There are RV oversensing episodes AM of 01/04/2019. There are no significant periods of lack of ventricular pacing. It is suspected medical related falls while severely hypoglycemic may have contributed to these episodes. RV pacing sensitivity changed from auto (same as ICD component at 0.5 mV) to 2.0 mV. ICD sensitivity left intact.
[2019-01-07] MEDS: Nystatin TOP POWDER* 15 GM BTL TOPICAL SCH ×3 (08:30→21:05)
[2019-01-07] MEDS: Insulin LISPRO* 1 UNITS UNIT SUBCUT SCH ×4 (08:33→22:05)
[2019-01-07] MEDS: Cyanocobalamin TAB* 500 MCG PO SCH (08:34)
[2019-01-07] MEDS: Multivitamins/Minerals TAB PO SCH (08:34)
[2019-01-07] MEDS: Magnesium Oxide TAB* 400 MG PO SCH (08:36)
[2019-01-07] MEDS: Apixaban* 5 MG TAB PO SCH ×2 (08:39→21:08)
[2019-01-07] MEDS: Tamsulosin CAP* 0.4 MG PO SCH ×2 (09:49→21:07)
[2019-01-07] MEDS: Cholecalciferol TAB* 1000 UNITS PO SCH (09:51)
[2019-01-07] MEDS: Amiodarone TAB* 200 MG PO SCH (10:03)
[2019-01-07] MEDS: Aspirin EC TAB* 81 MG TAB.EC PO SCH (10:04)
[2019-01-07] MEDS: Isosorbide Mononitrate ER TAB* 60 MG PO SCH (11:40)
[2019-01-07] MEDS: Lisinopril TAB* 10 MG PO SCH (13:47)
--- NOTE | 2019-01-07 14:00 | PN ---
Subjective Date of Service: 01/07/19 Interval History: HOSPITALIST PROGRESS NOTE Patient seen and examined at bedside. Care reviewed and d/w Jesus Elizalde RN. He offers no new clinical complaints today. No dizziness, CP, palpitations. Family History: Unchanged from Admission Social History: Unchanged from Admission Past Medical History: Unchanged from Admission Objective Active Medications: Acetaminophen (Tylenol Tab*) 650 mg PO Q6H PRN PRN Reason: MILD PAIN or TEMP > 100.4 Last Admin: 01/06/19 21:25 Dose: 650 mg Amiodarone HCl (Cordarone Tab*) 50 mg PO DAILY [facility] Last Admin: 01/07/19 10:03 Dose: 50 mg Apixaban (Eliquis*) 5 mg PO BID [facility] Last Admin: 01/07/19 08:39 Dose: 5 mg Aspirin (Aspirin Ec Tab*) 81 mg PO DAILY [facility] Last Admin: 01/07/19 10:04 Dose: 81 mg Atorvastatin Calcium (Lipitor*) 20 mg PO BEDTIME [facility] Last Admin: 01/06/19 21:41 Dose: 20 mg Carvedilol (Coreg Tab*) 25 mg PO BID [facility] Last Admin: 01/07/19 08:25 Dose: 25 mg Cholecalciferol (Vitamin D Tab*) 1,000 units PO DAILY [facility] Last Admin: 01/07/19 09:51 Dose: 1,000 units Cyanocobalamin (Vitamin B12 Tab*) 1,000 mcg PO DAILY [facility] Last Admin: 01/07/19 08:34 Dose: 1,000 mcg Dextrose (Dextrose 50% Vial 50 Ml*) 25 ml IV PUSH .FOR FS < 60 - SS PRN PRN Reason: FS < 60 Insulin Glargine (Lantus(*)) 10 units SUBCUT Q24H [facility] Last Admin: 01/07/19 10:01 Dose: 10 units Insulin Human Lispro (Humalog*) 0 units SUBCUT ACHS [facility]; Protocol Last Admin: 01/07/19 11:40 Dose: 2 unit Isosorbide Mononitrate (Imdur Er Tab*) 60 mg PO DAILY@1200 [facility] Last Admin: 01/07/19 11:40 Dose: 60 mg Lisinopril (Prinivil Tab*) 40 mg PO DAILY@1400 [facility] Last Admin: 01/07/19 13:47 Dose: 40 mg Magnesium Oxide (Magox 400 Tab*) 400 mg PO DAILY [facility] Last Admin: 01/07/19 08:36 Dose: 400 mg Multivitamins/Minerals (Theragran/Minerals Tab*) 1 tab PO DAILY [facility] Last Admin: 01/07/19 08:34 Dose: 1 tab Nystatin (Nystatin Top Powder*) 1 applic TOPICAL TID [facility] Last Admin: 01/07/19 13:48 Dose: 1 applic Tamsulosin HCl (Flomax Cap*) 0.4 mg PO BID [facility] Last Admin: 01/07/19 09:49 Dose: 0.4 mg Vital Signs - 8 hr 01/07/19 01/07/19 01/07/19 07:15 08:00 08:09 Temperature 98.5 F Pulse Rate 80 Respiratory 16 18 Rate Blood Pressure 100/50 100/50 (mmHg) O2 Sat by Pulse 97 Oximetry 01/07/19 11:24 Temperature 98.3 F Pulse Rate 72 Respiratory 20 Rate Blood Pressure 117/46 (mmHg) O2 Sat by Pulse 97 Oximetry Oxygen Devices in Use Now: None Appearance: Elderly gentleman sitting up in bed in [facility]. Eyes: No Scleral Icterus Ears/Nose/Mouth/Throat: Mucous Membranes Moist Neck: Trachea Midline Respiratory: Symmetrical Chest Expansion and Respiratory Effort, Clear to Auscultation - diminished Cardiovascular: RRR - Normal S1 and S2 Abdominal: NL Sounds; No Tenderness; No Distention Neurological: Alert and Oriented x 3, NL Muscle Strength and Tone Result Diagrams: 01/06/19 05:11 01/06/19 05:11 Assess/Plan/Problems-Billing Assessment: Mr Lara is a 78yo M with PMH of CAD s/p CABG, systolic CHF EF 35%, Vtach, pacer/ICD, PAF, HLD, CKD stage 3, type 2 DM, who presented to ED after a syncopal episode secondary to hypoglycemia. - Patient Problems (1) Hypoglycemia Comment: - Suspect both syncopal episodes are secondary to hypoglycemia. His Hb is 6.9 and with these hypoglycemic episodes he does not need such thight control. - Will lower Lantus to 10 units daily and adjust dose according to FS. (2) Syncope Comment: - Likely secondary to hypoglycemia. - Echo shows no significant change from October. - ICD interrogation showed "No ventricular arrhythmias detected. There are RV oversensing episodes AM of 01/04/2019. There are no significant periods of lack of ventricular pacing. It is suspected medical related falls while severely hypoglycemic may have contributed to these episodes." - D/c Telemetry. (3) CAD (coronary artery disease) Comment: - Stable. - Continue Aspirin, Imdur, Coreg, statin. (4) CHF (congestive heart failure) Comment: - Chronic systolic CHF, stable. - Continue Coreg and Lisinopril. (5) Afib Comment: - Continue Amiodarone, Coreg, Apixaban. (6) Physical deconditioning Comment: - PT consulted requested. (7) DVT prophylaxis Comment: - Apixaban. (8) Full code status Status and Disposition: Inpatient.
[2019-01-07] MEDS: Acetaminophen TAB* 325 MG PO PRN ×2 (15:56→21:06)
[2019-01-07] MEDS ORDERED: Insulin GLARGINE(*) 1 UNITS UNIT SUBCUT ONE (16:57)
[2019-01-07] MEDS: Benzocaine/Menthol LOZ* 1 LOZENGE PO PRN ×2 (17:02→22:05)
[2019-01-07] MEDS: Atorvastatin* 20 MG TAB PO SCH (21:07)
[2019-01-08] MEDS: Benzocaine/Menthol LOZ* 1 LOZENGE PO PRN ×5 (03:24→23:45)
[2019-01-08] MEDS: Acetaminophen TAB* 325 MG PO PRN ×2 (03:24→20:06)
[2019-01-08 06:51] LABS: ABS Eosinophils 0.1 10^3/ul (0-0.6); ABS Lymphocytes 0.6 10^3/ul (1.0-4.8); ABS Monocytes 0.7 10^3/ul (0-0.8); ABS Neutrophils 6.6 10^3/ul (1.5-7.7); Eosinophil % 1.5 %; Hematocrit 33 % (42-52); Hemoglobin 11.8 g/dL (14.0-18.0); Lymphocyte % 7.9 %; Mean Corpuscular HGB Conc 35 g/dL (31-36); Mean Corpuscular Hemoglobin 33 pg (27-31); Mean Corpuscular Volume 94 fL (80-94); Mean Platelet Volume 7.1 fL (7.4-10.4); Platelet Count 161 10^3/uL (150-450); Red Blood Count 3.54 10^6 /uL (4.18-5.48); Red Cell Distribution Width 15 % (10-15); White Blood Count 8.1 10^3/uL (3.5-10.8)
[2019-01-08 07:10] LABS: BUN/Creatinine Ratio 21.8 (8-20); Calcium 8.2 mg/dL (8.6-10.3); EGFR African American 78.1 (>60); EGFR Non-African American 64.6 (>60); Potassium 4.8 mmol/L (3.5-5.0)
[2019-01-08] MEDS: Insulin LISPRO* 1 UNITS UNIT SUBCUT SCH ×4 (08:48→21:09)
[2019-01-08] MEDS: Amiodarone TAB* 200 MG PO SCH (08:51)
[2019-01-08] MEDS: Magnesium Oxide TAB* 400 MG PO SCH (08:51)
[2019-01-08] MEDS: Apixaban* 5 MG TAB PO SCH ×2 (08:51→20:07)
[2019-01-08] MEDS: Tamsulosin CAP* 0.4 MG PO SCH ×2 (08:51→20:07)
[2019-01-08] MEDS: Carvedilol TAB* 25 MG PO SCH ×2 (08:51→20:06)
[2019-01-08] MEDS: Aspirin EC TAB* 81 MG TAB.EC PO SCH (08:51)
[2019-01-08] MEDS: Cyanocobalamin TAB* 500 MCG PO SCH (08:51)
[2019-01-08] MEDS: Multivitamins/Minerals TAB PO SCH (08:51)
[2019-01-08] MEDS: Cholecalciferol TAB* 1000 UNITS PO SCH (08:51)
[2019-01-08] MEDS: Nystatin TOP POWDER* 15 GM BTL TOPICAL SCH ×3 (08:52→20:08)
[2019-01-08] MEDS ORDERED: Insulin GLARGINE(*) 1 UNITS UNIT SUBCUT SCH (09:00)
--- NOTE | 2019-01-08 10:43 | PN ---
Subjective Date of Service: 01/08/19 Interval History: HOSPITALIST PROGRESS NOTE Patient seen and examined at bedside. Care reviewed and d/w Robin Dyer RN. He offers no new complaints today. Family History: Unchanged from Admission Social History: Unchanged from Admission Past Medical History: Unchanged from Admission Objective Active Medications: Acetaminophen (Tylenol Tab*) 650 mg PO Q6H PRN PRN Reason: MILD PAIN or TEMP > 100.4 Last Admin: 01/08/19 03:24 Dose: 650 mg Amiodarone HCl (Cordarone Tab*) 50 mg PO DAILY [facility] Last Admin: 01/08/19 08:51 Dose: 50 mg Apixaban (Eliquis*) 5 mg PO BID [facility] Last Admin: 01/08/19 08:51 Dose: 5 mg Aspirin (Aspirin Ec Tab*) 81 mg PO DAILY [facility] Last Admin: 01/08/19 08:51 Dose: 81 mg Atorvastatin Calcium (Lipitor*) 20 mg PO BEDTIME [facility] Last Admin: 01/07/19 21:07 Dose: 20 mg Carvedilol (Coreg Tab*) 25 mg PO BID [facility] Last Admin: 01/08/19 08:51 Dose: 25 mg Cholecalciferol (Vitamin D Tab*) 1,000 units PO DAILY [facility] Last Admin: 01/08/19 08:51 Dose: 1,000 units Cyanocobalamin (Vitamin B12 Tab*) 1,000 mcg PO DAILY [facility] Last Admin: 01/08/19 08:51 Dose: 1,000 mcg Dextrose (Dextrose 50% Vial 50 Ml*) 25 ml IV PUSH .FOR FS < 60 - SS PRN PRN Reason: FS < 60 Insulin Glargine (Lantus(*)) 15 units SUBCUT Q24H [facility] Last Admin: 01/08/19 08:48 Dose: 15 units Insulin Human Lispro (Humalog*) 0 units SUBCUT ACHS [facility]; Protocol Last Admin: 01/08/19 08:48 Dose: 2 unit Isosorbide Mononitrate (Imdur Er Tab*) 60 mg PO DAILY@1200 [facility] Last Admin: 01/07/19 11:40 Dose: 60 mg Lisinopril (Prinivil Tab*) 40 mg PO DAILY@1400 [facility] Last Admin: 01/07/19 13:47 Dose: 40 mg Magnesium Oxide (Magox 400 Tab*) 400 mg PO DAILY [facility] Last Admin: 01/08/19 08:51 Dose: 400 mg Multivitamins/Minerals (Theragran/Minerals Tab*) 1 tab PO DAILY [facility] Last Admin: 01/08/19 08:51 Dose: 1 tab Nystatin (Nystatin Top Powder*) 1 applic TOPICAL TID [facility] Last Admin: 01/08/19 08:52 Dose: 1 applic Tamsulosin HCl (Flomax Cap*) 0.4 mg PO BID [facility] Last Admin: 01/08/19 08:51 Dose: 0.4 mg Throat Lozenges (Chloraseptic Luis Manuel*) 1 luis manuel PO Q4H PRN PRN Reason: Sore Throat or cough Last Admin: 01/08/19 09:03 Dose: 1 luis manuel Vital Signs - 8 hr 01/08/19 01/08/19 03:15 07:37 Temperature 98.2 F 97.9 F Pulse Rate 80 72 Respiratory 18 16 Rate Blood Pressure 125/70 107/53 (mmHg) O2 Sat by Pulse 99 98 Oximetry Oxygen Devices in Use Now: None Appearance: Elderly gentleman sitting up in a chair in [facility]. Eyes: No Scleral Icterus Ears/Nose/Mouth/Throat: Mucous Membranes Moist Neck: Trachea Midline Respiratory: Symmetrical Chest Expansion and Respiratory Effort, - - BS+ bilaterally coarse with no added sounds Cardiovascular: - - Normal S1 and S2, irregularly irregular Skin: - - Multiple bruises in different stages of healing Neurological: Alert and Oriented x 3, NL Muscle Strength and Tone Result Diagrams: 01/08/19 06:08 01/08/19 06:08 Assess/Plan/Problems-Billing Assessment: Mr Lara is a 78yo M with PMH of CAD s/p CABG, systolic CHF EF 35%, Vtach, pacer/ICD, PAF, HLD, CKD stage 3, type 2 DM, who presented to ED after a syncopal episode secondary to hypoglycemia. - Patient Problems (1) Hypoglycemia Comment: - Suspect both syncopal episodes are secondary to hypoglycemia. His Hb is 6.9 and with these hypoglycemic episodes he does not need such thight control. - Increase Lantus to 15 units daily and adjust dose according to FS. - Goal is FS<200. (2) Syncope Comment: - Likely secondary to hypoglycemia. - Echo shows no significant change from October. - ICD interrogation showed "No ventricular arrhythmias detected. There are RV oversensing episodes AM of 01/04/2019. There are no significant periods of lack of ventricular pacing. It is suspected medical related falls while severely hypoglycemic may have contributed to these episodes." - D/c Telemetry. (3) Cough Comment: - C/o moist non productive cough. - CxR shows clear lung parenchyma. - Continue cough drops and monitor. (4) CAD (coronary artery disease) Comment: - Stable. - Continue Aspirin, Imdur, Coreg, statin. (5) CHF (congestive heart failure) Comment: - Chronic systolic CHF, stable. - Continue Coreg and Lisinopril. (6) Afib Comment: - Continue Amiodarone, Coreg, Apixaban. (7) Physical deconditioning Comment: - PT consulted appreciated. - Plan for GARY at [facility]. (8) DVT prophylaxis Comment: - Apixaban. (9) Full code status Status and Disposition: Inpatient.
[2019-01-08] MEDS: Lisinopril TAB* 10 MG PO SCH (13:01)
[2019-01-08] MEDS: Isosorbide Mononitrate ER TAB* 60 MG PO SCH (13:02)
[2019-01-08] MEDS ORDERED: Insulin GLARGINE(*) 1 UNITS UNIT SUBCUT ONE (13:54)
[2019-01-08] MEDS: Atorvastatin* 20 MG TAB PO SCH (20:07)
[2019-01-09] MEDS: Acetaminophen TAB* 325 MG PO PRN (02:07)
[2019-01-09] MEDS: Benzocaine/Menthol LOZ* 1 LOZENGE PO PRN (04:06)
[2019-01-09] MEDS: Insulin LISPRO* 1 UNITS UNIT SUBCUT SCH ×4 (08:07→21:33)
[2019-01-09] MEDS: Insulin GLARGINE(*) 1 UNITS UNIT SUBCUT SCH ×2 (08:08→21:34)
[2019-01-09] MEDS: Cholecalciferol TAB* 1000 UNITS PO SCH (08:09)
[2019-01-09] MEDS: Amiodarone TAB* 200 MG PO SCH (08:09)
[2019-01-09] MEDS: Tamsulosin CAP* 0.4 MG PO SCH ×2 (08:09→21:34)
[2019-01-09] MEDS: Magnesium Oxide TAB* 400 MG PO SCH (08:09)
[2019-01-09] MEDS: Cyanocobalamin TAB* 500 MCG PO SCH (08:10)
[2019-01-09] MEDS: Carvedilol TAB* 25 MG PO SCH ×2 (08:10→21:35)
[2019-01-09] MEDS: Multivitamins/Minerals TAB PO SCH (08:10)
[2019-01-09] MEDS: Aspirin EC TAB* 81 MG TAB.EC PO SCH (08:10)
[2019-01-09] MEDS: Apixaban* 5 MG TAB PO SCH ×2 (08:14→21:35)
[2019-01-09] MEDS: Nystatin TOP POWDER* 15 GM BTL TOPICAL SCH ×3 (08:14→21:36)
[2019-01-09] MEDS ORDERED: Insulin GLARGINE(*) 1 UNITS UNIT SUBCUT SCH (09:00)
[2019-01-09] MEDS ORDERED: guaiFENesin LIQ* 100 MG/5 ML UDC PO PRN (09:38)
[2019-01-09] MEDS: Benzonatate CAP* 100 MG PO SCH ×3 (10:19→21:34)
--- NOTE | 2019-01-09 11:02 | PN ---
Subjective Date of Service: 01/09/19 Interval History: HOSPITALIST PROGRESS NOTE Patient seen and examined at bedside. Care reviewed and d/w Jesus Elizalde RN. He offers no new complaints today. Family History: Unchanged from Admission Social History: Unchanged from Admission Past Medical History: Unchanged from Admission Objective Active Medications: Acetaminophen (Tylenol Tab*) 650 mg PO Q6H PRN PRN Reason: MILD PAIN or TEMP > 100.4 Last Admin: 01/09/19 02:07 Dose: 650 mg Amiodarone HCl (Cordarone Tab*) 50 mg PO DAILY [facility] Last Admin: 01/09/19 08:09 Dose: 50 mg Apixaban (Eliquis*) 5 mg PO BID [facility] Last Admin: 01/09/19 08:14 Dose: 5 mg Aspirin (Aspirin Ec Tab*) 81 mg PO DAILY [facility] Last Admin: 01/09/19 08:10 Dose: 81 mg Atorvastatin Calcium (Lipitor*) 20 mg PO BEDTIME [facility] Last Admin: 01/08/19 20:07 Dose: 20 mg Benzonatate (Tessalon Cap*) 100 mg PO TID [facility] Last Admin: 01/09/19 10:19 Dose: 100 mg Carvedilol (Coreg Tab*) 25 mg PO BID [facility] Last Admin: 01/09/19 08:10 Dose: 25 mg Cholecalciferol (Vitamin D Tab*) 1,000 units PO DAILY [facility] Last Admin: 01/09/19 08:09 Dose: 1,000 units Cyanocobalamin (Vitamin B12 Tab*) 1,000 mcg PO DAILY [facility] Last Admin: 01/09/19 08:10 Dose: 1,000 mcg Dextrose (Dextrose 50% Vial 50 Ml*) 25 ml IV PUSH .FOR FS < 60 - SS PRN PRN Reason: FS < 60 Guaifenesin (Robitussin*) 5 ml PO Q4H PRN PRN Reason: COUGH Insulin Glargine (Lantus(*)) 20 units SUBCUT Q12H [facility] Last Admin: 01/09/19 08:08 Dose: 20 units Insulin Human Lispro (Humalog*) 0 units SUBCUT ACHS [facility]; Protocol Last Admin: 01/09/19 08:07 Dose: 9 units Isosorbide Mononitrate (Imdur Er Tab*) 60 mg PO DAILY@1200 [facility] Last Admin: 01/08/19 13:02 Dose: 60 mg Lisinopril (Prinivil Tab*) 40 mg PO DAILY@1400 [facility] Last Admin: 01/08/19 13:01 Dose: 40 mg Magnesium Oxide (Magox 400 Tab*) 400 mg PO DAILY [facility] Last Admin: 01/09/19 08:09 Dose: 400 mg Multivitamins/Minerals (Theragran/Minerals Tab*) 1 tab PO DAILY [facility] Last Admin: 01/09/19 08:10 Dose: 1 tab Nystatin (Nystatin Top Powder*) 1 applic TOPICAL TID [facility] Last Admin: 01/09/19 08:14 Dose: 1 applic Tamsulosin HCl (Flomax Cap*) 0.4 mg PO BID [facility] Last Admin: 01/09/19 08:09 Dose: 0.4 mg Vital Signs - 8 hr 01/09/19 01/09/19 01/09/19 03:24 07:37 08:00 Temperature 97.9 F 98.5 F Pulse Rate 61 69 Respiratory 18 22 18 Rate Blood Pressure 137/50 126/55 (mmHg) O2 Sat by Pulse 98 97 Oximetry Oxygen Devices in Use Now: None Appearance: Pleasant elderly gentleman sitting up in a chair in [place] Eyes: No Scleral Icterus Ears/Nose/Mouth/Throat: Mucous Membranes Moist Neck: Trachea Midline Respiratory: Symmetrical Chest Expansion and Respiratory Effort, Clear to Auscultation Cardiovascular: RRR - Normal S1 and S2 Neurological: Alert and Oriented x 3, NL Muscle Strength and Tone Result Diagrams: 01/08/19 06:08 01/08/19 06:08 Assess/Plan/Problems-Billing Assessment: Mr Lara is a 78yo M with PMH of CAD s/p CABG, systolic CHF EF 35%, Vtach, pacer/ICD, PAF, HLD, CKD stage 3, type 2 DM, who presented to ED after a syncopal episode secondary to hypoglycemia. - Patient Problems (1) Hypoglycemia Comment: - Suspect both syncopal episodes are secondary to hypoglycemia. His Hb is 6.9 and with these hypoglycemic episodes he does not need such thight control. - Increase Lantus to 20 units BID and adjust dose according to FS. - Goal is FS<200. (2) Syncope Comment: - Likely secondary to hypoglycemia. - Echo shows no significant change from October. - ICD interrogation showed "No ventricular arrhythmias detected. There are RV oversensing episodes AM of 01/04/2019. There are no significant periods of lack of ventricular pacing. It is suspected medical related falls while severely hypoglycemic may have contributed to these episodes." - D/c Telemetry. (3) Cough Comment: - C/o moist non productive cough. - CxR shows clear lung parenchyma. - Start Tessalon pearls and monitor. (4) CAD (coronary artery disease) Comment: - Stable. - Continue Aspirin, Imdur, Coreg, statin. (5) CHF (congestive heart failure) Comment: - Chronic systolic CHF, stable. - Continue Coreg and Lisinopril. (6) Afib Comment: - Continue Amiodarone, Coreg, Apixaban. (7) Physical deconditioning Comment: - PT consulted appreciated. - Plan for GARY at [facility]. (8) DVT prophylaxis Comment: - Apixaban. (9) Full code status Status and Disposition: Inpatient.
[2019-01-09] MEDS: Isosorbide Mononitrate ER TAB* 60 MG PO SCH (11:58)
[2019-01-09] MEDS: Lisinopril TAB* 10 MG PO SCH (13:52)
[2019-01-09] MEDS: Atorvastatin* 20 MG TAB PO SCH (21:35)
[2019-01-10] MEDS: Insulin GLARGINE(*) 1 UNITS UNIT SUBCUT SCH (08:43)
[2019-01-10] MEDS: Insulin LISPRO* 1 UNITS UNIT SUBCUT SCH ×2 (08:43→12:31)
[2019-01-10] MEDS: Cholecalciferol TAB* 1000 UNITS PO SCH (08:44)
[2019-01-10] MEDS: Tamsulosin CAP* 0.4 MG PO SCH (08:44)
[2019-01-10] MEDS: Cyanocobalamin TAB* 500 MCG PO SCH (08:44)
[2019-01-10] MEDS: Magnesium Oxide TAB* 400 MG PO SCH (08:44)
[2019-01-10] MEDS: Benzonatate CAP* 100 MG PO SCH (08:44)
[2019-01-10] MEDS: Aspirin EC TAB* 81 MG TAB.EC PO SCH (08:44)
[2019-01-10] MEDS: Amiodarone TAB* 200 MG PO SCH (08:44)
[2019-01-10] MEDS: Multivitamins/Minerals TAB PO SCH (08:44)
[2019-01-10] MEDS: Apixaban* 5 MG TAB PO SCH (08:45)
[2019-01-10] MEDS: Carvedilol TAB* 25 MG PO SCH (08:45)
[2019-01-10] MEDS: Nystatin TOP POWDER* 15 GM BTL TOPICAL SCH (08:45)
[2019-01-10 11:46] VITALS: BP 114/49
--- NOTE | 2019-01-10 11:49 | PN ---
Subjective Date of Service: 01/10/19 Family History: Unchanged from Admission Social History: Unchanged from Admission Past Medical History: Unchanged from Admission Objective Active Medications: Acetaminophen (Tylenol Tab*) 650 mg PO Q6H PRN PRN Reason: MILD PAIN or TEMP > 100.4 Last Admin: 01/09/19 02:07 Dose: 650 mg Amiodarone HCl (Cordarone Tab*) 50 mg PO DAILY [facility] Last Admin: 01/10/19 08:44 Dose: 50 mg Apixaban (Eliquis*) 5 mg PO BID [facility] Last Admin: 01/10/19 08:45 Dose: 5 mg Aspirin (Aspirin Ec Tab*) 81 mg PO DAILY [facility] Last Admin: 01/10/19 08:44 Dose: 81 mg Atorvastatin Calcium (Lipitor*) 20 mg PO BEDTIME [facility] Last Admin: 01/09/19 21:35 Dose: 20 mg Benzonatate (Tessalon Cap*) 100 mg PO TID [facility] Last Admin: 01/10/19 08:44 Dose: 100 mg Carvedilol (Coreg Tab*) 25 mg PO BID [facility] Last Admin: 01/10/19 08:45 Dose: 25 mg Cholecalciferol (Vitamin D Tab*) 1,000 units PO DAILY [facility] Last Admin: 01/10/19 08:44 Dose: 1,000 units Cyanocobalamin (Vitamin B12 Tab*) 1,000 mcg PO DAILY [facility] Last Admin: 01/10/19 08:44 Dose: 1,000 mcg Dextrose (Dextrose 50% Vial 50 Ml*) 25 ml IV PUSH .FOR FS < 60 - SS PRN PRN Reason: FS < 60 Guaifenesin (Robitussin*) 5 ml PO Q4H PRN PRN Reason: COUGH Last Admin: 01/10/19 02:01 Dose: 5 ml Insulin Glargine (Lantus(*)) 20 units SUBCUT Q12H [facility] Last Admin: 01/10/19 08:43 Dose: 20 units Insulin Human Lispro (Humalog*) 0 units SUBCUT ACHS [facility]; Protocol Last Admin: 01/10/19 08:43 Dose: 3 units Isosorbide Mononitrate (Imdur Er Tab*) 60 mg PO DAILY@1200 [facility] Last Admin: 01/09/19 11:58 Dose: 60 mg Lisinopril (Prinivil Tab*) 40 mg PO DAILY@1400 [facility] Last Admin: 01/09/19 13:52 Dose: 40 mg Magnesium Oxide (Magox 400 Tab*) 400 mg PO DAILY [facility] Last Admin: 01/10/19 08:44 Dose: 400 mg Multivitamins/Minerals (Theragran/Minerals Tab*) 1 tab PO DAILY [facility] Last Admin: 01/10/19 08:44 Dose: 1 tab Nystatin (Nystatin Top Powder*) 1 applic TOPICAL TID [facility] Last Admin: 01/10/19 08:45 Dose: 1 applic Tamsulosin HCl (Flomax Cap*) 0.4 mg PO BID [facility] Last Admin: 01/10/19 08:44 Dose: 0.4 mg Vital Signs - 8 hr 01/10/19 01/10/19 07:15 08:00 Temperature 97.3 F Pulse Rate 66 Respiratory 20 20 Rate Blood Pressure 110/52 (mmHg) O2 Sat by Pulse 98 Oximetry Oxygen Devices in Use Now: None Result Diagrams: 01/08/19 06:08 01/08/19 06:08 Additional Lab and Data: Lab Results 01/06/19 01/06/19 01/06/19 Range/Units 05:10 05:11 05:11 WBC 12.2 H (3.5-10.8) 10^3/uL RBC 3.87 L (4.18-5.48) 10^6 /uL Hgb 12.4 L (14.0-18.0) g/dL Hct 37 L (42-52) % MCV 94 (80-94) fL MCH 32 H (27-31) pg MCHC 34 (31-36) g/dL RDW 15 (10-15) % Plt Count 165 (150-450) 10^3/uL MPV 7.0 L (7.4-10.4) fL Neut % (Auto) Pending Lymph % (Auto) Pending [place] % (Auto) Pending Eos % (Auto) Pending Baso % (Auto) Pending Absolute Neuts (auto) Pending Absolute Lymphs (auto) Pending Absolute Monos (auto) Pending Absolute Eos (auto) Pending Absolute Basos (auto) Pending Absolute Nucleated RBC Pending Nucleated RBC % Pending INR (Anticoag Therapy) 1.39 H (0.82-1.09) Sodium 128 L (135-145) mmol/L Potassium 3.6 (3.5-5.0) mmol/L Chloride 98 L (101-111) mmol/L Carbon Dioxide 22 (22-32) mmol/L Anion Gap 8 (2-11) mmol/L BUN 38 H (6-24) mg/dL Creatinine 1.43 H (0.67-1.17) mg/dL Est GFR ( Amer) 57.7 (>60) Est GFR (Non-Af Amer) 47.7 (>60) BUN/Creatinine Ratio 26.6 H (8-20) Glucose 200 H (70-100) mg/dL Lactic Acid (0.5-2.0) mmol/L Calcium 8.2 L (8.6-10.3) mg/dL Total Bilirubin 1.00 (0.2-1.0) mg/dL AST 37 (13-39) U/L ALT 34 (7-52) U/L Alkaline Phosphatase 84 (34-104) U/L Total Protein 6.0 L (6.4-8.9) g/dL Albumin 3.6 (3.2-5.2) g/dL Globulin 2.4 (2-4) g/dL Albumin/Globulin Ratio 1.5 (1-3) 01/06/19 Range/Units 05:11 WBC (3.5-10.8) 10^3/uL RBC (4.18-5.48) 10^6 /uL Hgb (14.0-18.0) g/dL Hct (42-52) % MCV (80-94) fL MCH (27-31) pg MCHC (31-36) g/dL RDW (10-15) % Plt Count (150-450) 10^3/uL MPV (7.4-10.4) fL Neut % (Auto) Lymph % (Auto) [place] % (Auto) Eos % (Auto) Baso % (Auto) Absolute Neuts (auto) Absolute Lymphs (auto) Absolute Monos (auto) Absolute Eos (auto) Absolute Basos (auto) Absolute Nucleated RBC Nucleated RBC % INR (Anticoag Therapy) (0.82-1.09) Sodium (135-145) mmol/L Potassium (3.5-5.0) mmol/L Chloride (101-111) mmol/L Carbon Dioxide (22-32) mmol/L Anion Gap (2-11) mmol/L BUN (6-24) mg/dL Creatinine (0.67-1.17) mg/dL Est GFR ( Amer) (>60) Est GFR (Non-Af Amer) (>60) BUN/Creatinine Ratio (8-20) Glucose (70-100) mg/dL Lactic Acid 1.6 (0.5-2.0) mmol/L Calcium (8.6-10.3) mg/dL Total Bilirubin (0.2-1.0) mg/dL AST (13-39) U/L ALT (7-52) U/L Alkaline Phosphatase (34-104) U/L Total Protein (6.4-8.9) g/dL Albumin (3.2-5.2) g/dL Globulin (2-4) g/dL Albumin/Globulin Ratio (1-3) Assess/Plan/Problems-Billing Assessment: Mr Lara is a 78yo M with PMH of CAD s/p CABG, systolic CHF EF 35%, Vtach, pacer/ICD, PAF, HLD, CKD stage 3, type 2 DM, who presented to ED after a syncopal episode secondary to hypoglycemia. - Patient Problems (1) Syncope Comment: - Likely secondary to hypoglycemia. - Echo shows no significant change from October. - ICD interrogation showed "No ventricular arrhythmias detected. There are RV oversensing episodes AM of 01/04/2019. There are no significant periods of lack of ventricular pacing. It is suspected medical related falls while severely hypoglycemic may have contributed to these episodes." - D/c Telemetry. (2) Afib Comment: - Continue Amiodarone, Coreg, Apixaban. (3) CHF (congestive heart failure) Comment: - Chronic systolic CHF, stable. - Continue Coreg and Lisinopril. -EF noted at 35% on Echo (4) Cough Comment: - C/o moist non productive cough. - CxR shows clear lung parenchyma. - cont Tessalon pearls and monitor. (5) Hypoglycemia Comment: - Suspect both syncopal episodes are secondary to hypoglycemia. His Hb is 6.9 and with these hypoglycemic episodes he does not need such thight control. - Increase Lantus to 25 units BID and adjust dose according to FS. - Goal is FS<200. (6) Ischemic cardiomyopathy Comment: - EF 30-35%, - continue lisinopril, spironlactone, Isosorbide (7) CKD (chronic kidney disease) Comment: Creatinine at baseline (8) DVT prophylaxis Comment: - Apixaban. (9) Physical deconditioning Comment: - PT consulted appreciated. - Plan for [facility] at [facility]. Status and Disposition: Inpatient.
[2019-01-10] MEDS: Isosorbide Mononitrate ER TAB* 60 MG PO SCH (12:32)
--- NOTE | 2019-01-10 14:20 | DS ---
CC: Dr. Edmond; Dr. Mckeon; Dr. Lemus; Dr. Morse; KINGSLEY Martinez* DISCHARGE SUMMARY: DATE OF ADMISSION: 01/06/19 DATE OF DISCHARGE TO HOME: 01/10/19 PRIMARY CARE PROVIDER: KINGSLEY Martinez, from [facility] [place], [place]. DISCHARGE DIAGNOSES: 1. Syncope likely due to hypoglycemia. 2. Physical deconditioning, the patient is going to receive physical therapy with [facility] at home. SECONDARY DIAGNOSES: 1. History of ischemic cardiomyopathy with ejection fraction of 30% to 35%. 2. History of ventricular tachycardia, status post pacemaker placement. The interrogation did not show any ventricular arrhythmias, but did show right ventricular oversensing episodes. The RV pacing sensitivity was changed from auto to 2 millivolts. ICD sensitivity was left intact and that was performed by Dr. Mckeon from Cardiology on 01/07/19. 3. History of atrial fibrillation, on Eliquis. 4. History of chronic kidney disease, stage 3. 5. History of coronary artery disease, status post bypass in 2000. 6. Chronic systolic congestive heart failure. 7. Diabetes type 2. 8. Hyperlipidemia. 9. Chronic low back pain. 10. History of lung nodule. 11. History of femoral artery aneurysm. 12. History of prostate cancer, status post radiation. 13. History of colostomy and colostomy reversal for bowel obstruction, bowel resection in 2007. 14. Multinodular goiter. 15. Bilateral knee surgery. 16. Tonsillectomy. DISCHARGE MEDICATIONS: Medications at home were changed: 1. Insulin Levemir from 52 and 42 units in the morning and at night to 25 units twice a day. 2. The patient was also prescribed Tessalon Perles 100 mg up to 3 times a day p.r.n. cough. The remaining medications are mostly unchanged and include: 1. Amiodarone 50 mg daily. 2. Eliquis 5 mg twice a day. 3. Aspirin 81 mg daily. 4. Coreg 25 mg b.i.d. 5. Vitamin D3 1000 units daily. 6. Vitamin B12 1000 mcg daily. 7. Imdur ER 60 mg daily. 8. Magnesium oxide 400 mg daily. 9. Metformin 500 mg daily. 10. Multivitamin 1 tablet daily. 11. Pravachol 80 mg at bed time. 12. Quinapril 40 mg daily. 13. Flomax 0.4 mg b.i.d. LABORATORY DATA AND STUDIES PERFORMED DURING THE HOSPITAL STAY: Included on , sodium of 131, carbon dioxide 21, BUN 24, creatinine 1.1. The patient' s sugars ranged in the past 24 hours from 200 to 395 after dinner. CBC on 01/08/19, white blood cell count of 8.1, hemoglobin 9.8, hematocrit of 33 , platelets of 161. Transthoracic echocardiogram obtained on 01/06/19 showed EF of 30% to 35% with pacing wire noted in the right ventricle. No functionally significant valvular abnormalities. Estimated PA pressure of 37 mmHg. Portable chest x-ray obtained on 01/08/19, impression: "No active cardiopulmonary disease." HOSPITALIZATION COURSE: Alon Lara is a 78-year-old male with history of multiple chronic medical problems as mentioned above who presented to the hospital with hypoglycemia and syncopal episode. The patient sustained a contusion and subcutaneous hematoma in the left parieto-occipital region. The patient also had a small superficial left forearm abrasion and ecchymotic areas of bilateral knees. His initial physical therapy showed marked deconditioning and that the patient will need likely short-term rehabilitation. By the time of his discharge, the patient did well with physical therapy, ambulated by himself with a roller walker, and he is ready to go home with recommendation to follow up with [facility]. His insulin was markedly decreased to 25 units twice a day. I will continue patient's metformin at this point. He is recommended a diabetic diet. He is recommended also to follow with his primary care provider in 4 to 7 days. Please also note the patient's right ventricle pacer appears to be oversensing and that was adjusted by Dr. Mckeon, please see above. The patient is also recommended to follow up with Dr. Edmond in regards to followup of his pacemaker. PHYSICAL EXAMINATION: At the time of discharge, blood pressure 114/49, heart rate of 65 and regular, respiratory rate 20, oxygen saturation 98% on room air, temperature of 97.9. General: The patient is a very pleasant 78-year-old male , in no acute distress, alert, awake, and oriented x3. HEENT: Head: Atraumatic, normocephalic. Eyes: Pupils are equal and reactive to light and accommodation. Oropharynx is clear. Mucosa moist. Neck: Supple. No JVD. No bruits bilaterally. Cardiovascular: Regular rate and rhythm. No murmurs. Respiratory: Coarse scant rhonchi in right middle lung. Abdomen: Soft, nontender. Bowel sounds are present in all 4 quadrants. Extremities: There is no edema. Pulses are 2+ bilaterally. No clubbing or cyanosis. On evaluation of the skin, the patient has multiple ecchymotic areas scattered on bilateral forearms, small superficial abrasion approximately 1 cm on his left forearm. He has subcutaneous hematoma noted in his left occipital area, approximately 4 cm in diameter. The patient also has ecchymotic areas on bilateral knees, scattered ecchymosis in bilateral legs. Neuro Evaluation: Speech is clear. Cranial nerves II through XII grossly intact. Motor strength is 5/5 bilaterally. CONDITION ON DISCHARGE: Stable. DISPOSITION AT DISCHARGE: Discharged home. Please note that this is a short summary of the patient's hospital stay. Please refer to further medical records for details. TIME SPENT: Approximately 35 minutes was spent on the patient's discharge. [id number]/[facility] #: [id number] MTDD
[2019-01-10] MEDS ORDERED: Insulin GLARGINE(*) 1 UNITS UNIT SUBCUT SCH (21:00)
== END 2019-01-10 13:36 | disposition home health service (06) | DRG 638 ==
LOC: ED 04:26 → MEDTELE 08:24 → OBSVTOIN 15:59
PROVIDERS: ADMIT Internal Medicine; ATTEND Internal Medicine
PROC: 4B02XTZ Measurement of Cardiac Defibrillator, External Approach (ICD-10-PCS; principal; 2019-01-07)
DX: E11.649 Type 2 diabetes mellitus with hypoglycemia without coma (principal); I47.2 Ventricular tachycardia; I13.0 Hypertensive heart and chronic kidney disease with heart failure and stage 1 through stage 4 chronic kidney disease, or unspecified chronic kidney disease; I50.22 Chronic systolic (congestive) heart failure; I25.5 Ischemic cardiomyopathy; I48.0 Paroxysmal atrial fibrillation; R55 Syncope and collapse; E11.22 Type 2 diabetes mellitus with diabetic chronic kidney disease; N18.3 Chronic kidney disease, stage 3 (moderate); S00.12XA Contusion of left eyelid and periocular area, initial encounter; S50.812A Abrasion of left forearm, initial encounter; S80.212A Abrasion, left knee, initial encounter; S80.211A Abrasion, right knee, initial encounter; I25.10 Atherosclerotic heart disease of native coronary artery without angina pectoris; E78.5 Hyperlipidemia, unspecified; M54.5 Low back pain; R91.1 Solitary pulmonary nodule; E04.2 Nontoxic multinodular goiter; R05 Cough; W19.XXXA Unspecified fall, initial encounter; Z96.652 Presence of left artificial knee joint; Y92.009 Unspecified place in unspecified non-institutional (private) residence as the place of occurrence of the external cause; Z79.01 Long term (current) use of anticoagulants; Z85.46 Personal history of malignant neoplasm of prostate; Z95.1 Presence of aortocoronary bypass graft; Z92.3 Personal history of irradiation; I25.2 Old myocardial infarction; Z95.810 Presence of automatic (implantable) cardiac defibrillator; Z79.84 Long term (current) use of oral hypoglycemic drugs; Z79.4 Long term (current) use of insulin; Z79.899 Other long term (current) drug therapy; Z91.040 Latex allergy status; Z91.048 Other nonmedicinal substance allergy status; Z87.891 Personal history of nicotine dependence
CPT/HCPCS: 36415; 70450; 71045; 80048; 80053; 81003; 82947; 83036; 83605; 85025; 85610; 93005; 93306; 99284; A9270-GY; C8929; G8978-GP-CJ; G8979-GP-CI

== ENCOUNTER 2019-04-09 19:56 | Emergency (ER) | payer MEDICARE ==
[2019-04-09] MEDS ORDERED: NS 0.9% 1000 ML** 1,000 ML IV ONE (20:05)
--- NOTE | 2019-04-09 20:10 | ED ---
Abdominal Pain/Male - HPI Summary HPI Summary: This patient is a 78 year old M brought to [facility] by EMS with a chief complaint of spasm-like pain in upper abdomen gradually worsening since 1700 04/09/19. Symptoms aggravated by nothing. Symptoms alleviated by nothing. Patient reports similar pain prior to todays visit due to unknown causes. Pt denies diarrhea, fevers, chills, vomiting and reports health is otherwise fantastic. Hx open heart surgery, partial colectomy (8 inches of colon removal due to perforated colon 7-8 years ago). Pt reports PCP prescribed iron pills due to iron deficiency and has endoscopy appointment on June 13, 2018. - History of Current Complaint Stated Complaint: ABD PAIN PER EMS Time Seen by Provider: 04/09/19 19:59 Hx Obtained From: Patient Onset/Duration: Gradual Onset, Still Present Pain Intensity: 6 Pain Scale Used: 0-10 Numeric Character: Other: - spasm Aggravating Factor(s): Nothing Alleviating Factor(s): Nothing Associated Signs And Symptoms: Positive: Other - denies chills. Negative: Fever , Vomiting, Diarrhea - Allergies/Home Medications Allergies/Adverse Reactions: Allergies Allergy/AdvReac Type Severity Reaction Status Date / Time Adhesive Tape [Paper Tape] Allergy LEWIS Verified 01/06/19 04:37 latex Allergy Unknown Verified 01/06/19 04:37 Reaction Details PMH/Surg Hx/FS Hx/Imm Hx Endocrine/Hematology History: Reports: Hx Anticoagulant Therapy, Hx Diabetes Cardiovascular History: Reports: Hx Auto Implanted Cardiovert Defib, Hx Congenital Heart Disease, Hx Coronary Artery Disease, Hx Hypercholesterolemia, Hx Hypertension, Hx Myocardial Infarction, Hx Pacemaker/ICD Respiratory History: Denies: Hx Asthma, Hx Chronic Obstructive Pulmonary Disease (COPD) GI History: Reports: Other GI Disorders - Colon resection History: Reports: Hx Benign Prostatic Hyperplasia Musculoskeletal History: Reports: Other Musculoskeletal History - Knee Sx. 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 Negative: Vomiting, Diarrhea All Other Systems Reviewed And Are Negative: Yes Physical Exam - Summary Physical Exam Summary: Appearance: Well-appearing, Well-nourished, lying in bed comfortably Skin: Warm, dry, no obvious rash Eyes: sclera anicteric, no conjunctival pallor ENT: mucous membranes moist, pharynx appears normal Neck: Supple, nontender Respiratory: Clear to auscultation, no signs of respiratory distress Cardiovascular: Normal S1, S2. No murmurs. Normal distal pulses in tibial and radial bilaterally. Abdomen: multiple surgical scars on abdomen, no focal tenderness or mass to suggest hernia, normal active bowel sounds Musculoskeletal: Normal, Strength/ROM Intact Neurological: A&Ox3, awake and alert, mentation is normal, speech is fluent and appropriate Psychiatric: affect is normal, does not appear anxious or depressed Triage Information Reviewed: Yes Vital Signs On Initial Exam: Initial Vitals Temp Pulse Resp BP Pulse Ox 98 F 82 19 149/101 96 04/09/19 19:58 04/09/19 19:58 04/09/19 19:58 04/09/19 19:58 04/09/19 19:58 Vital Signs Reviewed: Yes Procedures - Sedation Patient Received Moderate/Deep Sedation with Procedure: No Diagnostics - Vital Signs Vital Signs Temp Pulse Resp BP Pulse Ox 04/09/19 19:58 98 F 82 19 149/101 96 - Laboratory Result Diagrams: 04/09/19 20:14 04/09/19 20:14 Lab Statement: Any lab studies that have been ordered have been reviewed, and results considered in the medical decision making process. - CT Abdomen/Pelvis CT CT Interpretation Completed By: Radiologist Summary of CT Findings: Per radiologist,. 1. Calcified bibasilar pleural plaque which is similar to 08/12/2014. 2. Status post sternotomy with pacemaker. 3. Layering density in the gallbladder consistent with small stones or sand. which is slightly increased in amount since the prior study. 4. Borderline to mild distention of small bowel with air-fluid levels with more. normal size of distal ileum which may reflect a low-grade partial small bowel. obstruction which is less pronounced since 08/12/2014. Regional ileus or. enteritis is not excluded. 5. Slight superior endplate depression of L2 which appears to be chronic but is. new since the prior study. ED physician has reviewed this imaging report. Re-Evaluation - Re-Evaluation First Eval Re-Evaluation Time: 23:47 Change: Improved Comment: Pt reports pain has resolved. He has had a BM here. CT shows partial. SBO, improved from prior scan. I suspect his pain was from this but since it has resolved he is ok to go home. I discussed with him the nature of the problem and that it can be recurrent. Abdominal Pain Male Course/Dx - Course Course Of Treatment: This patient is a 78 year old M brought to [facility] by EMS with a chief complaint of spasm-like pain in upper abdomen gradually worsening since 1700 04/09/19. Pt denies diarrhea, fevers, chills, vomiting and reports health is otherwise fantastic. Hx open heart surgery, partial colectomy. Physical Exam Findings reveals no abnormalities except for multiple surgical scars on abdomen, no focal tenderness or mass to suggest hernia, normal active bowel sounds. Abdomen/Pelvis CT reveals. 1. Calcified bibasilar pleural plaque which is similar to 08/12/2014. 2. Status post sternotomy with pacemaker. 3. Layering density in the gallbladder consistent with small stones or sand. which is slightly increased in amount since the prior study. 4. Borderline to mild distention of small bowel with air-fluid levels with more. normal size of distal ileum which may reflect a low-grade partial small bowel. obstruction which is less pronounced since 08/12/2014. Regional ileus or. enteritis is not excluded. 5. Slight superior endplate depression of L2 which appears to be chronic but is. new since the prior study. Test results with no significant abnormalities expect for MCH 32 H, Absolute Lymphs 0.9 L, BUN 28 H, Creatinine 1.31 H, BUN/Creatinine Ratio 21.4 H, Glucose 157 H, Urine Glucose 3+ (>=500 mg/dl) A. In the ED course the patient was given 100 ml Iodixanol IV, saline. Patient will be discharged with dx partial small bowel obstruction and follow up from Dr. Toribio, PCP. The patient is agreeable with this plan. - Diagnoses Provider Diagnoses: Partial small bowel obstruction Discharge ED - Sign-Out/Discharge Documenting (check all that apply): Patient Departure - discharge - Discharge Plan Condition: Stable Disposition: HOME Patient Education Materials: Bowel Obstruction (ED) Referrals: Kory Toribio PA [Primary Care Provider] - If Needed Additional Instructions: It looks like you may be having period of partial blockage of the small intestine due to scar tissue from your prior surgeries. Since your symptoms have resolved there's nothing more to do about it tonight, so you can go home. If you get this again and you can manage the pain with OTC pain killers and a clear liquid diet, you can give the problem some time, perhaps a day or so, to resolve on its own. But if the pain is quite severe you are best off coming to the ED sooner rather than later. - Billing Disposition and Condition Condition: STABLE Disposition: Home - Attestation Statements Document Initiated by Zairae: Yes Documenting Scribe: Phoebe Crane Provider For Whom Teresa is Documenting (Include Credential): Dr. Bong Kate MD Scribe Attestation: IPhoebe, scribed for Dr. Bong Kate MD on 04/12/19 at 1744. Scribe Documentation Reviewed: Yes Provider Attestation: The documentation as recorded by the Phoebe mohr accurately reflects the service I personally performed and the decisions made by me, Dr. Bong Kate MD Status of Scribe Document: Viewed
[2019-04-09 20:26] LABS: ABS Basophils 0.1 10^3/ul (0-0.2); ABS Eosinophils 0.1 10^3/ul (0-0.6); ABS Lymphocytes 0.9 10^3/ul (1.0-4.8); ABS Monocytes 0.8 10^3/ul (0-0.8); ABS Neutrophils 7.1 10^3/ul (1.5-7.7); Eosinophil % 1.6 %; Hematocrit 43 % (42-52); Hemoglobin 14.8 g/dL (14.0-18.0); Mean Corpuscular HGB Conc 34 g/dL (31-36); Mean Corpuscular Hemoglobin 32 pg (27-31); Mean Corpuscular Volume 94 fL (80-94); Mean Platelet Volume 7.8 fL (7.4-10.4); Platelet Count 156 10^3/uL (150-450); Red Blood Count 4.64 10^6 /uL (4.18-5.48); Red Cell Distribution Width 14 % (10-15)
[2019-04-09 20:41] LABS: Albumin 4.2 g/dL (3.2-5.2); Albumin/Globulin Ratio 1.6 (1-3); BUN/Creatinine Ratio 21.4 (8-20); Calcium 9.8 mg/dL (8.6-10.3); EGFR African American 63.9 (>60); EGFR Non-African American 52.8 (>60); Globulin 2.7 g/dL (2-4); Potassium 3.8 mmol/L (3.5-5.0); Total Bilirubin 0.6 mg/dL (0.2-1.0); Total Protein 6.9 g/dL (6.4-8.9)
--- OUTSIDE RECORDS SUMMARY | 2019-04-09 20:42 | XMS REPORT | Continuity of Care Document ---
:1940 External Reference #:[id number] Author Name Qian Montes De Oca N.P. (transmitted by agent of provider Dario Kim) Address [address] [place] [address] Care Team Providers Name Role Phone Sammy Rosales DO - Surgery Care Team Information Director [employer] Lalo Leo MD - Orthopaedic Care Team Information Director [employer] Surgery Kory Toribio PA-Rekha - Physician Care Team Information Director [employer] [phone] Management Scientist Problems Active Problems Provider Date Automatic implantable cardiac John Edmond M.D. Onset: 12/26/2011 defibrillator in situ Coronary arteriosclerosis John Edmond M.D. Onset: 12/26/2011 Old myocardial infarction John Edmond M.D. Onset: 12/26/2011 Benign essential hypertension John Edmond M.D. Onset: 10/25/2012 Obesity John Edmond M.D. Onset: 10/25/2012 Essential hypertension KINGSLEY Beltrán Onset: 03/06/2015 Localized, primary osteoarthritis of the Kari Lemus M.D. Onset: 12/22/2018 pelvic region and thigh Social History Type Date Description Comments Sex Unknown Tobacco Use Start: Unknown End: Former Cigarette Smoker Unknown Smoking Status Reviewed: 04/07/19 Former Cigarette Smoker ETOH Use Occasionally consumes alcohol Tobacco Use Start: Unknown End: Patient is a former quit smoking in Unknown smoker 1999 Recreational Drug Use Denies Drug Use Exercise Type/Frequency Does not exercise Allergies, Adverse Reactions, Alerts Active Allergies Reaction Severity Comments Date NKDA 11/12/2015 Inactive Allergies Garlic 11/09/2006 Medications Active Medications SIG Qnty Indications Ordering Date Provider Quinapril HCL Take 1 tab by 30tabs I25.5 Qian Montes De Oca, 04/07/2019 5mg Tablets mouth daily N.P. Carvedilol 1 tab by mouth 180tabs John Graf 03/15/2019 12.5mg Tablets twice daily Andreas Edmond Jardiance 10mg by mouth 90tabs Other Ordering 04/26/2018 10mg Tablets daily Provider Nitroglycerin 1 sl q5mins x3 25tabs John Graf 08/01/2016 0.4mg as needed for Andreas Edmond Tablets Sub chest pain Amiodarone HCL 1 tablet by 90tabs John Graf 11/12/2015 100mg mouth daily Andreas Edmond Tablets three days a week. Pravachol 1 tablet by 30tabs John Graf 08/11/2007 80mg Tablets mouth daily at [facility] night Aspir-81 1 by mouth every 30tabs John Graf 11/02/[address] day Andreas Edmond Multi-Vitamins 1 PO qd John Graf 11/02/2006 Tablets Andreas Edmond Tamsulosin HCL 2 tablets by 90caps Unknown 0.4mg mouth daily Capsules Vitamin D-3 1 by mouth every [facility] 1000[facility] day Andreas Edmond Capsules Levemir 25 in the am, 25 Unknown 100Unit/ML in the pm Solution Metformin HCL 1 tablet am and Unknown 500mg 1 tablet pm due Tablets to BS drops Eliquis 1 by mouth twice 180tabs John Graf 5mg Tablets a day Andreas Edmond Magnesium Oxide 1 by mouth every Unknown 250mg day Tablets Vitamin B12 1 by mouth every Unknown 1000mcg day Tablets ER Medications Administered in Office Medication SIG Qnty Indications Ordering Provider Date Depomedrol 40MG Kari Lemus M.D. 12/22/2018 Injection Immunizations Description No Information Available Vital Signs Date Vital Result Comment 04/07/2019 10:48am Height 67 inches 5'7" Weight 193.50 lb with shoes Heart Rate 76 /min left radial BP Systolic Sitting 110 mmHg Lue, reg cuff BP Diastolic Sitting 80 mmHg Lue, reg cuff BP Systolic Standing 108 mmHg Lue, reg cuff BP Diastolic Standing 70 mmHg Lue, reg cuff BMI (Body Mass Index) 30.3 kg/m2 Ejection Fraction 30%-35% echocardiogram 02/23/2019 03/15/2019 11:23am Height 67 inches 5'7" Weight 190.38 lb with shoes Heart Rate 84 /min radial,regular BP Systolic Sitting 92 mmHg LA, reg cuff BP Diastolic Sitting 58 mmHg LA, reg cuff BP Systolic Standing 88 mmHg LA, reg cuff BP Diastolic Standing 58 mmHg LA, reg cuff BMI (Body Mass Index) 29.8 kg/m2 Ejection Fraction 30%-35% echo 02/23/19 Results Test Acquired Date Facility Test Result H/L Range Note Xray 12/22/2018 [employer] In House Inj/Aspir Major JT Or Bursa <pending> W/ US Procedures Date Code Description Status 03/15/2019 63920 EKG Tracing & Interpretation Completed 02/23/2019 03134 ECHO Transthoracic, Real-Time 2D With Doppler And Color Completed Flow 02/23/2019 66081 ECHO Transthoracic, Real-Time 2D With Doppler And Color Completed Flow 02/08/2019 31982 Interrogation Implant Cardiovasc Monitor System Incl Completed Analysis Int 02/08/2019 16416 Interrogation Implant Cardiovasc Monitor System Incl Completed Analysis Int 02/08/2019 61949 Icd Eval With Iterative Adjustmt Multiple Lead System Completed 02/08/2019 37205 Icd Eval With Iterative Adjustmt Multiple Lead System Completed 01/07/2019 66288 Icd Eval With Inerative Adjustmt Dual Lead System Completed 01/06/2019 32530 ECHO Transthorasic Realtime 2D W Doppler & Color Flow Hosp Completed 01/06/2019 85070 Interrogation Device Eval Remote Up To 30 Days Completed Analysis,Rev,RP 01/06/2019 41023 Icd Eval Sing,Dual,Multi Lead Remote Recpt Transm Tech Rev Completed Tech S 01/06/2019 63619 Icd Check Remote Up To 90 Days Single,Dual,Multiple Lead Completed 12/22/2018 07345 Inj/Aspir Major JT Or Bursa W/ US Completed 11/03/2018 03040 Echocardiogram, Limited Study Completed 11/03/2018 47310 Echocardiogram, Limited Study Completed Medical Devices Description No Information Available Encounters Type Date Location Provider Dx Diagnosis Office Visit 03/15/2019 [facility] John Graf R55 Syncope and 11:00a Andreas Edmond collapse E11.649 Type 2 diabetes mellitus with hypoglycemia without coma I25.5 Ischemic cardiomyopathy I95.2 Hypotension due to drugs I48.0 Paroxysmal atrial fibrillation R06.09 Other forms of dyspnea [facility] Unilateral primary 9:15a [facility] at [facility] osteoarthritis, right [place] hip M25.561 Pain in right knee Office Visit 01/10/2019 8:43a [facility] Temi Soareshn, R55 Syncope and Assspike trivedi M.D. collapse Hospitalists E11.649 Type 2 diabetes mellitus with hypoglycemia without coma I50.22 Chronic systolic (congestive) heart failure Office Visit 01/09/2019 [facility] E11.649 Type 2 diabetes 8:42a spike Friedman M.D. mellitus with Hospitalists hypoglycemia without coma R55 Syncope and collapse Office Visit 01/08/2019 [facility] E11.649 Type 2 diabetes 8:42a spike Friedman M.D. mellitus with Hospitalists hypoglycemia without coma R55 Syncope and collapse Office Visit 01/07/2019 [facility] E11.649 Type 2 diabetes 8:42a spike Friedman M.D. mellitus with Hospitalists hypoglycemia without coma R55 Syncope and collapse I48.91 Unspecified atrial fibrillation Office Visit 01/06/2019 [facility] E11.649 Type 2 diabetes 8:41a spike Friedman M.D. mellitus with Hospitalists hypoglycemia without coma R55 Syncope and collapse Office Visit 12/22/2018 [facility] M16.11 Unilateral primary 10:00a Orthopedics at [facility] osteoarthritis, right [place] hip M17.0 Bilateral primary osteoarthritis of knee S83.411A Sprain of medial collateral ligament of right knee, init S83.412A Sprain of medial collateral ligament of left knee, init M25.551 Pain in right hip M25.561 Pain in right knee M25.562 Pain in left knee Assessments Date Code Description Provider 04/07/2019 I25.5 Ischemic cardiomyopathy Qian Montes De Oca, N.P. 04/07/2019 I95.2 Drug-induced hypotension Qian Montes De Oca, N.P. 04/07/2019 I48.0 Paroxysmal atrial fibrillation Qian Montes De Oca N.P. 04/07/2019 R06.09 Dyspnea on exertion Qian Montes De Oca, N.P. 03/15/2019 R55 Syncope and collapse John Edmond M.D. 03/15/2019 E11.649 Type 2 diabetes mellitus with John Edmond M.D. hypoglycemia without coma 03/15/2019 I25.5 Ischemic cardiomyopathy John Edmond M.D. 03/15/2019 I95.2 Drug-induced hypotension John Edmond M.D. 03/15/2019 I48.0 Paroxysmal atrial fibrillation John Edmond M.D. 03/15/2019 R06.09 Dyspnea on exertion John Edmond M.D. 02/23/2019 R55 Syncope and collapse John Edmond M.D. 02/23/2019 R55 Syncope and collapse [facility] 02/23/2019 E11.649 Type 2 diabetes mellitus with [facility] hypoglycemia without coma 02/23/2019 I25.5 Ischemic cardiomyopathy [facility] Schedule 02/11/2019 M16.11 Unilateral primary osteoarthritis, right Kari Lemus M.D. hip 02/11/2019 M25.561 Pain in right knee Kari Lemus M.D. 02/08/2019 Z95.810 Presence of automatic (implantable) John Edmond M.D. cardiac defibrillator 02/08/2019 Z95.810 Presence of automatic (implantable) [facility] Pacer Schedule cardiac defibrillator 02/08/2019 I50.22 Chronic systolic (congestive) heart John Edmond M.D. failure 02/08/2019 I50.22 Chronic systolic (congestive) heart [facility] Pacer Schedule failure 02/08/2019 I48.91 Unspecified atrial fibrillation Ica Pacer Schedule 02/08/2019 I25.5 Ischemic cardiomyopathy John Edmond M.D. 02/08/2019 I25.5 Ischemic cardiomyopathy [facility] Pacer Schedule 01/10/2019 R55 Syncope and collapse Temi Rhodes M.D. 01/10/2019 E11.649 Type 2 diabetes mellitus with Temi Rhodes M.D. hypoglycemia without coma 01/10/2019 I50.22 Chronic systolic (congestive) heart Temi Rhodes M.D. failure 01/09/2019 E11.649 Type 2 diabetes mellitus with Anni Sanford M.D. hypoglycemia without coma 01/09/2019 R55 Syncope and collapse Anni Sanford M.D. 01/08/2019 E11.649 Type 2 diabetes mellitus with Anni Sanford M.D. hypoglycemia without coma 01/08/2019 R55 Syncope and collapse Anni Sanford M.D. 01/07/2019 E11.649 Type 2 diabetes mellitus with Anni Sanford M.D. hypoglycemia without coma 01/07/2019 Z95.810 Presence of automatic (implantable) Len Mckeon DO [facility] cardiac defibrillator 01/07/2019 R55 Syncope and collapse Anni Sanford M.D. 01/07/2019 R55 Syncope and collapse Len Mckeon, DO [facility] 01/07/2019 I48.91 Unspecified atrial fibrillation Anni Sanford M.D. 01/06/2019 E11.649 Type 2 diabetes mellitus with Anni Sanford M.D. hypoglycemia without coma 01/06/2019 R55 Syncope and collapse Len Mckeon, DO [facility] 01/06/2019 R55 Syncope and collapse Anni Sanford M.D. 01/06/2019 I25.5 Ischemic cardiomyopathy John Edmond M.D. 01/06/2019 Z95.810 Presence of automatic (implantable) John Edmond M.D. cardiac defibrillator 12/22/2018 M16.11 Unilateral primary osteoarthritis, right Kari Lemus M.D. hip 12/22/2018 M17.0 Bilateral primary osteoarthritis of knee Kari Lemus M.D. 12/22/2018 S83.411A Sprain of medial collateral ligament of Kari Lemus M.D. right knee, initial encounter 12/22/2018 S83.412A Sprain of medial collateral ligament of Kari Lemus M.D. left knee, initial encounter 12/22/2018 M25.551 Pain in right hip Kari Lemus M.D. 12/22/2018 M25.561 Pain in right knee Kari Lemus M.D. 12/22/2018 M25.562 Pain in left knee Kari Lemus M.D. 11/03/2018 I25.5 Ischemic cardiomyopathy John Edmond M.D. 11/03/2018 I25.5 Ischemic cardiomyopathy [facility] Schedule Plan of Treatment Future Appointment(s):07/25/2019 10:20 am - John Edmond M.D. at [facility]05/05/2019 10:30 am - Qian Montes De Oca, N.P. at [facility]2018 9:15 am - Kari Lemus M.D. at [facility] at [id number]/07/2019 - Qian Montes De Oca N.P.I25.5 Ischemic cardiomyopathyNew Medication:Quinapril HCL 5 mg - Take 1 tab by mouth dailyFollow up:OV 4-6 weeks Qian VASQUEZ [facility] 2019Recommendations:Heart function has improved 35% Suggest restarting very low dose of quinapril 1/2 (10mg) tab bbwysS03.2 Drug-induced xujhdqkucxoP97.0 Paroxysmal atrial fibrillationRecommendations:Continue amiodarone and eliquis.R06.09 Dyspnea on exertion Functional Status Description No Information Available Mental Status Description No Information Available Referrals Description No Information Available
--- OUTSIDE RECORDS SUMMARY | 2019-04-09 20:42 | XMS REPORT ---
:1940 Author Organization [facility] Health Care Team Providers Name Role Phone Roshan Amaya Unavailable Unavailable PROBLEMS Type Condition ICD9-CM [id number] Onset Condition SNOMED Code Code Code Dates Status Problem Pacemaker Z95.0 Active 355918776 Problem Normocytic anemia D64.9 Active 288696856 Problem Ischemic I25.5 Active 084941369 cardiomyopathy Problem Age-related H25.093 Active 890233427 incipient cataract of both eyes Problem Low back pain M54.5 Active 364325477 Problem half-way current Z79.4 Active 121355268 use of insulin Problem History of Z85.46 Active 106859101 prostate cancer Problem Stage 3 chronic N18.3 Active 337882378 kidney disease Problem Essential I10 Active 12564163 hypertension 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 33285343313416250 iliac artery Problem Other chronic pain G89.29 Active 85397003 Problem Type 2 diabetes E11.9 Active 830052289 mellitus without complications Problem Morbid (severe) E66.01 Active 40825888083546 obesity due to excess calories Problem Body mass index Z68.42 Active 740429886 (BMI) of 45.0-49.9 in adult ALLERGIES No Information ENCOUNTERS Encounter Location Date Diagnosis [facility] [address] [place], [place] [address] [facility] - Resource - UNKNOWN [place], [facility] [address] [place], [place] [address] Case Management [address] [place], [place] [address] [facility] [address] Feb, [place] [address] [facility] [address] Feb, [place] [address] fissure surface penetrating into pulp K02.53 Case Management [address] [place], [place] [address] [facility] [address] Feb, [place] [address] [facility] [address] Feb, [place] [address] [place] [facility] [address] [place], [place] [address] [facility] [address] Feb, Normocytic anemia D64.9 [place] [address] [facility] [address] Feb, [place] [address] [facility] [address] Feb, Risk for falls Z91.81 ; [place] [address] Encounter for immunization Z23 ; Essential hypertension I10 ; Normocytic anemia D64.9 and Stage 3 chronic kidney disease N18.3 [facility] [address] Feb, [place] [address] Pending Sale To [facility] [address] [facility] Jan, [address] Jan, [place] [address] Pending Sale To [facility] [address] Jan, [address] Jan, [place] [address] [facility] [address] Jan, [place] [address] [place] [address] Jan[place] [address] [facility] - [facility] [place] [address] Jan, [place] [address] Pending Sale To [facility] [address] Jan, [address] [place] [address] Jan, [place] [address] [facility] [address] Jan, Essential hypertension I10 [place] [address] ; Risk for falls Z91.81 ; Hyponatremia E87.1 and Stage 3 chronic kidney disease N18.3 [facility] [address] Jan, [place] [address] [facility] [address] Jan, [place] [address] [facility] [address] Jan, Elevated serum [place] [address] R79.89 ; Abrasion hand S60.519A and Abrasion hip/leg S80.819A [facility] - Resource - [place] [address] [facility] Jan, [place] [address] [facility] [address] [facility] Jan, [place] [address] Jan, [place] [address] Jan, Hyponatremia E87.1 [place] [address] Jan, Hyponatremia E87.1 [place] [address] Normocytic anemia D64.[address] Jan, [place] [address] Dec, [place] [address] Dec, [place] [address] Pending Sale To [facility] [address] [place] [address] Dec, [place] [address] Dec, Type 2 diabetes [place] [address] without complications E11.9 ; Essential hypertension I10 ; Hyponatremia E87.1 and Wheezing R06.[address] Dec, Type 2 diabetes [place] [address] without complications E11.9 and salvage determiner 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 Z79.4 [facility] - Resource - [place] [address] [facility] Dec, [place] [address] Dec, [place] [address] Dec, [place] [address] Pending Sale To [facility] [address] [place] [address] Dec, [place] [address] [facility] - Resource - [place] [address] [facility] Dec, [place] [address] Dec, [place] [address] [facility] - Resource - [place] [address] [facility] Dec, [place] [address] Pending Sale To [facility] [address] [facility] Dec, [place] [address] [facility] - Resource - [place] [address] [facility] Dec, [place] [address] [facility] [address] Dec, [place] [address] [facility] [address] Dec, Right hip pain M25.551 ; [place] [address] risk for fall due to comorbid condition Z91.81 ; Food insecurity Z59.4 ; Limited mobility Z74.09 and Type 2 diabetes mellitus without complications E11.9 [facility] - [facility] [place] [address] Dec, [place] [address] [facility] [address] Nov, [place] [address] [facility] [address] Nov, [place] [address] Pending Sale To [facility] [address] [facility] Oct, [place] [address] Pending Sale To [facility] [address] [facility] Oct, [place] [address] [facility] [address] September, Type 2 diabetes [place] [address] without complications E11.9 ; Screening for colon cancer Z12.11 and Aneurysm of left leg I72.4 [facility] [address] September, [place] [address] [facility] [address] September, Type 2 diabetes [place] [address] without complications E11.9 and salvage determiner 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 Z79.4 [facility] [address] September, [place] [address] [facility] [address] September, [place] [address] [facility] [address] Aug, [place] [address] [facility] [address] Aug, [place] [address] Pending [facility] [address] [facility] Jul, [place] [address] [facility] [address] Jul, [place] [address] [facility] [address] Jul, [place] [address] Pending Sale To [facility] [address] [facility] Jul, [place] [address] [facility] [address] Jun, [place] [address] Pending Sale To [facility] [address] [facility] Jun, Type 2 diabetes mellitus [place] without complications E11.9 [address] [facility] [address] Jun, Type 2 diabetes [place] [address] without complication, unspecified whether ocean transportation intermediary insulin use E11.9 and salvage determiner 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 Z79.4 [place] [address] [place] Jun, Type 2 diabetes [place] [address] without complications E11.9 [place] [address] Jun, [place] [address] Jun, [place] [address] [place] [address] [place] Jun, Swelling [place] [address] [address] M[address] Jun, [facility] [place] [address] [place] [address] Jun, [place] [address] [place], [place] [address] May, [facility] [place] [address] May, [place] [address] May, [place] [address] May, Hyponatremia E87.1 [place] [address] Apr, [place] [address] [place] [address] Apr, Type 2 [place] [address] without complications E11.9 ; Stage 3 chronic kidney disease N18.3 and Overgrown toenails L60.[address] Apr, [place] [address] [place] [address] Apr, Acute upper [place] [address] infection, unspecified J06.9 [place] [address] Mar, Type 2 [place] [address] without complication, unspecified whether penitentiary insulin use E11.9 and salvage determiner 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 Z79.[address] [place], [place] [address] [place] [address] Mar, [place] [address] [facility] [address] Feb, Elevated serum [place] [address] R79.89 [facility] [address] Feb, Anemia, unspecified [place] [address] D64.9 ; Elevated serum creatinine R79.89 and Encounter for immunization Z23 [facility] [address] [place], Feb, [place] [address] [facility] [address] [place], Feb, [place] [address] [facility] [address] Feb, [place] [address] [facility] [address] [place], Feb, Type 2 [place] [address] without complication, unspecified whether ocean transportation intermediary insulin use E11.9 and salvage determiner 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 Z79.4 Pending Sale To [facility] [address] [place] [address] Feb, [place] [address] [place] [address] Jan, [place] [address] Jan, Type 2 diabetes [place] [address] without complications E11.9 and History of prostate cancer Z85.[address] Jan, [place] [address] [place] [address] Jan, [place] [address] Jan, Type 2 diabetes [place] [address] without complication, unspecified whether ocean transportation intermediary insulin use E11.9 and half-way 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 Z79.4 Pending Sale To [facility] [address] [place] [address] Jan, Type 2 diabetes mellitus [place] without complication, [address] unspecified whether ocean transportation intermediary insulin use E11.9 [place] [address] Jan, [place] [address] [facility] [address] Dec, [place] [address] [place] [address] Dec, [place] [address] [place] [address] Dec, 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 [place] [address] Dec, Type 2 diabetes [place] [address] without complications E11.9 ; Morbid (severe) obesity due to excess calories E66.01 ; Body mass index (BMI) of 45.0-49.9 in adult Z68.42 and Reduced ejection fraction concurrent with and due to acute heart failure I50.[address] Dec, [place] [address] [place] [address] Nov, Normocytic anemia D64.9 [place] [address] Hyponatremia E87.1 [place] [address] Nov, [place] [address] Nov, Type 2 diabetes [place] [address] without complications E11.9 ; half-way 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 Z79.4 ; Low back pain M54.5 ; Other chronic pain G89.29 ; Vision changes H53.9 ; Morbid (severe) obesity due to excess calories E66.01 and Body mass index (BMI) of 45.0-49.9 in adult Z68.[address] Nov, [place] [address] Nov, Reduced ejection fraction [facility] [place] [address] acute heart failure I50.[address] Nov, Anemia, unspecified type [place] D64.9 [address] Nov, Normocytic anemia D64.9 [place] [address] Nov, Type 2 diabetes [place] [address] without complication, unspecified whether penitentiary insulin use E11.9 ; Normocytic anemia D64.9 and History of prostate cancer Z85.46 [place] [address] Nov, [place] [address] [place] [address] Nov, [place] [address] Nov, [facility] [place] [address] [place] [address] Oct, [place] [address] [place] [address] Oct, [place] [address] [facility] [address] Oct, Type 2 [place] [address] without complication, unspecified whether ocean transportation intermediary insulin use E11.9 ; Elevated serum creatinine R79.89 ; Hyperkalemia E87.5 ; Hypocalcemia E83.51 ; Screening, lipid Z13.220 ; Age-related incipient cataract of both eyes H25.093 ; Screening for colon cancer Z12.11 and Reduced ejection fraction concurrent with and due to acute heart failure I50.21 [place] [address] September, [place] [address] [place] [address] Aug, [place] [address] [place] [address] Aug, [place] [address] IMMUNIZATIONS No Known Immunizations SOCIAL HISTORY Never Assessed REASON FOR REFERRAL FUNCTIONAL STATUS PLAN OF CARE VITAL SIGNS Height 58.5 in 2019-03-24 Blood pressure systolic 129 mm Hg 2019-03-24 Blood pressure diastolic 74 mm Hg 2019-03-24 MEDICATIONS Medication Instructions Dosage Frequency Start End Duration Status Date Date Carvedilol 25 MG Orally twice a day 1 tablet 12h Active Isosorbide Orally Once a day 1 tablet in 24h Active Mononitrate ER the morning 60 MG Amiodarone HCl Orally Once a day 1 tablet 24h Active 100 MG D3-1000 1000 Orally Once a day 1 capsule 24h Active UNIT Jardiance 10 mg Orally Once a day 1 tablet 24h 90 Active Levemir 100 Subcutaneous daily 25 units in 24h Active UNIT/ML the morning and evening Nitroglycerin Sublingual every 5 1 tab(s) 30 day(s) Active 0.4 MG min as needed for chest pain (3 doses w/in 15min) BD Insulin intramuscularly as directed 24h Jun, day(s) Active Syringe 25G X daily 09/29 Eliquis 5 MG Orally bid 12h Active Ferrous Sulfate Orally Once a day 1 tablet 24h Feb, day(s) Active 325 (65 Fe) MG 2018 Vitamin B12 1000 Orally Once a day 1 tablet 24h Active MCG FreeStyle Lite - Device tid for as directed Jun, day(s) Active e11.9 2019 Aspir-81 81 MG Orally Once a day 1 tablet 24h Active Pravastatin Orally Once a day 1 tablet 24h 30 Active Sodium 80 mg Vitamin D 1000 Orally Once a day 1 tablet 24h Active UNIT MetFORMIN HCl ER Orally Once a day 2 tablet 24h 90 Active 500 mg with evening meal FreeStyle Lite In Vitro tid for as directed Jun, day(s) Active Test - e11.9 2018 Tamsulosin HCl Orally daily 2 capsules 24h 90 Active 0.4 MG Magnesium 500 mg Orally Once a day 1 tablet 24h Active with a meal PROCEDURES Procedure Date Ordered Result Body Site BLOOD PRESSURE, MEASURED Mar 24, 2019 EXTRAC ERUPTED TOOTH/EXPOSED ROOT Mar 24, 2019 RESULTS No Results REASON FOR VISIT Insurance Providers [facility] Member Patient Patient Patient Patient Patient Subscriber Subscriber Subscriber Group Insurance Plan Plan Plan Plan ID Relationship Address Phone Name Date of ID Name Date of No Type Insurance Insurance Insurance Coverage to Subscriber Address Phone Name Dates Medicaid [id number] Medicaid self [place] [id number] [facility] [address] [place] [address] u [place] [address] [phone] Todays self [place] [id number] Options [place] 13 [place] [id number] Mc[place] Adv u [place] [facility] [phone] WellCare self [place] [id number] [place] [address]255 Attn 83 GG495 [place] Hplex Mcr Claims Hplex Mcr u Adv Dept Adv [facility] [address] Medicare National [id number] Medicare self [place] [id number] PPS Government 41 PPS [place] Services u [address] [place] [id number] [place]ays [address] [place] self [place] [id number] Option [id number] Option [place] MCRAdv [facility] MCRAdv u AmProg Med [id number] AmProg Med Case [phone] Case self [place] [id number] Management [place] 02 Management [place] [facility] [address] Community u Medicare National [id number] Medicare self [place] [id number] PPS Government 41 PPS [place] Services u [address] [place] [id number] WellCare [phone] WellCare self [place] [id number] [id number] 63 [place] PPO [place] Mcr Adv [place] Mcr Adv u Medical [address] Medical MEDICAL (GENERAL) HISTORY Type Description Date Medical History DM 2 Medical History Heart Attack 2001 Medical History Pacemaker 2001 - ICD Medical [...]
--- OUTSIDE RECORDS SUMMARY | 2019-04-09 20:42 | XMS REPORT ---
:1940 Author Organization [facility] Health Care Team Providers Name Role Phone Roshan Amaya Unavailable Unavailable PROBLEMS Type Condition ICD9-CM [id number] Onset Condition SNOMED Code Code Code Dates Status Problem Pacemaker Z95.0 Active 999596010 Problem Normocytic anemia D64.9 Active 516725751 Problem Ischemic I25.5 Active 340572013 cardiomyopathy Problem Age-related H25.093 Active 307805669 incipient cataract of both eyes Problem Low back pain M54.5 Active 336827737 Problem intermediate current Z79.4 Active 008291176 use of insulin Problem History of Z85.46 Active 856921439 prostate cancer Problem Stage 3 chronic N18.3 Active 837368489 kidney disease Problem Essential I10 Active 20165483 hypertension 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 [id number] iliac artery Problem Other chronic pain G89.29 Active 98680128 Problem Type 2 diabetes E11.9 Active 444947469 mellitus without complications Problem Morbid (severe) E66.01 Active 42645360397841 obesity due to excess calories Problem Body mass index Z68.42 Active 458877942 (BMI) of 45.0-49.9 in adult ALLERGIES No Information ENCOUNTERS Encounter Location Date Diagnosis [facility] [address] [place], [place] [address] [facility] - Resource - UNKNOWN [place], [facility] [address] [place], [place] [address] Case Management [address] [place], [place] [address] [facility] [address] Feb, [place] [address] [facility] [address] Feb, [place] [address] fissure surface penetrating into pulp K02.53 Case Management [address] [place], [place] [address] [facility] [address] Feb, [place] [address] [facility] [address] Feb, [place] [address] [place] [facility] [address] [place], [place] [address] [facility] [address] Feb, Normocytic anemia D64.9 [place] [address] [facility] [address] Feb, [place] [address] [facility] [address] Feb, Risk for falls Z91.81 ; [place] [address] Encounter for immunization Z23 ; Essential hypertension I10 ; Normocytic anemia D64.9 and Stage 3 chronic kidney disease N18.3 [facility] [address] Feb, [place] [address] [facility] [address] [facility] Jan, [address] Jan, [place] [address] [facility] [address] Jan, [address] Jan, [place] [address] [facility] [address] Jan, [place] [address] [place] [address] Jan, [place] [address] [facility] [place] [address] Jan, [place] [address] [facility] [address] Jan, [address] [place] [address] Jan, [place] [address] [facility] [address] Jan, Essential hypertension I10 [place] [address] ; Risk for falls Z91.81 ; Hyponatremia E87.1 and Stage 3 chronic kidney disease N18.3 [facility] [address] Jan, [place] [address] [facility] [address] Jan, [place] [address] [facility] [address] Jan, [place] [address] R79.89 ; Abrasion hand S60.519A and Abrasion hip/leg S80.819A [facility] - Resource - [place] [address] [facility] Jan, [place] [address] Formerly [facility] [address] [facility] Jan, [place] [address] Jan, [place] [address] Jan, Hyponatremia E87.1 [place] [address] Jan, Hyponatremia E87.1 [place] [address] Normocytic anemia D64.[address] Jan, [place] [address] Dec, [place] [address] Dec, [place] [address] [facility] [address] [place] [address] Dec, [place] [address] Dec, Type 2 [place] [address] without complications E11.9 ; Essential hypertension I10 ; Hyponatremia E87.1 and Wheezing R06.[address] Dec, Type 2 [place] [address] without complications E11.9 and 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 [facility] Dec, [place] [address] Dec, [place] [address] Dec, [place] [address] [facility] [address] [place] [address] Dec, [place] [address] [facility] - Resource - [place] [address] [facility] Dec, [place] [address] [place], [place] [address] [facility] - Resource - [place] [address] [facility] Dec, [place] [address] [facility] [address] [facility] [place], [place] [address] [facility] - Resource - [place] [address] [facility] Dec, [place] [address] [facility] [address] Dec, [place] [address] [facility] [address] Dec, Right hip pain M25.551 ; [place] [address] risk for fall due to comorbid condition Z91.81 ; Food insecurity Z59.4 ; Limited mobility Z74.09 and Type 2 diabetes mellitus without complications E11.9 [facility] - [facility] [place] [address] Dec, [place] [address] [facility] [address] Nov, [place] [address] [facility] [address] Nov, [place] [address] [facility] [address] [facility] Oct, [place] [address] [facility] [address] [facility] Oct, [place] [address] [facility] [address] September, Type 2 [place] [address] without complications E11.9 ; Screening for colon cancer Z12.11 and Aneurysm of left leg I72.4 [facility] [address] September, [place] [address] [facility] [address] September, Type 2 [place] [address] without complications E11.9 and 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 [facility] [address] September, [place] [address] [facility] [address] September, [place] [address] [facility] [address] Aug, [place] [address] [facility] [address] Aug, [place] [address] [facility] [address] [facility] Jul, [place] [address] [facility] [address] Jul, [place] [address] [facility] [address] Jul, [place] [address] [facility] [address] [facility] Jul, [place] [address] [facility] [address] Jun, [place] [address] [facility] [address] [facility] Jun, Type 2 diabetes mellitus [place] without complications E11.9 [address] [facility] [address] Jun, Type 2 [place] [address] without complication, 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 and 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 [place] [address] Jun, Type 2 [place] [address] without complications E11.9 [place] [address] Jun, [place] [address] Jun, [place] [address] [place] [address] Jun, [place] [address] extremity M79[address] Jun, [place] [address] [place] [address] Jun, [place] [address] Jun, [place] [address] May, [facility] [place] [address] May, [place] [address] May, [place] [address] May, Hyponatremia E87.1 [place] [address] Apr, [place] [address] [place] [address] Apr, Type 2 [place] [address] without complications E11.9 ; Stage 3 chronic kidney disease N18.3 and Overgrown toenails L60.[address] Apr, [place] [address] [place] [address] Apr, [place] [address] infection, unspecified J06.9 [place] [address] Mar, Type 2 [place] [address] without complication, unspecified whether penitentiary insulin use E11.9 and 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 [facility] Mar, [place] [address] [facility] [address] Feb, [place] [address] R79.89 [facility] [address] Feb, [place], [place] [address] D64.9 ; Elevated serum creatinine R79.89 and Encounter for immunization Z23 [facility] [address] [place], Feb, [place] [address] Alan Kendall [facility] [address] [place], [place], [place] [address] [facility] [address] Feb, [place] [address] [facility] [address] [place], Feb, Type 2 [place] [address] without complication, 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 and 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 [facility] [address] [place] [address] Feb, [place] [address] [place] [address] Jan, [place] [address] Jan, Type 2 [place] [address] without complications E11.9 and History of prostate cancer Z85.[address] Jan, [place] [address] [place] [address] Jan, [place] [address] Jan, Type 2 [place] [address] without complication, 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 and intermediate 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 Z79.4 [facility] [address] [place] [address] Jan, Type 2 diabetes mellitus [place] without complication, [address] 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 [place] [address] Jan, [place] [address] [facility] [address] Dec, [place] [address] [place] [address] Dec, [place] [address] [place] [address] Dec, [place] [address] hyperthyroidism E05.80 [place] [address] Dec, Type 2 [place] [address] without complications E11.9 ; Morbid (severe) obesity due to excess calories E66.01 ; Body mass index (BMI) of 45.0-49.9 in adult Z68.42 and Reduced ejection fraction concurrent with and due to acute heart failure I50.[address] Dec, [place] [address] [place] [address] Nov, Normocytic anemia D64.9 [place] [address] Hyponatremia E87.1 [place] [address] Nov, [place] [address] Nov, Type 2 [place] [address] without complications E11.9 ; intermediate 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 Z79.4 ; Low back pain M54.5 ; Other chronic pain G89.29 ; Vision changes H53.9 ; Morbid (severe) obesity due to excess calories E66.01 and Body mass index (BMI) of 45.0-49.9 in adult Z68.[address] Nov, [place] [address] Nov, [facility] [place] [address] acute heart failure I50.[address] Nov, Anemia, unspecified type [place] D64.9 [address] Nov, Normocytic anemia D64.9 [place] [address] Nov, Type 2 [place] [address] without complication, unspecified whether penitentiary insulin use E11.9 ; Normocytic anemia D64.9 and History of prostate cancer Z85.46 [place] [address] Nov, [place] [address] [place] [address] [place] [address] Nov, [facility] [place] [address] [place] [address] [place], [place] [address] [place] [address] Oct, [place] [address] [facility] [address] Oct, Type 2 [place] [address] without complication, 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 ; Elevated serum creatinine R79.89 ; Hyperkalemia E87.5 ; Hypocalcemia E83.51 ; Screening, lipid Z13.220 ; Age-related incipient cataract of both eyes H25.093 ; Screening for colon cancer Z12.11 and Reduced ejection fraction concurrent with and due to acute heart failure I50.21 [place] [address] September, [place] [address] [place] [address] Aug, [place] [address] [place] [address] Aug, [place] [address] IMMUNIZATIONS No Known Immunizations SOCIAL HISTORY Never Assessed REASON FOR REFERRAL FUNCTIONAL STATUS PLAN OF CARE VITAL SIGNS MEDICATIONS Medication Instructions Dosage Frequency Start End Duration Status Date Date Tamsulosin HCl Orally daily 2 capsules 24h 90 Active 0.4 MG Carvedilol 25 MG Orally twice a day 1 tablet 12h Active Nitroglycerin Sublingual every 5 1 tab(s) 30 day(s) Active 0.4 MG min as needed for chest pain (3 doses w/in 15min) Vitamin B12 1000 Orally Once a day 1 tablet 24h Active MCG Isosorbide Orally Once a day 1 tablet in 24h Active Mononitrate ER the morning 60 MG FreeStyle Lite - Device tid for as directed Jun, day(s) Active [id number] Magnesium 500 mg Orally Once a day 1 tablet 24h Active with a meal MetFORMIN HCl ER Orally Once a day 2 tablet 24h 90 Active 500 mg with evening meal Amiodarone HCl Orally Once a day 1 tablet 24h Active 100 MG Jardiance 10 mg Orally Once a day 1 tablet 24h 90 Active Vitamin D 1000 Orally Once a day 1 tablet 24h Active UNIT Levemir 100 Subcutaneous daily 25 units in 24h Active UNIT/ML the morning and evening FreeStyle Lite In Vitro tid for as directed Jun, 30 day(s) Active Test - e11.2018 Pravastatin Orally Once a day 1 tablet 24h 30 Active Sodium 80 mg Aspir-81 81 MG Orally Once a day 1 tablet 24h Active BD Insulin intramuscularly as directed 24h Jun, day(s) Active Syringe 25G X daily 09/29 D3-1000 1000 Orally Once a day 1 capsule 24h Active UNIT Ferrous Sulfate Orally Once a day 1 tablet 24h Feb, day(s) Active 325 (65 Fe) MG 2018 Eliquis 5 MG Orally bid 12h Active PROCEDURES Procedure Date Ordered Result Body Site RESIN COMPOS - 2 SURFACES POSTERIOR Mar 24, 2019 RESULTS No Results REASON FOR VISIT Insurance Providers [facility] Member Patient Patient Patient Patient Patient Subscriber Subscriber Subscriber Group Insurance Plan Plan Plan Plan ID Relationship Address Phone Name Date of ID Name Date of No Type Insurance Insurance Insurance Coverage to Subscriber Address Phone Name Dates [facility] [phone] [facility] self [place] [id number] [id number] Mc[place] Adv [place] Mcr Adv u Medical [id number] Medical [place] [phone] Todays self [place] [id number] Options [place] 13 Options [place] Mcr Adv [id number] Mcr Adv u Drew Drew Medicare National [id number] Medicare self [place] [id number] PPS Government 41 PPS [place] Services u [address] [place] [id number] Case [phone] Case self [place] [id number] Management [place] 02 Management [facility] [address] [facility] u Medicaid [id number] Medicaid self [place] [id number] [facility] [address] [place] [address] u WellCare [phone] Well[employer] self [place] [id number] Drew 9255 Attn 83 [id number] Drew [place] Hplex Mcr Claims Hplex Mcr u Adv Dept Adv formerly [facility] [address] [place]ays [phone] Todays self [place] [id number] Option [id number] Option [place] MCRAdv [facility] MCRAdv u AmProg Med [id number] AmProg Med Medicare National [id number] Medicare self [place] [id number] PPS Government 41 PPS [place] Services u [address] [place] [id number] MEDICAL (GENERAL) HISTORY Type Description Date Medical [...]
--- OUTSIDE RECORDS SUMMARY | 2019-04-09 20:42 | XMS REPORT ---
:1940 Author Organization [facility] Address [address] [place] [address] Care Team Providers Name Role Phone Kory Toribio Unavailable Unavailable PROBLEMS Type Condition ICD9-CM [id number] Onset Condition SNOMED Code Code Code Dates Status Problem Pacemaker Z95.0 Active 233130746 Problem Normocytic anemia D64.9 Active 425552669 Problem Ischemic I25.5 Active 976123177 cardiomyopathy Problem Age-related H25.093 Active 398466559 incipient cataract of both eyes Problem Low back pain M54.5 Active 545675995 Problem retirement current Z79.4 Active 030239314 use of insulin Problem History of Z85.46 Active 917598351 prostate cancer Problem Stage 3 chronic N18.3 Active 278200949 kidney disease Problem Essential I10 Active 60950158 hypertension 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 59993173909983369 iliac artery Problem Other chronic pain G89.29 Active 52119854 Problem Type 2 diabetes E11.9 Active 210549530 mellitus without complications Problem Morbid (severe) E66.01 Active 55167483827144 obesity due to excess calories Problem Body mass index Z68.42 Active 576492491 (BMI) of 45.0-49.9 in adult ALLERGIES No Information ENCOUNTERS Encounter Location Date Diagnosis [facility] [address] [place], [place] [address] [facility] - Resource - UNKNOWN [place], [facility] [address] [place], [place] [address] Case Management [address] [place] [address] [facility] [address] Feb, [place] [address] Case Management [address] [place] [address] [facility] [address] Feb, [place] [address] [facility] [address] Feb, [place] [address] [facility] [address] [facility] [place], [place] [address] [facility] [address] Feb, Normocytic anemia D64.9 [place] [address] [facility] [address] [place] Feb, [place] [address] [facility] [address] Feb, Risk for falls Z91.81 ; [place] [address] Encounter for immunization Z23 ; Essential hypertension I10 ; Normocytic anemia D64.9 and Stage 3 chronic kidney disease N18.3 [facility] [address] Feb, [place] [address] [facility] [address] [facility] Jan, [place] [address] [place] [address] [address] [place] Jan, [place] [address] [facility] [address] [facility] Jan, [address] [place], [place] [address] [facility] [address] [place] Jan, [place] [address] [facility] [address] [place] Jan, [place] [address] [facility] - Resource - [place] [address] [place] Jan, [place] [address] [facility] [address] [facility] Jan, [address] [place] Jan, [place] [address] [facility] [address] Jan, Essential hypertension I10 [place] [address] ; Risk for falls Z91.81 ; Hyponatremia E87.1 and Stage 3 chronic kidney disease N18.3 [facility] [address] Jan, [place] [address] [facility] [address] Jan, [place] [address] [facility] - Resource - [place] [address] Jan, [place] [address] [facility] [address] [place] Jan, [place] [address] R79.89 ; Abrasion hand S60.519A and Abrasion hip/leg S80.819A [facility] [address] [facility] Jan, [place] [address] Jan, [place] [address] Jan, Hyponatremia E87.1 [place] [address] Jan, Hyponatremia E87.1 [place] [address] Normocytic anemia D64.[address] Jan, [place] [address] [facility] [address] [place] [address] Dec, [place] [address] [place] [address] Dec[place] [address] [facility] [address] [place] [address] Dec, [place] [address] Dec, Type 2 [place] [address] without complications E11.9 ; Essential hypertension I10 ; Hyponatremia E87.1 and Wheezing R06.[address] Dec, Type 2 [place] [address] without complications E11.9 and 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 [facility] Dec, [place] [address] Dec, [place] [address] [place] [address] [facility] [address] [facility] Dec, [place] [address] [facility] - [place] [address] [facility] Dec, [place] [address] [facility] [address] [place] [address] [place], [place] [address] [facility] - [place] [address] [facility] Dec, [place] [address] [facility] [address] [facility] Dec, [place] [address] [facility] - [place] [address] [facility] Dec, [place] [address] [facility] [address] [place] [address] Dec, [place] [address] [facility] [address] Dec, Right hip pain M25.551 ; [place] [address] risk for fall due to comorbid condition Z91.81 ; Food insecurity Z59.4 ; Limited mobility Z74.09 and Type 2 diabetes mellitus without complications E11.9 [facility] [place] [address] Dec, [place] [address] [facility] [address] Nov, [place] [address] [facility] [address] Nov, [place] [address] [facility] [address] [facility] Oct, [place] [address] [facility] [address] [facility] Oct, [place] [address] [facility] [address] September, Type 2 [place] [address] without complications E11.9 ; Screening for colon cancer Z12.11 and Aneurysm of left leg I72.4 [facility] [address] September, [place] [address] [facility] [address] September, Type 2 [place] [address] without complications E11.9 and 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 [facility] [address] September, [place] [address] [facility] [address] September, [place] [address] [facility] [address] Aug, [place] [address] [facility] [address] Aug, [place] [address] [facility] [address] [place] [address] Jul, [place] [address] [facility] [address] Jul, [place] [address] [facility] [address] [place], [place] [address] [facility] [address] [facility] Jul, [place] [address] [facility] [address] Jun, [place] [address] [facility] [address] [facility] Jun, Type 2 diabetes mellitus [place] without complications E11.9 [address] [facility] [address] Jun, Type 2 [place] [address] without complication, unspecified whether fci insulin use E11.9 and 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 [facility] [address] Jun, Type 2 [place] [address] without complications E11.9 [facility] [address] Jun, [place] [address] [facility] [address] [place] [address] Jun, [place] [address] [facility] [address] Jun, [place] [address] extremity M79.[address] Jun, [facility] [place] [address] [facility] [address] Jun, [place] [address] [facility] [address] Jun, [place] [address] May, [place] [address] May, [place] [address] May, [place] [address] [place] [address] [place] May, Hyponatremia E87.1 [place] [address] Apr, [place] [address] [facility] [address] [place] [address] Apr, Type 2 [place] [address] without complications E11.9 ; Stage 3 chronic kidney disease N18.3 and Overgrown toenails L60.[address] Apr, [place] [address] [facility] [address] Apr, [place] [address] infection, unspecified J06.9 [facility] [address] Mar, Type 2 [place] [address] without complication, 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 and 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 [facility] [address] [place], [place] [address] [place], [place] [address] [facility] [address] Feb, [place] [address] R79.89 [place] [address] [place] Feb, [place], [place] [address] D64.9 ; Elevated serum creatinine R79.89 and Encounter for immunization Z23 [facility] [address] [place], Feb, [place] [address] [facility] [place] [address] [place], [place], [place] [address] [place] [address] [place] Feb, [place] [address] [facility] [address] [facility] [address] [address] [place], Feb, Type 2 [place] [address] without complication, unspecified whether fci insulin use E11.9 and 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 [facility] [address] [facility] Feb, [place] [address] [place] [address] [place] Jan, [place] [address] Jan, Type 2 [place] [address] without complications E11.9 and History of prostate cancer Z85.46 [place] [address] [place] Jan, [place] [address] [place] [address] [place] Jan, [place] [address] Jan, Type 2 [place] [address] without complication, 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 and 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 [facility] [address] [place] [address] Jan, Type 2 diabetes mellitus [place] without complication, [address] unspecified whether fci insulin use E11.9 [place] [address] [place] Jan, [place] [address] [place] [address] [place] [address] [place] [address] [place] Dec, [place] [address] [place] [address] Dec, [place] [address] hyperthyroidism E05.80 [place] [address] [place] Dec, Type 2 [place] [address] without complications E11.9 ; Morbid (severe) obesity due to excess calories E66.01 ; Body mass index (BMI) of 45.0-49.9 in adult Z68.42 and Reduced ejection fraction concurrent with and due to acute heart failure I50.[address] Dec, [place] [address] [place] [address] [place] Nov, Normocytic anemia D64.9 [place] [address] Hyponatremia E87.1 [place] [address] [place] Nov, [place] [address] [place] [address] [place] Nov, Type 2 [place] [address] without complications E11.9 ; retirement 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 Z79.4 ; Low back pain M54.5 ; Other chronic pain G89.29 ; Vision changes H53.9 ; Morbid (severe) obesity due to excess calories E66.01 and Body mass index (BMI) of 45.0-49.9 in adult Z68.42 [place] [address] [place] Nov, [place] [address] Nov, Reduced ejection fraction [place] concurrent with [place] [address] acute heart failure I50.[address] Nov, Anemia, unspecified [place] D64.9 [address] [place] [address] [place] Nov, Normocytic anemia D64.9 [place] [address] Nov, Type 2 [place] [address] without complication, 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 ; Normocytic anemia D64.9 and History of prostate cancer Z85.46 [place] [address] [place] Nov, [place] [address] [place] [address] [place] Nov, [place] [address] Nov, [place] [address] [place] [address] [place], [place] [address] [place] [address] [place] Oct, [place] [address] [place] [address] [place] Oct, Type 2 [place] [address] without complication, unspecified whether fci insulin use E11.9 ; Elevated serum creatinine R79.89 ; Hyperkalemia E87.5 ; Hypocalcemia E83.51 ; Screening, lipid Z13.220 ; Age-related incipient cataract of both eyes H25.093 ; Screening for colon cancer Z12.11 and Reduced ejection fraction concurrent with and due to acute heart failure I50.21 [place] [address] September, [place] [address] [place] [address] Aug, [place] [address] [place] [address] Aug, [place] [address] IMMUNIZATIONS No Known Immunizations SOCIAL HISTORY Never Assessed REASON FOR REFERRAL FUNCTIONAL STATUS PLAN OF CARE VITAL SIGNS MEDICATIONS Unknown Medications PROCEDURES No Known procedures RESULTS No Results REASON FOR VISIT cardiology Insurance Providers [facility] Member Patient Patient Patient Patient Patient Subscriber Subscriber Subscriber Group Insurance Plan Plan Plan Plan ID Relationship Address Phone Name Date of ID Name Date of No Type Insurance Insurance Insurance Coverage to Subscriber Address Phone Name Dates Todays [phone] Todays self Alon [id number] Options [place] 13 Options [place] [id number] Mcr Adv [place] Medicare National [id number] Medicare self Alon [id number] [facility] 41 PPS [place] Services u [address] [facility] [id number] Medicaid [phone] Medicaid self Alon [id number] [facility] [address] [place] [address] u WellCare [address] WellCare self Alon [id number] [place] 9255 Attn 83 GG495 [place] Hplex Mcr Claims Hplex Mcr [place] [address] Todays [address] Todays self Alon [id number] Option [id number] Option [place] MCRAdv [facility] MCRAdv u AmProg Med [id number] AmProg Med WellCare [phone] WellCare self [place] [id number] [id number] [place] PPO [place] Mcr Adv [place] Mcr Adv u Medical [id number] Medical Medicare National [id number] Medicare self Alon [id number] PPS [place] [address] PPS [facility] Services u [address] [place] [id number] Case [phone] Case self Alon [id number] Management [place] Management [facility] [id number] [place] [address] MEDICAL (GENERAL) HISTORY Type Description Date Medical [...]
--- OUTSIDE RECORDS SUMMARY | 2019-04-09 20:42 | XMS REPORT ---
:1940 Author Organization [facility] Care Team Providers Name Role Phone Roshan Amaya Unavailable Unavailable PROBLEMS Type Condition ICD9-CM [id number] Onset Condition SNOMED Code Code Code Dates Status Problem Pacemaker Z95.0 Active 140915462 Problem Normocytic anemia D64.9 Active 058714413 Problem Ischemic I25.5 Active 951300856 cardiomyopathy Problem Age-related H25.093 Active 892025266 incipient cataract of both eyes Problem Low back pain M54.5 Active 643269416 Problem FCI current Z79.4 Active 906199926 use of insulin Problem History of Z85.46 Active 797692279 prostate cancer Problem Stage 3 chronic N18.3 Active 278985125 kidney disease Problem Essential I10 Active 13186761 hypertension 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 34136322157329554 iliac artery Problem Other chronic pain G89.29 Active 41632743 Problem Type 2 diabetes E11.9 Active 188393930 mellitus without complications Problem Morbid (severe) E66.01 Active 15156474221780 obesity due to excess calories Problem Body mass index Z68.42 Active 904724629 (BMI) of 45.0-49.9 in adult ALLERGIES No Information ENCOUNTERS Encounter Location Date Diagnosis [place] [address], [place] [address] [facility] - Resource - UNKNOWN Mar, [facility] [address] Mar, [place] [address] Case Management [address] [place], [place] [id number] [place] [address] Feb, [place] [address] fissure surface penetrating into pulp K02.[address] [place] [address] Feb, [place] [address] Case Management [address] [place], [place] [address] [facility] [address] Feb, [place] [address] [facility] [address] Feb, [place] [address] [place] [facility] [address] [place], [place] [address] [facility] [address] Feb, Normocytic anemia D64.9 [place] [address] [facility] [address] Feb, [place] [address] [place] [address] Feb, Risk for falls Z91.81 ; [place] [address] Encounter for immunization Z23 ; Essential hypertension I10 ; Normocytic anemia D64.9 and Stage 3 chronic kidney disease N18.3 [facility] [address] Feb, [place] [address] [facility] [address] [facility] Jan, [address] Jan, [place] [address] [facility] [address] [facility] Jan, [address] [place] [address] [address] Jan, [place] [address] Jan, [place] [address] Jan, [place] [address] [facility] [place] [address] [facility] Jan, [place] [address] [facility] [address] [facility] Jan, [address] [place] [address] Jan, [place] [address] Jan, Essential hypertension I10 [place] [address] ; Risk for falls Z91.81 ; Hyponatremia E87.1 and Stage 3 chronic kidney disease N18.3 [facility] [address] Jan, [place] [address] [facility] [address] Jan, [place] [address] [facility] [address] Jan, [place] [address] R79.89 ; Abrasion hand S60.519A and Abrasion hip/leg S80.819A [facility] - Resource - [place] [address] [facility] Jan, [place] [address] [facility] [address] [facility] [address] Jan, 2019 [place] [address] Jan, [place] [address] Jan, Hyponatremia E87.1 [place] [address] Jan, Hyponatremia E87.1 [place] [address] Normocytic anemia D64.[address] Jan, [place] [address] Dec, [place] [address] [facility] [address] [place] [address] Dec, [place] [address] [facility] [address] [place] [address] Dec, [place] [address] Dec, Type 2 [place] [address] without complications E11.9 ; Essential hypertension I10 ; Hyponatremia E87.1 and Wheezing R06.[address] Dec, Type 2 [place] [address] without complications E11.9 and FCI 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 Z79.4 [facility] - Resource - [place] [address] [facility] Dec, [place] [address] Dec, [place] [address] Dec, [place] [address] [facility] [address] [place] [address] Dec[place] [address] [facility] - Resource - [place] [address] [facility] Dec, [place] [address] Dec, [place] [address] [facility] - [facility] - [place] [address] [facility] Dec, [place] [address] [facility] [address] [facility] Dec, [place] [address] [facility] [place] [address] [facility] Dec, [place] [address] [place] [address] Dec, [place] [address] [facility] [address] Dec, Right hip pain M25.551 ; [place] [address] risk for fall due to comorbid condition Z91.81 ; Food insecurity Z59.4 ; Limited mobility Z74.09 and Type 2 diabetes mellitus without complications E11.9 [facility] - [facility] [place] [address] Dec, [place] [address] [facility] [address] Nov, [place] [address] [facility] [address] [place], [place] [address] [facility] [address] [facility] Oct, [place] [address] [facility] [address] [facility] Oct, [place] [address] [facility] [address] September, Type 2 [place] [address] without complications E11.9 ; Screening for colon cancer Z12.11 and Aneurysm of left leg I72.4 [facility] [address] September, [place] [address] [facility] [address] September, Type 2 [place] [address] without complications E11.9 and long term 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 Z79.4 [facility] [address] September, [place] [address] [facility] [address] September, [place] [address] [facility] [address] Aug, [place] [address] [facility] [address] Aug, [place] [address] [facility] [address] [facility] Jul, [place] [address] [facility] [address] Jul, [place] [address] [facility] [address] Jul, [place] [address] [facility] [address] [facility] Jul, [place] [address] [facility] [address] Jun, [place] [address] [facility] [address] [facility] Jun, Type 2 diabetes mellitus [place] without complications E11.9 [address] [place] [address] Jun, Type 2 [place] [address] without complication, unspecified whether nursing home insulin use E11.9 and long term 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 Z79.4 [facility] [address] Jun, Type 2 [place] [address] without complications E11.9 [facility] [address] Jun, [place] [address] Jun, [place] [address] [place] [address] Jun, [place] [address] extremity M79.[address] Jun, [facility] [place] [address] [facility] [address] Jun, [place] [address] Jun, [place] [address] May, [facility] [place] [address] May, [place] [address] May, [place] [address] May, Hyponatremia E87.1 [place] [address] Apr, [place] [address] [place] [address] Apr, Type 2 [place] [address] without complications E11.9 ; Stage 3 chronic kidney disease N18.3 and Overgrown toenails L60.[address] Apr, [place] [address] [facility] [address] Apr, [place] [address] infection, unspecified J06.9 [place] [address] Mar, Type 2 [place] [address] without complication, unspecified whether [employer] customer service insulin use E11.9 and [facility]CI 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 Z79.[address] Mar, [place] [address] [place] [address] [facility] Mar, [place] [address] [facility] [address] Feb, [place] [address] R79.89 [facility] [address] Feb, Anemia, [place] [address] D64.9 ; Elevated serum creatinine R79.89 and Encounter for immunization Z23 [facility] [address] [place], Feb, [place] [address] [facility] [address] [place], [place], [place] [address] [facility] [address] Feb, [place] [address] [facility] [address] [facility] [address] [place], Feb, Type 2 [place] [address] without complication, unspecified whether [employer] customer service insulin use E11.9 and [facility]CI 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 Z79.4 [facility] [address] [place] [address] Feb, [place] [address] [place] [address] Jan, [place] [address] Jan, Type 2 [place] [address] without complications E11.9 and History of prostate cancer Z85.[address] Jan, [place] [address] [place] [address] Jan, [place] [address] Jan, Type 2 [place] [address] without complication, unspecified whether nursing home insulin use E11.9 and long term 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 Z79.[address] Jan, Type 2 diabetes mellitus [place] without complication, [address] unspecified whether [employer] customer [employer] insulin use E11.9 [place] [address] Jan, [place] [address] [facility] [address] Dec, [place] [address] [place] [address] Dec, [place] [address] [place] [address] Dec, [place] [address] hyperthyroidism E05.80 [place] [address] Dec, Type 2 [place] [address] without complications E11.9 ; Morbid (severe) obesity due to excess calories E66.01 ; Body mass index (BMI) of 45.0-49.9 in adult Z68.42 and Reduced ejection fraction concurrent with and due to acute heart failure I50.[address] Dec, [place] [address] [place] [address] Nov, Normocytic anemia D64.9 [place] [address] Hyponatremia E87.1 [place] [address] Nov, [place] [address] [place] [address] Nov, Type 2 [place] [address] without complications E11.9 ; long term 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 Z79.4 ; Low back pain M54.5 ; Other chronic pain G89.29 ; Vision changes H53.9 ; Morbid (severe) obesity due to excess calories E66.01 and Body mass index (BMI) of 45.0-49.9 in adult Z68.[address] Nov, [place] [address] Nov, Reduced ejection fraction [facility] [place] [address] acute heart failure I50.[address] Nov, Anemia, unspecified type [place] D64.9 [address] Nov, Normocytic anemia D64.9 [place] [address] Nov, Type 2 [place] [address] without complication, unspecified whether [employer] customer service insulin use E11.9 ; Normocytic anemia D64.9 and History of prostate cancer Z85.46 [place] [address] Nov, [place] [address] [place] [address] [place] [address] Nov, [facility] [place] [address] [place] [address] Oct[place] [address] [place] [address] Oct, [place] [address] [facility] [address] Oct, Type 2 [place] [address] without complication, unspecified whether [employer] customer service insulin use E11.9 ; Elevated serum creatinine R79.89 ; Hyperkalemia E87.5 ; Hypocalcemia E83.51 ; Screening, lipid Z13.220 ; Age-related incipient cataract of both eyes H25.093 ; Screening for colon cancer Z12.11 and Reduced ejection fraction concurrent with and due to acute heart failure I50.21 [facility] [address] September, [place] [address] [facility] [address] Aug, [place] [address] [place] [address] Aug, [place] [address] IMMUNIZATIONS No Known Immunizations SOCIAL HISTORY Never Assessed REASON FOR REFERRAL FUNCTIONAL STATUS PLAN OF CARE VITAL SIGNS MEDICATIONS Medication Instructions Dosage Frequency Start End Duration Status Date Date Aspir-81 81 MG Orally Once a day 1 tablet 24h Active Vitamin D 1000 Orally Once a day 1 tablet 24h Active UNIT FreeStyle Lite - Device tid for as directed Jun, day(s) Active e11.2018 Jardiance 10 mg Orally Once a day 1 tablet 24h 90 Active Magnesium 500 mg Orally Once a day 1 tablet 24h Active with a meal Eliquis 5 MG Orally bid 12h Active BD Insulin intramuscularly as directed 24h Jun, day(s) Active Syringe 25G X daily 09/29 Amiodarone HCl Orally Once a day 1 tablet 24h Active 100 MG FreeStyle Lite In Vitro tid for as directed Jun, day(s) Active Test - e11.2018 Vitamin B12 1000 Orally Once a day 1 tablet 24h Active MCG MetFORMIN HCl ER Orally Once a day 2 tablet 24h 90 Active 500 mg with evening meal Nitroglycerin Sublingual every 5 1 tab(s) 30 day(s) Active 0.4 MG min as needed for chest pain (3 doses w/in 15min) Levemir 100 Subcutaneous daily 25 units in 24h Active UNIT/ML the morning and evening Isosorbide Orally Once a day 1 tablet in 24h Active Mononitrate ER the morning 60 MG Carvedilol 25 MG Orally twice a day 1 tablet 12h Active Ferrous Sulfate Orally Once a day 1 tablet 24h Feb, day(s) Active 325 (65 Fe) MG 2018 Tamsulosin HCl Orally daily 2 capsules 24h 90 Active 0.4 MG D3-1000 1000 Orally Once a day 1 capsule 24h Active UNIT Pravastatin Orally Once a day 1 tablet 24h 30 Active Sodium 80 mg PROCEDURES Procedure Date Ordered Result Body Site RESIN COMPOS - 2 SURFACES POSTERIOR Apr 05, 2019 RESULTS No Results REASON FOR VISIT Insurance Providers [facility] Health Member Patient Patient Patient Patient Patient Subscriber Subscriber Subscriber Group Insurance Plan Plan Plan Plan ID Relationship Address Phone Name Date of ID Name Date of No Type Insurance Insurance Insurance Coverage to Subscriber Address Phone Name Dates Case [phone] Case self [place] [id number] Management [place] 02 [facility] [address] [facility] u Well[facility] [phone] Well[employer] self [place] [id number] [phone] [place] 9255 Attn 83 [id number] [place] PPO Hplex Mcr Claims Hplex Mcr u Adv Dept Adv [facility] [address] [place] [phone] [place] self Alon [id number] Option [id number] Option [place] MCRAdv [facility] MCRAdv u AmProg Med [id number] AmProg Med Medicare [place] [phone] Medicare self [place]on [id number] PPS Government 41 PPS [place] Services u [address] [facility] [id number] WellCare [phone] WellCare self [place] [id number] [id number] [place] PPO [place] Mcr Adv [facility] Mcr Adv u Medical [id number] Medical Medicare [place] [phone] Medicare self [place] [id number] PPS Government 41 PPS [place] Services u [address] [facility] [id number] Medicaid [id number] [phone] Medicaid self [place] [id number] [facility] [address] [place] [address] u [place] [address] [phone] [place] self [place] [id number] Options [place] 13 Options [place] Mcr Adv [id number] Mcr Adv u [place] MEDICAL (GENERAL) HISTORY Type Description Date Medical [...]
--- OUTSIDE RECORDS SUMMARY | 2019-04-09 20:42 | XMS REPORT ---
:1940 Author Organization [facility] Address [address] [place] [address] Care Team Providers Name Role Phone Kory Toribio Unavailable Unavailable PROBLEMS Type Condition ICD9-CM [id number] Onset Condition SNOMED Code Code Code Dates Status Problem Pacemaker Z95.0 Active 734813105 Problem Normocytic anemia D64.9 Active 545339991 Problem Ischemic I25.5 Active 334593745 cardiomyopathy Problem Age-related H25.093 Active 891028454 incipient cataract of both eyes Problem Low back pain M54.5 Active 130087600 Problem [facility] current Z79.4 Active 474687822 use of insulin Problem History of Z85.46 Active 117172061 prostate cancer Problem Stage 3 chronic N18.3 Active 528058145 kidney disease Problem Essential I10 Active 18511224 hypertension 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 [id number] iliac artery Problem Other chronic pain G89.29 Active 87079545 Problem Type 2 diabetes E11.9 Active 176346434 mellitus without complications Problem Morbid (severe) E66.01 Active 90037669941076 obesity due to excess calories Problem Body mass index Z68.42 Active 081682125 (BMI) of 45.0-49.9 in adult ALLERGIES No Information ENCOUNTERS Encounter Location Date Diagnosis [facility] [address] [place], [place] [address] [facility] - UNKNOWN [place], [facility] [address] [place], [place] [address] Case Management [address] [place], [place] [address] [facility] [address] Feb, [place] [address] Case Management [address] [place], [place] [address] [facility] [address], [place] [address] [facility] [address] Feb, [place] [address] [facility] [address] [facility] [place], [place] [address] [facility] [address] Feb, Normocytic anemia D64.9 [place] [address] [facility] [address] Feb, [place] [address] [facility] [address] Feb, Risk for falls Z91.81 ; [place] [address] Encounter for immunization Z23 ; Essential hypertension I10 ; Normocytic anemia D64.9 and Stage 3 chronic kidney disease N18.3 [facility] [address] Feb, [place] [address] [facility] [facility] Jan, [address] Jan, [place] [address] [facility] [facility] Jan, [address] Jan, [place] [address] [facility] [address] Jan, [place] [address] [facility] [address] Jan, [place] [address] [facility] [place] [address] Jan, [place] [address] [facility] [facility] Jan, [address] Jan, [place] [address] [facility] [address] Jan, Essential hypertension I10 [place] [address] ; Risk for falls Z91.81 ; Hyponatremia E87.1 and Stage 3 chronic kidney disease N18.3 [facility] [address] Jan, [place] [address] [facility] [address] Jan, [place] [address] [facility] [address] Jan, [place] [address] R79.89 ; Abrasion hand S60.519A and Abrasion hip/leg S80.819A [facility] [place] [address] [facility] [address] Jan, 2019 [place] [address] [facility] [address] [facility] [place] [place] Jan, [place] [address] Jan, [place] [address] Jan, Hyponatremia E87.1 [place] [address] Jan, Hyponatremia E87.1 [place] [address] Normocytic anemia D64.[address] Jan, [place] [address] [facility] [address] [place] [address] Dec, [place] [address] [place] [address] [place] [address] Dec, [place] [address] [facility] [address] [facility] Dec, [place] [address] Dec, Type 2 [place] [address] without complications E11.9 ; Essential hypertension I10 ; Hyponatremia E87.1 and Wheezing R06.[address] Dec, Type 2 [place] [address] without complications E11.9 and terminal manager 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 Z79.4 [facility] [place] [address] Dec, [place] [address] Dec, [place] [address] Dec, [place] [address] [facility] [address] [facility] Dec, [place] [address] [facility] [place] [address] [facility] Dec, [place] [address] [facility] [address] [place] [address] Dec, [place] [address] [facility] [place] [address] [facility] Dec, [place] [address] [facility] [address] [facility] Dec, [place] [address] [facility] [place] [address] [facility] Dec, [place] [address] [facility] [address] [facility] Dec, [place] [address] [facility] [address] Dec, Right hip pain M25.551 ; [place] [address] risk for fall due to comorbid condition Z91.81 ; Food insecurity Z59.4 ; Limited mobility Z74.09 and Type 2 diabetes mellitus without complications E11.9 [facility] [place] [address] Dec, [place] [address] [facility] [address] Nov, [place] [address] [facility] [address] Nov, [place] [address] [facility] [address] [facility] Oct, [place] [address] [facility] [address] [facility] Oct, [place] [address] [facility] [address] September, Type 2 [place] [address] without complications E11.9 ; Screening for colon cancer Z12.11 and Aneurysm of left leg I72.4 [facility] [address] September, [place] [address] [facility] [address] September, Type 2 [place] [address] without complications E11.9 and terminal manager 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 Z79.4 [facility] [address] September, [place] [address] [facility] [address] September, [place] [address] [facility] [address] Aug, [place] [address] [facility] [address] Aug, [place] [address] [facility] [address] [place] [address] Jul, [place] [address] [facility] [address] Jul, [place] [address] [facility] [address] Jul, [place] [address] [facility] [address] [facility] Jul, [place] [address] [facility] [address] Jun, [place] [address] [facility] [facility] Jun, Type 2 diabetes mellitus [place], [place] without complications E11.9 [address] [facility] [address] Jun, Type 2 [place] [address] without complication, unspecified whether fci insulin use E11.9 and terminal manager 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 Z79.4 [facility] [address] Jun, Type 2 [place] [address] without complications E11.9 [facility] [address] Jun, [place] [address] [facility] [address] [place] [address] Jun, [place] [address] [facility] [address] Jun, [place] [address] extremity M79.[address] Jun, [facility] [place] [address] [facility] [address] Jun, [place] [address] [facility] [address] Jun, [place] [address] May, [place] [address] May, [place] [address] May, [place] [address] [place] [address] May, Hyponatremia E87.1 [place] [address] Apr, [place] [address] [facility] [address] [place] [address] Apr, Type 2 [place] [address] without complications E11.9 ; Stage 3 chronic kidney disease N18.3 and Overgrown toenails L60.[address] Apr, [place] [address] [facility] [address] Apr, [place] [address] infection, unspecified J06.9 [facility] [address] Mar, Type 2 [place] [address] without complication, unspecified whether long term care social worker insulin use E11.9 and terminal manager 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 Z79.4 [facility] [address] [place], [place] [address] [place], [place] [address] [facility] [address] Feb, [place] [address] R79.89 [place] [address] Feb, [place]emia, [place] [address] D64.9 ; Elevated serum creatinine R79.89 and Encounter for immunization Z23 [facility] [address] [place], Feb, [place] [address] [facility] [place] [facility] [address] [place], [place] [address] [place] [address] Feb, [place] [address] [facility] [address] [facility] [address] [place], Feb, Type 2 [place] [address] without complication, unspecified whether fci insulin use E11.9 and terminal manager 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 Z79.4 [facility] [address] [facility] Feb, [place] [address] [place] [address] Jan, [place] [address] Jan, Type 2 [place] [address] without complications E11.9 and History of prostate cancer Z85.46 [place] [address] Jan, [place] [address] [place] [address] Jan, [place] [address] Jan, Type 2 [place] [address] without complication, unspecified whether long term care social worker insulin use E11.9 and terminal manager 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 Z79.4 [facility] [address] [place] [address] Jan, Type 2 diabetes mellitus [place] without complication, [address] unspecified whether fci insulin use E11.9 [place] [address] Jan, [place] [address] [place] [address] [place], [place] [address] [place] [address] Dec, [place] [address] [place] [address] Dec, [place] [address] hyperthyroidism E05.80 [place] [address] Dec, Type 2 [place] [address] without complications E11.9 ; Morbid (severe) obesity due to excess calories E66.01 ; Body mass index (BMI) of 45.0-49.9 in adult Z68.42 and Reduced ejection fraction concurrent with and due to acute heart failure I50.[address] Dec, [place] [address] [place] [address] Nov, Normocytic anemia D64.9 [place] [address] Hyponatremia E87.1 [place] [address] Nov, [place] [address] [place] [address] Nov, Type 2 [place] [address] without complications E11.9 ; [facility]CI 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 Z79.4 ; Low back pain M54.5 ; Other chronic pain G89.29 ; Vision changes H53.9 ; Morbid (severe) obesity due to excess calories E66.01 and Body mass index (BMI) of 45.0-49.9 in adult Z68.42 [place] [address] Nov, [place] [address] Nov, Reduced ejection fraction [place] concurrent [place] [address] acute heart failure I50.[address] Nov, Anemia, unspecified type [place] D64.9 [address] [place] [address] Nov, Normocytic anemia D64.9 [place] [address] Nov, Type 2 [place] [address] without complication, unspecified whether long term care social worker insulin use E11.9 ; Normocytic anemia D64.9 and History of prostate cancer Z85.46 [place] [address] Nov, [place] [address] [place] [address] Nov, [place] [address] Nov, [place] [address] [place] [address] [place], [place] [address] [place] [address] Oct, [place] [address] [place] [address] Oct, Type 2 [place] [address] without complication, unspecified whether fci insulin use E11.9 ; Elevated serum creatinine R79.89 ; Hyperkalemia E87.5 ; Hypocalcemia E83.51 ; Screening, lipid Z13.220 ; Age-related incipient cataract of both eyes H25.093 ; Screening for colon cancer Z12.11 and Reduced ejection fraction concurrent with and due to acute heart failure I50.21 [place] [address] September, [place] [address] [place] [address] Aug, [place] [address] [place] [address] Aug, [place] [address] IMMUNIZATIONS No Known Immunizations SOCIAL HISTORY Never Assessed REASON FOR REFERRAL FUNCTIONAL STATUS PLAN OF CARE VITAL SIGNS MEDICATIONS Medication Instructions Dosage Frequency Start End Date Duration Status Date Ferrous Sulfate Orally Once a day 1 tablet 24h Feb, day(s) Active 325 (65 Fe) MG 2018 PROCEDURES No Known procedures RESULTS No Results REASON FOR VISIT labs - mailed letter Insurance Providers [facility] Member Patient Patient Patient Patient Patient Subscriber Subscriber Subscriber Group Insurance Plan Plan Plan Plan ID Relationship Address Phone Name Date of ID Name Date of No Type Insurance Insurance Insurance Coverage to Subscriber Address Phone Name Dates [employer] [phone] [employer] self Alon [id number] [place] [id number] [place] Hplex Mcr Claims Hplex Mcr u Adv Dept Adv [facility] [id number] [place] [phone] [place] self [place]on [id number] Option [id number] Option [place] MCRAdv [facility] MCRAdv u AmProg Med [id number] AmProg Med Medicare [place] [id number] Medicare self Alon [id number] PPS [facility] 41 PPS [place] Services u [address] [facility] [id number] WellCare [phone] Well[employer] self [place] [id number] [id number] 63 [place] PPO [place] Mcr Adv [place] Mcr Adv u Medical [id number] Medical Medicaid [id number] Medicaid self Alon [id number] [facility] 00 [place] [address] u [place] [phone] [place] self [place] [id number] Options [place] 13 Options [place] Mcr Adv [id number] Mcr Adv u [place] Case [phone] Case self Alon [id number] Management [place] 02 Management [place] [facility] [address] [facility] Medicare [place] [phone] Medicare self [place] [id number] PPS [facility] 41 PPS [place] Services u [address] [facility] [id number] MEDICAL (GENERAL) HISTORY Type Description Date Medical [...]
--- OUTSIDE RECORDS SUMMARY | 2019-04-09 20:43 | XMS REPORT ---
:1940 Author Organization [facility] Address [address] [place] [address] Care Team Providers Name Role Phone Kory Toribio Unavailable Unavailable PROBLEMS Type Condition ICD9-CM [id number] Onset Condition SNOMED Code Code Code Dates Status Problem Pacemaker Z95.0 Active 746302264 Problem Normocytic anemia D64.9 Active 228026679 Problem Ischemic I25.5 Active 579368897 cardiomyopathy Problem Age-related H25.093 Active 138555798 incipient cataract of both eyes Problem Low back pain M54.5 Active 576301587 Problem half-way current Z79.4 Active 816716965 use of insulin Problem History of Z85.46 Active 791604649 prostate cancer Problem Stage 3 chronic N18.3 Active 627022569 kidney disease Problem Essential I10 Active 43872439 hypertension 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 [id number] iliac artery Problem Other chronic pain G89.29 Active 94276154 Problem Type 2 diabetes E11.9 Active 288553941 mellitus without complications Problem Morbid (severe) E66.01 Active 00567871411938 obesity due to excess calories Problem Body mass index Z68.42 Active 606822256 (BMI) of 45.0-49.9 in adult ALLERGIES No Information ENCOUNTERS Encounter Location Date Diagnosis [facility] [address] [place], [place] [address] [facility] - [facility] - UNKNOWN [place], [facility] [address] [place], [place] [address] Case Management [address] [place] [address] [facility] [address] Feb, [place] [address] Case Management [address] [place], [place] [address] [facility] [address] [facility] Feb, [place] [address] [facility] [address] [place] [address] [place], [place] [address] [facility] - [place] [address] [facility] Jan, [place] [address] [facility] [address] [facility] Jan, [place] [address] Jan, [place] [address] Jan, Essential hypertension I10 [place] [address] ; Risk for falls Z91.81 ; Hyponatremia E87.1 and Stage 3 chronic kidney disease N18.[address] Jan, [place] [address] Jan, [place] [address] Jan, [place] [address] R79.89 ; Abrasion hand S60.519A and Abrasion hip/leg S80.819A [facility] - [place] [address] [facility] Jan, [place] [address] [facility] [address] [facility] [address] Jan, 2019 [place] [address] Jan, [place] [address] Jan, Hyponatremia E87.1 [place] [address] Jan, Hyponatremia E87.1 [place] [address] Normocytic anemia D64.[address] Jan, [place] [address] [facility] [address] [facility] Dec, [place] [address] [facility] [address] [facility] Dec, [place] [address] [facility] [address] [facility] Dec, [place] [address] Dec, Type 2 [place] [address] without complications E11.9 ; Essential hypertension I10 ; Hyponatremia E87.1 and Wheezing R06.[address] Dec, Type 2 [place] [address] without complications E11.9 and half-way 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 Z79.4 [facility] - [place] [address] [facility] Dec, [place] [address] Dec, [place] [address] Dec, [place] [address] Dec, [place] [address] [facility] [place] [address] [facility] Dec, [place] [address] Dec, [place] [address] [facility] [place] [address] [facility] Dec, [place] [address] [facility] [address] [place] [address] Dec, [place] [address] [facility] - [place] [address] [facility] Dec, [place] [address] Dec, [place] [address] Dec, Right hip pain M25.551 ; [place] [address] risk for fall due to comorbid condition Z91.81 ; Food insecurity Z59.4 ; Limited mobility Z74.09 and Type 2 diabetes mellitus without complications E11.9 [facility] - [place] [address] [facility] Dec, [place] [address] Nov, [place] [address] Nov, [place] [address] Oct, [place] [address] Oct, [place] [address] September, Type 2 [place] [address] without complications E11.9 ; Screening for colon cancer Z12.11 and Aneurysm of left leg I72.[address] September, [place] [address] September, Type 2 [place] [address] without complications E11.9 and half-way 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 Z79.4 [place] [facility] [address] September, [place] [address] [facility] [address] September, [place] [address] [facility] [address] Aug, [place] [address] [facility] [address] Aug, [place] [address] [facility] [address] [place] [address] Jul, [place] [address] [facility] [address] Jul, [place] [address] [facility] [address] Jul, [place] [address] [facility] [address] [place] [address] Jul, [place] [address] [facility] [address] Jun, [place] [address] [facility] [address] [place] [address] Jun, Type 2 diabetes mellitus [place] without complications E11.9 [address] [facility] [address] Jun, Type 2 [place] [address] without complication, unspecified whether termite treater insulin use E11.9 and termination clerk 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 Z79.4 [facility] [address] Jun, Type 2 [place] [address] without complications E11.9 [facility] [address] Jun, [place] [address] [facility] [address] [place] [address] Jun, [place] [address] [facility] [address] Jun, [place] [address] extremity M79.[address] Jun, [facility] [address] [facility] [address] Jun, [place] [address] [facility] [address] Jun, [place] [address] May, [facility] MARTHA Fuchs [address] [facility] [address] [place] [address] May, [place] [address] May, [place] [address] May, Hyponatremia E87.1 [place] [address] Apr, [place] [address] Apr, Type 2 [place] [address] without complications E11.9 ; Stage 3 chronic kidney disease N18.3 and Overgrown toenails L60.[address] Apr, [place] [address] Apr, [place] [address] infection, unspecified J06.[address] Mar, Type 2 [place] [address] without complication, unspecified whether usp insulin use E11.9 and termination clerk 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 Z79.[address] Mar, [place] [address] Mar, [place] [address] Feb, Ele[place] [address] [address] Feb, Anemia, [place] [address] D64.9 ; Elevated serum creatinine R79.89 and Encounter for immunization Z23 [employer] [address] [place], Feb, [facility] [address] [employer] [address] [place], Feb, [facility] [address] Feb, [place] [address] [facility] [address] [facility] [address] [place], Feb, Type 2 [place] [address] without complication, unspecified whether termite treater insulin use E11.9 and half-way 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 Z79.4 [facility] [address] [place] [address] Feb, [place] [address] Jan, [place] [address] Jan, Type 2 [place] [address] without complications E11.9 and History of prostate cancer Z85.[address] Jan, [place] [address] Jan, [place] [address] Jan, Type 2 [place] [address] without complication, unspecified whether usp insulin use E11.9 and termination clerk 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 Z79.[address] Jan, Type 2 diabetes mellitus [place] without complication, [address] unspecified whether termite treater insulin use E11.[address] Jan, [place] [address] [place] [address] [place] Dec, [place] [address] Dec, [place] [address] Dec, [place] [address] hyperthyroidism E05.[address] Dec, Type 2 [place] [address] without complications E11.9 ; Morbid (severe) obesity due to excess calories E66.01 ; Body mass index (BMI) of 45.0-49.9 in adult Z68.42 and Reduced ejection fraction concurrent with and due to acute heart failure I50.[address] Dec, [place] [address] Nov, Normocytic anemia D64.9 [place] [address] Hyponatremia E87.[address] Nov, [place] [address] Nov, Type 2 [place] [address] without complications E11.9 ; half-way 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 Z79.4 ; Low back pain M54.5 ; Other chronic pain G89.29 ; Vision changes H53.9 ; Morbid (severe) obesity due to excess calories E66.01 and Body mass index (BMI) of 45.0-49.9 in adult Z68.[address] Nov, [place] [address] Nov, Reduced ejection fraction [place] concurrent with [place] [address] acute heart failure I50.21 [facility] [address] [place] [address] Nov, Anemia, unspecified type [address] [employer] D64.9 [address] [place] [address] [place] Nov, Normocytic anemia D64.9 [place] [address] [place] [address] [place] Nov, Type 2 [place] [address] without complication, unspecified whether usp insulin use E11.9 ; Normocytic anemia D64.9 and History of prostate cancer Z85.46 [place] [address] [place] Nov, [place] [address] [place] [address] [place] Nov, [place] [address] Nov, [place] [address] [place] [address] [place] Oct, [place] [address] [place] [address] [place] Oct, [place] [address] Oct, Type 2 [place] [address] without complication, unspecified whether termite treater insulin use E11.9 ; Elevated serum creatinine R79.89 ; Hyperkalemia E87.5 ; Hypocalcemia E83.51 ; Screening, lipid Z13.220 ; Age-related incipient cataract of both eyes H25.093 ; Screening for colon cancer Z12.11 and Reduced ejection fraction concurrent with and due to acute heart failure I50.21 [place] [address] [place] September, [place] [address] [place] [address] [place] Aug, [place] [address] [place] [address] [place] Aug, [place] [address] IMMUNIZATIONS No Known Immunizations SOCIAL HISTORY Never Assessed REASON FOR REFERRAL FUNCTIONAL STATUS PLAN OF CARE VITAL SIGNS MEDICATIONS Unknown Medications PROCEDURES No Known procedures RESULTS No Results REASON FOR VISIT Update pt Insurance Providers [facility] Health Member Patient Patient Patient Patient Patient Subscriber Subscriber Subscriber Group Insurance Plan Plan Plan Plan ID Relationship Address Phone Name Date of ID Name Date of No Type Insurance Insurance Insurance Coverage to Subscriber Address Phone Name Dates [employer] [phone] [employer] self [place] [id number] [id number] [place] Mcr Adv [place] Medical [id number] Medical Medicaid [address] [phone] Medicaid self [place] [id number] [facility] [address] [place] [address] u [place] [phone] [place] self [place] [id number] Option [id number] Option [place] MCRAdv [facility] MCRAdv u AmProg Med [id number] AmProg Med Medicare National [id number] Medicare self [place] [id number] PPS Government 41 PPS [place] Services u [address] [place] [id number] [place] [phone] Todays self [place] [id number] Options [place] 13 Options [place] Mcr Adv [address] Mcr Adv u [place] [phone] Case self [place] [id number] Management [place] 02 Management [place] [facility] [address] Community u Medicare National [id number] Medicare self [place] [id number] PPS Government 41 PPS [place] Services u [address] [place] [id number] WellCare [phone] Well[employer] self [place] [id number] [place] 9255 Attn 83 [id number] [place] Hplex Mcr Claims Hplex Mcr u Adv Dept Adv [facility] [address] MEDICAL (GENERAL) HISTORY Type Description Date Medical [...]
--- OUTSIDE RECORDS SUMMARY | 2019-04-09 20:43 | XMS REPORT ---
:1940 Author Organization [facility] Address [address] [place] [address] Care Team Providers Name Role Phone Kory Toribio Unavailable Unavailable PROBLEMS Type Condition ICD9-CM OCB80-GS Onset Condition SNOMED Code Code Code Dates Status Problem Pacemaker Z95.0 Active 187508623 Problem Normocytic anemia D64.9 Active 831765020 Problem Ischemic I25.5 Active 092171157 cardiomyopathy Problem Age-related H25.093 Active 221468951 incipient cataract of both eyes Problem Low back pain M54.5 Active 497630981 Problem longterm current Z79.4 Active 751589013 use of insulin Problem History of Z85.46 Active 749247650 prostate cancer Problem Stage 3 chronic N18.3 Active 024341042 kidney disease Problem Essential I10 Active 05400471 hypertension 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 65241378139279625 iliac artery Problem Other chronic pain G89.29 Active 01727112 Problem Type 2 diabetes E11.9 Active 247455659 mellitus without complications Problem Morbid (severe) E66.01 Active 93309924140352 obesity due to excess calories Problem Body mass index Z68.42 Active 691431191 (BMI) of 45.0-49.9 in adult ALLERGIES No Information ENCOUNTERS Encounter Location Date Diagnosis [facility] [address] [place], [place] [address] [facility] - Resource - UNKNOWN [place], [facility] [address] [place], [place] [address] Case Management [address] [place] [address] [facility] [address] Feb, [place] [address] Case Management [address] [place], [place] [address] [facility] [address] [facility] Feb, [place] [address] [facility] [address] [facility] Jan, [place] [address] [facility] [address], [place] [address] [facility] [address], [place] [address] [facility] - Resource - [place] [address] [facility] Jan, [place] [address] [facility] [address] [facility] Jan, [place] [address] [facility] [address] Jan, [place] [address] [facility] [address] [facility] Jan, Essential hypertension I10 [place] [address] ; Risk for falls Z91.81 ; Hyponatremia E87.1 and Stage 3 chronic kidney disease N18.3 [place] Count Includes [facility] [address] [facility] Jan, [place] [address] [facility] [address] [facility] Jan, [place] [address] [facility] [address] [place] [address] Jan, Elev[place] [address] R79.89 ; Abrasion hand S60.519A and Abrasion hip/leg S80.819A [facility] - Resource - [place] [address] [facility] Jan, [place] [address] [facility] [address] [facility] [address] Jan, 2019 [place] [address] Jan, Elev[place] [address] Jan, Hyponatremia E87.1 [place] [address] Jan, Hyponatremia E87.1 [place] [address] Normocytic anemia D64.[address] Jan, [place] [address] [facility] [address] [facility] Dec, [place] [address] [facility] [address] [facility] Dec, [place] [address] [facility] [address] [facility] Dec, [place] [address] [place] [facility] [address] Dec, Type 2 [place] [address] without complications E11.9 ; Essential hypertension I10 ; Hyponatremia E87.1 and Wheezing R06.2 [facility] [address] [place] [address] Dec, Type 2 [place] [address] without complications E11.9 and termination clerk 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 Z79.4 [facility] - Resource - [place] [address] [facility] Dec, [place] [address] Dec, [place] [address] Dec, [place] [address] Dec, [place] [address] [facility] - Resource - [place] [address] [facility] Dec, [place] [address] Dec[place] [address] [facility] - [facility] - [address] Dec, [place] [address] Dec, [place] [address] [facility] - Resource - [address] Dec, [place] [address] Dec, [place] [address] Dec, Right hip pain M25.551 ; [place] [address] risk for fall due to comorbid condition Z91.81 ; Food insecurity Z59.4 ; Limited mobility Z74.09 and Type 2 diabetes mellitus without complications E11.9 [facility] - Resource - [place] [address] [facility] Dec, [place] [address] Nov, [place] [address] Nov, [place] [address] Oct, [place] [address] Oct, [place] [address] September, Type 2 [place] [address] without complications E11.9 ; Screening for colon cancer Z12.11 and Aneurysm of left leg I72.[address] September, [place] [address] [facility] [address] September, Type 2 [place] [address] without complications E11.9 and longterm 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 Z79.4 [place] [facility] [address] September, [place] [address] [facility] [address] September, [place] [address] [facility] [address] Aug, [place] [address] [facility] [address] Aug, [place] [address] Jul, [place] [address] [facility] [address] Jul, [place] [address] [facility] [address] Jul, [place] [address] [facility] [address] [place] [address] Jul, [place] [address] [facility] [address] Jun, [place] [address] [facility] [address] [place] [address] Jun, Type 2 diabetes mellitus [place] without complications E11.9 [address] [facility] [address] Jun, Type 2 [place] [address] without complication, unspecified whether penitentiary insulin use E11.9 and termination clerk 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 Z79.4 [facility] [address] Jun, Type 2 [place] [address] without complications E11.9 [facility] [address] Jun, [place] [address] [facility] [address] [place] [address] Jun, [place] [address] [facility] [address] Jun, [place] [address] extremity M79.89 Hugh Medina [address] Jun, [facility] MARTHA Fuchs [address] [facility] [address] Jun, [place] [address] [facility] [address] Jun, [place] [address] Hugh Medina [address] May, [facility] MARTHA Fuchs [address] May, [place] [address] May, [place] [address] May, Hyponatremia E87.1 [place] [address] Apr, [place] [address] Apr, Type 2 [place] [address] without complications E11.9 ; Stage 3 chronic kidney disease N18.3 and Overgrown toenails L60.[address] Apr, [place] [address] Apr, [place] [address] infection, unspecified J06.[address] Mar, Type 2 [place] [address] without complication, unspecified whether 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 insulin use 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.9 and longterm 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 Z79.[address] Mar, [place] [address] [place], [place] [address] Feb, [place] [address] [address] Feb, [place]emia, [place] [address] D64.9 ; Elevated serum creatinine R79.89 and Encounter for immunization Z23 [facility] [place] [facility] [address] [place], Feb, [facility] [address] [facility] [place] [facility] [address] [place], Feb, [facility] [address] [facility] [address] [place] [address] Feb, [place] [address] [facility] [address] [place] [address] Rd [place], Feb, Type 2 [place] [address] without complication, unspecified whether penitentiary insulin use E11.9 and termination clerk 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 Z79.[address] Feb, [place] [address] Jan, [place] [address] Jan, Type 2 [place] [address] without complications E11.9 and History of prostate cancer Z85.[address] Jan, [place] [address] Jan, [place] [address] Jan, Type 2 [place] [address] without complication, unspecified whether 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 insulin use E11.9 and longterm 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 Z79.[address] Jan, Type 2 diabetes mellitus [place] without complication, [address] unspecified whether 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 insulin use E11.[address] Jan, [place] [address] Dec, [place] [address] Dec, [place] [address] Dec, [place] [address] hyperthyroidism E05.[address] Dec, Type 2 [place] [address] without complications E11.9 ; Morbid (severe) obesity due to excess calories E66.01 ; Body mass index (BMI) of 45.0-49.9 in adult Z68.42 and Reduced ejection fraction concurrent with and due to acute heart failure I50.[address] Dec, [place] [address] Nov, Normocytic anemia D64.9 [place] [address] Hyponatremia E87.[address] Nov, [place] [address] Nov, Type 2 [place] [address] without complications E11.9 ; longterm 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 Z79.4 ; Low back pain M54.5 ; Other chronic pain G89.29 ; Vision changes H53.9 ; Morbid (severe) obesity due to excess calories E66.01 and Body mass index (BMI) of 45.0-49.9 in adult Z68.42 [place] [address] Nov, [place] [address] Nov, Reduced ejection fraction [place] [address] acute heart failure I50.21 [facility] [address] Nov, Anemia, unspecified [place] D64.9 [address] [place] [address] Nov, Normocytic anemia D64.9 [place] [address] [place] [address] Nov, Type 2 [place] [address] without complication, 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 whether 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 insulin use E11.9 ; Normocytic anemia D64.9 and History of prostate cancer Z85.46 [place] [address] Nov, [place] [address] [place] [address] Nov, [place] [address] Nov, [place] [address] [place] [address] Oct, [place] [address] [place] [address] Oct, [place] [address] [place] [address] Oct, Type 2 [place] [address] without complication, unspecified whether 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 insulin use E11.9 ; Elevated serum creatinine R79.89 ; Hyperkalemia E87.5 ; Hypocalcemia E83.51 ; Screening, lipid Z13.220 ; Age-related incipient cataract of both eyes H25.093 ; Screening for colon cancer Z12.11 and Reduced ejection fraction concurrent with and due to acute heart failure I50.21 [place] [address] September, [place] [address] [place] [address] Aug, [place] [address] [place] [address] Aug, [place] [address] IMMUNIZATIONS No Known Immunizations SOCIAL HISTORY Never Assessed REASON FOR REFERRAL FUNCTIONAL STATUS PLAN OF CARE VITAL SIGNS MEDICATIONS Unknown Medications PROCEDURES No Known procedures RESULTS No Results REASON FOR VISIT Home care information mailed. Insurance Providers [facility] Patient Patient Patient Patient Patient Subscriber Subscriber Subscriber Group Insurance Plan Plan Plan Plan ID Relationship Address Phone Name Date of ID Name Date of No Type Insurance Insurance Insurance Coverage to Subscriber Address Phone Name Dates Todays [phone] Todays self Alon [id number] Option [id number] Option [place] MCRAdv [facility] MCRAdv u AmProg Med [id number] AmProg Med Medicaid [phone] Medicaid self [place] [id number] [facility] [address] [place] [address] u WellCare [phone] WellCare self [place] [id number] [id number] [place] P[place] Mcr Adv [facility] Mcr Adv u Medical [id number] Medical Medicare National [id number] Medicare self [place] [id number] PPS Government 41 PPS [place] Services u [address] [place] [id number] Case [phone] Case self [place] [id number] Management [place] [address] [facility] [address] Count Includes [facility] u WellCare [phone] WellCare self [place]on [id number] [place] 9255 Attn 83 GG495 [place] Hplex Mcr Claims Hplex Mcr u Adv Dept Adv [facility] [address] Medicare National [id number] Medicare self [place] [id number] PPS Government 41 PPS [place] Services u [address] [place] [id number] Todays [phone] Todays self Alon [id number] Options [place] 13 Options [place] [id number] Mcr Adv u [place] MEDICAL (GENERAL) HISTORY Type Description Date Medical [...] HTN Medical History RBBB Medical History Pacemaker 2019 - BIV ICD Medical History Prostate Cancer [...]
--- OUTSIDE RECORDS SUMMARY | 2019-04-09 20:43 | XMS REPORT ---
:1940 Author Organization Formerly [facility] Address [address] [place] [address] Care Team Providers Name Role Phone Kory Toribio Unavailable Unavailable PROBLEMS Type Condition ICD9-CM AWI51-PL Onset Condition SNOMED Code Code Code Dates Status Problem Pacemaker Z95.0 Active 672815899 Problem Normocytic anemia D64.9 Active 295939238 Problem Ischemic I25.5 Active 447635098 cardiomyopathy Problem Age-related H25.093 Active 146349685 incipient cataract of both eyes Problem Low back pain M54.5 Active 130378442 Problem MCC current Z79.4 Active 912155773 use of insulin Problem History of Z85.46 Active 486190908 prostate cancer Problem Stage 3 chronic N18.3 Active 205321247 kidney disease Problem Essential I10 Active 97184537 hypertension 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 15341545501256847 iliac artery Problem Other chronic pain G89.29 Active 67644636 Problem Type 2 diabetes E11.9 Active 550407026 mellitus without complications Problem Morbid (severe) E66.01 Active 45568770870944 obesity due to excess calories Problem Body mass index Z68.42 Active 673219520 (BMI) of 45.0-49.9 in adult ALLERGIES No Information ENCOUNTERS Encounter Location Date Diagnosis Formerly [facility] [address] [place], [place] [address] [facility] - Resource - UNKNOWN [place], [facility] [address] [place], [place] [address] Case Management [address] [place] [address] Formerly [facility] [address], [place] [address] Case Management [address] [place], [place] [address] [place] [facility] [address], [place] [address] [facility] [address] Feb, [place] [address] [facility] [address] Jan, [place] [address] Count Includes [facility] [address], [place] [address] Count Includes [facility] [address] [place] [address] Count Includes [facility] [address], [place] [address] [facility] [address] [place], [place] [address] [facility] [address] [place], [place] [address] [facility] [address] [place], [place] [address] [facility] - Resource - [place] [address] [facility] Jan, [place] [address] Count Includes [facility] [address], [place] [address] [facility] [address] [place], [place] [address] [facility] [address] Jan, Essential hypertension I10 [place] [address] ; Risk for falls Z91.81 ; Hyponatremia E87.1 and Stage 3 chronic kidney disease N18.3 [place] [facility] [address], [place] [address] [facility] [address] [place], [place] [address] Formerly [facility] [address] [place] [address] Jan, [place] [address] R79.89 ; Abrasion hand S60.519A and Abrasion hip/leg S80.819A [facility] - Resource - [place] [address] [facility] Jan, [place] [address] [facility] [address] [facility] Jan, [place] [address] [place] [facility] [address] [facility] Jan, [place] [address] R79.89 [place] [facility] [address] Jan, Hyponatremia E87.1 [place] [address] [facility] [address] [place] [address] Jan, Hyponatremia E87.1 [place] [address] Normocytic anemia D64.[address] Jan, [place] [address] Count Includes [facility] [address] [place] [address] Dec, [place] [address] Count Includes [facility] [address] [place] [address] Dec, [place] [address] Count Includes [facility] [address] [place] [address] Dec, [place] [address] Dec, Type 2 [place] [address] without complications E11.9 ; Essential hypertension I10 ; Hyponatremia E87.1 and Wheezing R06.2 [facility] [address] [place] [address] Dec, Type 2 [place] [address] without complications E11.9 and MCC 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 Z79.4 [facility] Resource - [place] [address] [facility] Dec, [place] [address] Dec, [place] [address] Dec, [place] [address] Count Includes [facility] [address] [place] [address] Dec, [place] [address] [facility] Resource - [place] [address] [facility] Dec, [place] [address] Dec, [place] [address] [facility] - [facility] [place] [facility] Dec, [place] [address] Dec, [place] [address] [facility] - Resource - [place] [address] [facility] Dec, [place] [address] Dec, [place] [address] Dec, Right hip pain M25.551 ; [place] [address] risk for fall due to comorbid condition Z91.81 ; Food insecurity Z59.4 ; Limited mobility Z74.09 and Type 2 diabetes mellitus without complications E11.9 [facility] - Resource - [place] [address] Dec, [place] [address] Formerly [facility] [address] [place] [address] Nov, [place] [address] Nov, [place] [address] Count Includes [facility] [address] [facility] Oct, [place] [address] Count Includes [facility] [address] [place] [address] Oct, [place] [address] [facility] [address] September, Type 2 [place] [address] without complications E11.9 ; Screening for colon cancer Z12.11 and Aneurysm of left leg I72.4 [place] [facility] [address] September, [place] [address] [facility] [address] September, Type 2 [place] [address] without complications E11.9 and 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 [place] [facility] [address] September, [place] [address] [facility] [address] September, [place] [address] [facility] [address] Aug, [place] [address] [facility] [address] Aug, [place] [address] Jul, [place] [address] Former[facility] [address] Jul, [place] [address] Former[facility] [address] Jul, [place] [address] Jul, [place] [address] [facility] [address] Jun, [place] [address] Count Includes [facility] [address] [place] [address] Jun, Type 2 diabetes mellitus [place] without complications E11.9 [address] [facility] [address] Jun, Type 2 [place] [address] without complication, unspecified whether long term care administrator insulin use E11.9 and 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 [facility] [address] Jun, Type 2 [place] [address] without complications E11.9 [facility] [address] Jun, [place] [address] Count Includes [facility] [address] [place] [address] Jun, [place] [address] [facility] [address] Jun, [place] [address] extremity M79.89 Hugh Medina [address] Jun, [facility] [place] [address] Jun, [place] [address] [place] [address], [place] [address] May, [facility] Hugh Medina, [place] [address] May, [place] [address] May, [place] [address] May, Hyponatremia E87.1 [place] [address] Apr, [place] [address] Apr, Type 2 [place] [address] without complications E11.9 ; Stage 3 chronic kidney disease N18.3 and Overgrown toenails L60.[address] Apr, [place] [address] Apr, [place] [address] infection, unspecified J06.[address] Mar, Type 2 [place] [address] without complication, unspecified whether long term care administrator insulin use E11.9 and 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 [place], [place] [address] [place], [place] [address] Feb, [place] [address] [address] Feb, [place], [place] [address] D64.9 ; Elevated serum creatinine R79.89 and Encounter for immunization Z23 [facility] [employer] [address] [place], Feb, [place] [address] Alan Wolfe [employer] [address] [place], Feb, [facility] [address] [facility] [address] [place] [address] Feb, [place] [address] [facility] [address] [place], Feb, Type 2 [place] [address] without complication, unspecified whether detention insulin use E11.9 and 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 Feb, [place] [address] Jan, [place] [address] Jan, Type 2 [place] [address] without complications E11.9 and History of prostate cancer Z85.46 [place] [address] Jan, [place] [address] Jan, [place] [address] Jan, Type 2 [place] [address] without complication, unspecified whether long term care administrator insulin use E11.9 and MCC 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 Z79.[address] Jan, Type 2 diabetes mellitus [place] without complication, [address] unspecified whether detention insulin use E11.[address] Jan, [place] [address] Dec, [place] [address] Dec, [place] [address] Dec, [place] [address] hyperthyroidism E05.[address] Dec, Type 2 [place] [address] without complications E11.9 ; Morbid (severe) obesity due to excess calories E66.01 ; Body mass index (BMI) of 45.0-49.9 in adult Z68.42 and Reduced ejection fraction concurrent with and due to acute heart failure I50.[address] Dec, [place] [address] Nov, Normocytic anemia D64.9 [place] [address] Hyponatremia E87.[address] Nov, [place] [address] Nov, Type 2 [place] [address] without complications E11.9 ; MCC 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 Z79.4 ; Low back pain M54.5 ; Other chronic pain G89.29 ; Vision changes H53.9 ; Morbid (severe) obesity due to excess calories E66.01 and Body mass index (BMI) of 45.0-49.9 in adult Z68.[address] Nov, [place] [address] Nov, Reduced ejection fraction [place] [address] acute heart failure I50.21 Count Includes [facility] [address] [place] [address] Nov, Anemia, unspecified type [place], [place] D64.9 [address] Nov, Normocytic anemia D64.9 [place] [address] Nov, Type 2 [place] [address] without complication, unspecified whether detention insulin use E11.9 ; Normocytic anemia D64.9 and History of prostate cancer Z85.[address] Nov, [place] [address] Nov, [place] [address] Nov, [place] [address] Oct, [place] [address] Oct, [place] [address] Oct, Type 2 [place] [address] without complication, unspecified whether long term care administrator insulin use E11.9 ; Elevated serum creatinine R79.89 ; Hyperkalemia E87.5 ; Hypocalcemia E83.51 ; Screening, lipid Z13.220 ; Age-related incipient cataract of both eyes H25.093 ; Screening for colon cancer Z12.11 and Reduced ejection fraction concurrent with and due to acute heart failure I50.[address] September, [place] [address] [place] [address] Aug, [place] [address] [place] [address] Aug, [place] [address] IMMUNIZATIONS No Known Immunizations SOCIAL HISTORY Never Assessed REASON FOR REFERRAL FUNCTIONAL STATUS PLAN OF CARE VITAL SIGNS MEDICATIONS Unknown Medications PROCEDURES No Known procedures RESULTS No Results REASON FOR VISIT Appointment Insurance Providers [facility] Member Patient Patient Patient Patient Patient Subscriber Subscriber Subscriber Group Insurance Plan Plan Plan Plan ID Relationship Address Phone Name Date of ID Name Date of No Type Insurance Insurance Insurance Coverage to Subscriber Address Phone Name Dates Medicare National [id number] Medicare self Alon [id number] [facility] 41 PPS [employer] u [address] [place] [id number] Case [phone] Case self Alon [id number] Management [place] 02 Management [facility] [address] [facility] u Medicaid [id number] Medicaid self Alon [id number] [facility] [address] [place] [address] u Todays [phone] Todays self Alon [id number] Options [place] 13 Options [place] [address] Mcr Adv u [place] [facility] [address] WellCare self Al[place] [id number] [id number] 63 [place] P[place] Mcr Adv [place] Mcr Adv u Medical [address] Medical Medicare National [id number] Medicare self Alon [id number] [facility] Government 41 PPS [employer] Services u [address] [place] [id number] Todays [address] Todays self Alon [id number] Option [id number] Option [place] M[facility] MCRAdv u AmProg Med [address] AmProg Med WellCare [address] WellCare self Alon [id number] Sher[place] 9255 Att[address] 83 GG495 Sher[place] Hplex Mcr Claims Hplex Mcr u Adv Dept Adv [facility] [address] MEDICAL (GENERAL) HISTORY Type Description Date Medical [...]
--- OUTSIDE RECORDS SUMMARY | 2019-04-09 20:43 | XMS REPORT | Continuity of Care Document ---
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 Problems Active Problems Provider Date Automatic implantable [...] Former Cigarette Smoker Unknown Smoking Status Reviewed: 02/11/19 Former Cigarette Smoker ETOH Use Occasionally consumes alcohol ETOH Use Denies alcohol use Tobacco Use Start: Unknown End: Patient is a former smoker Unknown Recreational Drug Use Denies Drug Use Exercise Type/Frequency Does not exercise Allergies, Adverse Reactions, Alerts Active Allergies Reaction Severity Comments Date NKDA 11/12/2015 Inactive Allergies Garlic 11/09/2006 Medications Active Medications SIG Qnty Indications Ordering Provider Date Jardiance 10mg by mouth 90tabs Other Ordering 04/26/2018 10mg Tablets daily Provider Nitroglycerin 1 sl q5mins x3 25tabs John Graf 08/01/2016 0.4mg as needed for Andreas Edmond Tablets Sub chest pain Amiodarone HCL 1 tablet by 90tabs John Graf 11/12/2015 100mg mouth daily Andreas Edmond Tablets five days a week. Pravachol One PM 30tabs John Graf 08/11/2007 80mg Tablets Andreas Edmond Aspir-81 1 by mouth 30tabs John Graf 11/02/[address] every day Andreas Edmond Multi-Vitamins 1 PO qd John Graf 11/02/2006 Tablets Andreas Edmond Vitamin B12 1 po qd Unknown 1500mcg Tablets ER Tamsulosin HCL 2 po qd 90caps Unknown 0.4mg Capsules Glipizide ER 1 po qd 180tabs Unknown 5mg Tablets ER 24HR Carvedilol take 1 mouth 180tabs Qian Montes De Oca, 25mg Tablets twice daily N.P. Vitamin D-3 1 by mouth John Graf 1000Unit every day Andreas Edmond Capsules Isosorbide Mononitrate 1 by mouth 90tabs Qian [place]es [place], ER every day N.P. 60mg Tablets ER 24HR Levemir 65 in the am, Unknown 100Unit/ML 60 in the pm Solution Metformin HCL 1 tablet am and Unknown 500mg 1 tablet pm due Tablets to BS drops Eliquis 1 by mouth 180tabs John Graf 5mg Tablets twice a day Andreas Edmond Magnesium Oxide 1 by mouth Unknown 250mg every day Tablets Medications Administered in Office Medication SIG Qnty Indications Ordering Provider Date Depomedrol 40MG Kari Lemus M.D. 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 Inj/Aspir Major JT Or Bursa W/ <pending> US Procedures Date Code Description Status 02/23/2019 56622 ECHO Transthoracic, Real-Time 2D With Doppler And Color Completed Flow 02/23/2019 08692 ECHO Transthoracic, Real-Time 2D With Doppler And Color Completed Flow 02/08/2019 69423 Interrogation Implant Cardiovasc Monitor System Incl Completed Analysis Int 02/08/2019 20837 Interrogation Implant Cardiovasc Monitor System Incl Completed Analysis Int 02/08/2019 84260 Icd Eval With Iterative Adjustmt Multiple Lead System Completed 02/08/2019 98354 Icd Eval With Iterative Adjustmt Multiple Lead System Completed 01/07/2019 24008 Icd Eval With Inerative Adjustmt Dual Lead System Completed 01/06/2019 38116 ECHO Transthorasic Realtime 2D W Doppler & Color Flow Hosp Completed 01/06/2019 37497 Interrogation Device Eval Remote Up To 30 Days Completed Analysis,Rev,RP 01/06/2019 54131 Icd Eval Sing,Dual,Multi Lead Remote Recpt Transm Tech Rev Completed Tech S 01/06/2019 08326 Icd Check Remote Up To 90 Days Single,Dual,Multiple Lead Completed 12/22/2018 35088 Inj/Aspir Major JT Or Bursa W/ US Completed 11/03/2018 22032 Echocardiogram, Limited Study Completed 11/03/2018 07905 Echocardiogram, Limited Study Completed Medical Devices Description No Information Available Encounters Type Date Location Provider Dx Diagnosis Office Visit 02/11/2019 [facility] Kari Lemus, M16.11 Unilateral primary 9:15a at [facility].Alee osteoarthritis, right hip M25.561 Pain in right knee Office Visit 01/10/2019 8:43a [facility] Temi Carmelo, R55 [facility],pc M.D. collapse Hospitalists E11.649 Type 2 diabetes mellitus with hypoglycemia without coma I50.22 Chronic systolic (congestive) heart failure Office Visit 01/09/2019 [facility] E11.649 Type 2 diabetes 8:42a spike Friedman M.D. mellitus with Hospitalists hypoglycemia without coma R55 Syncope and collapse Office Visit 01/08/2019 [facility] E11.649 Type 2 diabetes 8:42a Assspike trivedi M.D. mellitus with Hospitalists hypoglycemia without coma R55 Syncope and collapse Office Visit 01/07/2019 [facility] E11.649 Type 2 diabetes 8:42a spike Friedman M.D. mellitus with Hospitalists hypoglycemia without coma R55 Syncope and collapse I48.91 Unspecified atrial fibrillation Office Visit 01/06/2019 [facility] E11.649 Type 2 diabetes 8:41a spike Friedman M.D. mellitus with Hospitalists hypoglycemia without coma R55 Syncope and collapse Office Visit 12/22/2018 [facility] M16.11 Unilateral primary 10:00a Orthopedics at Andreas Lemus osteoarthritis, right [place] hip M17.0 Bilateral primary osteoarthritis of knee S83.411A Sprain of medial collateral ligament of right knee, init S83.412A Sprain of medial collateral ligament of left knee, init M25.551 Pain in right hip M25.561 Pain in right knee M25.562 Pain in left knee Assessments Date Code Description Provider 02/23/2019 R55 Syncope and collapse John Edmond M.D. 02/23/2019 R55 Syncope and collapse [facility] Schedule 02/23/2019 E11.649 Type 2 diabetes mellitus with [facility] Schedule hypoglycemia without coma 02/23/2019 I25.5 Ischemic cardiomyopathy [facility] Schedule 02/11/2019 M16.11 Unilateral primary osteoarthritis, [...] 01/10/2019 I50.22 Chronic systolic (congestive) heart Temi Rhoeds M.D. failure 01/09/2019 E11.649 Type 2 diabetes [...] Presence of automatic (implantable) Len Mckeon DO [facility] cardiac defibrillator 01/07/2019 R55 Syncope and collapse Anni Sanford M.D. 01/07/2019 R55 Syncope and collapse Len Mckeon, DO [facility] 01/07/2019 I48.91 Unspecified atrial fibrillation Anni Sanford M.D. 01/06/2019 E11.649 Type 2 diabetes mellitus with Anni Sanford M.D. hypoglycemia without coma 01/06/2019 R55 Syncope and collapse Len Mckeon, DO [facility] 01/06/2019 R55 Syncope and collapse Anni Sanford [...] Lemus M.D. 11/03/2018 I25.5 Ischemic cardiomyopathy John Edmnod M.D. 11/03/2018 I25.5 Ischemic cardiomyopathy [facility] Schedule Plan of Treatment Future Appointment(s):05/13/2019 9:45 am - Kari Lemus M.D. at [facility] at Ihtggz8002/11/2019 - Kari Lemus M.D.M16.11 Unilateral primary osteoarthritis, right hipFollow up:Follow up: 3 months for hip, as needed if knee does not nearvecM49.561 Pain in right knee Functional Status Description No Information Available Mental Status Description No Information Available Referrals Description No Information Available
--- OUTSIDE RECORDS SUMMARY | 2019-04-09 20:43 | XMS REPORT ---
:1940 Author Organization [facility] Address [address] [place] [address] Care Team Providers Name Role Phone Kory Toribio Unavailable Unavailable PROBLEMS Type Condition ICD9-CM XVS98-GT Onset Condition SNOMED Code Code Code Dates Status Problem Pacemaker Z95.0 Active 997008935 Problem Normocytic anemia D64.9 Active 652249801 Problem Ischemic I25.5 Active 680455325 cardiomyopathy Problem Age-related H25.093 Active 808696893 incipient cataract of both eyes Problem Low back pain M54.5 Active 056440276 Problem assisted current Z79.4 Active 772905342 use of insulin Problem History of Z85.46 Active 252674999 prostate cancer Problem Stage 3 chronic N18.3 Active 463373505 kidney disease Problem Essential I10 Active 78385075 hypertension 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 Problem Other chronic pain G89.29 Active 91829741 Problem Type 2 diabetes E11.9 Active 602776571 mellitus without complications Problem Morbid (severe) E66.01 Active 34240604132892 obesity due to excess calories Problem Body mass index Z68.42 Active 749494915 (BMI) of 45.0-49.9 in adult ALLERGIES No Information ENCOUNTERS Encounter Location Date Diagnosis [facility] [address] [place], [place] [address] [facility] - Resource - UNKNOWN [place], [facility] [address] [place], [place] [address] Case Management [address] [place], [place] [address] [facility] [address] Feb, [place] [address] Case Management [address] [place], [place] [address] [facility] [address] [facility] Feb, [place] [address] [facility] [address] [place] [address] Feb, [place] [address] Feb, Risk for falls Z91.81 ; [place] [address] Encounter for immunization Z23 ; Essential hypertension I10 ; Normocytic anemia D64.9 and Stage 3 chronic kidney disease N18.[address] Feb, [place] [address] [facility] [address] [facility] Jan, [place] [address] [facility] [address] [place] [address] Jan, [place] [address] [facility] [address] [facility] Jan, [place] [address] [place] [address] [place], [place] [address] Jan, [place] [address] Jan, [place] [address] [facility] - Resource - [place] [address] [place] [address] Jan, [place] [address] [facility] [address] [facility] Jan, [place] [address] Jan, [place] [address] Jan, Essential hypertension I10 [place] [address] ; Risk for falls Z91.81 ; Hyponatremia E87.1 and Stage 3 chronic kidney disease N18.[address] Jan, [place] [address] Jan, [place] [address] Jan, [place] [address] R79.89 ; Abrasion hand S60.519A and Abrasion hip/leg S80.819A [facility] - Resource - [place] [address] [facility] Jan, [place] [address] [facility] [address] [facility] [address] Jan, 2019 [place] [address] Jan, Elev[place] [address] Jan, Hyponatremia E87.1 [place] [address] Jan, Hyponatremia E87.1 [place] [address] Normocytic anemia D64.[address] Jan, [place] [address] Dec, [place] [address] [place] [address] Dec, [place] [address] Dec, [place] [address] [place] [address] Dec, Type 2 [place] [address] without complications E11.9 ; Essential hypertension I10 ; Hyponatremia E87.1 and Wheezing R06.[address] Dec, Type 2 [place] [address] without complications E11.9 and terminal supervisor 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 Z79.4 [facility] - Resource - [place] [address] [facility] Dec, [place] [address] Dec, [place] [address] Dec, [place] [address] Dec, [place] [address] [facility] - Resource - [place] [address] [facility] Dec, [place] [address] [place] [address] [facility] - Resource - [place] [address] [facility] Dec, [place] [address] Dec, [place] [address] [facility] - Resource - [place] [address] [facility] Dec, [place] [address] Dec, [place] [address] Dec, Right hip pain M25.551 ; [place] [address] risk for fall due to comorbid condition Z91.81 ; Food insecurity Z59.4 ; Limited mobility Z74.09 and Type 2 diabetes mellitus without complications E11.9 [facility] - [facility] - [place] [address] Dec, [place] [address] [facility] [address] Nov, [place] [address] [facility] [address] Nov, [place] [address] [facility] [address] [facility] Oct, [place] [address] [facility] [address] [place] [address] Oct, [place] [address] [facility] [address] September, Type 2 [place] [address] without complications E11.9 ; Screening for colon cancer Z12.11 and Aneurysm of left leg I72.4 [facility] [address] September, [place] [address] [facility] [address] September, Type 2 [place] [address] without complications E11.9 and terminal supervisor 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 Z79.4 [facility] [address] September, [place] [address] [facility] [address] September, [place] [address] [facility] [address] Aug, [place] [address] [facility] [address] Aug, [place] [address] [facility] [address] [place] [address] Jul, [place] [address] [facility] [address] [place], [place] [address] [facility] [address] [place] Jul, [place] [address] [facility] [address] [place] [address] Jul, [place] [address] [facility] [address] Jun, [place] [address] [facility] [address] [place] [address] Jun, Type 2 diabetes mellitus [place] without complications E11.9 [address] [place] [address] Jun, Type 2 [place] [address] without complication, 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 and assisted 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 Z79.4 [facility] [address] Jun, Type 2 [place] [address] without complications E11.[address] Jun, [place] [address] [facility] [address] [facility] Jun, [place] [address] Jun, [place] [address] extremity M79.89 [facility] [place] [address] Jun, [place] [address] Jun, [place] [address] Jun, [place] [address] May, [place] [address] May, [place] [address] [facility] [address] [place] [address] May, [place] [address] May, Hyponatremia E87.1 [place] [address] Apr, [place] [address] Apr, Type 2 [place] [address] without complications E11.9 ; Stage 3 chronic kidney disease N18.3 and Overgrown toenails L60.[address] Apr, [place] [address] Apr, [place] [address] infection, unspecified J06.[address] Mar, Type 2 [place] [address] without complication, 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 and assisted 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 Z79.[address] Mar, [place] [address] Mar, [place] [address] Feb, Ele[place] [address] [address] Feb, Anemia, [place] [address] D64.9 ; Elevated serum creatinine R79.89 and Encounter for immunization Z23 [facility] [address] [place], Feb, [place] [address] [facility] [address] [place], Feb, [place] [address] Feb, [place] [address] [facility] [address] [place], Feb, Type 2 [place] [address] without complication, 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 and terminal supervisor 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 Z79.[address] Feb, [place] [address] Jan, [place] [address] Jan, Type 2 [place] [address] without complications E11.9 and History of prostate cancer Z85.[address] Jan, [place] [address] Jan, [place] [address] Jan, Type 2 [place] [address] without complication, 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 and terminal supervisor 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 Z79.[address] Jan, Type 2 diabetes mellitus [place] without complication, [address] unspecified whether fpc insulin use E11.[address] Jan, [place] [address] Dec, [place] [address] Dec, [place] [address] Dec, [place] [address] hyperthyroidism E05.[address] Dec, Type 2 [place] [address] without complications E11.9 ; Morbid (severe) obesity due to excess calories E66.01 ; Body mass index (BMI) of 45.0-49.9 in adult Z68.42 and Reduced ejection fraction concurrent with and due to acute heart failure I50.[address] Dec, [place] [address] Nov, Normocytic anemia D64.9 [place] [address] Hyponatremia E87.1 [place] [address] [place] Nov, [place] [address] Nov, Type 2 [place] [address] without complications E11.9 ; terminal supervisor 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 Z79.4 ; Low back pain M54.5 ; Other chronic pain G89.29 ; Vision changes H53.9 ; Morbid (severe) obesity due to excess calories E66.01 and Body mass index (BMI) of 45.0-49.9 in adult Z68.[address] Nov, [place] [address] Nov, Reduced ejection fraction [place] concurrent with and [place] [address] acute heart failure I50.21 [facility] [address] [facility] Nov, Anemia, unspecified type [place] D64.9 [address] Nov, Normocytic anemia D64.9 [place] [address] Nov, Type 2 [place] [address] without complication, unspecified whether fpc insulin use E11.9 ; Normocytic anemia D64.9 and History of prostate cancer Z85.[address] Nov, [place] [address] Nov, [place] [address] Nov, [place] [address] Oct, [place] [address] Oct, [place] [address] Oct, Type 2 [place] [address] without complication, unspecified whether fpc insulin use E11.9 ; Elevated serum creatinine R79.89 ; Hyperkalemia E87.5 ; Hypocalcemia E83.51 ; Screening, lipid Z13.220 ; Age-related incipient cataract of both eyes H25.093 ; Screening for colon cancer Z12.11 and Reduced ejection fraction concurrent with and due to acute heart failure I50.21 [facility] [address] September, [place] [address] [facility] [address] Aug, [place] [address] [facility] [address] Aug, [place] [address] IMMUNIZATIONS Vaccine Route Administration Date Status [facility] Roro 3 yrs and older Quad IM Intramuscular Mar 03, 2019 Administered SOCIAL HISTORY Never Assessed REASON FOR REFERRAL FUNCTIONAL STATUS PLAN OF CARE Activity Details Follow Up 6 Weeks Reason:diabetes follow up Pending Test -Vision Screen VITAL SIGNS Temperature 98.2 degrees Fahrenheit 2019-03-03 Heart Rate 22 2019-03-03 Weight 196.5 2019-03-03 Height 58.5 in 2019-03-03 BMI 40.37 kg/m2 2019-03-03 Oximetry 96 % 2019-03-03 Blood pressure systolic 112 mm Hg 2019-03-03 Blood pressure diastolic 58 mm Hg 2019-03-03 MEDICATIONS Medication Instructions Dosage Frequency Start End Duration Status Date Date FreeStyle Lite - Device tid for as directed Jun, day(s) Active 2018 FreeStyle Lite In Vitro tid for as directed Jun, day(s) Active Test - [id number] MetFORMIN HCl ER Orally Once a day 2 tablet 24h 90 Active 500 mg with evening meal Isosorbide Orally Once a day 1 tablet in 24h Active Mononitrate ER the morning 60 MG Vitamin B12 1000 Orally Once a day 1 tablet 24h Active MCG D3-1000 1000 Orally Once a day 1 capsule 24h Active UNIT Amiodarone HCl Orally Once a day 1 tablet 24h Active 100 MG Levemir 100 Subcutaneous daily 25 units in 24h Active UNIT/ML the morning and evening Vitamin D 1000 Orally Once a day 1 tablet 24h Active UNIT Carvedilol 25 MG Orally twice a day 1 tablet 12h Active Eliquis 5 MG Orally bid 12h Active Nitroglycerin Sublingual every 5 1 tab(s) 30 day(s) Active 0.4 MG min as needed for chest pain (3 doses w/in 15min) Magnesium 500 mg Orally Once a day 1 tablet 24h Active with a meal Tamsulosin HCl Orally daily 2 capsules 24h 90 Active 0.4 MG Aspir-81 81 MG Orally Once a day 1 tablet 24h Active Jardiance 10 mg Orally Once a day 1 tablet 24h 90 Active BD Insulin intramuscularly as directed 24h Jun, day(s) Active Syringe 25G X daily 09/29 Pravastatin Orally Once a day 1 tablet 24h 30 Active Sodium 80 mg PROCEDURES Procedure Date Ordered Result Body Site VENIPUNCT, ROUTINE* venous blood collection Mar 03, 2019 Administration Influenza Medicare Only Mar 03, 2019 [facility] Roro 3 yrs and older Quad Mar 03, 2019 Visual acuity screen Mar 03, 2019 BODY MASS INDEX DOCD Mar 03, 2019 SMOKING + 2ND HAND ASSESSED Mar 03, 2019 Oxygen saturation results documented and reviewed Mar 03, 2019 BLOOD PRESSURE, MEASURED Mar 03, 2019 RESULTS Name Result Date Reference Range - Blood Draw Venipuncture 2019-03-03 COMPREHENSIVE METABOLIC PANEL 2019-03-03 GLUCOSE 299 65-99 UREA NITROGEN (BUN) 32 7-25 CREATININE 1.26 0.70-1.18 eGFR NON-AFR. VENEZUELAN 54 > OR = 60 eGFR 62 > OR = 60 BUN/CREATININE RATIO 25 6-22 SODIUM 134 135-146 POTASSIUM 4.6 3.5-5.3 CHLORIDE 105 98-110 CARBON DIOXIDE 23 20-32 CALCIUM 9.1 8.6-10.3 PROTEIN, TOTAL 6.1 6.1-8.1 ALBUMIN 3.9 3.6-5.1 GLOBULIN 2.2 1.9-3.7 ALBUMIN/GLOBULIN RATIO 1.8 1.0-2.5 BILIRUBIN, TOTAL 0.7 0.2-1.2 ALKALINE PHOSPHATASE 71 40-115 AST 14 10-35 ALT 16 9-46 IRON AND TOTAL IRON BINDING CAPACITY 2019-03-03 IRON, TOTAL 44 50-180 IRON BINDING CAPACITY 258 250-425 % SATURATION 17 20-48 CBC (INCLUDES DIFF/PLT) 2019-03-03 WHITE BLOOD CELL COUNT 7.0 3.8-10.8 RED BLOOD CELL COUNT 3.93 4.20-5.80 HEMOGLOBIN 12.7 13.2-17.1 HEMATOCRIT 38.1 38.5-50.0 MCV 96.9 80.0-100.0 MCH 32.2 27.0-33.0 MCHC 33.2 32.0-36.0 RDW 15.5 11.0-15.0 PLATELET COUNT 159 140-400 MPV 8.5 7.5-12.5 ABSOLUTE NEUTROPHILS 5264 6910-1212 ABSOLUTE LYMPHOCYTES [phone] ABSOLUTE MONOCYTES 707 200-950 ABSOLUTE EOSINOPHILS 91 15-500 ABSOLUTE BASOPHILS 42 0-200 NEUTROPHILS 75.2 38-80 LYMPHOCYTES 12.7 15-49 MONOCYTES 10.1 0-13 EOSINOPHILS 1.3 0-8 BASOPHILS 0.6 0-2 VITAMIN B12/FOLATE, SERUM PANEL 2019-03-03 VITAMIN B12 [phone] FOLATE, SERUM >24.0 FERRITIN 2019-03-03 FERRITIN 174 24-380 REASON FOR VISIT Blood Pressure Follow Up, PVP: Flu,Zoster-MW offer imms. MPT, Vision test. MPT, Orthostatics. MPT, agreed to the flu shot.CM Insurance Providers [facility] Health Member Patient Patient Patient Patient Patient Subscriber Subscriber Subscriber Group Insurance Plan Plan Plan Plan ID Relationship Address Phone Name Date of ID Name Date of No Type Insurance Insurance Insurance Coverage to Subscriber Address Phone Name Dates [employer] [address] [employer] self [place] [id number] [id number] Mcr Adv [facility] Mcr Adv u Medical [id number] Medical [place] [address] [place] self Alon [id number] Option [id number] Option [place] MCRAdv [facility] MCRAdv u AmProg Med [id number] AmProg Med Case [phone] Case self Alon [id number] Management [place] 02 Management [place] [facility] [address] [facility] u Medicare National [id number] Medicare self [place] [id number] PPS Government 41 PPS [place] Services u [address] [facility] [id number] WellCare [address] Well[employer] self [place]on [id number] [place] 9255 Attn 83 GG495 Cav[place] Hplex Mcr Claims Hplex Mcr u Adv Dept Adv [facility] [address] Medicaid [id number] [phone] Medicaid self [place] [id number] [facility] 00 [place] [address] u Medicare National [id number] Medicare self [place] [id number] PPS Government 41 PPS [place] Services u [address] [place] [id number] Todays [phone] Todays self Alon [id number] Options [place] 13 Options [place] Mc[place] [id number] Mcr Adv u [place] MEDICAL (GENERAL) HISTORY Type Description Date Medical [...]
--- OUTSIDE RECORDS SUMMARY | 2019-04-09 20:43 | XMS REPORT ---
:1940 Author Organization [facility] Address [address] [place] [address] Care Team Providers Name Role Phone Kory Toribio Unavailable Unavailable PROBLEMS Type Condition ICD9-CM SAG69-EJ Onset Condition SNOMED Code Code Code Dates Status Problem Pacemaker Z95.0 Active 510685087 Problem Normocytic anemia D64.9 Active 696229274 Problem Ischemic I25.5 Active 138836100 cardiomyopathy Problem Age-related H25.093 Active 050741246 incipient cataract of both eyes Problem Low back pain M54.5 Active 076826508 Problem long-term current Z79.4 Active 574076822 use of insulin Problem History of Z85.46 Active 265315747 prostate cancer Problem Stage 3 chronic N18.3 Active 525084384 kidney disease Problem Essential I10 Active 44111725 hypertension 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 [id number] iliac artery Problem Other chronic pain G89.29 Active 38998461 Problem Type 2 diabetes E11.9 Active 365759837 mellitus without complications Problem Morbid (severe) E66.01 Active 63632576139684 obesity due to excess calories Problem Body mass index Z68.42 Active 161498849 (BMI) of 45.0-49.9 in adult ALLERGIES No Information ENCOUNTERS Encounter Location Date Diagnosis [facility] [address] [place], [place] [address] [facility] - Resource - UNKNOWN [place], Formerly [facility] [address] [place], [place] [address] Case Management [address] [place], [place] [address] [facility] [address] Feb, [place] [address] Case Management [address] [place], [place] [address] [facility] [address] [facility] Feb, [place] [address] [facility] [address] [place] [address] [place], [place] [address] [facility] - Resource - [place] [address] [facility] Jan, [place] [address] [facility] [address] [place] [facility] Jan, [place] [address] Jan, [place] [address] Jan, Essential hypertension I10 [place] [address] ; Risk for falls Z91.81 ; Hyponatremia E87.1 and Stage 3 chronic kidney disease N18.[address] Jan, [place] [address] Jan, [place] [address] Jan, [place] [address] R79.89 ; Abrasion hand S60.519A and Abrasion hip/leg S80.819A [facility] - Resource - [place] [address] [facility] Jan, [place] [address] [facility] [address] [facility] [address] Jan, 2019 [place] [address] Jan, [place] [address] Jan, Hyponatremia E87.1 [place] [address] Jan, Hyponatremia E87.1 [place] [address] Normocytic anemia D64.[address] Jan, [place] [address] [facility] [address] [place] [facility] Dec, [place] [address] [facility] [address] [place] [facility] Dec, [place] [address] [facility] [address] [place] [facility] Dec, [place] [address] Dec, Type 2 [place] [address] without complications E11.9 ; Essential hypertension I10 ; Hyponatremia E87.1 and Wheezing R06.[address] Dec, Type 2 [place] [address] without complications E11.9 and long-term 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 Z79.4 [facility] - Resource - [place] [address] [facility] Dec, [place] [address] Dec, [place] [address] Dec, [place] [address] Dec, [place] [address] [facility] - Resource - [place] [address] [facility] Dec, [place] [address] Dec, [place] [address] [facility] - Resource - [place] [address] [facility] Dec, [place] [address] [facility] [address] [place] [address] Dec, [place] [address] [facility] - Resource - [place] [address] [facility] Dec, [place] [address] Dec, [place] [address] Dec, Right hip pain M25.551 ; [place] [address] risk for fall due to comorbid condition Z91.81 ; Food insecurity Z59.4 ; Limited mobility Z74.09 and Type 2 diabetes mellitus without complications E11.9 [facility] - Resource - [place] [address] [facility] Dec, [place] [address] Nov, [place] [address] Nov, [place] [address] Oct, [place] [address] Oct, [place] [address] September, Type 2 [place] [address] without complications E11.9 ; Screening for colon cancer Z12.11 and Aneurysm of left leg I72.[address] September, [place] [address] September, Type 2 [place] [address] without complications E11.9 and long-term 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 Z79.4 [place] [facility] [address] September, [place] [address] [facility] [address] September, [place] [address] [facility] [address] Aug, [place] [address] [facility] [address] Aug, [place] [address] [facility] [address] [place] [address] Jul, [place] [address] [facility] [address] Jul, [place] [address] [facility] [address] Jul, [place] [address] [facility] [address] [place] [address] Jul, [place] [address] [facility] [address] Jun, [place] [address] [facility] [address] [place] [address] Jun, Type 2 diabetes mellitus [place] without complications E11.9 [address] [facility] [address] Jun, Type 2 [place] [address] without complication, unspecified whether press tender long goods insulin use E11.9 and 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 Z79.4 [facility] [address] Jun, Type 2 [place] [address] without complications E11.9 [facility] [address] Jun, [place] [address] [facility] [address] [place] [address] Jun, [place] [address] [facility] [address] Jun, [place] [address] extremity M79.[address] Jun, [facility] [address] [facility] [address] Jun, [place] [address] [facility] [address] Jun, [place] [address] May, [facility] MARTHA Fuchs [address] [facility] [address] [place] [address] May, [place] [address] May, [place] [address] May, Hyponatremia E87.1 [place] [address] Apr, [place] [address] Apr, Type 2 [place] [address] without complications E11.9 ; Stage 3 chronic kidney disease N18.3 and Overgrown toenails L60.[address] Apr, [place] [address] Apr, [place] [address] infection, unspecified J06.[address] Mar, Type 2 [place] [address] without complication, unspecified whether senior living insulin use E11.9 and 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 Z79.[address] Mar, [place] [address] Mar, [place] [address] Feb, [place] [address] Feb, [place], [place] [address] D64.9 ; Elevated serum creatinine R79.89 and Encounter for immunization Z23 [facility] [employer] [address] [place], Feb, [facility] [address] [employer] [address] [place], Feb, [facility] [address] Feb, [place] [address] [facility] [address] [place], Feb, Type 2 [place] [address] without complication, unspecified whether press tender long goods insulin use E11.9 and long-term 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 Z79.4 [facility] [address] [place] [address] Feb, [place] [address] Jan, [place] [address] Jan, Type 2 [place] [address] without complications E11.9 and History of prostate cancer Z85.[address] Jan, [place] [address] Jan, [place] [address] Jan, Type 2 [place] [address] without complication, unspecified whether senior living insulin use E11.9 and 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 Z79.[address] Jan, Type 2 diabetes mellitus [place] without complication, [address] unspecified whether press tender long goods insulin use E11.[address] Jan, [place] [address] [place] [address] [place] Dec, [place] [address] Dec, [place] [address] Dec, [place] [address] hyperthyroidism E05.[address] Dec, Type 2 [place] [address] without complications E11.9 ; Morbid (severe) obesity due to excess calories E66.01 ; Body mass index (BMI) of 45.0-49.9 in adult Z68.42 and Reduced ejection fraction concurrent with and due to acute heart failure I50.[address] Dec, [place] [address] Nov, Normocytic anemia D64.9 [place] [address] Hyponatremia E87.[address] Nov, [place] [address] Nov, Type 2 [place] [address] without complications E11.9 ; long-term 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 Z79.4 ; Low back pain M54.5 ; Other chronic pain G89.29 ; Vision changes H53.9 ; Morbid (severe) obesity due to excess calories E66.01 and Body mass index (BMI) of 45.0-49.9 in adult Z68.[address] Nov, [place] [address] Nov, Reduced ejection fraction [place] [address] acute heart failure I50.21 [facility] [address] [place] [address] Nov, Anemia, unspecified [place] D64.9 [address] [place] [address] [place] Nov, Normocytic anemia D64.9 [place] [address] [place] [address] [place] Nov, Type 2 [place] [address] without complication, unspecified whether senior living insulin use E11.9 ; Normocytic anemia D64.9 and History of prostate cancer Z85.46 [place] [address] [place] Nov, [place] [address] [place] [address] [place] Nov, [place] [address] Nov, [place] [address] [place] [address] [place] Oct, [place] [address] [place] [address] [place] Oct, [place] [address] Oct, Type 2 [place] [address] without complication, unspecified whether press tender long goods insulin use E11.9 ; Elevated serum creatinine R79.89 ; Hyperkalemia E87.5 ; Hypocalcemia E83.51 ; Screening, lipid Z13.220 ; Age-related incipient cataract of both eyes H25.093 ; Screening for colon cancer Z12.11 and Reduced ejection fraction concurrent with and due to acute heart failure I50.21 [place] [address] [place] September, [place] [address] [place] [address] [place] Aug, [place] [address] [place] [address] [place] Aug, [place] [address] IMMUNIZATIONS No Known Immunizations SOCIAL HISTORY Never Assessed REASON FOR REFERRAL FUNCTIONAL STATUS PLAN OF CARE VITAL SIGNS MEDICATIONS Unknown Medications PROCEDURES No Known procedures RESULTS No Results REASON FOR VISIT labs Insurance Providers [facility] Health Member Patient Patient Patient Patient Patient Subscriber Subscriber Subscriber Group Insurance Plan Plan Plan Plan ID Relationship Address Phone Name Date of ID Name Date of No Type Insurance Insurance Insurance Coverage to Subscriber Address Phone Name Dates WellCare [phone] WellCare self [place] [id number] [place] [address] [place] Hplex Mcr Claims Hplex Mcr u Adv Dept Adv Formerly [facility] [address] Medicaid [address] [phone] Medicaid self [place] [id number] [id number] [place] [address] [id number] Case [phone] Case self Alon [id number] Management [place] Management [place] [facility] [address] Community u Medicare National [id number] Medicare self [place] [id number] PPS Government 41 PPS [place] Services u [address] [place] [id number] Medicare National [phone] Medicare self [place] [id number] PPS Government 41 PPS [place] Services u [address] [place] [id number] WellCare [phone] WellCare self [place] [id number] [id number] [place] PPO [place] Mcr Adv [place] Mcr Adv u Medical [id number] Medical Todays [phone] Todays self [place] [id number] Option [id number] Option [place] MCRAdv [facility] MCRAdv u AmProg Med [id number] AmProg Med [place] [phone] Todays self [place] [id number] Options [place] 13 Options [place] Mcr Adv [address] Mcr Adv u [place] MEDICAL (GENERAL) HISTORY Type Description Date Medical [...]
--- OUTSIDE RECORDS SUMMARY | 2019-04-09 20:43 | XMS REPORT | Continuity of Care Document ---
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 Problems Active Problems Provider Date Automatic implantable [...] Test Result H/L Range Note Xray 12/22/2018 [facility] Inj/Aspir Major JT Or Bursa W/ <pending> US Procedures Date Code Description Status 02/23/2019 88496 ECHO Transthoracic, Real-Time 2D With Doppler And Color Completed Flow 02/23/2019 64094 ECHO Transthoracic, Real-Time 2D With Doppler And Color Completed Flow 02/08/2019 44303 Interrogation Implant Cardiovasc Monitor System Incl Completed Analysis Int 02/08/2019 96439 Interrogation Implant Cardiovasc Monitor System Incl Completed Analysis Int 02/08/2019 72396 Icd Eval With Iterative Adjustmt Multiple Lead System Completed 02/08/2019 96964 Icd Eval With Iterative Adjustmt Multiple Lead System Completed 01/07/2019 55711 Icd Eval With Inerative Adjustmt Dual Lead System Completed 01/06/2019 04179 ECHO Transthorasic Realtime 2D W Doppler & Color Flow Hosp Completed 01/06/2019 94011 Interrogation Device Eval Remote Up To 30 Days Completed Analysis,Rev,RP 01/06/2019 71896 Icd Eval Sing,Dual,Multi Lead Remote Recpt Transm Tech Rev Completed Tech S 01/06/2019 55174 Icd Check Remote Up To 90 Days Single,Dual,Multiple Lead Completed 12/22/2018 12198 Inj/Aspir Major JT Or Bursa W/ US Completed 11/03/2018 46753 Echocardiogram, Limited Study Completed 11/03/2018 57696 Echocardiogram, Limited Study Completed Medical Devices Description No Information Available Encounters Type Date Location Provider Dx Diagnosis Office Visit 02/11/2019 [facility] Kari Lemus, M16.11 Unilateral primary 9:15a at [facility].[place] osteoarthritis, right hip M25.561 Pain in right knee Office Visit 01/10/2019 8:43a [facility] Temi Carmelo, R55 [facility],pc M.D. collapse Hospitalists E11.649 Type 2 diabetes mellitus with hypoglycemia without coma I50.22 Chronic systolic (congestive) heart failure Office Visit 01/09/2019 [facility] E11.649 Type 2 diabetes 8:42a spike Friedman M.D. mellitus with Hospitalists hypoglycemia without coma R55 Syncope and collapse Office Visit 01/08/2019 [facility] E11.649 Type 2 diabetes 8:42a Assspike trivedi M.D. mellitus with Hospitalists hypoglycemia without coma R55 Syncope and collapse Office Visit 01/07/2019 [facility] E11.649 Type 2 diabetes 8:42a spike Friedman M.D. mellitus with Hospitalists hypoglycemia without coma R55 Syncope and collapse I48.91 Unspecified atrial fibrillation Office Visit 01/06/2019 [facility] E11.649 Type 2 diabetes 8:41a spike Friedman M.D. mellitus with Hospitalists hypoglycemia without coma R55 Syncope and collapse Office Visit 12/22/2018 [facility] M16.11 Unilateral primary 10:00a Orthopedics at [facility] osteoarthritis, right Hannah hip M17.0 Bilateral primary osteoarthritis of knee S83.411A Sprain of medial collateral ligament of right knee, init S83.412A Sprain of medial collateral ligament of left knee, init M25.551 Pain in right hip M25.561 Pain in right knee M25.562 Pain in left knee Assessments Date Code Description Provider 02/23/2019 R55 Syncope and collapse John Edmond M.D. 02/23/2019 R55 Syncope and collapse [place] [facility] Schedule 02/23/2019 E11.649 Type 2 diabetes mellitus with [place] [facility] Schedule hypoglycemia without coma 02/23/2019 I25.5 Ischemic cardiomyopathy [place] [facility] Schedule 02/11/2019 M16.11 Unilateral primary osteoarthritis, [...] Presence of automatic (implantable) Len Mckeon DO [facility] cardiac defibrillator 01/07/2019 R55 Syncope and collapse Anni Sanford M.D. 01/07/2019 R55 Syncope and collapse Len Mckeon, DO [facility] 01/07/2019 I48.91 Unspecified atrial fibrillation Anni Sanford M.D. 01/06/2019 E11.649 Type 2 diabetes mellitus with Anni Sanford M.D. hypoglycemia without coma 01/06/2019 R55 Syncope and collapse Len Mckeon, DO [facility] 01/06/2019 R55 Syncope and collapse Anni [...] John Edmond M.D. 11/03/2018 I25.5 Ischemic cardiomyopathy [facility] Schedule Plan of Treatment Future Appointment(s):05/13/2019 9:45 am - Kari Lemus M.D. at [facility] at [place]/11/2019 - Kari Lemus M.D.M16.11 Unilateral primary osteoarthritis, right hipFollow up:Follow up: 3 months for hip, as needed if knee does not xbkznwaJ30.561 Pain in right knee Functional Status Description No Information Available Mental Status Description No Information Available Referrals Description No Information Available
--- OUTSIDE RECORDS SUMMARY | 2019-04-09 20:43 | XMS REPORT ---
:1940 Author Organization [facility] Address [address] [place] [address] Care Team Providers Name Role Phone Kory Toribio Unavailable Unavailable PROBLEMS Type Condition ICD9-CM [id number] Onset Condition SNOMED Code Code Code Dates Status Problem Pacemaker Z95.0 Active 613972839 Problem Normocytic anemia D64.9 Active 240753604 Problem Ischemic I25.5 Active 542086080 cardiomyopathy Problem Age-related H25.093 Active 950708861 incipient cataract of both eyes Problem Low back pain M54.5 Active 993986202 Problem snf current Z79.4 Active 685282396 use of insulin Problem History of Z85.46 Active 923546222 prostate cancer Problem Stage 3 chronic N18.3 Active 997408064 kidney disease Problem Essential I10 Active 26586319 hypertension 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 [id number] iliac artery Problem Other chronic pain G89.29 Active 78562844 Problem Type 2 diabetes E11.9 Active 262417494 mellitus without complications Problem Morbid (severe) E66.01 Active 13244166528074 obesity due to excess calories Problem Body mass index Z68.42 Active 145420578 (BMI) of 45.0-49.9 in adult ALLERGIES No Information ENCOUNTERS Encounter Location Date Diagnosis [facility] [address] [place], [place] [address] [facility] - Resource - UNKNOWN [place], Formerly [facility], [facility] [address] [place], [place] [address] Case Management [address] [place], [place] [address] [facility] [address] [place], [place] [address] Case Management [address] [place], [place] [address] [facility] [address] Feb, [place] [address] [facility] [address] Feb, [place] [address] [place] [facility] [address] [facility] [place], [place] [address] [facility] [address] Feb, [place] [address] [facility] [address] Feb, [place] [address] Feb, Risk for falls Z91.81 ; [place] [address] Encounter for immunization Z23 ; Essential hypertension I10 ; Normocytic anemia D64.9 and Stage 3 chronic kidney disease N18.3 [place] [address] Feb, [place] [address] [facility] [address] [facility] Jan, [address] Jan, [place] [address] [facility] [address] [place] [address] Jan, [address] Jan, [place] [address] [facility] [address] [place] [address] Jan, [place] [address] Jan, [place] [address] [facility] - [place] [address] [facility] Jan, [place] [address] [facility] [address] [facility] Jan, [address] [place] [address] [place] [address] Jan, [place] [address] Jan, Essential hypertension I10 [place] [address] ; Risk for falls Z91.81 ; Hyponatremia E87.1 and Stage 3 chronic kidney disease N18.3 [facility] [address] [place] [address] Jan, [place] [address] [facility] [address] Jan, [place] [address] Jan, [place] [address] R79.89 ; Abrasion hand S60.519A and Abrasion hip/leg S80.819A [facility] - Resource - [place] [address] [facility] Jan, [place] [address] [facility] [address] [facility] [address] Jan, 2019 [place] [address] [facility] [address] [facility] 12 Jan, 2019 Elev[place] [address] R79.89 [facility] [address] [place] [address] Jan, Hyponatremia E87.1 [place] [address] [place] [address] Jan, Hyponatremia E87.1 [place] [address] Normocytic anemia D64.9 [facility] [address] [place] [address] Jan, [place] [address] [facility] [address] [place] [address] Dec, [place] [address] [facility] [address] [place] [address] Dec, [place] [address] [facility] [address] [place] [address] Dec, [place] [address] [place] [address] Dec, Type 2 [place] [address] without complications E11.9 ; Essential hypertension I10 ; Hyponatremia E87.1 and Wheezing R06.[address] Dec, Type 2 [place] [address] without complications E11.9 and intermission coordinator 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 Z79.4 [facility] - [place] [address] [facility] Dec, [place] [address] [facility] [address] [place] [address] Dec, [place] [address] Dec, [place] [address] [facility] [address] [facility] Dec, [place] [address] [facility] - [place] [address] [facility] Dec, [place] [address] [facility] [address] [facility] Dec, [place] [address] [facility] - [place] [address] [facility] Dec, [place] [address] [facility] [address] [facility] Dec[place] [address] [facility] - [place] [address] [facility] Dec, [place] [address] [facility] [address] [facility] Dec, [place] [address] [place] [address] Dec, Right hip pain M25.551 ; [place] [address] risk for fall due to comorbid condition Z91.81 ; Food insecurity Z59.4 ; Limited mobility Z74.09 and Type 2 diabetes mellitus without complications E11.9 [facility] [place] [address] Dec, [place] [address] [facility] [address] Nov, [place] [address] [place] [address] Nov, [place] [address] [facility] [address] [place] [address] Oct, [place] [address] [facility] [address] [facility] Oct, [place] [address] [facility] [address] September, Type 2 [place] [address] without complications E11.9 ; Screening for colon cancer Z12.11 and Aneurysm of left leg I72.4 [place] [address] September, [place] [address] [place] [address] September, Type 2 [place] [address] without complications E11.9 and snf 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 Z79.4 [facility] [address] September, [place] [address] [place] [address] September[place] [address] [place] [address] Aug, [place] [address] [place] [address] Aug, [place] [address] [facility] [address] [place] [address] Jul, [place] [address] Jul, [place] [address] [place] [address] Jul, [place] [address] [facility] [address] [facility] Jul, [place] [address] [place] [address] Jun, [place] [address] [facility] [address] [facility] Jun, Type 2 diabetes mellitus [place] without complications E11.9 [address] Jun, Type 2 [place] [address] without complication, unspecified whether retirement insulin use E11.9 and intermission coordinator 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 Z79.4 [facility] [address] Jun, Type 2 [place] [address] without complications E11.9 [facility] [address] Jun, [place] [address] [facility] [address] [place] [address] Jun, [place] [address] [facility] [address] Jun, [place] [address] extremity M79.[address] Jun, [place] [address] [facility] [address] Jun, [place] [address] [facility] [address] Jun, [place] [address] May, [place] [address] May, [place] [address] May, [place] [address] [facility] [address] [place] [address] May, Hyponatremia E87.1 [place] [address] Apr, [place] [address] [facility] [address] [facility] Apr, Type 2 [place] [address] without complications E11.9 ; Stage 3 chronic kidney disease N18.3 and Overgrown toenails L60.[address] Apr, [place] [address] [facility] [address] [place] [address] Apr, [place] [address] infection, unspecified J06.9 [facility] [address] Mar, Type 2 [place] [address] without complication, unspecified whether retirement insulin use E11.9 and intermission coordinator 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 Z79.4 [facility] [address] [facility] Mar, [place] [address] [place], [place] [address] [place] Feb, [place] [address] R79.89 [place] [address] Feb, [place]emia, [place] [address] D64.9 ; Elevated serum creatinine R79.89 and Encounter for immunization Z23 [facility] [address] [place], Feb, [place] [address] [facility] [address] [place], [place], [place] [address] [facility] [address] Feb, [place] [address] [facility] [address] [place], Feb, Type 2 [place] [address] without complication, 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 and snf 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 Z79.[address] Feb, [place] [address] [place] [address] Jan, [place] [address] Jan, Type 2 [place] [address] without complications E11.9 and History of prostate cancer Z85.[address] Jan, [place] [address] Jan, [place] [address] Jan, Type 2 [place] [address] without complication, 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 and intermission coordinator 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 Z79.[address] Jan, Type 2 diabetes mellitus [place] without complication, [address] 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 Jan, [place] [address] [facility] [address] Dec, [place] [address] [place] [address] Dec, [place] [address] [place] [address] Dec, [place] [address] hyperthyroidism E05.80 [place] [address] Dec, Type 2 [place] [address] without complications E11.9 ; Morbid (severe) obesity due to excess calories E66.01 ; Body mass index (BMI) of 45.0-49.9 in adult Z68.42 and Reduced ejection fraction concurrent with and due to acute heart failure I50.[address] Dec, [place] [address] [place] [address] Nov, Normocytic anemia D64.9 [place] [address] Hyponatremia E87.1 [place] [address] Nov, [place] [address] [place] [address] Nov, Type 2 [place] [address] without complications E11.9 ; snf 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 Z79.4 ; Low back pain M54.5 ; Other chronic pain G89.29 ; Vision changes H53.9 ; Morbid (severe) obesity due to excess calories E66.01 and Body mass index (BMI) of 45.0-49.9 in adult Z68.[address] Nov, [place] [address] Nov, Reduced ejection fraction [place] concurrent [place] [address] acute heart failure I50.[address] Nov, Anemia, unspecified type [place] D64.9 [address] Nov, Normocytic anemia D64.9 [place] [address] [place] [address] Nov, Type 2 [place] [address] without complication, 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 ; Normocytic anemia D64.9 and History of prostate cancer Z85.46 [place] [address] Nov, [place] [address] [place] [address] Nov, [place] [address] Nov, [place] [address] [place] [address] Oct, [place] [address] [place] [address] Oct, [place] [address] [place] [address] Oct, Type 2 [place] [address] without complication, 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 ; Elevated serum creatinine R79.89 ; Hyperkalemia E87.5 ; Hypocalcemia E83.51 ; Screening, lipid Z13.220 ; Age-related incipient cataract of both eyes H25.093 ; Screening for colon cancer Z12.11 and Reduced ejection fraction concurrent with and due to acute heart failure I50.21 [facility] [address] September, [place] [address] [facility] [address] Aug, [place] [address] [facility] [address] Aug, [place] [address] IMMUNIZATIONS No Known Immunizations SOCIAL HISTORY Never Assessed REASON FOR REFERRAL FUNCTIONAL STATUS PLAN OF CARE VITAL SIGNS MEDICATIONS Unknown Medications PROCEDURES No Known procedures RESULTS No Results REASON FOR VISIT Needs call back from our Provider Insurance Providers [facility] Member Patient Patient Patient Patient Patient Subscriber Subscriber Subscriber Group Insurance Plan Plan Plan Plan ID Relationship Address Phone Name Date of ID Name Date of No Type Insurance Insurance Insurance Coverage to Subscriber Address Phone Name Dates Todays [address] Todays self [place] [id number] Option [id number] Option [place] MCRAdv [facility] MCRAdv u AmProg Med [id number] AmProg Med Medicare [place] [id number] Medicare self [place]on [id number] PPS Government 41 PPS [place] Services u [address] [facility] [id number] WellCare [address] WellCare self [place] [id number] [place] 9255 Attn 83 [id number] [place] Hplex Mcr Claims H[place] [address] Well[employer] [address] WellCare self Al[place] [id number] [id number] 63 [place] PPO [place] Mcr Adv [place] Mcr Adv u Medical [id number] Medical Todays [address] [phone] Todays self [place] [id number] Options [place] 13 Options [place] Mcr Adv [id number] Mcr Adv u [place] Case [phone] Case self Alon [id number] Management [place] Management [facility] [address] [facility] u Medicaid [address] [phone] Medicaid self [place] [id number] [facility] [address] [facility] [address] Medicare National [id number] Medicare self [place] [id number] [place] [address] PPS [facility] Services u [address] [place] [id number] MEDICAL (GENERAL) HISTORY Type Description Date Medical [...]
--- OUTSIDE RECORDS SUMMARY | 2019-04-09 20:43 | XMS REPORT ---
:1940 Author Organization [facility] Address [address] [place] [address] Care Team Providers Name Role Phone Kory Toribio Unavailable Unavailable PROBLEMS Type Condition ICD9-CM [id number] Onset Condition SNOMED Code Code Code Dates Status Problem Pacemaker Z95.0 Active 084834968 Problem Normocytic anemia D64.9 Active 594607769 Problem Ischemic I25.5 Active 777032669 cardiomyopathy Problem Age-related H25.093 Active 218982519 incipient cataract of both eyes Problem Low back pain M54.5 Active 455811204 Problem FCI current Z79.4 Active 680768650 use of insulin Problem History of Z85.46 Active 319669354 prostate cancer Problem Stage 3 chronic N18.3 Active 001705618 kidney disease Problem Essential I10 Active 03169380 hypertension 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 11812129668210899 iliac artery Problem Other chronic pain G89.29 Active 02509395 Problem Type 2 diabetes E11.9 Active 564184219 mellitus without complications Problem Morbid (severe) E66.01 Active 76147289112301 obesity due to excess calories Problem Body mass index Z68.42 Active 098365986 (BMI) of 45.0-49.9 in adult ALLERGIES No Information ENCOUNTERS Encounter Location Date Diagnosis [facility] [address] [place], [place] [address] [facility] - Resource - UNKNOWN [place] [address] [place], [place] [address] Case Management [address] [place], [place] [address] [facility] [address] Feb, [place] [address] Case Management [address] [place], [place] [address] [facility] [address], [place] [address] [facility] [address] Jan, [place] [address] [facility] [address] [facility] Jan, [place] [address] [facility] [address], [place] [address] [facility] [address], [place] [address] [facility] [address], [place] [address] [facility] - Resource - [place] [address], [place] [address] [facility] [address] [facility] Jan, [place] [address] [facility] [address] Jan, [place] [address] [facility] [address] Jan, Essential hypertension I10 [place] [address] ; Risk for falls Z91.81 ; Hyponatremia E87.1 and Stage 3 chronic kidney disease N18.3 [place] [facility] [address] Jan, [place] [address] [facility] [address] Jan, [place] [address] [facility] - Resource - [place] [address] Jan, [place] [address] [facility] [address] [place] [address] Jan, [place] [address] R79.89 ; Abrasion hand S60.519A and Abrasion hip/leg S80.819A [facility] Jan, [place] [address] Jan, [place] [address] [address] Jan, Hyponatremia E87.1 [place] [address] [facility] [address] [place] [address] Jan, Hyponatremia E87.1 [place] [address] Normocytic anemia D64.9 [facility] [address] [place] [address] Jan, [place] [address] [facility] [address] [facility] Dec, [place] [address] [facility] [address] [facility] Dec, [place] [address] [facility] [address] [facility] Dec, [place] [address] [facility] [address] Dec, Type 2 [place] [address] without complications E11.9 ; Essential hypertension I10 ; Hyponatremia E87.1 and Wheezing R06.2 [facility] [address] Dec, Type 2 [place] [address] without complications E11.9 and FCI 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 Z79.4 [facility] - Resource - [place] [address] Dec, [place] [address] [facility] [address], [place] [address] [facility] [address], [place] [address] [facility] [address] [facility] Dec, [place] [address] [facility] - Resource - [place] [address], [place] [address] [facility] [address], [place] [address] [facility] - Resource - [place] [address], [place] [address] [facility] [address] [facility] Dec, [place] [address] [facility] - Resource - [place] [address], [place] [address] [facility] [address] Dec, [place] [address] [facility] [address] Dec, Right hip pain M25.551 ; [place] [address] risk for fall due to comorbid condition Z91.81 ; Food insecurity Z59.4 ; Limited mobility Z74.09 and Type 2 diabetes mellitus without complications E11.9 [facility] - Resource - [place] [address] Dec, [place] [address] [facility] [address] Nov, [place] [address] [facility] [address] Nov, [place] [address] [facility] [address] [facility] Oct, [place] [address] [facility] [address] [facility] Oct, [place] [address] [facility] [address] September, Type 2 [place] [address] without complications E11.9 ; Screening for colon cancer Z12.11 and Aneurysm of left leg I72.4 [facility] [address] September, [place] [address] [facility] [address] September, Type 2 [place] [address] without complications E11.9 and long term 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 Z79.4 [facility] [address] September, [place] [address] [facility] [address] September, [place] [address] [facility] [address] Aug, [place] [address] [facility] [address], [place] [address] [facility] [address], [place] [address] [facility] [address] Jul, [place] [address] [facility] [address] Jul, [place] [address] [facility] [address] [facility] Jul, [place] [address] [facility] [address] Jun, [place] [address] [facility] [address] Jun, Type 2 diabetes mellitus [place] without complications E11.9 [address] [place] [address] Jun, Type 2 [place] [address] without complication, 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 and long term 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 Z79.4 [facility] [address] Jun, Type 2 [place] [address] without complications E11.9 [facility] [address] Jun, [place] [address] [facility] [address] Jun, [place] [address] [facility] [address] Jun, [place] [address] extremity [address]79[address] Jun, [facility] [place] [address] [facility] [address] Jun, [place] [address] Jun, [place] [address] [address] May, [facility] [place] [address] [facility] [address] [place] [address] May, [address] [place] [address] [facility] [address] [place] [address] May, [place] [address] May, Hyponatremia E87.1 [place] [address] Apr, [place] [address] Apr, Type 2 [place] [address] without complications E11.9 ; Stage 3 chronic kidney disease N18.3 and Overgrown toenails L60.[address] Apr, [place] [address] Apr, [place] [address] infection, unspecified J06.[address] Mar, Type 2 [place] [address] without complication, 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 and FCI 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 Z79.[address] [place], [place] [address] [place], [place] [address] Feb, Ele[place] [address] [address] Feb, [place]emia, [place] [address] D64.9 ; Elevated serum creatinine R79.89 and Encounter for immunization Z23 Alan Kandiyohi Migrant [address] [place], Feb, [facility] [address] Alan Kandiyohi Migrant [address] [place], Feb, [facility] [address] Feb, [place] [address] [facility] [address] [facility] [address] [place], Feb, Type 2 [place] [address] without complication, unspecified whether snf insulin use E11.9 and long term 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 Z79.[address] Feb, [place] [address] Jan, [place] [address] Jan, Type 2 [place] [address] without complications E11.9 and History of prostate cancer Z85.[address] Jan, [place] [address] Jan, [place] [address] Jan, Type 2 [place] [address] without complication, 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 and FCI 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 Z79.[address] Jan, Type 2 diabetes mellitus [place] without complication, [address] 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 Jan, [place] [address] Dec, [place] [address] Dec, [place] [address] Dec, [place] [address] hyperthyroidism E05.[address] Dec, Type 2 [place] [address] without complications E11.9 ; Morbid (severe) obesity due to excess calories E66.01 ; Body mass index (BMI) of 45.0-49.9 in adult Z68.42 and Reduced ejection fraction concurrent with and due to acute heart failure I50.[address] Dec, [place] [address] Nov, Normocytic anemia D64.9 [place] [address] Hyponatremia E87.[address] Nov, [place] [address] Nov, Type 2 [place] [address] without complications E11.9 ; FCI 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 Z79.4 ; Low back pain M54.5 ; Other chronic pain G89.29 ; Vision changes H53.9 ; Morbid (severe) obesity due to excess calories E66.01 and Body mass index (BMI) of 45.0-49.9 in adult Z68.42 [place] [address] Nov, [place] [address] Nov, Reduced ejection fraction [place] [address] acute heart failure I50.21 [facility] [address] [facility] Nov, Anemia, unspecified type [place] D64.9 [address] Nov, Normocytic anemia D64.9 [place] [address] Nov, Type 2 [place] [address] without complication, 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 ; Normocytic anemia D64.9 and History of prostate cancer Z85.[address] Nov, [place] [address] Nov, [place] [address] Nov, [place] [address] [place] [address] Oct, [place] [address] Oct, [place] [address] Oct, Type 2 [place] [address] without complication, 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 ; Elevated serum creatinine R79.89 ; Hyperkalemia E87.5 ; Hypocalcemia E83.51 ; Screening, lipid Z13.220 ; Age-related incipient cataract of both eyes H25.093 ; Screening for colon cancer Z12.11 and Reduced ejection fraction concurrent with and due to acute heart failure I50.21 [place] [address] September, [place] [address] [place] [address] Aug, [place] [address] [place] [address] Aug, [place] [address] IMMUNIZATIONS No Known Immunizations SOCIAL HISTORY Never Assessed REASON FOR REFERRAL FUNCTIONAL STATUS PLAN OF CARE VITAL SIGNS MEDICATIONS Unknown Medications PROCEDURES No Known procedures RESULTS No Results REASON FOR VISIT Insurance Providers [facility] Member Patient Patient Patient Patient Patient Subscriber Subscriber Subscriber Group Insurance Plan Plan Plan Plan ID Relationship Address Phone Name Date of ID Name Date of No Type Insurance Insurance Insurance Coverage to Subscriber Address Phone Name Dates Case [phone] Case self Alon [id number] Management [place] [facility] [address] [facility] u Todays [phone] [place] self Alon [id number] Option [id number] Option [place] MCRAdv [facility] MCRAdv u AmProg Med [id number] AmProg Med WellCare [phone] WellCare self [place]on [id number] [id number] P[place] Mcr Adv [facility] Mcr Adv u Medical [address] Medical WellCare [phone] Well[facility] self Alon [id number] [place] [address] GG495 [place] Hplex Mcr Claims Hplex Mcr u Adv Dept Adv [facility] [address] Medicare National [id number] Medicare self Alon [id number] PPS Government 41 PPS [place] Services u [address] [place] [id number] Todays [phone] Todays self Alon [id number] Options [place] 13 Options [place] Mcr Adv [id number] Mcr Adv u [place] Medicare National [phone] Medicare self Alon [id number] PPS Government 41 PPS [place] Services u [address] [facility] [id number] Medicaid [id number] [phone] Medicaid self Alon [id number] [facility] 00 [place] [id number] u MEDICAL (GENERAL) HISTORY Type Description Date [...]
--- OUTSIDE RECORDS SUMMARY | 2019-04-09 20:43 | XMS REPORT ---
:1940 Author Organization [facility] Address [address] [place] [address] Care Team Providers Name Role Phone Kory Toribio Unavailable Unavailable PROBLEMS Type Condition ICD9-CM [id number] Onset Condition SNOMED Code Code Code Dates Status Problem Pacemaker Z95.0 Active 131741998 Problem Normocytic anemia D64.9 Active 656247271 Problem Ischemic I25.5 Active 008847341 cardiomyopathy Problem Age-related H25.093 Active 076304182 incipient cataract of both eyes Problem Low back pain M54.5 Active 505895147 Problem halfway current Z79.4 Active 700257699 use of insulin Problem History of Z85.46 Active 280375332 prostate cancer Problem Stage 3 chronic N18.3 Active 844754438 kidney disease Problem Essential I10 Active 96325104 hypertension 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 [id number] iliac artery Problem Other chronic pain G89.29 Active 36266900 Problem Type 2 diabetes E11.9 Active 101680898 mellitus without complications Problem Morbid (severe) E66.01 Active 78058390251085 obesity due to excess calories Problem Body mass index Z68.42 Active 110153006 (BMI) of 45.0-49.9 in adult ALLERGIES No Information ENCOUNTERS Encounter Location Date Diagnosis [facility] [address] [place], [place] [address] [facility] - Resource - UNKNOWN [place], [facility] [address] [place], [place] [address] Case Management [address] [place] [address] [facility] [address], [place] [address] Case Management [address] [place], [place] [address] [facility] [address] [facility] Feb, [place] [address] [facility] [address] [facility] Jan, [place] [address] [facility] [address] Jan[place] [address] [facility] [address] Jan, [place] [address] [facility] - Resource - [place] [address] [facility] Jan, [place] [address] [facility] [address] [facility] Jan, [place] [address] [facility] [address] Jan, [place] [address] [facility] [address] [facility] Jan, Essential hypertension I10 [place] [address] ; Risk for falls Z91.81 ; Hyponatremia E87.1 and Stage 3 chronic kidney disease N18.3 [place] [facility] [address] [facility] Jan, [place] [address] [facility] [address] [facility] Jan, [place] [address] [facility] [address] [place] [address] Jan, [place] [address] R79.89 ; Abrasion hand S60.519A and Abrasion hip/leg S80.819A [facility] - Resource - [place] [address] [facility] Jan, [place] [address] [facility] [address] [facility] [address] Jan, 2019 [place] [address] Jan, [place] [address] Jan, Hyponatremia E87.1 [place] [address] Jan, Hyponatremia E87.1 [place] [address] Normocytic anemia D64.[address] Jan, [place] [address] [facility] [address] [facility] Dec, [place] [address] [facility] [address] [facility] Dec, [place] [address] [facility] [address] [facility] Dec, [place] [address] [place] [facility] [address] Dec, Type 2 [place] [address] without complications E11.9 ; Essential hypertension I10 ; Hyponatremia E87.1 and Wheezing R06.2 [facility] [address] [place] [address] Dec, Type 2 [place] [address] without complications E11.9 and 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 [facility] Dec, [place] [address] Dec, [place] [address] Dec, [place] [address] Dec[place] [address] [facility] - Resource - [place] [address] [facility] Dec, [place] [address] Dec, [place] [address] [facility] - [facility] - [address] Dec, [place] [address] [place], [place] [address] [facility] - Resource - [address] Dec, [place] [address] Dec, [place] [address] Dec, Right hip pain M25.551 ; [place] [address] risk for fall due to comorbid condition Z91.81 ; Food insecurity Z59.4 ; Limited mobility Z74.09 and Type 2 diabetes mellitus without complications E11.9 [facility] - Resource - [place] [address] [facility] Dec, [place] [address] Nov, [place] [address] Nov, [place] [address] Oct, [place] [address] Oct, [place] [address] September, Type 2 [place] [address] without complications E11.9 ; Screening for colon cancer Z12.11 and Aneurysm of left leg I72.[address] September, [place] [address] [facility] [address] September, Type 2 [place] [address] without complications E11.9 and halfway 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 Z79.4 [facility] [address] September, [place] [address] [facility] [address] September, [place] [address] [facility] [address] Aug, [place] [address] [facility] [address] Aug, [place] [address] Jul, [place] [address] [facility] [address] Jul, [place] [address] [facility] [address] Jul, [place] [address] [facility] [address] [place] [address] Jul, [place] [address] [facility] [address] Jun, [place] [address] [facility] [address] [place] [address] Jun, Type 2 diabetes mellitus [place], [place] without complications E11.9 [address] [facility] [address] Jun, Type 2 [place] [address] without complication, unspecified whether skilled nursing insulin use E11.9 and 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 Z79.4 [facility] [address] Jun, Type 2 [place] [address] without complications E11.9 [facility] [address] Jun, [place] [address] [facility] [address] [place] [address] Jun, [place] [address] [facility] [address] Jun, [place] [address] extremity M79.89 Hugh Medina [address] Jun, [facility] [place] [address] [facility] [address] Jun, [place] [address] [facility] [address] Jun, [place] [address] Hugh Medina [address] May, [facility] [place] [address] [facility] [address] [place] [address] May, [place] [address] May, [place] [address] May, Hyponatremia E87.1 [place] [address] Apr, [place] [address] Apr, Type 2 [place] [address] without complications E11.9 ; Stage 3 chronic kidney disease N18.3 and Overgrown toenails L60.[address] Apr, [place] [address] Apr, [place] [address] infection, unspecified J06.[address] Mar, Type 2 [place] [address] without complication, unspecified whether exterminator insulin use E11.9 and halfway 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 Z79.[address] Mar, [place] [address] [place], [place] [address] Feb, [place] [address] Feb, [place], [place] [address] D64.9 ; Elevated serum creatinine R79.89 and Encounter for immunization Z23 [facility] [address] [place], Feb, [facility] [address] [facility] [facility] [address] [place], Feb, [facility] [address] [facility] [address] [place] [address] Feb, [place] [address] [facility] [address] [place] [address] Rd [place], Feb, Type 2 [place] [address] without complication, unspecified whether skilled nursing insulin use E11.9 and 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 Z79.4 [facility] [address] [place] [address] Feb, [place] [address] Jan, [place] [address] Jan, Type 2 [place] [address] without complications E11.9 and History of prostate cancer Z85.[address] Jan, [place] [address] Jan, [place] [address] Jan, Type 2 [place] [address] without complication, unspecified whether exterminator insulin use E11.9 and halfway 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 Z79.[address] Jan, Type 2 diabetes mellitus [place] without complication, [address] unspecified whether exterminator insulin use E11.[address] Jan, [place] [address] Dec, [place] [address] Dec, [place] [address] Dec, [place] [address] hyperthyroidism E05.[address] Dec, Type 2 [place] [address] without complications E11.9 ; Morbid (severe) obesity due to excess calories E66.01 ; Body mass index (BMI) of 45.0-49.9 in adult Z68.42 and Reduced ejection fraction concurrent with and due to acute heart failure I50.[address] Dec, [place] [address] Nov, Normocytic anemia D64.9 [place] [address] Hyponatremia E87.[address] Nov, [place] [address] Nov, Type 2 [place] [address] without complications E11.9 ; halfway 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 Z79.4 ; Low back pain M54.5 ; Other chronic pain G89.29 ; Vision changes H53.9 ; Morbid (severe) obesity due to excess calories E66.01 and Body mass index (BMI) of 45.0-49.9 in adult Z68.42 [place] [address] Nov, [place] [address] Nov, Reduced ejection [place] [address] acute heart failure I50.21 [facility] [address] Nov, Anemia, unspecified [place] [address] [place] D64.9 [address] [place] [address] Nov, Normocytic anemia D64.9 [place] [address] [place] [address] Nov, Type 2 [place] [address] without complication, unspecified whether skilled nursing insulin use E11.9 ; Normocytic anemia D64.9 and History of prostate cancer Z85.46 [place] [address] Nov, [place] [address] [place] [address] Nov, [place] [address] Nov, [place] [address] [place] [address] Oct, [place] [address] [place] [address] Oct, [place] [address] [place] [address] Oct, Type 2 [place] [address] without complication, unspecified whether exterminator insulin use E11.9 ; Elevated serum creatinine R79.89 ; Hyperkalemia E87.5 ; Hypocalcemia E83.51 ; Screening, lipid Z13.220 ; Age-related incipient cataract of both eyes H25.093 ; Screening for colon cancer Z12.11 and Reduced ejection fraction concurrent with and due to acute heart failure I50.21 [place] [address] September, [place] [address] [place] [address] Aug, [place] [address] [place] [address] Aug, [place] [address] IMMUNIZATIONS No Known Immunizations SOCIAL HISTORY Never Assessed REASON FOR REFERRAL FUNCTIONAL STATUS PLAN OF CARE VITAL SIGNS MEDICATIONS Unknown Medications PROCEDURES No Known procedures RESULTS No Results REASON FOR VISIT Home care for Insurance Providers [facility] Health Member Patient Patient Patient Patient Patient Subscriber Subscriber Subscriber Group Insurance Plan Plan Plan Plan ID Relationship Address Phone Name Date of ID Name Date of No Type Insurance Insurance Insurance Coverage to Subscriber Address Phone Name Dates Todays [address] [phone] Todays self Alon [id number] [place] 13 [place] [address] Mc[place] Adv u [place] Todays [address] Todays self Alon [id number] Option [id number] Option [place] MCRAdv [facility] MCRAdv u AmProg Med [id number] AmProg Med Case [phone] Case self Alno [id number] Management [place] 02 Management [place] [facility] [address] Community u WellCare [address] WellCare self [place] [id number] [id number] [place] P[place] Mcr Adv [facility] Mcr Adv u Medical [id number] Medical Medicaid [id number] Medicaid self Alon [id number] [facility] 00 [place] [address] u WellCare [address] WellCare self Alon [id number] [place] 9255 Attn 83 GG495 [place] Hplex Mcr Claims Hplex Mcr u Adv Dept Adv Formerly [facility] [address] Medicare National [id number] Medicare self Alon [id number] PPS Government 41 PPS [place] Services u [address] [facility] [id number] Medicare National [id number] Medicare self Alon [id number] PPS Government 41 PPS [place] Services u [address] [facility] [id number] MEDICAL (GENERAL) HISTORY Type Description Date Medical [...]
--- OUTSIDE RECORDS SUMMARY | 2019-04-09 20:43 | XMS REPORT ---
:1940 Author Organization [facility] Address [address] 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 941346905 use of insulin Problem History of Z85.46 Active 468223896 prostate cancer Problem Stage 3 chronic N18.3 Active 888831790 kidney disease Problem Essential I10 Active 51754611 hypertension 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 [id number] iliac artery Problem Other chronic pain G89.29 Active 35359748 Problem Type 2 diabetes E11.9 Active 370825362 mellitus without complications Problem Morbid (severe) E66.01 Active 68309170933396 obesity due to excess calories Problem Body mass index Z68.42 Active 324525393 (BMI) of 45.0-49.9 in adult ALLERGIES No Information ENCOUNTERS Encounter Location Date Diagnosis [facility] [address] [place], [place] [address] [facility] - Resource - UNKNOWN [place], [facility] [address] [place], [place] [address] Case Management [address] [place], [place] [address] [facility] [address] Feb, [place] [address] Case Management [address] [place], [place] [address] [facility] [address] Feb, [place] [address] [facility] [address] [place], [place] [address] [facility] [address] [place] [address] [facility] [address] [place] [address] [facility] [address] [place] [address] [facility] [address] Jan, [place] [address] [facility] [address] Jan, [place] [address] [facility] [address] Jan, [place] [address] [facility] - [facility] - [place] [address] [facility] [place] [address] [facility] [address] [place] [address] [facility] [address] Jan, [place] [address] [facility] [address] [place] [address] Jan, Essential hypertension I10 [place] [address] ; Risk for falls Z91.81 ; Hyponatremia E87.1 and Stage 3 chronic kidney disease N18.3 [place] [facility] [address] Jan, [place] [address] [facility] [address] [facility] Jan, [place] [address] [facility] [address] [place] [address] Jan, [place] [address] R79.89 ; Abrasion hand S60.519A and Abrasion hip/leg S80.819A [facility] - Resource - [place] [address] [facility] Jan, [place] [address] [facility] [address] [facility] [address] Jan, 2019 [place] [address] [facility] [address] [place] [address] Jan, [place] [address] Jan, Hyponatremia E87.1 [place] [address] Jan, Hyponatremia E87.1 [place] [address] Normocytic anemia D64.9 [facility] [address] [place] [address] Jan, [place] [address] [facility] [address] [place] [address] Dec, [place] [address] Dec, [place] [address] Dec, [place] [address] Dec, Type 2 [place] [address] without complications E11.9 ; Essential hypertension I10 ; Hyponatremia E87.1 and Wheezing R06.2 [facility] [address] [place] [address] Dec, Type 2 [place] [address] without complications E11.9 and 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.4 [facility] - Resource - [place] [address] Dec, [place] [address] Dec, [place] [address] Dec, [place] [address] Dec, [place] [address] [facility] - Resource - [place] [address] [facility] [place] Dec, [place] [address] [place] [address] [facility] - Resource - [place] [address] [place] [address] [place] [address] Dec, [place] [address] [facility] - Resource - [place] [address] [facility] [place] Dec, [place] [address] Dec, [place] [address] Dec, Right hip pain M25.551 ; [place] [address] risk for fall due to comorbid condition Z91.81 ; Food insecurity Z59.4 ; Limited mobility Z74.09 and Type 2 diabetes mellitus without complications E11.9 [facility] - [place] [address] [facility] [place] Dec, [place] [address] [facility] [address] [facility] Nov, [place] [address] [facility] [address] [place] [address] Nov, [place] [address] Oct, [place] [address] [facility] [address] [facility] Oct, [place] [address] [facility] [address] September, Type 2 [place] [address] without complications E11.9 ; Screening for colon cancer Z12.11 and Aneurysm of left leg I72.4 [facility] [address] September, [place] [address] [facility] [address] September, Type 2 [place] [address] without complications E11.9 and 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.4 [facility] [address] September, [place] [address] [facility] [address] September, [place] [address] [facility] [address] Aug, [place] [address] [facility] [address] Aug, [place] [address] [facility] [address] [facility] Jul, [place] [address] [facility] [address] Jul, [place] [address] [facility] [address] Jul, [place] [address] [facility] [address] [facility] Jul, [place] [address] [facility] [address] Jun, [place] [address] [facility] [address] [facility] Jun, Type 2 diabetes mellitus [place] without complications E11.9 [address] [facility] [address] Jun, Type 2 [place] [address] without complication, unspecified whether snf insulin use E11.9 and 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.4 [facility] [address] Jun, Type 2 [place] [address] without complications E11.9 [facility] [address] Jun, [place] [address] [facility] [address] [facility] Jun, [place] [address] [facility] [address] Jun, [place] [address] extremity M79.[address] Jun, [facility] [place] [address] Jun, [place] [address] Jun, [place] [address] May, [facility] [place] [address] May, [place] [address] May, [place] [address] May, Hyponatremia E87.1 [place] [address] Apr, [place] [address] Apr, Type 2 [place] [address] without complications E11.9 ; Stage 3 chronic kidney disease N18.3 and Overgrown toenails L60.[address] Apr, [place] [address] Apr, Acute [place] [address] infection, unspecified J06.[address] Mar, Type 2 [place] [address] without complication, unspecified whether meterman insulin use E11.9 and shelter 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 Z79.[address] Mar, [place] [address] Mar, [place] [address] Feb, Elevated [place] [address] [address] Feb, Anemia, [place] [address] D64.9 ; Elevated serum creatinine R79.89 and Encounter for immunization Z23 [facility] [address] [place], Feb, [place] [address] [facility] [address] [place], Feb, [place] [address] Feb, [place] [address] [facility] [address] [place], Feb, Type 2 [place] [address] without complication, unspecified whether snf insulin use E11.9 and 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.[address] Feb, [place] [address] Jan, [place] [address] Jan, Type 2 [place] [address] without complications E11.9 and History of prostate cancer Z85.46 [place] [address] Jan, [place] [address] Jan, [place] [address] Jan, Type 2 [place] [address] without complication, unspecified whether snf insulin use E11.9 and 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.[address] Jan, Type 2 diabetes mellitus [place] without complication, [address] unspecified whether snf insulin use E11.[address] Jan, [place] [address] Dec, [place] [address] Dec, [place] [address] Dec, [place] [address] hyperthyroidism E05.[address] Dec, Type 2 [place] [address] without complications E11.9 ; Morbid (severe) obesity due to excess calories E66.01 ; Body mass index (BMI) of 45.0-49.9 in adult Z68.42 and Reduced ejection fraction concurrent with and due to acute heart failure I50.[address] Dec, [place] [address] Nov, Normocytic anemia D64.9 [place] [address] Hyponatremia E87.[address] Nov, [place] [address] Nov, Type 2 [place] [address] without complications E11.9 ; 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.4 ; Low back pain M54.5 ; Other chronic pain G89.29 ; Vision changes H53.9 ; Morbid (severe) obesity due to excess calories E66.01 and Body mass index (BMI) of 45.0-49.9 in adult Z68.[address] Nov, [place] [address] Nov, Reduced ejection fraction [place] [address] acute heart failure I50.21 [facility] [address] [facility] Nov, Anemia, unspecified [place] D64.9 [address] Nov, Normocytic anemia D64.9 [place] [address] Nov, Type 2 [place] [address] without complication, unspecified whether snf insulin use E11.9 ; Normocytic anemia D64.9 and History of prostate cancer Z85.[address] Nov, [place] [address] Nov, [place] [address] Nov, [place] [address] Oct, [place] [address] Oct, [place] [address] Oct, Type 2 [place] [address] without complication, unspecified whether snf insulin use E11.9 ; Elevated serum creatinine R79.89 ; Hyperkalemia E87.5 ; Hypocalcemia E83.51 ; Screening, lipid Z13.220 ; Age-related incipient cataract of both eyes H25.093 ; Screening for colon cancer Z12.11 and Reduced ejection fraction concurrent with and due to acute heart failure I50.[address] September, [place] [address] Aug, [place] [address] 19 Aug, 2017 [place] [address] IMMUNIZATIONS No Known Immunizations SOCIAL HISTORY Never Assessed REASON FOR REFERRAL FUNCTIONAL STATUS PLAN OF CARE VITAL SIGNS MEDICATIONS Unknown Medications PROCEDURES No Known procedures RESULTS No Results REASON FOR VISIT pt update Insurance Providers [facility] Member Patient Patient Patient Patient Patient Subscriber Subscriber Subscriber Group Insurance Plan Plan Plan Plan ID Relationship Address Phone Name Date of ID Name Date of No Type Insurance Insurance Insurance Coverage to Subscriber Address Phone Name Dates Medicare National Medicare self [place] [id number] PPS Government 41 PPS [place] [employer] u [address] [place] [id number] [place] [address] [place] self Alon [id number] Option [id number] Option [place] MCRAdv [facility] MCRAdv u AmProg Med [address] AmProg Med WellCare [address] WellCare self [place] [id number] [id number] [place] PPO [place] Mcr Adv [facility] Mcr Adv u Medical [address] Medical WellCare [address] WellCare self [place] [id number] [place] [address] 83 GG495 [place] Hplex Mcr Claims Hplex Mcr u Adv Dept Adv [facility] [address] Medicaid [address] [phone] Medicaid self Alon [id number] [facility] 00 [place] [address] u [place] [address] [phone] [place] self Alon [id number] Options [place] 13 Options [place] Mcr Adv [address] Mcr Adv u [place] Case [phone] Case self Alon [id number] Management [place] 02 Management [facility] [address] [facility] u Medicare National Medicare self [place] [id number] PPS Government 41 PPS [place] Services u [address] [facility] [id number] MEDICAL (GENERAL) HISTORY Type Description Date Medical [...]
--- OUTSIDE RECORDS SUMMARY | 2019-04-09 20:43 | XMS REPORT ---
:1940 Author Organization Formerly [facility] Address [address] [place] [address] Care Team Providers Name Role Phone Kory Toribio Unavailable Unavailable PROBLEMS Type Condition ICD9-CM [id number] Onset Condition SNOMED Code Code Code Dates Status Problem Pacemaker Z95.0 Active 274181324 Problem Normocytic anemia D64.9 Active 154923767 Problem Ischemic I25.5 Active 716627852 cardiomyopathy Problem Age-related H25.093 Active 432796501 incipient cataract of both eyes Problem Low back pain M54.5 Active 021471816 Problem intermediate current Z79.4 Active 453463239 use of insulin Problem History of Z85.46 Active 518326238 prostate cancer Problem Stage 3 chronic N18.3 Active 460138753 kidney disease Problem Essential I10 Active 06861060 hypertension 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 68031057924814074 iliac artery Problem Other chronic pain G89.29 Active 69685357 Problem Type 2 diabetes E11.9 Active 231912779 mellitus without complications Problem Morbid (severe) E66.01 Active 02738901528543 obesity due to excess calories Problem Body mass index Z68.42 Active 991832603 (BMI) of 45.0-49.9 in adult ALLERGIES No Information ENCOUNTERS Encounter Location Date Diagnosis Formerly [facility] [address] [place], [place] [address] [facility] - Resource - UNKNOWN [place], [facility] [address] [place], [place] [address] Case Management [address] [place], [place] [address] Formerly [facility] [address] [place] [address] Case Management [address] [place], [place] [address] Formerly [facility] [address] [place] Feb, [place] [address] [facility]ly [facility] [address] [place] Feb, [place] [address] [place] [facility] [address] [facility] [place], [place] [address] Formerly [facility] [address] [place] Feb, [place] [address] Formerly [facility] [address] [place] Feb, [place] [address] Feb, Risk for falls Z91.81 ; [place] [address] Encounter for immunization Z23 ; Essential hypertension I10 ; Normocytic anemia D64.9 and Stage 3 chronic kidney disease N18.3 [place] [address] [place] Feb, [place] [address] [facility] [address] [facility] Jan, [address] Jan, [place] [address] [facility] [address] [place] [address] Jan, [address] Jan, [place] [address] Formerly [facility] [address] [place] [address] Jan, [place] [address] Jan, [place] [address] [facility] - Resource - [place] [address] [facility] Jan, [place] [address] [facility] [address] [facility] Jan, [address] [place] [address] [place] [address] Jan, [place] [address] Jan, Essential hypertension I10 [place] [address] ; Risk for falls Z91.81 ; Hyponatremia E87.1 and Stage 3 chronic kidney disease N18.3 Formerly [facility] [address] [place] [address] Jan, [place] [address] [facility] [address] [place] Jan, [place] [address] Jan, [place] [address] R79.89 ; Abrasion hand S60.519A and Abrasion hip/leg S80.819A [facility] - Resource - [place] [address] [facility] Jan, [place] [address] Formerly [facility] [address] [facility] 16 Jan, 2019 [place] [address] [facility] [address] [facility] 12 Jan, 2019 [place] [address] R79.89 Formerly [facility] [address] [place] [address] Jan, Hyponatremia E87.1 [place] [address] [place] [address] Jan, Hyponatremia E87.1 [place] [address] Normocytic anemia D64.9 Formerly [facility] [address] [place] [address] Jan, [place] [address] [facility] [address] [place] [address] Dec, [place] [address] [facility] [address] [place] [address] Dec, [place] [address] [facility] [address] [place] [address] Dec, [place] [address] [place] [address] Dec, Type 2 [place] [address] without complications E11.9 ; Essential hypertension I10 ; Hyponatremia E87.1 and Wheezing R06.[address] Dec, Type 2 [place] [address] without complications E11.9 and director long term care 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 Z79.4 [facility] - [place] [address] [facility] Dec, [place] [address] Formerly [facility] [address] [place] [address] Dec, [place] [address] Dec, [place] [address] [facility] [address] [facility] Dec, [place] [address] [facility] - [place] [address] [facility] Dec, [place] [address] Formerly [facility] [address] [facility] Dec[place] [address] [facility] - [place] [address] [facility] Dec, [place] [address] [facility] [address] [facility] Dec, [place] [address] [facility] [place] [address] [facility] Dec, [place] [address] Formerly [facility] [address] [facility] Dec, [place] [address] [place] [address] [place] Dec, Right hip pain M25.551 ; [place] [address] risk for fall due to comorbid condition Z91.81 ; Food insecurity Z59.4 ; Limited mobility Z74.09 and Type 2 diabetes mellitus without complications E11.9 [facility] [place] [address] Dec, [place] [address] Formerly [facility] [address] Nov, [place] [address] [place] [address] [place] Nov, [place] [address] [facility] [address] [place] [address] Oct, [place] [address] [facility] [address] [facility] Oct, [place] [address] Formerly [facility] [address] [place] September, Type 2 [place] [address] without complications E11.9 ; Screening for colon cancer Z12.11 and Aneurysm of left leg I72.4 [place] [address] [place] September, [place] [address] [place] [address] [place] September, Type 2 [place] [address] without complications E11.9 and intermediate 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 Z79.4 [facility]ly [facility] [address] [place] September, [place] [address] [place] [address] [place] September, [place] [address] [place] [address] [place] Aug, [place] [address] [place] [address] [place] Aug, [place] [address] [facility] [address] [place] [address] Jul, [place] [address] Jul, [place] [address] [place] [address] [place], [place] [address] [facility] [address] [facility] Jul, [place] [address] [place] [address] [place] Jun, [place] [address] [facility] [address] [facility] Jun, Type 2 diabetes mellitus [place] without complications E11.9 [address] Jun, Type 2 [place] [address] without complication, unspecified whether residential insulin use E11.9 and director long term care 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 Z79.4 [facility]ly [facility] [address] Jun, Type 2 [place] [address] without complications E11.9 Formerly [facility] [address] Jun, [place] [address] [facility] [address] [place] [address] Jun, [place] [address] Formerly [facility] [address] [place] Jun, [place] [address] extremity M79.[address] Jun, [place] [address] Formerly [facility] [address] Jun, [place] [address] Formerly [facility] [address] [place] Jun, [place] [address] May, [place] [address] May, [place] [address] May, [place] [address] Formerly [facility] [address] [place] [address] May, Hyponatremia E87.1 [place] [address] Apr, [place] [address] Formerly [facility] [address] [facility] Apr, Type 2 [place] [address] without complications E11.9 ; Stage 3 chronic kidney disease N18.3 and Overgrown toenails L60.[address] Apr, [place] [address] Formerly [facility] [address] [place] [address] Apr, [place] [address] infection, unspecified J06.9 Formerly [facility] [address] [place] Mar, Type 2 [place] [address] without complication, unspecified whether residential insulin use E11.9 and director long term care 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 Z79.4 Formerly [facility] [address] [facility] Mar, [place] [address] [place], [place] [address] [place] Feb, [place] [address] R79.89 [place] [address] [place] Feb, [place], [place] [address] D64.9 ; Elevated serum creatinine R79.89 and Encounter for immunization Z23 [facility] [address] [place], Feb, [place] [address] [facility] [address] [place], [place], [place] [address] Formerly [facility] [address] [place] Feb, [place] [address] [facility] [address] [place], Feb, Type 2 [place] [address] without complication, 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 and intermediate 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 Z79.[address] Feb, [place] [address] [place] [address] [place] Jan, [place] [address] Jan, Type 2 [place] [address] without complications E11.9 and History of prostate cancer Z85.[address] Jan, [place] [address] Jan, [place] [address] Jan, Type 2 [place] [address] without complication, 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 and director long term care 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 Z79.[address] Jan, Type 2 diabetes mellitus [place] without complication, [address] 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 Jan, [place] [address] Formerly [facility] [address] [place] Dec, [place] [address] [place] [address] [place] Dec, [place] [address] [place] [address] [place] Dec, [place] [address] hyperthyroidism E05.80 [place] [address] [place] Dec, Type 2 [place] [address] without complications E11.9 ; Morbid (severe) obesity due to excess calories E66.01 ; Body mass index (BMI) of 45.0-49.9 in adult Z68.42 and Reduced ejection fraction concurrent with and due to acute heart failure I50.[address] Dec, [place] [address] [place] [address] [place] Nov, Normocytic anemia D64.9 [place] [address] Hyponatremia E87.1 [place] [address] [place] Nov, [place] [address] [place] [address] [place] Nov, Type 2 [place] [address] without complications E11.9 ; intermediate 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 Z79.4 ; Low back pain M54.5 ; Other chronic pain G89.29 ; Vision changes H53.9 ; Morbid (severe) obesity due to excess calories E66.01 and Body mass index (BMI) of 45.0-49.9 in adult Z68.[address] Nov, [place] [address] Nov, Reduced ejection fraction [place] [address] acute heart failure I50.[address] Nov, Anemia, unspecified type [place], [place] D64.9 [address] Nov, Normocytic anemia D64.9 [place] [address] [place] [address] [place] Nov, Type 2 [place] [address] without complication, 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 ; Normocytic anemia D64.9 and History of prostate cancer Z85.46 [place] [address] [place] Nov, [place] [address] [place] [address] [place] Nov, [place] [address] Nov, [place] [address] [place] [address] [place] Oct, [place] [address] [place] [address] [place] Oct, [place] [address] [place] [address] [place] Oct, Type 2 [place] [address] without complication, 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 ; Elevated serum creatinine R79.89 ; Hyperkalemia E87.5 ; Hypocalcemia E83.51 ; Screening, lipid Z13.220 ; Age-related incipient cataract of both eyes H25.093 ; Screening for colon cancer Z12.11 and Reduced ejection fraction concurrent with and due to acute heart failure I50.21 Formerly [facility] [address] September, [place] [address] [place] [address] Aug, [place] [address] [place] [address] Aug, [place] [address] IMMUNIZATIONS No Known Immunizations SOCIAL HISTORY Never Assessed REASON FOR REFERRAL FUNCTIONAL STATUS PLAN OF CARE VITAL SIGNS MEDICATIONS Unknown Medications PROCEDURES No Known procedures RESULTS No Results REASON FOR VISIT Needs call back from our Provider Insurance Providers [facility] Member Patient Patient Patient Patient Patient Subscriber Subscriber Subscriber Group Insurance Plan Plan Plan Plan ID Relationship Address Phone Name Date of ID Name Date of No Type Insurance Insurance Insurance Coverage to Subscriber Address Phone Name Dates [facility] [phone] [facility] self Alon [id number] [place] [address]255 Attn 83 [address] [place] Hplex Mcr Claims Hplex Mcr u Adv Dept Adv [facility] [address] Case [phone] Case self Alon [id number] Management [place] 02 Management [facility] [address] [facility] Medicare National [id number] Medicare self Alon [id number] PPS [facility] 41 PPS [place] Services u [address] [facility] [place] [place] [phone] [facility] [phone] [facility] self [place] [id number] [id number] [place] P[place] Mcr Adv [place] Mcr Adv u Medical [id number] Medical Medicaid [id number] Medicaid self Alon [id number] [facility] [address] [place] [address] u [place] [address] [phone] [place] self Alon [id number] Options [place] 13 Options [place] Mcr Adv [address] Mcr Adv u [place] [phone] [place] self Alon [id number] Option [id number] Option [place] MCRAdv [facility] MCRAdv u AmProg Med [id number] AmProg Med Medicare National [id number] Medicare self [place] [id number] PPS [place] [address] PPS [place] Services u [address] [place] [place] [phone] MEDICAL (GENERAL) HISTORY Type Description Date Medical [...]
--- OUTSIDE RECORDS SUMMARY | 2019-04-09 20:43 | XMS REPORT ---
:1940 Author Organization Formerly [facility], [facility] Address [address] [place] [address] Care Team Providers Name Role Phone Kory Toribio Unavailable Unavailable PROBLEMS Type Condition ICD9-CM JXY59-OV Onset Condition SNOMED Code Code Code Dates Status Problem Pacemaker Z95.0 Active 936754282 Problem Normocytic anemia D64.9 Active 107362843 Problem Ischemic I25.5 Active 436810296 cardiomyopathy Problem Age-related H25.093 Active 425689969 incipient cataract of both eyes Problem Low back pain M54.5 Active 653161716 Problem MCC current Z79.4 Active 432312293 use of insulin Problem History of Z85.46 Active 634190571 prostate cancer Problem Stage 3 chronic N18.3 Active 337137627 kidney disease Problem Essential I10 Active 81849564 hypertension 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 28907007502501162 iliac artery Problem Other chronic pain G89.29 Active 15301025 Problem Type 2 diabetes E11.9 Active 535413742 mellitus without complications Problem Morbid (severe) E66.01 Active 35804714610244 obesity due to excess calories Problem Body mass index Z68.42 Active 570184276 (BMI) of 45.0-49.9 in adult ALLERGIES No Information ENCOUNTERS Encounter Location Date Diagnosis Formerly [facility], [facility] [address] [place], [place] [address] [facility] - Resource - UNKNOWN [place], Formerly [facility] [address] [place], [place] [address] Case Management [address] [place], [place] [address] Formerly [facility], [facility] [address] Feb, [place] [address] Case Management [address] [place] [address] Formerly [facility], [facility] [address] [facility] Feb, [place] [address] [facility] [address] [place] Feb, [place] [address] [facility] [address], [place] [address] Formerly [facility] [address], [place] [address] [facility] [address] Jan, [place] [address] [facility] [address] Jan, [place] [address] [facility] [address] Jan, [place] [address] [facility] [address] Jan, [place] [address] [facility] - Resource - [place] [address] [facility] Jan, [place] [address] [facility] [address] Jan, [place] [address] [facility] [address] [facility] Jan, [place] [address] [facility] [address] [place] [address] Jan, Essential hypertension I10 [place] [address] ; Risk for falls Z91.81 ; Hyponatremia E87.1 and Stage 3 chronic kidney disease N18.3 [place] Formerly [facility] [address] [place] Jan, [place] [address] Formerly [facility], [facility] [address] [facility] Jan, [place] [address] Formerly [facility] [address] [place] [address] Jan, [place] [address] R79.89 ; Abrasion hand S60.519A and Abrasion hip/leg S80.819A [facility] - Resource - [place] [address] [facility] Jan, [place] [address] [facility] [address] [facility] [address] Jan, 2019 [place] [address] [facility] [address] [place] [address] Jan, [place] [address] R79.[address] [place] [address] Jan, Hyponatremia E87.1 [place] [address] Jan, Hyponatremia E87.1 [place] [address] Normocytic anemia D64.9 [facility] [address] [place] [address] Jan, [place] [address] [facility] [address] [place] [address] Dec, [place] [address] [facility] [address] [place] [address] Dec, [place] [address] [facility] [address] [place] [address] Dec, [place] [address] Dec, Type 2 [place] [address] without complications E11.9 ; Essential hypertension I10 ; Hyponatremia E87.1 and Wheezing R06.2 [facility] [address] [place] [address] Dec, Type 2 [place] [address] without complications E11.9 and MCC 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 Z79.4 [facility] - Resource - [place] [address] [place] Dec, [place] [address] Dec, [place] [address] Dec, [place] [address] Dec, [place] [address] [facility] - Resource - [place] [address] [facility] Dec, [place] [address] [place], [place] [address] [facility] - Resource - [place] [address] [facility] Dec, [place] [address] Dec, [place] [address] [facility] - Resource - [place] [address] [facility] Dec, [place] [address] Formerly [facility] [address] [place] [address] Dec, [place] [address] Dec, Right hip pain M25.551 ; [place] [address] risk for fall due to comorbid condition Z91.81 ; Food insecurity Z59.4 ; Limited mobility Z74.09 and Type 2 diabetes mellitus without complications E11.9 [facility] - Resource - [place] [address] [facility] Dec, [place] [address] Formerly [facility] [address] [place] Nov[place] [address] [facility] [address] [place] [address] Nov, [place] [address] Oct, [place] [address] [facility] [address] [facility] Oct, [place] [address] Formerly [facility] [address] September, Type 2 [place] [address] without complications E11.9 ; Screening for colon cancer Z12.11 and Aneurysm of left leg I72.4 [place] [facility] [address] September, [place] [address] [facility] [address] September, Type 2 [place] [address] without complications E11.9 and 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 Formerly [facility] [address] September, [place] [address] Formerly [facility] [address] September, [place] [address] Formerly [facility] [address] Aug, [place] [address] [facility] [address] Aug, [place] [address] [facility] [address] [facility] Jul, [place] [address] [facility] [address] Jul, [place] [address] Former[facility] [address] Jul, [place] [address] [facility] [address] [facility] Jul, [place] [address] Formerly [facility] [address] Jun, [place] [address] [facility] [address] [facility] Jun, Type 2 diabetes mellitus [place] without complications E11.9 [address] Formerly [facility] [address] Jun, Type 2 [place] [address] without complication, 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 and 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 Formerly [facility] [address] Jun, Type 2 [place] [address] without complications E11.9 [facility] [address] Jun, [place] [address] [facility] [address] [facility] Jun, [place] [address] Formerly [facility] [address] Jun, [place] [address] [address] Jun, [facility] [place], [place] [address] Jun, [place] [address] Jun, [place] [address] Hugh Medina [address] May, [facility] [place], [place] [address] [facility] [address] [place] [address] May, [place] [address] [facility] [address] [place] [address] May, [place] [address] May, Hyponatremia E87.1 [place] [address] Apr, [place] [address] Apr, Type 2 [place] [address] without complications E11.9 ; Stage 3 chronic kidney disease N18.3 and Overgrown toenails L60.[address] Apr, [place] [address] Apr, [place] [address] infection, unspecified J06.[address] Mar, Type 2 [place] [address] without complication, 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 and MCC 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 Z79.[address] Mar, [place] [address] Mar, [place] [address] Feb, Elev[place] [address] [address] Feb, Anemia, [place] [address] D64.9 ; Elevated serum creatinine R79.89 and Encounter for immunization Z23 [employer] [address] [place], Feb, 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 Feb, [place] [address] Jan, [place] [address] Jan, Type 2 [place] [address] without complications E11.9 and History of prostate cancer Z85.46 [place] [address] [place] Jan, [place] [address] Jan, [place] [address] Jan, Type 2 [place] [address] without complication, unspecified whether detention insulin use E11.9 and MCC 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 Z79.[address] Jan, Type 2 diabetes mellitus [place] without complication, [address] unspecified whether detention insulin use E11.[address] Jan, [place] [address] Dec, [place] [address] Dec, [place] [address] Dec, [place] [address] hyperthyroidism E05.[address] Dec, Type 2 [place] [address] without complications E11.9 ; Morbid (severe) obesity due to excess calories E66.01 ; Body mass index (BMI) of 45.0-49.9 in adult Z68.42 and Reduced ejection fraction concurrent with and due to acute heart failure I50.[address] Dec, [place] [address] Nov, Normocytic anemia D64.9 [place] [address] Hyponatremia E87.[address] Nov, [place] [address] Nov, Type 2 [place] [address] without complications E11.9 ; 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 ; Low back pain M54.5 ; Other chronic pain G89.29 ; Vision changes H53.9 ; Morbid (severe) obesity due to excess calories E66.01 and Body mass index (BMI) of 45.0-49.9 in adult Z68.[address] Nov, [place] [address] Nov, Reduced ejection fraction [place] concurrent [place] [address] acute heart failure I50.21 [facility] [address] [facility] Nov, Anemia, unspecified type [place] D64.9 [address] Nov, Normocytic anemia D64.9 [place] [address] Nov, Type 2 [place] [address] without complication, 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 ; Normocytic anemia D64.9 and History of prostate cancer Z85.[address] Nov, [place] [address] Nov, [place] [address] Nov, [place] [address] Oct, [place] [address] Oct, [place] [address] Oct, Type 2 [place] [address] without complication, 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 ; Elevated serum creatinine R79.89 ; Hyperkalemia E87.5 ; Hypocalcemia E83.51 ; Screening, lipid Z13.220 ; Age-related incipient cataract of both eyes H25.093 ; Screening for colon cancer Z12.11 and Reduced ejection fraction concurrent with and due to acute heart failure I50.[address] September, [place] [address] [place] [address] Aug, [place] [address] [place] [id number] [facility] Aug, [place] [address] IMMUNIZATIONS No Known Immunizations SOCIAL HISTORY Never Assessed REASON FOR REFERRAL FUNCTIONAL STATUS PLAN OF CARE VITAL SIGNS MEDICATIONS Unknown Medications PROCEDURES No Known procedures RESULTS No Results REASON FOR VISIT reschedule BP appt Insurance Providers [facility] Health Member Patient Patient Patient Patient Patient Subscriber Subscriber Subscriber Group Insurance Plan Plan Plan Plan ID Relationship Address Phone Name Date of ID Name Date of No Type Insurance Insurance Insurance Coverage to Subscriber Address Phone Name Dates [place] [address] Todays self Alon [id number] Option [id number] Option [place] MCRAdv [facility] MCRAdv u AmProg Med 11494 AmProg Med Case [phone] Case self Alon [id number] Management [place] 02 Management [facility] [address] [facility] u WellCare [address] WellCare self [place] [id number] P[place] [id number] 63 [place] PPO [place] Mcr Adv [place] Mcr Adv u Medical [id number] Medical Medicare National [id number] Medicare self Alon [id number] PPS Government 41 PPS [place] Services u [address] [place] [id number] Todays [phone] Todays self Alon [id number] Options [place] 13 Options [place] Mcr Adv [address] Mcr Adv u [place] Well[place] [address] WellCare self Alon [id number] GG495 [place] [address] 83 GG495 [place] Hplex Mcr Claims Hplex Mcr u Adv Dept Adv [facility] [address] Medicare National [phone] Medicare self [place]on [id number] PPS Government 41 PPS [place] Services u [address] [place] [id number] Medicaid [id number] [phone] Medicaid self [place] [id number] [facility] 00 [place] [address] u MEDICAL (GENERAL) HISTORY Type Description Date [...]
--- OUTSIDE RECORDS SUMMARY | 2019-04-09 20:43 | XMS REPORT | Continuity of Care Document ---
:1940 External Reference #:[id number] Author Name John Edmond M.D. (transmitted by agent of provider Hayley Pereyra ) Address [address] [place] [address] Care Team Providers Name Role Phone Sammy Rosales DO - Surgery Care Team Information Contract Assistant Lalo Leo MD - Orthopaedic Care Team Information Contract Assistant Surgery Kory Toribio PA-Rekha - Physician Care Team Information Contract Assistant Genetics Nurse Problems Active Problems Provider Date Automatic implantable [...] Medications SIG Qnty Indications Ordering Provider Date Carvedilol 1 tab by mouth 180tabs John Graf 03/15/2019 12.5mg Tablets twice daily Andreas Edmond Jardiance 10mg by mouth 90tabs Other Ordering 04/26/2018 10mg Tablets daily Provider Nitroglycerin 1 sl q5mins x3 25tabs John Alee 08/01/2016 0.4mg as needed for Andreas Edmond Tablets Sub chest pain Amiodarone HCL 1 tablet by 90tabs John Alee 11/12/2015 100mg mouth daily Andreas Edmond Tablets three days a week. Pravachol One PM 30tabs John Graf 08/11/2007 80mg Tablets Andreas Edmond Aspir-81 1 by mouth 30tabs John Graf 11/02/[address] every day Andreas Edmond Multi-Vitamins 1 PO qd John Graf 11/02/2006 Tablets Andreas Edmond Vitamin B12 1 po qd Unknown 1500mcg Tablets ER Tamsulosin HCL 2 po qd 90caps Unknown 0.4mg Capsules Vitamin D-3 1 by mouth John Graf 1000Unit every day Andreas Edmond Capsules Levemir 25 in the am, Unknown 100Unit/ML 25 in the pm Solution Metformin HCL 1 tablet am and Unknown 500mg 1 tablet pm due Tablets to BS drops Eliquis 1 by mouth 180tabs John Alee 5mg Tablets twice a day Andreas Edmond Magnesium Oxide 1 by mouth Unknown 250mg every day Tablets Medications Administered in Office Medication SIG Qnty Indications Ordering Provider Date Depomedrol 40MG Kari Lemus M.D. 12/22/2018 Injection Immunizations Description No Information Available Vital Signs Date Vital Result Comment 03/15/2019 11:23am Height 67 inches 5'7" Weight 190.38 lb with shoes Heart Rate 84 /min radial,regular BP Systolic Sitting 92 mmHg LA, reg cuff BP Diastolic Sitting 58 mmHg LA, reg cuff BP Systolic Standing 88 mmHg LA, reg cuff BP Diastolic Standing 58 mmHg LA, reg cuff BMI (Body Mass Index) 29.8 kg/m2 Ejection Fraction 30%-35% echo 02/23/19 02/11/2019 10:01am Height 67 inches 5'7" Weight 214.00 lb Heart Rate 95 /min BP Systolic 142 mmHg BP Diastolic 78 mmHg Body Temperature 97.0 F Pain Level 0 BMI (Body Mass Index) 33.5 kg/m2 Results Test Date Facility Test Result H/L Range Note Xray 12/22/2018 Benefits Consultant In House Inj/Aspir Major JT Or Bursa W/ <pending> US Procedures Date Code Description Status 03/15/2019 14076 EKG Tracing & Interpretation Completed 02/23/2019 04513 ECHO Transthoracic, Real-Time 2D With Doppler And Color Completed Flow 02/23/2019 85230 ECHO Transthoracic, Real-Time 2D With Doppler And Color Completed Flow 02/08/2019 94478 Interrogation Implant Cardiovasc Monitor System Incl Completed Analysis Int 02/08/2019 99954 Interrogation Implant Cardiovasc Monitor System Incl Completed Analysis Int 02/08/2019 37997 Icd Eval With Iterative Adjustmt Multiple Lead System Completed 02/08/2019 65511 Icd Eval With Iterative Adjustmt Multiple Lead System Completed 01/07/2019 73791 Icd Eval With Inerative Adjustmt Dual Lead System Completed 01/06/2019 92160 ECHO Transthorasic Realtime 2D W Doppler & Color Flow Hosp Completed 01/06/2019 81697 Interrogation Device Eval Remote Up To 30 Days Completed Analysis,Rev,RP 01/06/2019 79436 Icd Eval Sing,Dual,Multi Lead Remote Recpt Transm Tech Rev Completed Tech S 01/06/2019 30955 Icd Check Remote Up To 90 Days Single,Dual,Multiple Lead Completed 12/22/2018 22203 Inj/Aspir Major JT Or Bursa W/ US Completed 11/03/2018 38281 Echocardiogram, Limited Study Completed 11/03/2018 23606 Echocardiogram, Limited Study Completed Medical Devices Description No Information Available Encounters Type Date Location Provider Dx Diagnosis Office Visit 02/11/2019 [facility] Kari Lemus, 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 collapse Hospitalists E11.649 Type 2 diabetes mellitus with hypoglycemia without coma I50.22 Chronic systolic (congestive) heart failure Office Visit 01/09/2019 [facility] E11.649 Type 2 diabetes 8:42a spike Friedman M.D. mellitus with Hospitalists hypoglycemia without coma R55 Syncope and collapse Office Visit 01/08/2019 [facility] E11.649 Type 2 diabetes 8:42a spike Friedman M.D. mellitus with Hospitalists hypoglycemia without coma R55 Syncope and collapse Office Visit 01/07/2019 [facility] E11.649 Type 2 diabetes 8:42a spike Friedman M.D. mellitus with Hospitalists hypoglycemia without coma R55 Syncope and collapse I48.91 Unspecified atrial fibrillation Office Visit 01/06/2019 [facility] E11.649 Type 2 diabetes 8:41a spike Friedman M.D. mellitus with Hospitalists hypoglycemia without coma R55 Syncope and collapse Office Visit 12/22/2018 [facility] M16.11 Unilateral primary 10:00a Orthopedics at Andreas Lemus osteoarthritis, right [place] hip M17.0 Bilateral primary osteoarthritis of knee S83.411A Sprain of medial collateral ligament of right knee, init S83.412A Sprain of medial collateral ligament of left knee, init M25.551 Pain in right hip M25.561 Pain in right knee M25.562 Pain in left knee Assessments Date Code Description Provider 03/15/2019 R55 Syncope and collapse John Edmond [...] 01/07/2019 Z95.810 Presence of automatic (implantable) Len Mckeon, DO [facility] cardiac defibrillator 01/07/2019 R55 Syncope and collapse Anni Sanford M.D. 01/07/2019 R55 Syncope and collapse Len Mckeon, DO [facility] 01/07/2019 I48.91 Unspecified atrial fibrillation Anni Sanford M.D. 01/06/2019 E11.649 Type 2 diabetes mellitus with Anni Sanford M.D. hypoglycemia without coma 01/06/2019 R55 Syncope and collapse Len Mckeon, DO [facility] 01/06/2019 R55 Syncope and collapse Anni [...] John Edmond M.D. 11/03/2018 I25.5 Ischemic cardiomyopathy [place] [facility] Schedule Plan of Treatment Future Appointment(s):04/07/2019 11:00 am - Qian Montes De Oca N.Tonya at [facility]05/13/2019 9:45 am - Kari Lemus M.D. at [facility]03/15/2019 - John Edmond M.D.R55 Syncope and eqkoplvfE00.649 Type 2 diabetes mellitus with hypoglycemia without comaI25.5 Ischemic wynzycboqsdcucW23.2 Drug-induced hypotensionFollow up:ov Qian 2-4 weeks ov JFM 5 mRecommendations:stop isosorbide decrease coreg to 12.5 mg po bidI48.0 Paroxysmal atrial riwupmnbjqldT60.09 Dyspnea on exertionNew Orders:Pulmonary Function Test W/Dlco, Scheduled: 04/04/19 Functional Status Description No Information Available Mental Status Description No Information Available Referrals Description No Information Available
--- OUTSIDE RECORDS SUMMARY | 2019-04-09 20:43 | XMS REPORT ---
:1940 Author Organization [facility] Address [address] [place] [address] Care Team Providers Name Role Phone Kory Toribio Unavailable Unavailable PROBLEMS Type Condition ICD9-CM RND63-GS Onset Condition SNOMED Code Code Code Dates Status Problem Pacemaker Z95.0 Active 386068057 Problem Normocytic anemia D64.9 Active 913576648 Problem Ischemic I25.5 Active 961752690 cardiomyopathy Problem Age-related H25.093 Active 509095197 incipient cataract of both eyes Problem Low back pain M54.5 Active 185453599 Problem MCFP current Z79.4 Active 376993184 use of insulin Problem History of Z85.46 Active 877580334 prostate cancer Problem Stage 3 chronic N18.3 Active 068566325 kidney disease Problem Essential I10 Active 38375579 hypertension 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 [id number] iliac artery Problem Other chronic pain G89.29 Active 80704313 Problem Type 2 diabetes E11.9 Active 044144324 mellitus without complications Problem Morbid (severe) E66.01 Active 05356923801805 obesity due to excess calories Problem Body mass index Z68.42 Active 957057150 (BMI) of 45.0-49.9 in adult ALLERGIES No Information ENCOUNTERS Encounter Location Date Diagnosis [facility] [address] Mar, [place] [address] [facility] - Resource - UNKNOWN Mar, Formerly [facility] [address] Mar, [place] [address] Case Management [address] [place] [address] [facility] [address] Feb, [place] [address] Case Management [address] [place], [place] [address] [facility] [address] Feb, 2019 [place] [address] [place] [facility] [address] [place], [place] [address] [facility] [address] Feb, [place] [address] [facility] [address] Feb, [place] [address] [facility] [address] Feb, Risk for falls Z91.81 ; [place] [address] Encounter for immunization Z23 ; Essential hypertension I10 ; Normocytic anemia D64.9 and Stage 3 chronic kidney disease N18.3 [facility] [address] Feb, [place] [address] Formerly [facility] [address] [facility] Jan, [place] [address] Jan, [place] [address] [facility] [address] [facility] Jan, [place] [address] [place] [address], [place] [address] Jan, [place] [address] Jan, [place] [address] [facility] - Resource - [place] [address] [facility] Jan, [place] [address] [facility] [address] [facility] Jan, [place] [address] [place] [id number] [facility] Jan, [place] [address] Jan, Essential hypertension I10 [place] [address] ; Risk for falls Z91.81 ; Hyponatremia E87.1 and Stage 3 chronic kidney disease N18.3 [facility] [address] Jan, [place] [address] [facility] [address] Jan, [place] [address] [place] [address] Jan, [place] [address] R79.89 ; Abrasion hand S60.519A and Abrasion hip/leg S80.819A [facility] - Resource - [place] [address] [facility] Jan, [place] [address] Count Includes [facility] [address] [facility] Jan, [place] [address] [facility] [address] [place] [address] Jan, [place] [address] Jan, Hyponatremia E87.1 [place] [address] Jan, Hyponatremia E87.1 [place] [address] Normocytic anemia D64.[address] Jan, [place] [address] Dec, [place] [address] Formerly [facility] [address] [place] [address] Dec, [place] [address] Dec, [place] [address] Dec, Type 2 [place] [address] without complications E11.9 ; Essential hypertension I10 ; Hyponatremia E87.1 and Wheezing R06.[address] Dec, Type 2 [place] [address] without complications E11.9 and 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 [facility] Dec, [place] [address] Dec, [place] [address] Dec, [place] [address] Dec, [place] [address] [facility] - [place] [address] [facility] Dec, [place] [address] [facility] [address] [place] [address] Dec, [place] [address] [facility] - [place] [address] [facility] Dec, [place] [address] Dec, [place] [address] [facility] - [place] [address] [facility] Dec, [place] [address] [facility] [address] [facility] Dec, [place] [address] [facility] [address] [place] [address] Dec, Right hip pain M25.551 ; [place] [address] risk for fall due to comorbid condition Z91.81 ; Food insecurity Z59.4 ; Limited mobility Z74.09 and Type 2 diabetes mellitus without complications E11.9 [facility] [place] [address] Dec, [place] [address] [facility] [address] Nov, [place] [address] [facility] [address] Nov, [place] [address] [facility] [address] [place] [address] Oct, [place] [address] Oct, [place] [address] [facility] [address] September, Type 2 [place] [address] without complications E11.9 ; Screening for colon cancer Z12.11 and Aneurysm of left leg I72.4 [facility] [address] September, [place] [address] [facility] [address] September, Type 2 [place] [address] without complications E11.9 and 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 Z79.4 [facility] [address] September, [place] [address] [facility] [address] September, [place] [address] [facility] [address] Aug, [place] [address] [place] [address], [place] [address] Jul, [place] [address] [place] [address] Jul, [place] [address] Jul, [place] [address] [facility] [address] [facility] Jul, [place] [address] [facility] [address] Jun, [place] [address] [facility] [address] [place] [address] Jun, Type 2 diabetes mellitus [place], [place] without complications E11.9 [address] [place] [address] Jun, Type 2 [place] [address] without complication, unspecified whether poleyard 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 insulin use E11.9 and 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 Z79.4 [facility] [address] 14 Jun, 2018 Type 2 [place] [address] without complications E11.9 [facility] [address] Jun, [place] [address] [facility] [address] [place] [address] Jun, [place] [address] [facility] [address] Jun, [place] [address] extremity M[address] Jun, [facility] [place] [address] [facility] [address] Jun, [place] [address] [facility] [address], [place] [address] May, [place] [address] [facility] [address] [place] [address] May, [place] [address] [facility] [address] [place] [address] May, [place] [address] May, Hyponatremia E87.1 [place] [address] Apr, [place] [address] Apr, Type 2 [place] [address] without complications E11.9 ; Stage 3 chronic kidney disease N18.3 and Overgrown toenails L60.[address] Apr, [place] [address] Apr, [place] [address] infection, unspecified J06.[address] Mar, Type 2 [place] [address] without complication, unspecified whether poleyard supervisor insulin use E11.9 and MCFP 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 Z79.4 [place] [address] Mar, [place] [address] Mar, [place] [address] Feb, [place] [address] R79.[address] [place] [address] Feb, [place], [place] [address] D64.9 ; Elevated serum creatinine R79.89 and Encounter for immunization Z23 [facility] [address] [place], Feb, [place] [address] [facility] [address] [place], Feb, [place] [address] Feb, [place] [address] [facility] [address] [place], Feb, Type 2 [place] [address] without complication, unspecified whether mcfp insulin use E11.9 and 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 Z79.[address] Feb, [place] [address] Jan, [place] [address] Jan, Type 2 [place] [address] without complications E11.9 and History of prostate cancer Z85.[address] Jan, [place] [address] Jan, [place] [address] Jan, Type 2 [place] [address] without complication, unspecified whether poleyard supervisor insulin use E11.9 and MCFP 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 Z79.[address] Jan, Type 2 diabetes mellitus [place] without complication, [address] unspecified whether mcfp insulin use E11.[address] Jan, [place] [address] Dec, [place] [address] [place] [address] Dec, [place] [address] [place] [address] Dec, [place] [address] hyperthyroidism E05.[address] Dec, Type 2 [place] [address] without complications E11.9 ; Morbid (severe) obesity due to excess calories E66.01 ; Body mass index (BMI) of 45.0-49.9 in adult Z68.42 and Reduced ejection fraction concurrent with and due to acute heart failure I50.[address] Dec, [place] [address] [place] [address] Nov, Normocytic anemia D64.9 [place] [address] Hyponatremia E87.1 [place] [address] Nov, [place] [address] [place] [address] Nov, Type 2 [place] [address] without complications E11.9 ; 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 Z79.4 ; Low back pain M54.5 ; Other chronic pain G89.29 ; Vision changes H53.9 ; Morbid (severe) obesity due to excess calories E66.01 and Body mass index (BMI) of 45.0-49.9 in adult Z68.42 [place] [address] Nov, [place] [address] Nov, Reduced ejection fraction [place] [address] acute heart failure I50.[address] Nov, Anemia, unspecified type [place] D64.9 [address] [place] [address] Nov, Normocytic anemia D64.9 [place] [address] [place] [address] Nov, Type 2 [place] [address] without complication, unspecified whether mcfp insulin use E11.9 ; Normocytic anemia D64.9 and History of prostate cancer Z85.46 [place] [address] Nov, [place] [address] [place] [address] Nov, [place] [address] Nov, [place] [address] [place] [address] Oct, [place] [address] [place] [address] Oct, [place] [address] [place] [address] Oct, Type 2 [place] [address] without complication, unspecified whether poleyard supervisor insulin use E11.9 ; Elevated serum creatinine R79.89 ; Hyperkalemia E87.5 ; Hypocalcemia E83.51 ; Screening, lipid Z13.220 ; Age-related incipient cataract of both eyes H25.093 ; Screening for colon cancer Z12.11 and Reduced ejection fraction concurrent with and due to acute heart failure I50.21 [facility] [address] September, [place] [address] [place] [address] Aug, [place] [address] [place] [address] Aug, [place] [address] IMMUNIZATIONS No Known Immunizations SOCIAL HISTORY Never Assessed REASON FOR REFERRAL FUNCTIONAL STATUS PLAN OF CARE VITAL SIGNS MEDICATIONS Unknown Medications PROCEDURES No Known procedures RESULTS No Results REASON FOR VISIT medication Insurance Providers [facility] Member Patient Patient Patient Patient Patient Subscriber Subscriber Subscriber Group Insurance Plan Plan Plan Plan ID Relationship Address Phone Name Date of ID Name Date of No Type Insurance Insurance Insurance Coverage to Subscriber Address Phone Name Dates Medicaid [phone] Medicaid self Alon [id number] [facility] [address] [place] [id number] u [place]ays [phone] Todays self Alon [id number] Option [id number] Option [place] MCRAdv [facility] MCRAdv u AmProg Med [id number] AmProg Med Medicare National [id number] Medicare self Alon [id number] PPS Government 41 PPS [place] Services u [address] [place] [id number] Todays [phone] Todays self Alon [id number] Options Opp [place] 13 Options [place] Mcr Adv [address] Mcr Adv u Husser Husser Medicare National [id number] Medicare self Alon [id number] PPS Government 41 PPS [place] Services u [address] [place] [id number] [facility] [phone] Well[facility] self [place] [id number] [facility] PPO [address] 63 [place] PPO [place] Mcr Adv [place] Mcr Adv u Medical [address] Medical Case [phone] Case self Alon [id number] Management [place] 02 Management [facility] [address] [facility] [phone] Well[employer] self Alon [id number] [place] 9255 Att[address] 83 GG495 Husser [facility] Hplex Mcr Claims Hplex Mcr u Adv Dept Adv [facility] [address] MEDICAL (GENERAL) HISTORY Type Description Date Medical [...]
--- OUTSIDE RECORDS SUMMARY | 2019-04-09 20:44 | XMS REPORT | Continuity of Care Document ---
:1940 External Reference #:[id number] Author Name Kari Lemus M.D. 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 Pravachol One PM 30tabs John Graf 08/11/2007 80mg Tablets Andreas Edmond Aldactone 1/2 po qd 15tabs John Graf 04/06/2007 25mg Tablets Andreas Edmond Aspir-81 1 by mouth 30tabs John Graf 11/02/[address] every day Andreas Edmond Multi-Vitamins 1 PO qd John Graf 11/02/2006 Tablets Andreas Edmond Magnesium Oxide 1 by mouth Unknown 250mg Tablets every day Eliquis 1 by mouth 180tabs John Graf 5mg Tablets twice a day Andreas Edmond Metformin HCL 1 tablet am Unknown 500mg Tablets and 1 tablet pm due to BS drops Levemir 65 in the am, Unknown 100Unit/ML Solution 60 in the pm Isosorbide Mononitrate ER 1 by mouth 90tabs Qian Montes De Oca, 60mg every day N.P. Tablets ER 24HR Vitamin D-3 1 by mouth John Graf 1000Unit Capsules every day Andreas Edmond Carvedilol take 1 mouth 180tabs Qian Montes De Oca, 25mg Tablets twice daily N.P. Glipizide ER 1 po qd 180tabs Unknown 5mg Tablets ER 24HR Tamsulosin HCL 2 po qd 90caps Unknown 0.4mg Capsules Vitamin B12 1 po qd Unknown 1500mcg Tablets ER Medications Administered in Office Medication [...] Test Result H/L Range Note Xray 12/22/2018 Documentation Improvement Specialist In House Inj/Aspir Major JT Or Bursa W/ <pending> US Procedures Date Code Description Status 02/08/2019 86756 Interrogation Implant Cardiovasc Monitor System Incl Completed Analysis Int 02/08/2019 57098 Icd Eval With Iterative Adjustmt Multiple Lead System Completed 01/07/2019 79128 Icd Eval With Inerative Adjustmt Dual Lead System Completed 01/06/2019 02452 ECHO Transthorasic Realtime 2D W Doppler & Color Flow Hosp Completed 01/06/2019 26208 Interrogation Device Eval Remote Up To 30 Days Completed Analysis,Rev,RP 01/06/2019 28681 Icd Eval Sing,Dual,Multi Lead Remote Recpt Transm Tech Rev Completed Tech S 01/06/2019 91213 Icd Check Remote Up To 90 Days Single,Dual,Multiple Lead Completed 12/22/2018 70326 Inj/Aspir Major JT Or Bursa W/ US Completed 11/03/2018 08685 Echocardiogram, Limited Study Completed 11/03/2018 86176 Echocardiogram, Limited Study Completed 08/20/2018 69285 Icd Eval With Iterative Adjustmt Multiple Lead System Completed 08/20/2018 10665 Icd Eval With Iterative Adjustmt Multiple Lead System Completed Medical Devices Description No Information Available Encounters Type Date Location Provider Dx Diagnosis Office Visit 01/09/2019 [facility] [place], E11.649 Type 2 diabetes 8:42a spike Friedman M.D. mellitus with Hospitalists hypoglycemia without coma R55 Syncope and collapse Office Visit 01/08/2019 [facility] E11.649 Type 2 diabetes 8:42a spike Friedman M.D. mellitus with Hospitalists hypoglycemia without coma R55 Syncope and collapse Office Visit 01/07/2019 [facility] E11.649 Type 2 diabetes 8:42a spike Friedman M.D. mellitus with Hospitalists hypoglycemia without coma R55 Syncope and collapse I48.91 Unspecified atrial fibrillation Office Visit 01/06/2019 [facility] E11.649 Type 2 diabetes 8:41a spike Friedman M.D. mellitus with Hospitalists hypoglycemia without coma R55 Syncope and collapse Office Visit 12/22/2018 [facility] M16.11 Unilateral primary 10:00a [facility] Lemus osteoarthritis, right C.M.A. hip M17.0 Bilateral primary osteoarthritis of knee S83.411A Sprain of medial collateral ligament of right knee, init S83.412A Sprain of medial collateral ligament of left knee, init M25.551 Pain in right hip M25.561 Pain in right knee M25.562 Pain in left knee Office Visit 08/20/2018 cFo [place] Z95.810 Presence of 1:30p [facility] automatic Documentation Improvement Specialist (implantable) cardiac defibrillator I25.5 Ischemic cardiomyopathy I48.0 Paroxysmal atrial fibrillation E78.00 Pure hypercholesterolemia, unspecified Assessments Date Code Description Provider 02/11/2019 M16.11 Unilateral primary osteoarthritis, right Kari Lemus M.D. hip 02/11/2019 M25.561 Pain in right knee Kari Lemus M.D. 02/08/2019 Z95.810 Presence of automatic (implantable) Ica Pacer Schedule cardiac defibrillator 02/08/2019 I50.22 Chronic systolic (congestive) heart Ica Pacer Schedule failure 02/08/2019 I48.91 Unspecified atrial fibrillation Ica Pacer Schedule 02/08/2019 I25.5 Ischemic cardiomyopathy Ica Pacer Schedule 01/10/2019 R55 Syncope and collapse Temi Rhodes M.D. 01/10/2019 E11.649 Type 2 diabetes mellitus with Teim Rhodes M.D. hypoglycemia without coma 01/10/2019 I50.22 [...] Presence of automatic (implantable) Len Mckeon DO [facility] cardiac defibrillator 01/07/2019 R55 Syncope and collapse Anni Sanford M.D. 01/07/2019 R55 Syncope and collapse Len Mckeon, DO FACC 01/07/2019 I48.91 Unspecified atrial fibrillation Anni Sanford M.D. 01/06/2019 E11.649 Type 2 diabetes mellitus with Anni Sanford M.D. hypoglycemia without coma 01/06/2019 R55 Syncope and collapse Len Mckeon DO FACC 01/06/2019 R55 Syncope and collapse Anni [place] [...] Lemus M.D. 11/03/2018 I25.5 Ischemic cardiomyopathy John Edmodn M.D. 11/03/2018 I25.5 Ischemic cardiomyopathy [facility] 08/20/2018 Z95.810 Presence of automatic (implantable) Qian Montes De Oca, N.P. cardiac defibrillator 08/20/2018 I25.5 Ischemic cardiomyopathy Ica Pacer Schedule 08/20/2018 I25.5 Ischemic cardiomyopathy Qian Montes De Oca, N.P. 08/20/2018 I47.2 Ventricular tachycardia Ica Pacer Schedule 08/20/2018 Z95.810 Presence of automatic (implantable) John Edmond M.D. cardiac defibrillator 08/20/2018 Z95.810 Presence of automatic (implantable) Ica Pacer Schedule cardiac defibrillator 08/20/2018 I48.0 Paroxysmal atrial fibrillation Qian SAlee Montes De Oca, N.P. 08/20/2018 E78.00 Pure hypercholesterolemia, unspecified Qian SAlee Montes De Oca, N.P. Plan of Treatment Future Appointment(s):05/13/2019 9:45 am - K[facility]us M[facility]/23/2019 2:30 pm - [facility]03/15/2019 11:00 am - John Edmond M.D. at [facility] - Kari Lemus M.D.M16.11 Unilateral primary osteoarthritis, right hipFollow up:Follow up: 3 months for hip, as needed if knee does not qjvqafqU27.561 Pain in right knee Functional Status Description No Information Available Mental Status Description No Information Available Referrals Description No Information Available
--- OUTSIDE RECORDS SUMMARY | 2019-04-09 20:44 | XMS REPORT ---
:1940 Author Organization [facility] Address [address] [place] [address] Care Team Providers Name Role Phone Kory Toribio Unavailable Unavailable PROBLEMS Type Condition ICD9-CM [id number] Onset Condition SNOMED Code Code Code Dates Status Problem Pacemaker Z95.0 Active 547947937 Problem Normocytic anemia D64.9 Active 581302476 Problem Ischemic I25.5 Active 368578261 cardiomyopathy Problem Age-related H25.093 Active 953617335 incipient cataract of both eyes Problem Low back pain M54.5 Active 935794984 Problem long-term current Z79.4 Active 464362892 use of insulin Problem History of Z85.46 Active 225074085 prostate cancer Problem Stage 3 chronic N18.3 Active 649631220 kidney disease Problem Essential I10 Active 73833553 hypertension 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 11285788593537689 iliac artery Problem Other chronic pain G89.29 Active 94935233 Problem Type 2 diabetes E11.9 Active 258960038 mellitus without complications Problem Morbid (severe) E66.01 Active 38846709652915 obesity due to excess calories Problem Body mass index Z68.42 Active 797870942 (BMI) of 45.0-49.9 in adult ALLERGIES Substance Reaction Event Type Date Status latex rash Drug Allergy Jan, Active Paper Tape 1"x12yd rash Drug Allergy Jan, Active ENCOUNTERS Encounter Location Date Diagnosis [facility] [address] [place], [place] [address] [facility] [address] [place], [place] [address] [facility] [address] [place], [place] [address] [facility] [address] [place] [address] [place], [place] [address] [place] [address] [place], [place], [place] [address] ; Risk for falls Z91.81 ; Hyponatremia E87.1 and Stage 3 chronic kidney disease N18.[address] [place] [address] [place], [place] [address] [place] [address] [place], [place] [address] [facility] [place] [address] [facility] [place], [place] [address] [place] [address] [place], [place], [place] [address] R79.89 [place] [address] [facility] Jan, [place] [address] [place] [address] [place], [place], [place] [address] R79.[address] [place] [address] [place], Jan[place] E87[place]1 [place] [address] [place] [address] [place], Jan, Hyponatremia E87.1 [place] [address] Normocytic anemia D64.[address] [place] [address] [place], [place] [address] Dec, [place] [address] [place] [address] Dec, [place] [address] [place] [address] Dec, [place] [address] [place], Dec, Type 2 [place] [address] without complications E11.9 ; Essential hypertension I10 ; Hyponatremia E87.1 and Wheezing R06.[address] [place] [address] [place], Dec, Type 2 [place] [address] without complications E11.9 and 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 [place] [address] [place] [facility] [address] [place], [place] [address] [facility] - [facility] - [place] [address] [facility] Dec, [place] [address] Dec[place] [address] [facility] - [facility] - [place] [address] [place], [place] [address] [place] [facility] [address] [place], [place] [address] [place] [facility] [address] [place], Dec, Right hip pain M25.551 ; [place] [address] risk for fall due to comorbid condition Z91.81 ; Food insecurity Z59.4 ; Limited mobility Z74.09 and Type 2 diabetes mellitus without complications E11.9 [facility] - [facility] - [place] [address] Dec, [place] [address] [place] [facility] [address] [facility] [place] [address] [place] [address] [place], [place] [address] Oct, [place] [address] Oct, [place] [address] [place], September, Type 2 [place] [address] without complications E11.9 ; Screening for colon cancer Z12.11 and Aneurysm of left leg I72.[address] [place] [address] [place], [place] [address] [place] [address] [place], [place], Type 2 [place] [address] without complications E11.9 and long-term 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 Z79.4 [place] [facility] [address] [place], [place] [address] [place] [facility] [address] [place] [address] [place] [facility] [address] [place], [place] [address] [place] [facility] [address] [place], [place] [address] [place] [address] [place] [facility] [address] [facility] [place], [place] [address] [place] [facility] [address] [facility] [place], [place] [address] Jul, [place] [address] [place], [place] [address] Jun, Type 2 diabetes mellitus [place] without complications E11.9 [address] [place] [address] [place], Jun, Type 2 [place] [address] without complication, unspecified whether mcfp insulin use E11.9 and long-term 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 Z79.[address] [place] [address] [place], Jun, Type 2 [place] [address] without complications E11.[address] [place] [address] [place], [place] [address] Jun, [place] [address] [place], [place], [place] [address] extremity M79.[address] Jun, [place] [address] [place], [place] [address] [place] [address] May, [place] [address] May, [place] [address] May, [place] [address] [place], May, Hyponatremia E87.1 [place] [address] Apr, [place] [address] [place], Apr, Type 2 [place] [address] without complications E11.9 ; Stage 3 chronic kidney disease N18.3 and Overgrown toenails L60.[address] Apr, [place] [address] [facility] [address] [place] [address] [place], Apr, [place] [address] infection, unspecified J06.9 [place] [facility] [address] [place] [address] [place], [place], Type 2 [place] [address] without complication, unspecified whether mcfp insulin use E11.9 and 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.[address] Feb, [place] [address] [place] [address] [place], [place] [address] [facility] [address] [place] [address] [place], Jan, Type 2 [place] [address] without complications E11.9 and History of prostate cancer Z85.46 [place] [facility] [address] [place] [address] [place], [place] [address] [place], [place] [address] [place] [address] [place], Jan, Type 2 [place] [address] without complication, unspecified whether mcfp insulin use E11.9 and 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 Z79.[address] Jan, Type 2 diabetes mellitus [place] without complication, [address] unspecified whether mcfp insulin use E11.[address] [place], [place] [address] [place], [place] [address] [place], [place] [address] [place], Dec, [place] [address] hyperthyroidism E05.[address] [place], Dec, Type 2 [place] [address] without complications E11.9 ; Morbid (severe) obesity due to excess calories E66.01 ; Body mass index (BMI) of 45.0-49.9 in adult Z68.42 and Reduced ejection fraction concurrent with and due to acute heart failure I50.[address] Dec, [place] [address] [place], Nov, Normocytic anemia D64.9 [place] [address] Hyponatremia E87.[address] [place], [place] [address] [place], Nov, Type 2 [place] [address] without complications E11.9 ; long-term 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 Z79.4 ; Low back pain M54.5 ; Other chronic pain G89.29 ; Vision changes H53.9 ; Morbid (severe) obesity due to excess calories E66.01 and Body mass index (BMI) of 45.0-49.9 in adult Z68.[address] [place], [place] [address] Nov, Reduced [place] [address] concurrent with and due to acute heart failure I50.[address] Nov, Anemia, unspecified type [place], [place] D64.9 [address] [place], Nov, Normocytic [place] D64.9 [place] [address] [place], Nov, Type 2 [place] [address] without complication, unspecified whether mcfp insulin use E11.9 ; Normocytic anemia D64.9 and History of prostate cancer Z85.[address] [place], [place] [address] [place], [place] [address] [place] [address] [place], [place] [address] [place], [place] [address] [place], [place] [address] [place], Oct, Type 2 [place] [address] without complication, 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 ; Elevated serum creatinine R79.89 ; Hyperkalemia E87.5 ; Hypocalcemia E83.51 ; Screening, lipid Z13.220 ; Age-related incipient cataract of both eyes H25.093 ; Screening for colon cancer Z12.11 and Reduced ejection fraction concurrent with and due to acute heart failure I50.[address] [place], [place] [address] [place], [place] [address] [place], [place] [address] IMMUNIZATIONS No Known Immunizations SOCIAL HISTORY Never Assessed REASON FOR REFERRAL FUNCTIONAL STATUS PLAN OF CARE Activity Details Follow Up 2-3 weeks Reason:BP follow up VITAL SIGNS Temperature 96.3 degrees Fahrenheit 2019-02-10 Heart Rate 25 2019-02-10 Weight 198.9 2019-02-10 Height 58.5 in 2019-02-10 BMI 40.86 kg/m2 2019-02-10 Oximetry 96 % 2019-02-10 Blood pressure systolic 90 mm Hg 2019-02-10 Blood pressure diastolic 65 mm Hg 2019-02-10 MEDICATIONS Medication Instructions Dosage Frequency Start End Duration Status Date Date BD Insulin intramuscularly as directed 24h Jun, 30 day(s) Active Syringe 25G X daily 09/29 FreeStyle Lite - Device tid for as directed Jun, 30 day(s) Active e11.9 2018 Tamsulosin HCl Orally daily 2 capsules 24h 90 Active 0.4 MG Amiodarone HCl Orally Once a day 1 tablet 24h Active 100 MG Wheelchair - as directed Dec, Vitamin D 1000 Orally Once a day 1 tablet 24h Active UNIT Levemir 100 Subcutaneous daily 25 units in 24h Active UNIT/ML the morning and evening Magnesium 500 mg Orally Once a day 1 tablet 24h Active with a meal Jardiance 10 mg Orally Once a day 1 tablet 24h 90 Active FreeStyle Lite In Vitro tid for as directed Jun, 30 day(s) Active Test - e11.9 2018 Nitroglycerin Sublingual every 5 1 tab(s) 30 day(s) Active 0.4 MG min as needed for chest pain (3 doses w/in 15min) Aspir-81 81 MG Orally Once a day 1 tablet 24h Active Eliquis 5 MG Orally bid 12h Active D3-1000 1000 Orally Once a day 1 capsule 24h Active UNIT Isosorbide Orally Once a day 1 tablet in 24h Active Mononitrate ER the morning 60 MG Vitamin B12 1000 Orally Once a day 1 tablet 24h Active MCG Carvedilol 25 MG Orally twice a day 1 tablet 12h Active Pravastatin Orally Once a day 1 tablet 24h 30 Active Sodium 80 mg MetFORMIN HCl ER Orally Once a day 2 tablet 24h 90 Active 500 mg with evening meal PROCEDURES Procedure Date Ordered Result Body Site BODY MASS INDEX DOCD Feb 10, 2019 SMOKING + 2ND HAND ASSESSED Feb 10, 2019 Oxygen saturation results documented and reviewed Feb 10, 2019 BLOOD PRESSURE, MEASURED Feb 10, 2019 RESULTS No Results REASON FOR VISIT Blood pressure follow up, PVP: Zoster. - BL, Go over results of BMP that was drawn on 02/08/19. - BL,Called [facility]. They have not ran the lab that was drawn here on 02/08/19. I was told that [facility] would locate the specimen and run it stat and then fax the results to us. - BL Insurance Providers [facility] Member Patient Patient Patient Patient Patient Subscriber Subscriber Subscriber Group Insurance Plan Plan Plan Plan ID Relationship Address Phone Name Date of ID Name Date of No Type Insurance Insurance Insurance Coverage to Subscriber Address Phone Name Dates Medicare National Medicare doris Chi [id number] [place] [address] PPS [employer] u [address] [place] [id number] Medicare National Medicare self Alon [id number] [place] [address] PPS [employer] [employer] u [address] [place] [id number] [place] [phone] [place] self Alon [id number] Options [place] 13 [place] [address] Mc[place] Adv u [place] [facility] [phone] WellCare self Alon [id number] [place] [address] GG495 [place] Hplex Mcr Claims Hplex Mcr u [place] [address] [id number] [phone] Medicaid self Alon [id number] [facility] [address] [place] [address] u WellCare [phone] WellCare self Alon [id number] [id number] [place] P[place] Mcr Adv [place] Mcr Adv u Medical [id number] Medical Case [phone] Case self Alon [id number] Management [place] 02 Management [place] [facility] [address] [facility] u Todays [phone] Todays self Alon [id number] Option [id number] Option [place] [facility] MCRAdv u AmProg Med [id number] AmProg Med MEDICAL (GENERAL) HISTORY Type Description [...]
--- OUTSIDE RECORDS SUMMARY | 2019-04-09 20:44 | XMS REPORT ---
:1940 Author Organization [facility] Address [address] [place] [address] Care Team Providers Name Role Phone Kory Toribio Unavailable Unavailable PROBLEMS Type Condition ICD9-CM XXD67-GM Onset Condition SNOMED Code Code Code Dates Status Problem Pacemaker Z95.0 Active 537685966 Problem Normocytic anemia D64.9 Active 737511744 Problem Ischemic I25.5 Active 298410769 cardiomyopathy Problem Age-related H25.093 Active 380815222 incipient cataract of both eyes Problem Low back pain M54.5 Active 138392526 Problem [facility] current Z79.4 Active 601822446 use of insulin Problem History of Z85.46 Active 064242850 prostate cancer Problem Stage 3 chronic N18.3 Active 141258346 kidney disease Problem Essential I10 Active 94687713 hypertension 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 62625987386400602 iliac artery Problem Other chronic pain G89.29 Active 02661254 Problem Type 2 diabetes E11.9 Active 692717694 mellitus without complications Problem Morbid (severe) E66.01 Active 89203742180002 obesity due to excess calories Problem Body mass index Z68.42 Active 822916441 (BMI) of 45.0-49.9 in adult ALLERGIES No Information ENCOUNTERS Encounter Location Date Diagnosis [facility] [address] [place], [place] [address] [facility] - Resource - UNKNOWN [place], [facility] [address] [place], [place] [address] Case Management [address] [place], [place] [address] [facility] [address] Feb, [place] [address] Case Management [address] [place], [place] [address] Feb, [place] [address] Counts Include 234 Beds At [facility] [address] [facility] Jan, [place] [address] Jan, [place] [address] Jan, Essential [place]10 [place] [address] ; Risk for falls Z91.81 ; Hyponatremia E87.1 and Stage 3 chronic kidney disease N18.[address] Jan, [place] [address] Jan, [place] [address] Jan, [place] [address] R79.89 ; Abrasion hand S60.519A and Abrasion hip/leg S80.819A [facility] - Resource - [place] [address] [facility] Jan, [place] [address] [facility] [address] [facility] Jan, [place] [address] Jan, [place] [address] Jan, Hyponatremia E87.1 [place] [address] Jan, Hyponatremia E87.1 [place] [address] Normocytic anemia D64.[address] Jan, [place] [address] Counts Include 234 Beds At [facility] [address] [facility] Dec, [place] [address] Counts Include 234 Beds At [facility] [address] [place] [address] Dec, [place] [address] Counts Include 234 Beds At [facility] [address] [facility] Dec, [place] [address] Dec, Type 2 [place] [address] without complications E11.9 ; Essential hypertension I10 ; Hyponatremia E87.1 and Wheezing R06.[address] Dec, Type 2 [place] [address] without complications E11.9 and [facility] 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 Z79.4 [facility] - Resource - [place] [address] [facility] Dec, [place] [address] [facility] [address] [facility] Dec, [place] [address] [facility] [address] [place] [address] [place] [address] Counts Include 234 Beds At [facility] [address] [place] [address] Dec, [place] [address] [facility] - Resource - [place] [address] [facility] Dec, [place] [address] [facility] [address] [place] [address] [place], [place] [address] [facility] - Resource - [place] [address] [facility] Dec, [place] [address] Counts Include 234 Beds At [facility] [address] [place] [address] [place], [place] [address] [facility] - Resource - [place] [address] [facility] Dec, [place] [address] Dec, [place] [address] Dec, Right hip pain M25.551 ; [place] [address] risk for fall due to comorbid condition Z91.81 ; Food insecurity Z59.4 ; Limited mobility Z74.09 and Type 2 diabetes mellitus without complications E11.9 [facility] - Resource - [place] [address] [facility] Dec, [place] [address] Nov, [place] [address] Nov, [place] [address] Oct, [place] [address] Oct, [place] [address] September, Type 2 [place] [address] without complications E11.9 ; Screening for colon cancer Z12.11 and Aneurysm of left leg I72.4 [facility] [address] [place] [address] September, [place] [address] September, Type 2 [place] [address] without complications E11.9 and long term care pharmacist 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 Z79.4 [facility] [address] [place] [address] September, [place] [address] September, [place] [address] [facility] [address] Aug, [place] [address] [facility] [address] Aug, [place] [address] Counts Include 234 Beds [facility] [address] [place] [address] Jul, [place] [address] [facility] [address] Jul, [place] [address] [facility] [address] Jul, [place] [address] Counts Include 234 Beds At [facility] [address] [place] [address] Jul, [place] [address] [facility] [address] Jun, [place] [address] Counts Include 234 Beds [facility] [address] [place] [address] Jun, Type 2 diabetes mellitus [place] without complications E11.9 [address] [facility] [address] [place] Jun, Type 2 [place] [address] without complication, unspecified whether fci insulin use E11.9 and [facility] 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 Z79.4 [facility] [address] Jun, Type 2 [place] [address] without complications E11.9 [facility] [address] Jun, [place] [address] Counts Include 234 Beds At [facility] [address] [place] [address] Jun, [place] [address] [facility] [address] [facility] Jun, [place] [address] extremity [address] Jun, [facility] [place] [address] [facility] [address] Jun, [place] [address] [facility] [address] Jun, [place] [address] May, [facility] [address] Counts Include 234 Beds At [facility] [address] [place] [address] May, [place] [address] May, [place] [address] [facility] [address] May, Hyponatremia E87.1 [place] [address] Apr, [place] [address] Apr, Type 2 [place] [address] without complications E11.9 ; Stage 3 chronic kidney disease N18.3 and Overgrown toenails L60.[address] Apr, [place] [address] Apr, [place] [address] infection, unspecified J06.[address] Mar, Type 2 [place] [address] without complication, unspecified whether rodent exterminator insulin use E11.9 and long term care pharmacist 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 Z79.[address] Mar, [place] [address] Mar, [place] [address] Feb, [place] [address] [address] Feb, [place], [place] [address] D64.9 ; Elevated serum creatinine R79.89 and Encounter for immunization Z23 [facility] [address] [place], Feb, [facility] [address] [facility] [employer] [address] [place], Feb, [facility] [address] Feb, [place] [address] [facility] [address] [place], Feb, Type 2 [place] [address] without complication, unspecified whether fci insulin use E11.9 and long term care pharmacist 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 Z79.4 Counts Include 234 Beds At [facility] [address] [facility] Feb, [place] [address] [place] [address] [place] Jan, [place] [address] Jan, Type 2 [place] [address] without complications E11.9 and History of prostate cancer Z85.46 [place] [address] [place] Jan, [place] [address] [place] [address] [place] Jan, [place] [address] Jan, Type 2 [place] [address] without complication, unspecified whether fci insulin use E11.9 and [facility] 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 Z79.[address] Jan, Type 2 diabetes mellitus [place] without complication, [address] unspecified whether rodent exterminator insulin use E11.[address] Jan, [place] [address] Dec, [place] [address] Dec, [place] [address] Dec, [place] [address] hyperthyroidism E05.[address] Dec, Type 2 [place] [address] without complications E11.9 ; Morbid (severe) obesity due to excess calories E66.01 ; Body mass index (BMI) of 45.0-49.9 in adult Z68.42 and Reduced ejection fraction concurrent with and due to acute heart failure I50.[address] Dec, [place] [address] Nov, Normocytic anemia D64.9 [place] [address] Hyponatremia E87.[address] Nov, [place] [address] Nov, Type 2 [place] [address] without complications E11.9 ; long term care pharmacist 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 Z79.4 ; Low back pain M54.5 ; Other chronic pain G89.29 ; Vision changes H53.9 ; Morbid (severe) obesity due to excess calories E66.01 and Body mass index (BMI) of 45.0-49.9 in adult Z68.[address] Nov, [place] [address] Nov, Reduced ejection fraction [place] [address] acute heart failure I50.[address] Nov, Anemia, unspecified type [place] D64.9 [address] [place] [address] [place] Nov, Normocytic anemia D64.9 [place] [address] [place] [address] [place] Nov, Type 2 [place] [address] without complication, unspecified whether fci insulin use E11.9 ; Normocytic anemia D64.9 and History of prostate cancer Z85.46 [place] [address] [place] Nov, [place] [address] [place] [address] [place] [address] Nov, [place] [address] [place] [address] [place] [address] [place] [address] [place] Oct, [place] [address] [place] [address] [place] Oct, Type 2 [place] [address] without complication, unspecified whether rodent exterminator insulin use E11.9 ; Elevated serum creatinine R79.89 ; Hyperkalemia E87.5 ; Hypocalcemia E83.51 ; Screening, lipid Z13.220 ; Age-related incipient cataract of both eyes H25.093 ; Screening for colon cancer Z12.11 and Reduced ejection fraction concurrent with and due to acute heart failure I50.21 [place] [address] [place] September, [place] [address] [place] [address] [place] Aug, [place] [address] [place] [address] [place] Aug, [place] [address] IMMUNIZATIONS No Known Immunizations SOCIAL HISTORY Never Assessed REASON FOR REFERRAL FUNCTIONAL STATUS PLAN OF CARE VITAL SIGNS MEDICATIONS Medication Instructions Dosage Frequency Start End Duration Status Date Date MetFORMIN HCl ER Orally Once a day 2 tablet 24h 90 Active 500 mg with evening meal Jardiance 10 mg Orally Once a day 1 tablet 24h 90 Active Amiodarone HCl Orally Once a day 1 tablet 24h Active 100 MG Vitamin B12 1000 Orally Once a day 1 tablet 24h Active MCG Isosorbide Orally Once a day 1 tablet in 24h Active Mononitrate ER the morning 60 MG Wheelchair - as directed Dec, 2019 Aspir-81 81 MG Orally Once a day 1 tablet 24h Active Pravastatin Orally Once a day 1 tablet 24h 30 Active Sodium 80 mg Eliquis 5 MG Orally bid 12h Active Tamsulosin HCl Orally daily 2 capsules 24h 90 Active 0.4 MG Vitamin D 1000 Orally Once a day 1 tablet 24h Active UNIT BD Insulin intramuscularly as directed 24h 22 Jun, 30 day(s) Active Syringe 25G X daily 09/29 D3-1000 1000 Orally Once a day 1 capsule 24h Active UNIT Quinapril HCl 10 Orally Once a day 1 tablet 24h Active mg FreeStyle Lite In Vitro tid for as directed Jun, day(s) Active Test - e11.9 2018 Nitroglycerin Sublingual every 5 1 tab(s) 30 day(s) Active 0.4 MG min as needed for chest pain (3 doses w/in 15min) Carvedilol 25 MG Orally twice a day 1 tablet 12h Active FreeStyle Lite - Device tid for as directed Jun, day(s) Active e112018 Levemir 100 Subcutaneous daily 25 units in 24h Active UNIT/ML the morning and evening Magnesium 500 mg Orally Once a day 1 tablet 24h Active with a meal PROCEDURES Procedure Date Ordered Result Body Site VENIPUNCT, ROUTINE* venous blood collection Feb 08, 2019 RESULTS Name Result Date Reference Range - Blood Draw Venipuncture 2019-02-08 REASON FOR VISIT Lab Draw, See 02/03/19 telephone encounter Insurance Providers [facility] Member Patient Patient Patient Patient Patient Subscriber Subscriber Subscriber Group Insurance Plan Plan Plan Plan ID Relationship Address Phone Name Date of ID Name Date of No Type Insurance Insurance Insurance Coverage to Subscriber Address Phone Name Dates Medicare National [id number] Medicare self [place] [id number] PPS Government 41 PPS [place] [employer] u [address] [facility] [id number] WellCare [phone] WellCare self [place]on [id number] [place] 9255 Att[address] 83 [phone] [place] Hplex Mcr Claims Hplex Mcr u Adv Dept Adv [facility] [address] Case [phone] Case self [place]on [id number] Management [place] 02 Management [place] [facility] [address] Community u Medicaid [id number] [phone] Medicaid self [place] [id number] [facility] [address] [place] [address] u WellCare [phone] WellCare self [place] [id number] [id number] [place] P[place] Mcr Adv [place] Mcr Adv u Medical [id number] Medical [place] [phone] Todays self Alon [id number] Option [id number] Option [place] MCRAdv [facility] MCRAdv u AmProg Med [id number] AmProg Med [place] [phone] Todays self [place]on [id number] Options [place] 13 Options [place] Mcr Adv [address] Mcr Adv u [place] Medicare National [phone] Medicare self [place] [id number] PPS Government 41 PPS [place] [employer] u [address] [facility] [id number] MEDICAL (GENERAL) HISTORY Type Description Date Medical [...]
--- OUTSIDE RECORDS SUMMARY | 2019-04-09 20:44 | XMS REPORT ---
:1940 Author Organization [facility] Address [address] [place] [address] Care Team Providers Name Role Phone Kory Toribio Unavailable Unavailable PROBLEMS Type Condition ICD9-CM [id number] Onset Condition SNOMED Code Code Code Dates Status Problem Pacemaker Z95.0 Active 172734606 Problem Normocytic anemia D64.9 Active 204669011 Problem Ischemic I25.5 Active 201892731 cardiomyopathy Problem Age-related H25.093 Active 623216089 incipient cataract of both eyes Problem Low back pain M54.5 Active 561010244 Problem senior care current Z79.4 Active 029709605 use of insulin Problem History of Z85.46 Active 791605213 prostate cancer Problem Stage 3 chronic N18.3 Active 837248678 kidney disease Problem Essential I10 Active 39622534 hypertension 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 [id number] iliac artery Problem Other chronic pain G89.29 Active 78191409 Problem Type 2 diabetes E11.9 Active 790347072 mellitus without complications Problem Morbid (severe) E66.01 Active 24440108432948 obesity due to excess calories Problem Body mass index Z68.42 Active 075297736 (BMI) of 45.0-49.9 in adult ALLERGIES No Information ENCOUNTERS Encounter Location Date Diagnosis [facility] [address] [place], [place] [address] [facility] - Resource - UNKNOWN [place], [facility] [address] [place], [place] [address] Case Management [address] [place], [place] [address] [facility] [address] Feb, [place] [address] Case Management [address] [place], [place] [address] Feb[place] [address] [facility] [address] [facility] Jan, [place] [address] Jan, [place] [address] Jan, Essential hypertension I10 [place] [address] ; Risk for falls Z91.81 ; Hyponatremia E87.1 and Stage 3 chronic kidney disease N18.[address] Jan, [place] [address] Jan, [place] [address] Jan, [place] [address] R79.89 ; Abrasion hand S60.519A and Abrasion hip/leg S80.819A [facility] - Resource - [place] [address] [facility] Jan, [place] [address] [facility] [address] [facility] Jan, [place] [address] Jan, Elev[place] [address] Jan, Hyponatremia E87.1 [place] [address] Jan, Hyponatremia E87.1 [place] [address] Normocytic anemia D64.[address] Jan, [place] [address] [facility] [address] [facility] Dec, [place] [address] [facility] [address] [place] [address] Dec, [place] [address] [facility] [address] [facility] Dec, [place] [address] Dec, Type 2 [place] [address] without complications E11.9 ; Essential hypertension I10 ; Hyponatremia E87.1 and Wheezing R06.[address] Dec, Type 2 [place] [address] without complications E11.9 and senior care 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 Z79.4 [facility] - Resource - [place] [address] [facility] Dec, [place] [address] [facility] [address] [facility] Dec, [place] [address] [facility] [address] [place] [address] [place] [address] [facility] [address] [place] [address] Dec, [place] [address] [facility] - Resource - [place] [address] [facility] Dec, [place] [address] [facility] [address] [place] [address] [place], [place] [address] [facility] - Resource - [place] [address] [facility] Dec, [place] [address] [facility] [address] [place] [address] [place] [address] [facility] - Resource - [place] [address] [facility] Dec, [place] [address] Dec, [place] [address] Dec, Right hip pain M25.551 ; [place] [address] risk for fall due to comorbid condition Z91.81 ; Food insecurity Z59.4 ; Limited mobility Z74.09 and Type 2 diabetes mellitus without complications E11.9 [facility] - Resource - [place] [address] [facility] Dec, [place] [address] Nov, [place] [address] Nov, [place] [address] Oct, [place] [address] Oct, [place] [address] September, Type 2 [place] [address] without complications E11.9 ; Screening for colon cancer Z12.11 and Aneurysm of left leg I72.4 [facility] [address] [place] [address] September, [place] [address] September, Type 2 [place] [address] without complications E11.9 and 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 [facility] [address] [place] [address] September, [place] [address] September, [place] [address] [facility] [address] Aug, [place] [address] [facility] [address] Aug, [place] [address] [facility] [address] [place] [address] [place] [address] [facility] [address] Jul, [place] [address] [facility] [address] Jul, [place] [address] [facility] [address] [place] [address] Jul, [place] [address] [facility] [address] Jun, [place] [address] [facility] [address] [place] [address] Jun, Type 2 diabetes mellitus [place] without complications E11.9 [address] [facility] [address] [place] Jun, Type 2 [place] [address] without complication, unspecified whether mcc insulin use E11.9 and senior care 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 Z79.4 [facility] [address] Jun, Type 2 [place] [address] without complications E11.9 [facility] [address] Jun, [place] [address] [facility] [address] [place] [address] Jun, [place] [address] [facility] [address] [facility] Jun, [place] [address] extremity M79.[address] Jun, [place] [address] [facility] [address] Jun, [place] [address] [facility] [address] [place] [address] May, [facility] [address] [facility] [address] [place] [address] May, [place] [address] May, [place] [address] [facility] [address] May, Hyponatremia E87.1 [place] [address] Apr, [place] [address] Apr, Type 2 [place] [address] without complications E11.9 ; Stage 3 chronic kidney disease N18.3 and Overgrown toenails L60.[address] Apr, [place] [address] Apr, [place] [address] infection, unspecified J06.[address] Mar, Type 2 [place] [address] without complication, unspecified whether termite control service representative insulin use E11.9 and 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 [address] [facility] [address] [place], Feb, 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 [facility] [address] [facility] Feb, [place] [address] [place] [address] [place] Jan, [place] [address] Jan, Type 2 [place] [address] without complications E11.9 and History of prostate cancer Z85.46 [place] [address] [place] Jan, [place] [address] [place] [address] [place] Jan, [place] [address] Jan, Type 2 [place] [address] without complication, unspecified whether mcc insulin use E11.9 and senior care 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 Z79.[address] Jan, Type 2 diabetes mellitus [place] without complication, [address] unspecified whether termite control service representative insulin use E11.[address] Jan, [place] [address] Dec, [place] [address] Dec, [place] [address] Dec, [place] [address] hyperthyroidism E05.[address] Dec, Type 2 [place] [address] without complications E11.9 ; Morbid (severe) obesity due to excess calories E66.01 ; Body mass index (BMI) of 45.0-49.9 in adult Z68.42 and Reduced ejection fraction concurrent with and due to acute heart failure I50.[address] Dec, [place] [address] Nov, Normocytic anemia D64.9 [place] [address] Hyponatremia E87.[address] Nov, [place] [address] Nov, Type 2 [place] [address] without complications E11.9 ; 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 ; Low back pain M54.5 ; Other chronic pain G89.29 ; Vision changes H53.9 ; Morbid (severe) obesity due to excess calories E66.01 and Body mass index (BMI) of 45.0-49.9 in adult Z68.[address] Nov, [place] [address] Nov, Reduced ejection fraction [place] concurrent [place] [address] acute heart failure I50.[address] Nov, Anemia, unspecified type [place] D64.9 [address] [place] [address] [place] Nov, Normocytic anemia D64.9 [place] [address] [place] [address] [place] Nov, Type 2 [place] [address] without complication, unspecified whether mcc insulin use E11.9 ; Normocytic anemia D64.9 and History of prostate cancer Z85.46 [place] [address] [place] Nov, [place] [address] [place] [address] [place] [address] Nov, [place] [address] [place] [address] [place] Oct, [place] [address] [place] [address] [place] Oct, [place] [address] [place] [address] [place] Oct, Type 2 [place] [address] without complication, unspecified whether termite control service representative insulin use E11.9 ; Elevated serum creatinine R79.89 ; Hyperkalemia E87.5 ; Hypocalcemia E83.51 ; Screening, lipid Z13.220 ; Age-related incipient cataract of both eyes H25.093 ; Screening for colon cancer Z12.11 and Reduced ejection fraction concurrent with and due to acute heart failure I50.21 [place] [address] September, [place] [address] [place] [address] Aug, [place] [address] [place] [address] [place] Aug, [place] [address] IMMUNIZATIONS No Known Immunizations SOCIAL HISTORY Never Assessed REASON FOR REFERRAL FUNCTIONAL STATUS PLAN OF CARE VITAL SIGNS MEDICATIONS Unknown Medications PROCEDURES No Known procedures RESULTS No Results REASON FOR VISIT request for transportation Insurance Providers [facility] Member Patient Patient Patient Patient Patient Subscriber Subscriber Subscriber Group Insurance Plan Plan Plan Plan ID Relationship Address Phone Name Date of ID Name Date of No Type Insurance Insurance Insurance Coverage to Subscriber Address Phone Name Dates [facility] [phone] [employer] self Alon [id number] [id number] P[place] Mc[place] Adv [place] Mcr Adv u Medical [id number] Medical [facility] [phone] [employer] self Alon [id number] [place] [address] [place] Hplex Mcr Claims Hplex Mcr u Adv Dept Adv [facility] [address] [phone] Medicaid self Alon [id number] [facility] [address] [place] [address] u Medicare National [id number] Medicare self Alon [id number] PPS Government 41 PPS [place] Services u [address] [place] [id number] [place] [phone] [place] self Alon [id number] Options [place] 13 Options [place] Mcr Adv [id number] Mcr Adv u [place] Medicare National [phone] Medicare self Alon [id number] PPS Government 41 PPS [place] Services u [address] [place] [id number] [place] [phone] [place] self Alon [id number] Option [id number] Option [place] MCRAdv [facility] MCRAdv u AmProg Med [id number] AmProg Med Case [phone] Case self Alon [id number] Management [place] 02 Management [facility] [address] [facility] MEDICAL (GENERAL) HISTORY Type Description Date Medical [...]
[2019-04-09] MEDS ORDERED: Iodixanol* (CONTRAST) 320 MG/ML 100 ML SDV IV ONE (21:14)
[2019-04-09 22:58] LABS: Urine Appearance Clear; Urine Color Yellow
[2019-04-09 23:00] LABS: Urine Bacteria Absent (Absent); Urine Red Blood Cell Absent (Absent); Urine Urobilinogen Negative (Negative); Urine White Blood Cell Absent (Absent)
[2019-04-09 23:01] LABS: Urine Bilirubin Negative (Negative); Urine Blood Negative (Negative); Urine Glucose 3+(>=500 mg/dL) (Negative); Urine Ketones Negative (Negative); Urine Nitrite Negative (Negative); Urine Protein Negative (Negative)
[2019-04-09 23:55] VITALS: BP 124/76
== END 2019-04-09 23:54 | disposition home or self-care (01) ==
LOC: ED 19:56
DX: K56.609 Unspecified intestinal obstruction, unspecified as to partial versus complete obstruction (principal); R10.9 Unspecified abdominal pain; E11.9 Type 2 diabetes mellitus without complications; I10 Essential (primary) hypertension; I25.2 Old myocardial infarction; I25.10 Atherosclerotic heart disease of native coronary artery without angina pectoris; E78.00 Pure hypercholesterolemia, unspecified; Z87.891 Personal history of nicotine dependence; Z79.01 Long term (current) use of anticoagulants; Z95.810 Presence of automatic (implantable) cardiac defibrillator; Z86.14 Personal history of Methicillin resistant Staphylococcus aureus infection
CPT/HCPCS: 36415; 74177; 80053; 81003; 83605; 83690; 85025; 96360; 96361; 99282; Q9967

== ENCOUNTER 2021-02-07 23:16 | Inpatient (IN) ==
[2021-02-07] MEDS ORDERED: Ondansetron 4 mg VIAL 2 MG/ML 2 ml VIAL IV ONE (23:51)
[2021-02-07] MEDS ORDERED: Morphine 4 MG/ML VIAL (1 ml) IV ONE (23:51)
[2021-02-08 00:51] LABS: Albumin 4.1 g/dL (3.2-5.2); Albumin/Globulin Ratio 1.4 (1-3); C Reactive Protein 8.51 mg/L (<8.01); Calcium 9.7 mg/dL (8.6-10.3); EGFR African American 66.5 (>60); EGFR Non-African American 54.9 (>60); Globulin 2.9 g/dL (2-4); Total Bilirubin 0.6 mg/dL (0.2-1.0)
[2021-02-08 00:54] LABS: ABS Eosinophils 0.3 10^3/ul (0-0.6); ABS Lymphocytes 0.9 10^3/ul (1.0-4.8); ABS Monocytes 0.8 10^3/ul (0-0.8); ABS Neutrophils 8.2 10^3/ul (1.5-7.7); Eosinophil % 2.6 %; Hematocrit 40 % (42-52); Lymphocyte % 8.4 %; Mean Corpuscular HGB Conc 35 g/dL (31-36); Mean Corpuscular Hemoglobin 32 pg (27-31); Mean Corpuscular Volume 92 fL (80-94); Mean Platelet Volume 7.8 fL (7.4-10.4); Platelet Count 190 10^3/uL (150-450); Red Blood Count 4.34 10^6 /uL (4.18-5.48); Red Cell Distribution Width 14 % (10-15); White Blood Count 10.2 10^3/uL (3.5-10.8)
[2021-02-08] MEDS ORDERED: Iodixanol (CONTRAST) 320 MG/ML 100 ML SDV IV ONE (01:45)
[2021-02-08 04:03] LABS: Urine Appearance Turbid; Urine Bilirubin Negative (Negative); Urine Blood 1+ (Negative); Urine Color Yellow; Urine Glucose 3+(>=500 mg/dL) (Negative); Urine Ketones Negative (Negative); Urine Nitrite Negative (Negative); Urine Protein 2+(100 mg/dL) (Negative); Urine Specific Gravity 1.022 (1.002-1.030); Urine Urobilinogen Negative (Negative)
[2021-02-08 04:28] LABS: Urine Bacteria Absent (Absent); Urine Red Blood Cell 3+(>10/hpf) (Absent); Urine White Blood Cell 3+(>20/hpf) (Absent)
[2021-02-08] MEDS ORDERED: Morphine 4 MG/ML VIAL (1 ml) IV ONE (04:33)
[2021-02-08] MEDS ORDERED: Ondansetron 4 mg VIAL 2 MG/ML 2 ml VIAL IV PRN (06:01)
[2021-02-08] MEDS ORDERED: Morphine 2 MG/ML SYRINGE IV PRN (06:05)
[2021-02-08 07:38] LABS: Rapid COVID-19 Molecular Undetected (Undetected)
[2021-02-08] MEDS ORDERED: cefTRIAXone 1 gm/50 mL NS BAG 1 GM/50 ML BAG ONE (08:00)
[2021-02-08] MEDS: cefTRIAXone 1 gm/50 mL NS BAG 1 GM/50 ML BAG IVPB SCH (08:02)
[2021-02-08] MEDS: Enoxaparin 100 MG/ML SYR SUBCUT SCH ×2 (08:06→20:24)
[2021-02-08] MEDS ORDERED: Lactated Ringers 1000 ml BAG 1,000 ML IV SCH (09:00)
[2021-02-08] MEDS: Pantoprazole VIAL 40 MG VIAL IV SCH (10:21)
[2021-02-08] MEDS: NS 0.9% 1000 ml BAG 1,000 ML IV SCH (10:28)
[2021-02-08] MEDS ORDERED: Metoprolol Tartrate 5 mg VIAL 5 ml VIAL (1 mg/ml) IV PRN (13:38)
[2021-02-08] MEDS ORDERED: Dextrose 50% Syringe 50 ml 25 GM/50 ML SYRINGE IV PUSH PRN (16:38)
[2021-02-09 05:20] LABS: ABS Eosinophils 0.2 10^3/ul (0-0.6); ABS Lymphocytes 0.4 10^3/ul (1.0-4.8); ABS Monocytes 0.5 10^3/ul (0-0.8); ABS Neutrophils 7.6 10^3/ul (1.5-7.7); Eosinophil % 1.8 %; Hematocrit 38 % (42-52); Lymphocyte % 4.5 %; Mean Corpuscular HGB Conc 34 g/dL (31-36); Mean Corpuscular Hemoglobin 32 pg (27-31); Mean Corpuscular Volume 93 fL (80-94); Mean Platelet Volume 7.9 fL (7.4-10.4); Platelet Count 157 10^3/uL (150-450); Red Blood Count 4.04 10^6 /uL (4.18-5.48); Red Cell Distribution Width 14 % (10-15); White Blood Count 8.7 10^3/uL (3.5-10.8)
[2021-02-09] MEDS: NS 0.9% 1000 ml BAG 1,000 ML IV SCH (05:26)
[2021-02-09 05:39] LABS: Calcium 8.4 mg/dL (8.6-10.3); EGFR African American 59.3 (>60); Potassium 4.3 mmol/L (3.5-5.0)
[2021-02-09] MEDS: Pantoprazole VIAL 40 MG VIAL IV SCH (08:11)
[2021-02-09] MEDS: cefTRIAXone 1 gm/50 mL NS BAG 1 GM/50 ML BAG IVPB SCH (08:13)
[2021-02-09] MEDS: Enoxaparin 100 MG/ML SYR SUBCUT SCH ×2 (08:14→21:07)
[2021-02-10 04:28] LABS: ABS Eosinophils 0.3 10^3/ul (0-0.6); ABS Lymphocytes 0.9 10^3/ul (1.0-4.8); ABS Monocytes 0.7 10^3/ul (0-0.8); ABS Neutrophils 3.9 10^3/ul (1.5-7.7); Hematocrit 34 % (42-52); Hemoglobin 11.9 g/dL (14.0-18.0); Lymphocyte % 15.3 %; Mean Corpuscular HGB Conc 35 g/dL (31-36); Mean Corpuscular Hemoglobin 33 pg (27-31); Mean Corpuscular Volume 93 fL (80-94); Mean Platelet Volume 7.2 fL (7.4-10.4); Nucleated Red Blood Cells % 0.1; Platelet Count 155 10^3/uL (150-450); Red Blood Count 3.66 10^6 /uL (4.18-5.48); Red Cell Distribution Width 14 % (10-15); White Blood Count 5.8 10^3/uL (3.5-10.8)
[2021-02-10 04:50] LABS: EGFR African American 64.1 (>60)
[2021-02-10] MEDS: Enoxaparin 100 MG/ML SYR SUBCUT SCH (08:05)
[2021-02-10] MEDS: Pantoprazole VIAL 40 MG VIAL IV SCH (08:06)
[2021-02-10] MEDS: cefTRIAXone 1 gm/50 mL NS BAG 1 GM/50 ML BAG IVPB SCH (08:24)
[2021-02-10 12:16] VITALS: BP 113/59
== END 2021-02-10 14:50 | disposition home or self-care (01) | DRG 389 ==
LOC: ED 23:16 → SUATTDRO 02-08 06:01 → SSU 02-08 06:01
PROVIDERS: ADMIT Internal Medicine; ATTEND Hospitalist